=== PATIENT | female | born 1970 | race Caucasian/White ===

== ENCOUNTER → 2020-05-22 08:54 | Outpatient (BNVA) | payer OTHER, SELFPAY | PROVIDERS: PCP Internal Medicine; Referring Provider Internal Medicine; Visit Provider Hospitalist | DX: J45.909 Unspecified asthma, uncomplicated (principal); J40 Bronchitis, not specified as acute or chronic; J31.0 Chronic rhinitis; G47.33 Obstructive sleep apnea (adult) (pediatric); Z79.899 Other long term (current) drug therapy; Z99.89 Dependence on other enabling machines and devices | CPT/HCPCS: 99214; Q3014 ==

== ENCOUNTER → 2020-08-07 10:29 | Outpatient (BNVA) | payer OTHER, SELFPAY | PROVIDERS: Visit Provider Urology | DX: Z76.89 Persons encountering health services in other specified circumstances (principal) ==

== ENCOUNTER → 2020-08-28 14:47 | Outpatient (BNVA) | payer OTHER, SELFPAY | PROVIDERS: PCP Internal Medicine; Visit Provider Hospitalist | DX: Z76.89 Persons encountering health services in other specified circumstances (principal) ==

== ENCOUNTER → 2020-12-28 14:00 | Outpatient (BNVA) | payer OTHER, SELFPAY | PROVIDERS: PCP Internal Medicine; Visit Provider Hospitalist | DX: J31.0 Chronic rhinitis (principal); G47.33 Obstructive sleep apnea (adult) (pediatric); Z99.89 Dependence on other enabling machines and devices; J45.41 Moderate persistent asthma with (acute) exacerbation | CPT/HCPCS: 99212 ==

== ENCOUNTER 2021-04-29 10:21 | Emergency (ER) | payer OTHER, SELFPAY ==
--- NOTE | ~2021-04-29 | CT_ITS ---
EXAMINATION: CT angio head neck CLINICAL INFORMATION: Headache. COMPARISON: No relevant prior imaging. TECHNIQUE: Research Analyst images were obtained. A CT angiogram of the head and neck was performed in the arterial phase after the intravenous administration of 70 mL Omnipaque 350. Pre and delayed postcontrast images of the head were also obtained. MIP reconstructions were generated in multiple orientations at the acquisition workstation. Multiple three-dimensional surface rendered images and maximum intensity projection images were generated on a dedicated 3-D lab workstation. Arterial stenoses are measured in accordance with NASCET criteria or similar method if applicable. This CT examination was performed using dose optimization techniques as appropriate, including one or more of the following: Automated exposure control, iterative reconstruction, and adjustment of technique factors (mA and/or kVp) according to patient size (this includes techniques or standardized protocols for targeted exams where dose is matched to indication/reason for exam). Total exam dose-length product 2342 mGy-cm FINDINGS: Head: There is no acute intracranial hemorrhage or abnormal extra-axial collection. Postcontrast images reveal no abnormal mass or enhancement within the intracranial compartment. No intracranial mass effect or midline shift. Lateral and third ventricles are normal. No hydrocephalus. Armijo-white matter differentiation is preserved and there is no evidence of acute territorial infarct. The calvarium and skull base are intact. Mastoid air cells and middle ear cavities are well-aerated. No active paranasal sinus disease. CT angiogram neck: The aortic arch apex is normal. Origins of the major aortic branches are widely patent. Common carotid arteries and carotid bifurcations are normal. No stenosis of the extracranial internal carotid arteries. The cervical segments of the vertebral arteries as well as their origins are patent. CT angiogram head: Intracranial internal carotid arteries are patent. There is an inferomedially projecting contour abnormality involving the supraclinoid segment of the left internal carotid artery measuring 2 mm from base apex. This finding is best depicted on axial image 356 of 1101 series 10. Intradural vertebral artery segments and basilar artery are patent. Anterior, middle, and posterior cerebral artery complexes are normal. No intracranial large vessel occlusion. The timing of contrast injection provides adequate opacification of the dural venous sinuses which are patent. Other: Soft tissues of the neck including the thyroid gland are normal. There is no acute osseous finding. Specifically no worrisome lytic or blastic osseous lesion. 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 CT/CT angio head neck IMPRESSION: There is no acute territorial infarct or hemorrhage. No abnormal intracranial mass or enhancement. The CT angiogram component of this examination reveals no stenosis of the cervical carotid or vertebral arteries. No intracranial large vessel occlusion. Incidentally there is a 2 mm inferomedially projecting contour and moderate involving the supraclinoid segment of the left internal carotid artery that may represent a small vascular infundibulum or aneurysm. 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 If there are clinical symptoms of compressive myelopathy then a dedicated cervical spine MRI can be obtained for better anatomic characterization of the cord and canal.
[2021-04-29 11:26] VITALS: BP 141/93; PULSE 70; RESP 16; TEMP 36.1; O2SAT 98; BMI 44.4
--- NOTE | 2021-04-29 11:37 | ED_ITS ---
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 Mode of arrival: ambulatory Limitations: no limitations Related Data Home Medications Medication Instructions Recorded Confirmed cetirizine 10 mg tablet mg PO 05/16/20 12/28/20 clonazepam 0.5 mg tablet 0.5 mg PO TID PRN 05/16/20 12/28/20 epinephrine 0.3 mg/0.3 mL IM 05/16/20 12/28/20 injection, auto-injector famotidine 10 mg tablet 10 mg PO BID 05/16/20 12/28/20 ferrous sulfate 325 mg (65 mg 325 mg PO DAILY 05/16/20 12/28/20 iron) tablet,delayed release fluconazole 150 mg tablet 150 mg PO ONCE 05/16/20 12/28/20 fluoxetine 20 mg capsule mg PO 05/16/20 12/28/20 loratadine 10 mg tablet 10 mg PO DAILY 05/16/20 12/28/20 metoprolol succinate 25 mg 25 mg PO DAILY 05/16/20 12/28/20 tablet,extended release 24 hr omeprazole 20 mg capsule,delayed 20 mg PO DAILY 05/16/20 12/28/20 release oxybutynin chloride 15 mg 15 mg PO DAILY 05/16/20 12/28/20 tablet,extended release 24 hr zolpidem 10 mg tablet 10 mg PO BEDTIME PRN 05/16/20 12/28/20 Previous Rx's Medication Instructions Recorded fluticasone propionate 50 2 spray INTRANASAL DAILY 30 Days 05/22/20 mcg/actuation nasal #15.8 ml spray,suspension oxybutynin chloride 10 mg 10 mg PO DAILY 90 Days #90 tab 08/07/20 tablet,extended release 24 hr azithromycin 500 mg tablet 500 mg PO DAILY 3 Days #3 tab 08/28/20 prednisone 20 mg tablet 20 mg PO DAILY 10 Days #15 tab 08/28/20 montelukast 10 mg tablet 10 mg PO DAILY #30 tab 12/03/20 fluticasone fur. 200 mcg-umeclid 1 inh INHALATION DAILY 30 Days #60 12/28/20 62.5 mcg-vilant 25 mcg ea inhalat.powder (Trelegy Ellipta) budesonide 0.5 mg/2 mL suspension 0.5 mg INHALATION BID 30 Days #120 02/16/21 for nebulization ml Allergies Allergy/AdvReac Type Severity Reaction Status Date / Time acetaminophen [Percocet] Allergy Severe palpitations/shortness Verified 12/28/20 14:26 of breath Benadryl Allergy Severe palpitation Verified 12/28/20 14:26 s hydroxyzine [From VISTARIL] Allergy Severe PALPATATION Verified 12/28/20 14:26 oxycodone [From PERCOCET] Allergy Severe PALPIATIONS Verified 12/28/20 14:26 tramadol [TRAMADOL] Allergy Severe UNKNOWN, Verified 12/28/20 14:26 swelling/hives [facility] Past Medical History Medical History (Updated 08/30/20 @ 23:54 by Jose F Mccallum MD) Asthma Chronic rhinitis MANJULA on CPAP Surgical History delivery delivered History of bilateral tubal ligation History of dilatation and curettage Family History Family History Mother FHx: uterine cancer FHx: brain cancer Father FHx: lung cancer Social History Social History (Updated 08/28/20 @ 14:51 by YAMILE Laws) Years Smoked: 12 years Advance Directives: Yes Advance Directives Information Provided: Yes Advance Directives on File: No Physical Exam Vital Signs: Vital Signs: Last Vital Signs Temp 97 F 04/29/21 11:26 Pulse 70 04/29/21 11:26 Resp 16 04/29/21 11:26 BP 141/93 H 04/29/21 11:26 Pulse Ox 98 04/29/21 11:26 Body Mass Index 44.4 Discharge Plan Discharge Prescriptions: No Action montelukast 10 mg tablet 10 mg PO DAILY Qty: 30 RF: 10 budesonide 0.5 mg/2 mL suspension for nebulization 0.5 mg inhalation BID 30 Days Qty: 120 RF: 11 prednisone 20 mg tablet 20 mg PO DAILY 10 Days Qty: 15 RF: 0 azithromycin 500 mg tablet 500 mg PO DAILY 3 Days Qty: 3 RF: 0 epinephrine 0.3 mg/0.3 mL auto-injector IM RF: 0 cetirizine 10 mg tablet PO RF: 0 fluconazole 150 mg tablet 150 mg PO ONCE RF: 0 loratadine 10 mg tablet 10 mg PO DAILY RF: 0 fluoxetine 20 mg capsule PO RF: 0 ferrous sulfate 325 mg (65 mg iron) tablet,delayed release (DR/EC) 325 mg PO DAILY RF: 0 metoprolol succinate 25 mg tablet extended release 24 hr 25 mg PO DAILY RF: 0 omeprazole 20 mg capsule,delayed release(DR/EC) 20 mg PO DAILY RF: 0 clonazepam 0.5 mg tablet 0.5 mg PO TID PRNRF: 0 famotidine 10 mg tablet 10 mg PO BID RF: 0 oxybutynin chloride 15 mg tablet extended release 24hr 15 mg PO DAILY RF: 0 zolpidem 10 mg tablet 10 mg PO BEDTIME PRNRF: 0 fluticasone propionate 50 mcg/actuation spray,suspension 2 spray intranasal DAILY 30 Days Qty: 15.8 RF: 11 oxybutynin chloride 10 mg tablet extended release 24hr 10 mg PO DAILY 90 Days Qty: 90 RF: 3 Trelegy Ellipta 200-62.5-25 mcg blister with device 1 inh inhalation DAILY 30 Days Qty: 60 RF: 12
--- NOTE | 2021-04-29 11:57 | ED_ITS ---
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 Mode of arrival: ambulatory Limitations: no limitations History of Present Illness HPI Narrative: 50 yo female with MANJULA< bronchitis no AC therapy comes in with 2 days of headache that has improved but then this AM she noted some bleeding from her L ear and nose no bouts of this in past, denies any trauma MD elicited complaint: headache and other (bleeding from L ear) Onset (ago): day(s) (2 days for headache but bleeding upon waking this AM) Onset description: gradually Location: frontal Severity: moderate Quality & Timing: aching Exacerbating factors: none Relieving factors: nothing Context: occurred at rest Associated symptoms: other (noted atraumatic bleeding from her nose and L ear today ) Treatments prior to arrival: none Related Data Home Medications Medication Instructions Recorded Confirmed cetirizine 10 mg tablet mg PO 05/16/20 12/28/20 clonazepam 0.5 mg tablet 0.5 mg PO TID PRN 05/16/20 12/28/20 epinephrine 0.3 mg/0.3 mL IM 05/16/20 12/28/20 injection, auto-injector famotidine 10 mg tablet 10 mg PO BID 05/16/20 12/28/20 ferrous sulfate 325 mg (65 mg 325 mg PO DAILY 05/16/20 12/28/20 iron) tablet,delayed release fluconazole 150 mg tablet 150 mg PO ONCE 05/16/20 12/28/20 fluoxetine 20 mg capsule mg PO 05/16/20 12/28/20 loratadine 10 mg tablet 10 mg PO DAILY 05/16/20 12/28/20 metoprolol succinate 25 mg 25 mg PO DAILY 05/16/20 12/28/20 tablet,extended release 24 hr omeprazole 20 mg capsule,delayed 20 mg PO DAILY 05/16/20 12/28/20 release oxybutynin chloride 15 mg 15 mg PO DAILY 05/16/20 12/28/20 tablet,extended release 24 hr zolpidem 10 mg tablet 10 mg PO BEDTIME PRN 05/16/20 12/28/20 Previous Rx's Medication Instructions Recorded fluticasone propionate 50 2 spray INTRANASAL DAILY 30 Days 05/22/20 mcg/actuation nasal #15.8 ml spray,suspension oxybutynin chloride 10 mg 10 mg PO DAILY 90 Days #90 tab 08/07/20 tablet,extended release 24 hr azithromycin 500 mg tablet 500 mg PO DAILY 3 Days #3 tab 08/28/20 prednisone 20 mg tablet 20 mg PO DAILY 10 Days #15 tab 08/28/20 montelukast 10 mg tablet 10 mg PO DAILY #30 tab 12/03/20 fluticasone fur. 200 mcg-umeclid 1 inh INHALATION DAILY 30 Days #60 12/28/20 62.5 mcg-vilant 25 mcg ea inhalat.powder (Trelegy Ellipta) budesonide 0.5 mg/2 mL suspension 0.5 mg INHALATION BID 30 Days #120 02/16/21 for nebulization ml [id number]-sfsuhwjnoiwoq-rslsuvmb 1 tab PO Q6H PRN #20 tab 04/29/21 50 mg-325 mg-40 mg tablet ofloxacin 0.3 % ear drops 10 drp OTIC (EARS) DAILY 7 Days #5 04/29/21 ml ondansetron 4 mg disintegrating 4 mg PO Q8H PRN #20 tab 04/29/21 tablet Allergies Allergy/AdvReac Type Severity Reaction Status Date / Time acetaminophen [Percocet] Allergy Severe palpitations/shortness Verified 12/28/20 14:26 of breath Benadryl Allergy Severe palpitation Verified 12/28/20 14:26 s hydroxyzine [From VISTARIL] Allergy Severe PALPATATION Verified 12/28/20 14:26 oxycodone [From PERCOCET] Allergy Severe PALPIATIONS Verified 12/28/20 14:26 tramadol [TRAMADOL] Allergy Severe UNKNOWN, Verified 12/28/20 14:26 swelling/hives Review of Systems Review of Systems: Constitutional : No Fever, No Chills, No Fatigue ENT/Mouth : No sore throat, No Rhinorrhea, pos bleeding from ear and nose Eyes: No Eye Pain, No Swelling, No Redness, Cardiovascular : No Chest Pain, No SOB, No Dyspnea on Exertion Respiratory : No Cough, No Sputum Gastrointestinal : No Nausea, No Vomiting, No Diarrhea, No abdominal Pain Genitourinary : No Dysuria, No Urinary Frequency, No Hematuria, Musculoskeletal : No joint pain, No Myalgias, No Joint Swelling Skin : No Skin Lesions, No rash Neuro : No Weakness, No Numbness, No Dizziness, positive Headache Psych : No Anxiety/Panic, No Depression Heme/Lymph: No Bruising, No Bleeding,No Lymphadenopathy Endocrine : No Polyuria, No Polydipsia All other systems reviewed and are negative [facility] Past Medical History Attestation statement: The following information was validated with the patient. Medical History Asthma Chronic rhinitis MANJULA on CPAP Surgical History delivery delivered History of bilateral tubal ligation History of dilatation and curettage Family History Family History Mother FHx: uterine cancer FHx: brain cancer Father FHx: lung cancer Social History Social History Years Smoked: 12 years Advance Directives: Yes Advance Directives Information Provided: Yes Advance Directives on File: No Physical Exam Vital Signs: Vital Signs: Last Vital Signs Temp 97 F 04/29/21 11:26 Pulse 70 04/29/21 11:26 Resp 16 04/29/21 11:26 BP 141/93 H 04/29/21 11:26 Pulse Ox 98 04/29/21 11:26 Body Mass Index 44.4 Appearance: Alert. Oriented X3. No acute distress. Eyes: Pupils equal, round and reactive to light. ENT: Pharynx normal. no blood in nose or mouth, no active bleeding but an abrasion and area of blood in L ear canal noted I do not see perforation or hemotypanum Neck: Normal inspection. Neck supple. CVS: Normal heart rate and rhythm. Pulses normal. Respiratory: No respiratory distress. Breath sounds normal. Abdomen: Soft and nontender. Skin: Skin warm and dry. Normal skin color. Normal skin turgor. Extremities: No lower extremity edema. No calf ttp Neuro: Oriented X 3. No motor deficit. No sensory deficit. Course Course Course Narrative: CTA not associated with symptoms no further bleeding, needs repeat CT scan in 1 year, no further bleeding MDM - Headache MDM Narrative Medical decision making narrative: 50 yo female not on AC therapy comes in with c/o headache and stigmata like symptoms - her L ear canal does have blood but I do not think it comes from the inner ear - given her constellation of headaches and bleeding will obtain CTA for aneurysm, dispo per results and findings. Lab Data Result diagrams: 04/29/21 12:12 04/29/21 12:12 Labs: Lab Results 04/29/21 04/29/21 04/29/21 Range/Units 12:12 12:12 12:12 WBC 3.4 L (4.8-10.8) X10*3/uL RBC 3.71 L (4.20-5.50) X10*6/uL Hgb 10.6 L (12.0-16.0) g/dl Hct 32.2 L (37-47) % MCV 86.8 (80-98) fL MCH 28.6 (27.0-33.0) pg MCHC 32.9 (31.0-35.0) g/dl RDW 13.4 (11.0-16.0) % Plt Count 251 (160-400) X10*3/uL MPV 9.1 L (9.4-12.3) fL Immature Gran % (Auto) 0.3 (0.0-0.4) % Neut % (Auto) 48.2 (45-73) % Lymph % (Auto) 36.9 (20-40) % Wright % (Auto) 10.8 (2-11) % Eos % (Auto) 2.9 (0-4) % Baso % (Auto) 0.9 (0-2) % Lymph # (Auto) 1.3 (1.2-4.9) X10*3/uL Wright # (Auto) 0.4 (0.1-1.2) X10*3/uL Eos # (Auto) 0.1 (0.0-0.4) X10*3/uL Baso # (Auto) 0.0 (0.0-0.2) X10*3/uL Abs Immat Gran (auto) 0.01 (0.00-0.03) X10*3/uL Absolute Neuts (auto) 1.7 L (2.0-8.3) X10*3/uL Absolute Nucleated RBC 0.000 (0.0-0.012) X10*3/uL Nucleated RBC % (auto) 0.0 (0.0-0.2) /100WBC PT 11.4 (9.9-13.0) SEC INR 1.0 (0.9-1.1) APTT 31.7 (24.1-38.0) SEC Sodium 138 (135-145) mmol/L Potassium 4.3 (3.3-5.1) mmol/L Chloride 107 (96-108) mmol/L Carbon Dioxide 24 (22-29) mmol/L Anion Gap 11 L (12-20) BUN 15 (9-16) mg/dL Creatinine 0.60 (0.5-1.4) mg/dL Estim Creat Clear Calc 126.2 Estimated GFR > 60 Random Glucose 123 H (60-115) mg/dL Calcium 9.2 (8.4-10.2) mg/dL Discharge Plan Discharge Clinical Impression: Otitis externa, Aneurysm, cerebral Patient Disposition: Home, Self-Care Instructions: Otitis Externa (ED), Nonruptured Cerebral Aneurysm (DC) Additional Instructions: return to ED for any worsening symptoms or concerns Prescriptions: New ofloxacin 0.3 % drops 10 drp otic (ears) DAILY 7 Days Qty: 5 RF: 0 [id number]-aalhgjbnctcpj-iiiw 50-325-40 mg tablet 1 tab PO Q6H PRN (Reason: pain) Qty: 20 RF: 0 ondansetron 4 mg tablet,disintegrating 4 mg PO Q8H PRN (Reason: nausea and vomiting) Qty: 20 RF: 0 No Action montelukast 10 mg tablet 10 mg PO DAILY Qty: 30 RF: 10 budesonide 0.5 mg/2 mL suspension for nebulization 0.5 mg inhalation BID 30 Days Qty: 120 RF: 11 prednisone 20 mg tablet 20 mg PO DAILY 10 Days Qty: 15 RF: 0 azithromycin 500 mg tablet 500 mg PO DAILY 3 Days Qty: 3 RF: 0 epinephrine 0.3 mg/0.3 mL auto-injector IM RF: 0 cetirizine 10 mg tablet PO RF: 0 fluconazole 150 mg tablet 150 mg PO ONCE RF: 0 loratadine 10 mg tablet 10 mg PO DAILY RF: 0 fluoxetine 20 mg capsule PO RF: 0 ferrous sulfate 325 mg (65 mg iron) tablet,delayed release (DR/EC) 325 mg PO DAILY RF: 0 metoprolol succinate 25 mg tablet extended release 24 hr 25 mg PO DAILY RF: 0 omeprazole 20 mg capsule,delayed release(DR/EC) 20 mg PO DAILY RF: 0 clonazepam 0.5 mg tablet 0.5 mg PO TID PRNRF: 0 famotidine 10 mg tablet 10 mg PO BID RF: 0 oxybutynin chloride 15 mg tablet extended release 24hr 15 mg PO DAILY RF: 0 zolpidem 10 mg tablet 10 mg PO BEDTIME PRNRF: 0 fluticasone propionate 50 mcg/actuation spray,suspension 2 spray intranasal DAILY 30 Days Qty: 15.8 RF: 11 oxybutynin chloride 10 mg tablet extended release 24hr 10 mg PO DAILY 90 Days Qty: 90 RF: 3 Trelegy Ellipta 200-62.5-25 mcg blister with device 1 inh inhalation DAILY 30 Days Qty: 60 RF: 12 Referrals: Pam Vera MD [Primary Care Provider] - 2 days ([address] scan of head/brain 2mm aneurysm) Stand Alone Forms: Work/School Release Print Language: Turkmen
[2021-04-29 12:20] LABS: Basophils Percent Auto 0.9 % (0-2); Eosinophils Absolute Auto 0.1 X10*3/uL (0.0-0.4); Eosinophils Percent Auto 2.9 % (0-4); Hematocrit 32.2 % (37-47); Hemoglobin 10.6 g/dl (12.0-16.0); Imm Gran Abs Auto 0.01 X10*3/uL (0.00-0.03); Imm Gran Pct Auto 0.3 % (0.0-0.4); Lymphocytes Absolute Auto 1.3 X10*3/uL (1.2-4.9); Lymphocytes Percent Auto 36.9 % (20-40); MANUAL DIFF FLAG NO; Mean Corpuscular HGB Conc 32.9 g/dl (31.0-35.0); Mean Corpuscular Hemoglobin 28.6 pg (27.0-33.0); Mean Corpuscular Volume 86.8 fL (80-98); Mean Platelet Volume 9.1 fL (9.4-12.3); Monocytes Absolute Auto 0.4 X10*3/uL (0.1-1.2); Monocytes Percent Auto 10.8 % (2-11); Neutrophils Absolute Auto 1.7 X10*3/uL (2.0-8.3); Neutrophils Percent Auto 48.2 % (45-73); Platelet Count 251 X10*3/uL (160-400); Red Blood Count 3.71 X10*6/uL (4.20-5.50); Red Cell Distribution Width 13.4 % (11.0-16.0); White Blood Count 3.4 X10*3/uL (4.8-10.8)
[2021-04-29 12:29] LABS: Prothrombin Time 11.4 SEC (9.9-13.0)
[2021-04-29 12:32] LABS: Anion Gap 11 (12-20); Blood Urea Nitrogen 15 mg/dL (9-16); Calcium 9.2 mg/dL (8.4-10.2); Carbon Dioxide 24 mmol/L (22-29); Chloride 107 mmol/L (96-108); Creatinine Clr Calc Pharmacy 126.2; Estimated Glomerular Filt Rate > 60; Glucose Random 123 mg/dL (60-115); Partial Thromboplastin Time 31.7 SEC (24.1-38.0); Potassium 4.3 mmol/L (3.3-5.1); Sodium 138 mmol/L (135-145)
[2021-04-29 14:00] VITALS: BP 140/84; PULSE 70; RESP 16; TEMP 36.1; O2SAT 98
[2021-04-29] MEDS: iohexoL 350 MG/ML 100 ML INFUS..BTL IV (14:22)
== END 2021-04-29 16:19 | disposition home or self-care (01) ==
PROVIDERS: Emergency Provider Emergency Medicine; PCP Internal Medicine
DX: H60.92 Unspecified otitis externa, left ear (principal); I67.1 Cerebral aneurysm, nonruptured
CPT/HCPCS: 36415; 70496; 70498; 80048; 85025; 85610; 85730; 96374; 99284; Q9967

== ENCOUNTER → 2021-04-30 12:41 | Outpatient (BNVA) | payer OTHER, SELFPAY | PROVIDERS: PCP Internal Medicine; Visit Provider Hospitalist | DX: J31.0 Chronic rhinitis (principal); J45.41 Moderate persistent asthma with (acute) exacerbation; G47.33 Obstructive sleep apnea (adult) (pediatric); R06.00 Dyspnea, unspecified; R60.0 Localized edema; D64.9 Anemia, unspecified; M48.02 Spinal stenosis, cervical region; Z99.89 Dependence on other enabling machines and devices | CPT/HCPCS: 99212 ==

== ENCOUNTER 2021-05-12 15:18 | Outpatient (REF) | payer OTHER, SELFPAY ==
--- NOTE | ~2021-05-12 | XR_ITS ---
EXAMINATION: XR CHEST CLINICAL INFORMATION: Dyspnea COMPARISON: None TECHNIQUE: 2 views of the chest were obtained. FINDINGS: The cardiac and mediastinal contours are normal. The lungs are clear. There is no pleural effusion or pneumothorax. There are degenerative changes of the spine. XR/XR chest 2V IMPRESSION: No evidence for acute disease in the chest.
== END 2021-05-12 15:19 | disposition home or self-care (01) ==
LOC: HO.XRAY 15:18
PROVIDERS: PCP Internal Medicine; Visit Provider Hospitalist
DX: R06.00 Dyspnea, unspecified (principal)
CPT/HCPCS: 71046

== ENCOUNTER 2021-06-03 08:49 | Outpatient (REF) | payer OTHER, SELFPAY ==
[2021-06-05 14:43] LABS: BV Int Neg Control Negative (Negative); BV Int Pos Control Positive (Positive)
== END 2021-06-03 08:50 | disposition home or self-care (01) ==
LOC: HO.LAB 08:49
PROVIDERS: Visit Provider Advanced Practice Midwife
DX: N76.0 Acute vaginitis (principal); Z20.2 Contact with and (suspected) exposure to infections with a predominantly sexual mode of transmission; B37.3 Candidiasis of vulva and vagina
CPT/HCPCS: 87480; 87510; 87660; 99212

== ENCOUNTER → 2021-07-01 12:56 | Outpatient (BNVA) | payer OTHER, SELFPAY | PROVIDERS: PCP Internal Medicine; Visit Provider Hospitalist | DX: J31.0 Chronic rhinitis (principal); J45.41 Moderate persistent asthma with (acute) exacerbation; G47.33 Obstructive sleep apnea (adult) (pediatric); R06.00 Dyspnea, unspecified; Z99.89 Dependence on other enabling machines and devices | CPT/HCPCS: 90471; 90686; 99212 ==

== ENCOUNTER → 2021-09-01 14:32 | Outpatient (BNVA) | payer OTHER, SELFPAY | PROVIDERS: PCP Internal Medicine; Visit Provider Nurse Practitioner Family | DX: R51.9 Headache, unspecified (principal); I67.1 Cerebral aneurysm, nonruptured; M54.2 Cervicalgia; M48.02 Spinal stenosis, cervical region | CPT/HCPCS: 99202 ==

== ENCOUNTER → 2021-09-09 09:13 | Outpatient (BNVA) | payer OTHER, SELFPAY | PROVIDERS: PCP Internal Medicine; Visit Provider Dietitian, Registered | DX: E66.9 Obesity, unspecified (principal); Z68.41 Body mass index [BMI] 40.0-44.9, adult | CPT/HCPCS: 97802 ==

== ENCOUNTER 2021-09-24 12:43 | Outpatient (REF) | payer OTHER, SELFPAY ==
[2021-09-24 13:37] LABS: MANUAL DIFF FLAG NO
[2021-09-24 14:06] LABS: Basophils Percent Auto 0.4 % (0-2); Eosinophils Absolute Auto 0.1 X10*3/uL (0.0-0.4); Eosinophils Percent Auto 1.8 % (0-4); Hematocrit 38.4 % (37.0-47.0); Imm Gran Abs Auto 0.01 X10*3/uL (0.00-0.03); Imm Gran Pct Auto 0.2 % (0.0-0.4); Lymphocytes Absolute Auto 1.5 X10*3/uL (1.2-4.9); Lymphocytes Percent Auto 30.6 % (20-40); Mean Corpuscular HGB Conc 33.9 g/dl (31.0-35.0); Mean Corpuscular Hemoglobin 30.2 pg (27.0-33.0); Mean Corpuscular Volume 89.1 fL (80.0-98.0); Mean Platelet Volume 9.3 fL (9.4-12.3); Monocytes Absolute Auto 0.4 X10*3/uL (0.1-1.2); Monocytes Percent Auto 8.9 % (2-11); Neutrophils Absolute Auto 2.9 x10*3/uL (2.0-8.3); Neutrophils Percent Auto 58.1 % (45-73); Platelet Count 266 X10*3/uL (160-400); Red Blood Count 4.31 X10*6/uL (4.20-5.50); Red Cell Distribution Width 12.9 % (11.0-16.0); White Blood Count 4.9 X10*3/uL (4.8-10.8)
[2021-09-24 14:23] LABS: Anion Gap 12 (12-20); Blood Urea Nitrogen 15 mg/dL (9-16); Calcium 9.6 mg/dL (8.4-10.2); Carbon Dioxide 27 mmol/L (22-29); Chloride 102 mmol/L (96-108); Estimated Glomerular Filt Rate > 60; Glucose Random 203 mg/dL (60-115); Sodium 137 mmol/L (135-145)
[2021-09-24 14:30] LABS: Troponin-I High Sensitivity < 3.5 ng/L (<3.5-17.0)
[2021-09-24 14:48] LABS: D Dimer High Sensitivity < 150 NG/ML
== END 2021-09-24 12:44 | disposition home or self-care (01) ==
LOC: HO.LAB 12:43
PROVIDERS: PCP Internal Medicine; Visit Provider Hospitalist
DX: J45.41 Moderate persistent asthma with (acute) exacerbation (principal); J01.00 Acute maxillary sinusitis, unspecified; R07.1 Chest pain on breathing; R06.00 Dyspnea, unspecified; G47.33 Obstructive sleep apnea (adult) (pediatric); Z79.899 Other long term (current) drug therapy; Z99.89 Dependence on other enabling machines and devices
CPT/HCPCS: 36415; 80048; 84484; 85025; 85379; 99212

== ENCOUNTER → 2021-10-07 13:32 | Outpatient (BNVA) | payer OTHER, SELFPAY | PROVIDERS: PCP Internal Medicine ==

== ENCOUNTER → 2021-10-21 09:17 | Outpatient (BNVA) | payer OTHER, SELFPAY | PROVIDERS: PCP Internal Medicine; Visit Provider Dietitian, Registered | DX: J45.41 Moderate persistent asthma with (acute) exacerbation (principal); G47.33 Obstructive sleep apnea (adult) (pediatric); R06.00 Dyspnea, unspecified; R07.1 Chest pain on breathing; Z99.89 Dependence on other enabling machines and devices; E66.9 Obesity, unspecified; Z68.41 Body mass index [BMI] 40.0-44.9, adult | CPT/HCPCS: 97803; 99212 ==

== ENCOUNTER 2021-11-16 13:20 | Outpatient (REF) | payer OTHER, SELFPAY ==
[2021-11-16 13:50] LABS: COVID-19 Test Negative (Negative)
== END 2021-11-16 13:21 | disposition home or self-care (01) ==
LOC: HO.LAB 13:20
PROVIDERS: Visit Provider Internal Medicine
DX: Z20.822 Contact with and (suspected) exposure to COVID-19 (principal)
CPT/HCPCS: 87635; C9803

== ENCOUNTER → 2021-12-10 08:26 | Outpatient (BNVA) | payer OTHER, SELFPAY | PROVIDERS: PCP Internal Medicine; Visit Provider Nurse Practitioner Family | DX: M54.2 Cervicalgia (principal); M48.02 Spinal stenosis, cervical region; I67.1 Cerebral aneurysm, nonruptured | CPT/HCPCS: 99212 ==

== ENCOUNTER → 2021-12-30 14:06 | Outpatient (BNVA) | payer OTHER, SELFPAY | PROVIDERS: PCP Internal Medicine; Visit Provider Hospitalist | DX: J45.41 Moderate persistent asthma with (acute) exacerbation (principal); G47.33 Obstructive sleep apnea (adult) (pediatric); R06.00 Dyspnea, unspecified; Z99.89 Dependence on other enabling machines and devices | CPT/HCPCS: 99212 ==

== ENCOUNTER 2022-01-10 08:46 | Outpatient (REF) | payer OTHER, SELFPAY ==
[2022-01-10 10:25] LABS: COVID-19 Test Positive (Negative); IDNOW Serial# 55D5AD1C
== END 2022-01-10 08:47 | disposition home or self-care (01) ==
LOC: HO.LAB 08:46
PROVIDERS: Visit Provider Internal Medicine
DX: Z20.822 Contact with and (suspected) exposure to COVID-19 (principal)
CPT/HCPCS: 87635; C9803

== ENCOUNTER 2022-01-20 09:52 | Outpatient (REF) | payer OTHER, SELFPAY ==
--- NOTE | 2022-01-20 14:54 | PFT_ITS ---
Forced vital capacity 61, FEV1 65. FEV1/FVC ratio is 86. [id number] 81% and MVV 42%. There was no response to bronchodilator therapy. Total lung capacity 73%. Residual volume 83%. Diffusion capacity 88%. CONCLUSION: [id number] degree of restrictive pulmonary disorder. There is no obstructive airway disorder and no response to bronchodilator therapy. MD BESSIE Tripp/MODL / [id number]
== END 2022-01-20 09:53 | disposition home or self-care (01) ==
LOC: HO.RESP 09:52
PROVIDERS: PCP Internal Medicine; Visit Provider Hospitalist
DX: J45.41 Moderate persistent asthma with (acute) exacerbation (principal); R06.00 Dyspnea, unspecified
CPT/HCPCS: 94060; 94727; 94729; 99212

== ENCOUNTER → 2022-05-19 14:24 | Outpatient (BNVA) | payer OTHER, SELFPAY | PROVIDERS: PCP Internal Medicine; Visit Provider Nurse Practitioner Family | DX: R51.9 Headache, unspecified (principal); M48.02 Spinal stenosis, cervical region; I67.1 Cerebral aneurysm, nonruptured | CPT/HCPCS: 99212 ==

== ENCOUNTER 2022-06-02 09:09 | Emergency (ER) | payer OTHER, SELFPAY ==
--- NOTE | ~2022-06-02 | US_ITS ---
EXAMINATION: US VENOUS ULTRASOUND WITH DOPPLER LOWER EXTREMITY, LEFT CLINICAL INFORMATION: Pain and swelling COMPARISON: None TECHNIQUE: Ultrasound of the deep veins is performed from the hip to the calf with compression sonography and color and pulse Doppler assessment. Spectral analysis with color-flow imaging is performed. FINDINGS: There is normal venous compression and respiratory variation and augmented flow. The visualized common femoral vein, superficial femoral vein, profunda femoral vein, popliteal vein, and the trifurcation region shows no evidence of deep venous thrombosis. There is no significant popliteal fossa cyst. If the patient's symptoms persist, followup ultrasound in 5 days 7 days might be of value to exclude proximal propagation from a non-visualized calf vein. US/US venous duplex LE LT IMPRESSION: No DVT demonstrated in the left lower extremity.
[2022-06-02 09:26] VITALS: BP 137/64; PULSE 67; RESP 18; TEMP 36.1; O2SAT 99; BMI 43.0
--- NOTE | 2022-06-02 10:36 | ED_ITS ---
HPI - General Adult General Chief complaint: General Medical Stated complaint: pain on L side Time Seen by Provider: 06/02/22 10:06 Source: patient Mode of arrival: ambulatory Limitations: language barrier History of Present Illness HPI narrative: Patient is a 52 year old female with a PMH of osteoarthritis, obesity, chronic restrictive lung disease, aneurysm of left internal carotid artery, MANJULA, Asthma, extremity edema, Varicose veins, s/p cervical surgery 2 months ago presenting for 7/10 left thigh pain. The pain started 1.5 weeks ago. The patient reports point tenderness and purple discoloration to the medial aspect of her thigh just proximal to the knee. Pain worsens when the area is touched and with movement. She also indorses intermittent numbness of the thigh proximal to the point tenderness. Of note patient is on ASA, patient denies any other blood thinners. MD complaint: upper left leg pain Onset (ago): week(s) (1.5) Location: left (thigh ) Radiation: non-radiation Severity: moderate Severity scale (1-10): 7 Quality: aching Pain Consistency: constant Relieving factors: none Exacerbating factors: movement Associated symptoms: denies other symptoms Treatments prior to arrival: none Related Data Home Medications Medication Instructions Recorded Confirmed cetirizine 10 mg tablet mg PO 05/16/20 05/19/22 clonazepam 0.5 mg tablet 0.5 mg PO TID PRN 05/16/20 05/19/22 epinephrine 0.3 mg/0.3 mL IM 05/16/20 05/19/22 injection, auto-injector famotidine 10 mg tablet 10 mg PO BID 05/16/20 05/19/22 ferrous sulfate 325 mg (65 mg 325 mg PO DAILY 05/16/20 05/19/22 iron) tablet,delayed release fluoxetine 20 mg capsule mg PO 05/16/20 05/19/22 loratadine 10 mg tablet 10 mg PO DAILY 05/16/20 05/19/22 metoprolol succinate 25 mg 25 mg PO DAILY 05/16/20 05/19/22 tablet,extended release 24 hr omeprazole 20 mg capsule,delayed 20 mg PO DAILY 05/16/20 05/19/22 release zolpidem 10 mg tablet 10 mg PO BEDTIME PRN 05/16/20 05/19/22 aspirin 81 mg tablet,delayed 81 mg PO DAILY 12/10/21 05/19/22 release (Adult Low Dose Aspirin) Previous Rx's Medication Instructions Recorded njuiqeujby-[id number]-pyjmpled 1 tab PO Q6H PRN pain #20 tabs 04/29/21 50 mg-325 mg-40 mg tablet ondansetron 4 mg disintegrating 4 mg PO Q8H PRN nausea and 04/29/21 tablet vomiting #20 tabs clotrimazole 1 % vaginal cream 1 appful vaginal BEDTIME #45 grams 06/03/21 fluticasone propionate 50 2 spray intranasal DAILY #16 grams 08/16/21 mcg/actuation nasal spray,suspension oxybutynin chloride 10 mg 10 mg PO DAILY 90 days #90 tabs 10/07/21 tablet,extended release 24 hr fluticasone fur. 200 mcg-umeclid 1 inh inhalation DAILY 30 days #60 10/21/21 62.5 mcg-vilant 25 mcg ea inhalat.powder (Trelegy Ellipta) montelukast 10 mg tablet 10 mg PO DAILY #30 tabs 11/09/21 furosemide 20 mg tablet 10 mg PO QAM #15 tabs 12/20/21 azelastine 137 mcg (0.1 %) nasal 2 spray intranasal BID 30 days #30 12/30/21 spray aerosol mL benzonatate 200 mg capsule 200 mg PO BID PRN cough 30 days 01/10/22 #30 caps magnesium oxide 400 mg (241.3 mg 400 mg PO DAILY 30 days #30 tabs 01/11/22 magnesium) tablet benzonatate 200 mg capsule 200 mg PO BID PRN cough 30 days 01/20/22 #60 caps budesonide 0.5 mg/2 mL suspension 0.5 mg (2 mL) inhalation BID 30 01/20/22 for nebulization days #120 mL fluticasone furoate 200 1 inh inhalation DAILY 30 days #60 01/20/22 mcg-vilanterol 25 mcg/dose ea inhalation powder (Breo Ellipta) gabapentin 100 mg capsule 100 - 300 mg PO BEDTIME 30 days 05/19/22 #90 caps Allergies Allergy/AdvReac Type Severity Reaction Status Date / Time acetaminophen [Percocet] Allergy Severe palpitations/shortness Verified 05/19/22 14:39 of breath Benadryl Allergy Severe palpitation Verified 05/19/22 14:39 s hydroxyzine [From VISTARIL] Allergy Severe PALPATATION Verified 05/19/22 14:39 oxycodone [From PERCOCET] Allergy Severe PALPIATIONS Verified 05/19/22 14:39 Review of Systems Review of Systems: Constitutional: No Fever, No Chills ENT/Mouth: No sore throat, No Rhinorrhea, No Swallowing Difficulty Cardiovascular: No Chest Pain, No SOB,+LE Edema (chronic) Respiratory: No Cough, No Sputum, No Wheezing, No dyspnea Gastrointestinal: No Nausea, No Vomiting, No Diarrhea, No abdominal Pain Genitourinary: No Dysuria, No Urinary Frequency Musculoskeletal: + thigh tenderness, No joint pain, No other Myalgias Skin: + purple lesion on left medial thigh. No other Skin Lesions, No rash Neuro: No Weakness, No Numbness, No Dizziness, No Headache, Yes all other systems are reviewed and are negative [facility] [place] Past Medical History Attestation statement: The following information was validated with the patient. Medical History Anemia Asthma Chest pain Chronic restrictive lung disease Chronic rhinitis COVID-19 Dyspnea Dyspnea Extremity edema Obesity MANJULA on CPAP Pre-op chest exam Sinusitis Surgical History delivery delivered History of bilateral tubal ligation History of dilatation and curettage Family History Family History Mother Asthma Hypertension Father FHx: lung cancer Social History Social History Alcohol intake: never Patient Tobacco Use Status: Former Tobacco user Tobacco use type: Cigarette Years Smoked: 12 years Advance Directives: No Advance Directives Information Provided: Yes Physical Exam ED Vital Signs: Vital Signs - 24 hr 06/02/22 09:26 Temperature 97.0 F Pulse Rate 67 Respiratory Rate 18 Blood Pressure 137/64 Pulse Oximetry 99 Oxygen Delivery Method Room Air BMI result Body Mass Index 43.0 Appearance: Alert. Oriented X3. No acute distress. Eyes: Pupils equal, round and reactive to light. ENT: Pharynx normal. Neck: Normal inspection. Neck supple. CVS: Normal heart rate and rhythm. Pulses normal. Respiratory: No respiratory distress. Breath sounds normal. Abdomen: Soft and nontender. +BS x4 Skin: Small tender palpable purple vessel noted on the medial aspect of left thigh approximately 1.5 cm. Skin warm and dry. Normal skin color. Normal skin turgor. No rashes. Extremities: No lower extremity edema. Neuro: Oriented X 3. No motor deficit. No sensory deficit. Able to walk with a steady gait with a walker. Course Course Course Narrative: Patient is a 52 year old female with aPMH of osteoarthritis, obesity, chronic restrictive lung disease, aneurysm of left internal carotid artery, MANJULA, Asthma, extremity edema, Varicose veins, s/p cervical surgery 2 months ago presenting for 7/10 left thigh pain. Physical exam revealed a small tender palpable purple vessel approximately 1.5 cm on the medial aspect of left thigh just proximal to the knee - consistent with superficial thrombophlebitis. Patient had point tenderness, though had no weakness, or palpable cord, and had equal and intact sensation. Plan: - Ultrasound to rule out DVT - Expected d/c home with pain management Reevaluation(s) Reevaluation #1: US negative for DVT. most likely superficial thrombophlebitis. stable for d/c with NSAID, warm compresses, elevation and compression. will welfare administrator referral to vascular. stable for d/c. plan discussed using nurse staff community health. Discharge Plan Discharge Clinical Impression: Superficial thrombophlebitis Patient Disposition: Home, Self-Care Instructions: Superficial Thrombophlebitis (ED), Peripheral Vascular Disease (ED) Additional Instructions: Your ultrasound today was normal. Your pain is most likelky due to inflammed vein. Treatment is NSAIDs like Motrin, Aleve or ibuprofen. Elevate your leg when possible. Use warm compresses several times per day. Recommend following up with Vascular Specialist - name and number below. Jacome ecograf?a de hoy fue normal. Lo m?s probable es que jacome dolor se deba a patricia vena inflamada. El tratamiento son NINFA kayode Motrin, Aleve o ibuprofeno. Eleve la pierna cuando sea posible. Use compresas tibias varias veces al d?a. Se recomienda hacer un seguimiento con un especialista vascular: nombre y n?dane a continuaci?n. Prescriptions: No Action fluticasone propionate 50 mcg/actuation spray,suspension 2 spray intranasal DAILY Qty: 16 10RF montelukast 10 mg tablet 10 mg PO DAILY Qty: 30 10RF furosemide 20 mg tablet 10 mg PO QAM Qty: 15 0RF benzonatate 200 mg capsule 200 mg PO BID PRN (Reason: cough) 30 Days Qty: 30 0RF magnesium oxide 400 mg (241.3 mg magnesium) tablet 400 mg PO DAILY 30 Days Qty: 30 6RF Breo Ellipta 200-25 mcg/dose blister with device 1 inh inhalation DAILY 30 Days Qty: 60 11RF moyodzqyyk-jhgrtirllvgzc-lxkq 50-325-40 mg tablet 1 tab PO Q6H PRN (Reason: pain) Qty: 20 0RF ondansetron 4 mg tablet,disintegrating 4 mg PO Q8H PRN (Reason: nausea and vomiting) Qty: 20 0RF epinephrine 0.3 mg/0.3 mL auto-injector IM cetirizine 10 mg tablet PO loratadine 10 mg tablet 10 mg PO DAILY fluoxetine 20 mg capsule PO ferrous sulfate 325 mg (65 mg iron) tablet,delayed release (DR/EC) 325 mg PO DAILY metoprolol succinate 25 mg tablet extended release 24 hr 25 mg PO DAILY omeprazole 20 mg capsule,delayed release(DR/EC) 20 mg PO DAILY clonazepam 0.5 mg tablet 0.5 mg PO TID PRN famotidine 10 mg tablet 10 mg PO BID zolpidem 10 mg tablet 10 mg PO BEDTIME PRN oxybutynin chloride 10 mg tablet extended release 24hr 10 mg PO DAILY 90 Days Qty: 90 3RF Trelegy Ellipta 200-62.5-25 mcg blister with device 1 inh inhalation DAILY 30 Days Qty: 60 12RF clotrimazole 1 % cream 1 appful vaginal BEDTIME Qty: 45 3RF azelastine 137 mcg (0.1 %) aerosol,spray 2 spray intranasal BID 30 Days Qty: 30 6RF Rx Instructions: administer into each nostril benzonatate 200 mg capsule 200 mg PO BID PRN (Reason: cough) 30 Days Qty: 60 3RF budesonide 0.5 mg/2 mL suspension for nebulization 0.5 mg inhalation BID 30 Days Qty: 120 2RF aspirin [Adult Low Dose Aspirin] 81 mg tablet,delayed release (DR/EC) 81 mg PO DAILY gabapentin 100 mg capsule 100 - 300 mg PO BEDTIME 30 Days Qty: 90 3RF Referrals: [facility] [place] [facility] [Provider Group] Interventions: ED Discharge Assessment Last Done: 06/02/22 12:05 Discharge Date/Time: 06/02/22 12:06 Print Language: Nepali
== END 2022-06-02 12:06 | disposition home or self-care (01) ==
PROVIDERS: Emergency Provider Student in an Organized Health Care Education/Training Program
DX: I80.02 Phlebitis and thrombophlebitis of superficial vessels of left lower extremity (principal); M79.605 Pain in left leg; E66.9 Obesity, unspecified; Z68.41 Body mass index [BMI] 40.0-44.9, adult; Z87.891 Personal history of nicotine dependence
CPT/HCPCS: 93971; 99283; 99284

== ENCOUNTER → 2022-06-16 14:06 | Outpatient (BNVA) | payer OTHER, SELFPAY | PROVIDERS: PCP Internal Medicine; Visit Provider Surgery Vascular Surgery | DX: I83.11 Varicose veins of right lower extremity with inflammation (principal) | CPT/HCPCS: 99202 ==

== ENCOUNTER → 2022-07-07 13:22 | Outpatient (BNVA) | payer OTHER, SELFPAY | PROVIDERS: PCP Internal Medicine; Visit Provider Hospitalist | DX: Z23 Encounter for immunization (principal); J45.41 Moderate persistent asthma with (acute) exacerbation; J98.4 Other disorders of lung; R06.00 Dyspnea, unspecified; G47.33 Obstructive sleep apnea (adult) (pediatric); R60.0 Localized edema; Z99.89 Dependence on other enabling machines and devices | CPT/HCPCS: 90471; 90686; 99212 ==

== ENCOUNTER → 2022-09-19 10:46 | Outpatient (BNVA) | payer OTHER, SELFPAY | PROVIDERS: PCP Internal Medicine; Visit Provider Anesthesiology | DX: M96.1 Postlaminectomy syndrome, not elsewhere classified (principal); M19.011 Primary osteoarthritis, right shoulder; M17.11 Unilateral primary osteoarthritis, right knee; B19.20 Unspecified viral hepatitis C without hepatic coma | CPT/HCPCS: 99202 ==

== ENCOUNTER 2022-09-26 08:16 | Outpatient (REF) | payer OTHER, SELFPAY ==
--- NOTE | ~2022-09-26 | US_ITS ---
EXAMINATION: US VENOUS REFLUX/INSUFFICIENCY CLINICAL INFORMATION: This is a 49 year-old woman with right lower extremity varicosities and inflammation. COMPARISON: Venous ultrasound dated 06/02/2022. TECHNIQUE: Bilateral lower extremity and venous insufficiency ultrasound was performed with velocity measurements. Color flow Doppler imaging was performed. FINDINGS: RIGHT SIDE: GREATER SAPHENOUS VEIN: The right saphenofemoral junction measurement is 0.6 cm. There is no reflux The right proximal thigh measurement is 0.6 cm. There is no reflux. The right mid thigh measurement is 0.6 cm. The reflux time is 3224 ms. The right above-knee measurement is 0.4 cm. There is no reflux. The right at knee measurement is 0.3 cm. There is no reflux. The right below-knee measurement is 0.4 cm. There is no reflux. The right mid calf measurement is 0.2 cm. The reflux time is 3224 ms. The right ankle measurement is 0.3 cm. The reflux time is 2580 ms. LATERAL ACCESSORY GREATER SAPHENOUS VEIN: The right saphenofemoral junction measurement is 0.4 cm. There is no reflux. The right mid thigh measurement is 0.3 cm. There is no reflux. LESSER SAPHENOUS VEIN: The right saphenofemoral junction measurement is 0.3 cm. There is no reflux. The right mid calf measurement is 0.2 cm. There is no reflux. The right distal calf measurement is 0.3 cm. There is no reflux. LEFT SIDE: GREATER SAPHENOUS VEIN: GREATER SAPHENOUS VEIN: The left saphenofemoral junction measurement is 0.7 cm. There is no reflux The left proximal thigh measurement is 0.4 cm. There is no reflux. The left mid thigh measurement is 0.4 cm. There is no reflux. The left above-knee measurement is 0.4 cm. There is no reflux. The left at knee measurement is 0.2 cm. There is no reflux. The left below-knee measurement is 0.4 cm. There is no reflux. The left mid calf measurement is 0.2 cm. The reflux time is 3184 ms. The left ankle measurement is 0.6 cm. There is no reflux. LATERAL ACCESSORY GREATER SAPHENOUS VEIN: The left saphenofemoral junction measurement is 0.4 cm. There is no reflux. The left mid thigh measurement is 0.2 cm. There is no reflux. LESSER SAPHENOUS VEIN: The left saphenofemoral junction measurement is 0.4 cm. There is no reflux. The left mid calf measurement is 0.5 cm. There is no reflux. The left distal calf measurement is 0.5 cm. There is no reflux. DEEP VENOUS SYSTEMS: There is no deep insufficiency in the right common femoral, femoral and popliteal vein segments. No right deep venous thrombosis is seen. There is no deep insufficiency in the left common femoral, femoral and popliteal vein segments. No left deep venous thrombosis is seen. US/US venous duplex LE BI IMPRESSION: 1. There is hemodynamically significant reflux noted of the bilateral greater saphenous veins. 2. No hemodynamically significant reflux is seen of the bilateral lesser saphenous veins or the deep venous systems.
--- NOTE | ~2022-09-26 | XR_ITS ---
EXAMINATION: XR SHOULDER, LEFT XR SHOULDER, RIGHT CLINICAL INFORMATION: Primary osteoarthritis, right shoulder COMPARISON: None TECHNIQUE: 4 views of the left shoulder. 4 views, 5 images of the right shoulder. FINDINGS: Left shoulder: No fracture or dislocation. The glenohumeral joint is well aligned. The joint space is maintained. The acromioclavicular joint is well aligned. Partially visualized cervical fusion hardware. The visualized ribs are intact. The visualized lung is clear. Right shoulder: No fracture or dislocation. The glenohumeral joint is well aligned. The joint space is maintained. The acromioclavicular joint is intact. The visualized lung is clear. The visualized ribs are intact. XR/XR shoulder LT min 2V IMPRESSION: Normal appearance of both shoulders.
--- NOTE | ~2022-09-26 | XR_ITS ---
EXAMINATION: XR SHOULDER, LEFT XR SHOULDER, RIGHT CLINICAL INFORMATION: Primary osteoarthritis, right shoulder COMPARISON: None TECHNIQUE: 4 views of the left shoulder. 4 views, 5 images of the right shoulder. FINDINGS: Left shoulder: No fracture or dislocation. The glenohumeral joint is well aligned. The joint space is maintained. The acromioclavicular joint is well aligned. Partially visualized cervical fusion hardware. The visualized ribs are intact. The visualized lung is clear. Right shoulder: No fracture or dislocation. The glenohumeral joint is well aligned. The joint space is maintained. The acromioclavicular joint is intact. The visualized lung is clear. The visualized ribs are intact. XR/XR shoulder RT min 2V IMPRESSION: Normal appearance of both shoulders.
--- NOTE | ~2022-09-26 | XR_ITS ---
EXAMINATION: XR KNEE, RIGHT CLINICAL INFORMATION: Unilateral primary osteoarthritis of the right knee. COMPARISON: None TECHNIQUE: Three views of the right knee. FINDINGS: No fracture or subluxation. Compartmental joint spaces are maintained. Small tricompartmental marginal osteophytes. No joint effusion. Superficial varicosities noted. XR/XR knee RT 3V IMPRESSION: Mild tricompartmental degenerative changes.
== END 2022-09-26 08:17 | disposition home or self-care (01) ==
LOC: HO.US 08:16
PROVIDERS: PCP Internal Medicine; Visit Provider Surgery Vascular Surgery
DX: I83.893 Varicose veins of bilateral lower extremities with other complications (principal); M19.011 Primary osteoarthritis, right shoulder; M19.012 Primary osteoarthritis, left shoulder; M17.11 Unilateral primary osteoarthritis, right knee
CPT/HCPCS: 73030; 73562; 93970

== ENCOUNTER → 2022-09-28 09:36 | Outpatient (BNVA) | payer OTHER, SELFPAY | PROVIDERS: PCP Internal Medicine; Visit Provider Surgery Vascular Surgery | DX: I83.11 Varicose veins of right lower extremity with inflammation (principal) | CPT/HCPCS: 99212 ==

== ENCOUNTER → 2022-10-11 11:14 | Outpatient (BNVA) | payer OTHER, SELFPAY | PROVIDERS: PCP Internal Medicine; Visit Provider Nurse Practitioner Family | DX: I67.1 Cerebral aneurysm, nonruptured (principal); R51.9 Headache, unspecified; R20.2 Paresthesia of skin; M79.601 Pain in right arm; M79.602 Pain in left arm | CPT/HCPCS: 99212 ==

== ENCOUNTER → 2022-10-19 13:37 | Outpatient (BNVA) | payer OTHER, SELFPAY | PROVIDERS: PCP Internal Medicine; Visit Provider Anesthesiology | DX: M96.1 Postlaminectomy syndrome, not elsewhere classified (principal); M17.11 Unilateral primary osteoarthritis, right knee; B19.20 Unspecified viral hepatitis C without hepatic coma; G89.4 Chronic pain syndrome | CPT/HCPCS: 99212 ==

== ENCOUNTER → 2023-01-02 11:50 | Outpatient (BNVA) | payer OTHER, SELFPAY | PROVIDERS: PCP Internal Medicine; Visit Provider Nurse Practitioner Family | DX: N39.46 Mixed incontinence (principal); R30.0 Dysuria; N32.81 Overactive bladder | CPT/HCPCS: 51798; 99212 ==

== ENCOUNTER → 2023-01-09 14:28 | Outpatient (BNVA) | payer OTHER, SELFPAY | PROVIDERS: PCP Internal Medicine; Visit Provider Hospitalist | DX: J45.41 Moderate persistent asthma with (acute) exacerbation (principal); J98.4 Other disorders of lung; R06.00 Dyspnea, unspecified; R60.0 Localized edema; E66.9 Obesity, unspecified; G47.33 Obstructive sleep apnea (adult) (pediatric); Z87.891 Personal history of nicotine dependence; Z68.41 Body mass index [BMI] 40.0-44.9, adult; Z99.89 Dependence on other enabling machines and devices | CPT/HCPCS: 99212 ==

== ENCOUNTER → 2023-02-08 10:47 | Outpatient (BNVA) | payer OTHER, SELFPAY | PROVIDERS: PCP Internal Medicine; Visit Provider Nurse Practitioner Family | DX: G43.909 Migraine, unspecified, not intractable, without status migrainosus (principal); R20.2 Paresthesia of skin; M79.601 Pain in right arm; M79.602 Pain in left arm; I67.1 Cerebral aneurysm, nonruptured; Z79.899 Other long term (current) drug therapy | CPT/HCPCS: 99212 ==

== ENCOUNTER 2023-03-12 08:04 | Emergency (ER) | payer OTHER, SELFPAY ==
--- NOTE | ~2023-03-12 | CT_ITS ---
EXAMINATION: CT ABDOMEN AND PELVIS WITH CONTRAST CLINICAL INFORMATION: Left flank pain and urinary tract infection. Question pyelonephritis. COMPARISON: Previous CT of the abdomen and pelvis from 2017 TECHNIQUE: Multidetector volumetric images were obtained from the superior aspect of the liver through the pubic symphysis following administration 85 mL of Omnipaque 350 intravenous contrast. Sagittal and coronal reformatted images were obtained on the technologist's workstation. Oral contrast: Yes This CT examination was performed using dose optimization techniques as appropriate, variously including the following: *Automated exposure control *Adjustment of mA and/or kV according to patient size (this includes techniques or standardized protocols for targeted exams where dose is matched to indication/reason for exam; i.e. extremities or head) *Use of iterative reconstruction technique DLP: 909 mGy-cm FINDINGS: LUNG BASES: The visualized lung bases are unremarkable. LIVER, GALLBLADDER, AND BILIARY TREE: The liver is low in attenuation suggestive of fatty infiltration. No focal hepatic lesion or biliary ductal dilatation is present. The gallbladder is unremarkable with no evidence of radiopaque gallstones, gallbladder wall thickening, or obvious pericholecystic inflammatory changes. PANCREAS: Unremarkable. SPLEEN: Unremarkable. ADRENAL GLANDS: Unremarkable. KIDNEYS AND URETERS: The kidneys are normal in size, shape, and attenuation. No hydronephrosis, hydroureter, or calculi seen. No perinephric stranding. BLADDER: Not optimally distended and not well evaluated. GASTROINTESTINAL TRACT: The small and large bowel are unremarkable. The appendix is unremarkable. ABDOMINAL WALL: No significant hernia is appreciated. LYMPH NODES: Normal. VASCULAR: Unremarkable. PELVIC VISCERA: Unremarkable. OSSEOUS STRUCTURES: Degenerative changes of the spine. CT/CT abdomen pelvis w IV con IMPRESSION: Fatty liver. The kidneys are normal appearing. Bladder not optimally distended. Fleischner guidelines were followed.
[2023-03-12 08:14] VITALS: BP 134/69; PULSE 68; RESP 18; TEMP 36.4; O2SAT 98; BMI 43.3
[2023-03-12 08:45] LABS: MANUAL DIFF FLAG NO
[2023-03-12 08:51] LABS: Basophils Percent Auto 1.1 % (0-2); Eosinophils Absolute Auto 0.1 X10*3/uL (0.0-0.4); Eosinophils Percent Auto 2.5 % (0-4); Hematocrit 35.1 % (37.0-47.0); Hemoglobin 12.2 g/dl (12.0-16.0); Imm Gran Abs Auto 0.01 X10*3/uL (0.00-0.03); Imm Gran Pct Auto 0.3 % (0.0-0.4); Lymphocytes Absolute Auto 1.6 X10*3/uL (1.2-4.9); Lymphocytes Percent Auto 45.9 % (20-40); Mean Corpuscular HGB Conc 34.8 g/dl (31.0-35.0); Mean Corpuscular Volume 89.1 fL (80.0-98.0); Mean Platelet Volume 8.8 fL (9.4-12.3); Monocytes Absolute Auto 0.3 X10*3/uL (0.1-1.2); Monocytes Percent Auto 8.5 % (2-11); Neutrophils Absolute Auto 1.5 x10*3/uL (2.0-8.3); Neutrophils Percent Auto 41.7 % (45-73); Platelet Count 238 X10*3/uL (160-400); Red Blood Count 3.94 X10*6/uL (4.20-5.50); Red Cell Distribution Width 12.4 % (11.0-16.0); White Blood Count 3.6 X10*3/uL (4.8-10.8)
[2023-03-12 08:57] LABS: Lipase 20 U/L (8-78)
--- NOTE | 2023-03-12 08:59 | ED_ITS ---
HPI - General Adult General Chief complaint: Abdominal Pain Stated complaint: Left lower abdominal pain Time Seen by Provider: 03/12/23 08:55 Source: patient Mode of arrival: ambulatory Limitations: no limitations History of Present Illness HPI narrative: 52-year-old female with a past medical history of hepatitis-C, aneurysm, obesity, fibromyalgia presents to the emergency room with a chief complaint of left lower quadrant pain radiating to the left flank. Patient reports that the pain began 2 days ago. Patient reports that the pain is worse today. Patient reports taking ibuprofen for the pain but is still very uncomfortable. Patient reports history of kidney stones but is unsure if this is the same thing. Patient believe she has UTI as her urine has a strong odor at the moment.. Patient also complains of new bruises that she does not know where they came from. Patient denies fever, chills, nausea, vomiting, chest pain, shortness of breath, headache, vision changes. 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 Related Data Home Medications Medication Instructions Recorded Confirmed cetirizine 10 mg tablet mg PO 05/16/20 02/08/23 clonazepam 0.5 mg tablet 0.5 mg PO TID PRN 05/16/20 02/08/23 epinephrine 0.3 mg/0.3 mL IM 05/16/20 02/08/23 injection, auto-injector famotidine 10 mg tablet 10 mg PO BID 05/16/20 02/08/23 ferrous sulfate 325 mg (65 mg 325 mg PO DAILY 05/16/20 02/08/23 iron) tablet,delayed release fluoxetine 20 mg capsule mg PO 05/16/20 02/08/23 loratadine 10 mg tablet 10 mg PO DAILY 05/16/20 02/08/23 metoprolol succinate 25 mg 25 mg PO DAILY 05/16/20 02/08/23 tablet,extended release 24 hr omeprazole 20 mg capsule,delayed 20 mg PO DAILY 05/16/20 02/08/23 release zolpidem 10 mg tablet 10 mg PO BEDTIME PRN 05/16/20 02/08/23 aspirin 81 mg tablet,delayed 81 mg PO DAILY 12/10/21 02/08/23 release (Adult Low Dose Aspirin) ergocalciferol (vitamin D2) 1,250 1,250 mcg PO QWEEK 01/02/23 02/08/23 mcg (50,000 unit) capsule Previous Rx's Medication Instructions Recorded dnptwkxsiv-ffotsnnbradac-siloeeik 1 tab PO Q6H PRN pain #20 tabs 04/29/21 50 mg-325 mg-40 mg tablet benzonatate 200 mg capsule 200 mg PO BID PRN cough 30 days 01/20/22 #60 caps fluticasone furoate 200 1 inh inhalation DAILY 30 days #60 01/20/22 mcg-vilanterol 25 mcg/dose ea inhalation powder (Breo Ellipta) furosemide 20 mg tablet (Lasix) 20 mg PO DAILY 30 days #30 tabs 07/07/22 fluticasone propionate 50 2 spray intranasal DAILY #16 ea 08/17/22 mcg/actuation nasal spray,suspension magnesium oxide 400 mg (241.3 mg 400 mg PO DAILY 30 days #30 tabs 09/28/22 magnesium) tablet arm brace #2 ea 10/11/22 gabapentin 100 mg capsule 100 - 300 mg PO BEDTIME 30 days 10/11/22 #90 caps furosemide 20 mg tablet 20 mg PO DAILY #30 tabs 11/07/22 fluticasone fur. 200 mcg-umeclid 1 inh inhalation DAILY 30 days #60 11/21/22 62.5 mcg-vilant 25 mcg ea inhalat.powder (Trelegy Ellipta) montelukast 10 mg tablet 10 mg PO DAILY #30 tabs 11/21/22 azelastine 137 mcg (0.1 %) nasal 2 spray intranasal BID #30 mL 11/24/22 spray aerosol estradiol 0.01% (0.1 mg/gram) 2 g vaginal DAILY 30 days #42.5 01/02/23 vaginal cream grams oxybutynin chloride 10 mg 15 mg PO DAILY 90 days #135 tabs 01/02/23 tablet,extended release 24 hr budesonide 0.5 mg/2 mL suspension 0.5 mg (2 mL) inhalation BID 30 01/09/23 for nebulization days #120 mL amitriptyline 10 mg tablet 20 mg PO BEDTIME 30 days #60 tabs 02/08/23 fluticasone propionate 110 2 puff inhalation BID 30 days #12 03/01/23 mcg/actuation HFA aerosol inhaler grams (Flovent HFA) galcanezumab-gnlm 120 mg/mL 120 mg subcut ONCE 30 days #1 mL 03/07/23 subcutaneous pen injector (Emgality Pen) cefuroxime axetil 250 mg tablet 250 mg PO BID 7 days #14 tabs 03/12/23 ketorolac 10 mg tablet 10 mg PO TID PRN pain 5 days #15 03/12/23 tabs Allergies Allergy/AdvReac Type Severity Reaction Status Date / Time Benadryl Allergy Severe palpitation Verified 03/12/23 08:14 s hydroxyzine [From VISTARIL] Allergy Severe PALPATATION Verified 03/12/23 08:14 oxycodone [From PERCOCET] Allergy Severe PALPIATIONS Verified 03/12/23 08:14 Review of Systems Review of Systems: Constitutional : No Weight loss, No Fever, No Chills, + Fatigue, + Malaise ENT/Mouth : No sore throat, No Rhinorrhea Eyes: No Eye Pain, No Swelling, No Redness Cardiovascular : No Chest Pain, No SOB, No Dyspnea on Exertion, No Orthopnea, No Edema, No Palpitations Respiratory : No Cough, No Sputum, No Wheezing Gastrointestinal : No Nausea, No Vomiting, No Diarrhea, No Constipation, + abdominal Pain, No Hematochezia, No Melena Genitourinary : No Dysuria, + Urinary Frequency, No Hematuria, + Malodorus urine Musculoskeletal : No joint pain, No Myalgias, No Joint Swelling, + flank pain Skin : No Skin Lesions, No rash Neuro : No Weakness, No Numbness, No Dizziness, No Headache Psych : No Anxiety/Panic, No Depression All other systems reviewed and are negative Yes all other systems are reviewed and are negative [facility] Past Medical History Attestation statement: The following information was validated with the patient. Source: old records reviewed and nursing notes reviewed Medical History Anemia Asthma Chest pain Chronic restrictive lung disease Chronic rhinitis Chronic urticaria COVID-19 Dyspnea Dyspnea Extremity edema Obesity MANJULA on CPAP Pre-op chest exam Sinusitis Surgical History delivery delivered History of bilateral tubal ligation History of dilatation and curettage Family History Family History Mother Asthma Hypertension Father FHx: lung cancer Social History Social History Alcohol intake: never Patient Tobacco Use Status: Former Tobacco user Tobacco use type: Cigarette Years Smoked: 12 years Smoked in Last 30 Days: No Use of substances other than those prescribed or required for medical reasons: No Advance Directives: No Advance Directives Information Provided: Yes Physical Exam ED Vital Signs: Vital Signs - 24 hr 03/12/23 08:14 03/12/23 09:55 Temperature 97.6 F 98.0 F Pulse Rate 68 61 Respiratory Rate 18 20 Blood Pressure 134/69 118/49 L Pulse Oximetry 98 96 Oxygen Delivery Method Room Air Room Air BMI result Body Mass Index 43.3 vss Appearance: Alert.? Oriented X3.? No acute distress.? Head: Normocephalic, atraumatic, no step-offs or deformities Eyes: Pupils equal, round and reactive to light.? CVS: Normal heart rate and rhythm.? Pulses normal.? Respiratory: No respiratory distress.? Breath sounds normal.? Abdomen: Soft and nontender.? Skin: Skin warm and dry.? Normal skin color.? Normal skin turgor.? Extremities: No lower extremity edema.? No calf ttp. 5/5 strength to bilateral upper and lower extremities Back: No midline tenderness, no C-spine tenderness, full range of motion, no CVA tenderness bilaterally Neuro: Oriented X 3.? No motor deficit.? No sensory deficit. CN 2-12 intact Course Reevaluation(s) Reevaluation #1: CBC appears to be around patient's baseline. No acute findings. Chemistry pending. Lipase within normal limits. Urine pending. CT abdomen pelvis pending. Time: 09:02 Reevaluation #2: Chemistry unremarkable. BUN was noted to be slightly elevated however likely was secondary to poor p.o. intake. Lipase within normal limits. Beta hCG negative. UA w/ luekocyteesterase and trace bacteria will treat for UTI. CT abdomen and pelvis pending. Patient getting antsy would like result however explained to the multiple times that CT scan is pending and it takes a little while. Pain slightly improved. Time: 11:49 Reevaluation #3: Much more comfortable after toradol. CT abdomen pelvis with fatty liver. The kidneys were normal appearing. Bladder not optimally distended. Will discharge home with p.o. antibiotics for UTI. Educated patient on diagnosis and treatment plan, answered all question, patient verbalizes understanding. At this time patient will be discharged home, advised to return with new or worsening symptoms. Educated on worrisome signs and symptoms and when to return. At this time I feel comfortable discharge home. Patient states she has a urologist and she will call them for follow-up. Time: 13:01 Medications Administered Discontinued Medications Generic Name Dose Route Start Last Admin Trade Name Freleslie PRN Reason Stop Dose Admin Iohexol 85 ml 03/12/23 11:19 03/12/23 11:19 Iohexol 350 Mg/Ml 75 Ml Infus..Btl IV 03/12/23 11:20 85 ml ONCE ONE Administration Ketorolac Tromethamine 30 mg 03/12/23 11:49 03/12/23 12:01 Ketorolac Tromethamine 15 Mg/Ml Vial IVPUSH 03/12/23 11:50 30 mg ONCE ONE Administration Medical Decision Making Medical Decision Making [facility] Narrative: 0900 52 year old female presents w/ LLQ abd pain w/ radiation to l flank pain, foul smelling dark urine for the past few days. PE benign Concerns for UTI, kidney stones or cystitis. Unlikely pylo, acute abdomen, obstructing uropathy, sepsis, diveritculits. No signs of acute abdomen. Plan- labs, urine, imaging Differential Diagnosis Differential Diagnoses: The differential diagnosis associated with the presentation includes Concerns for UTI, kidney stones or cystitis. Unlikely pylo, acute abdomen, obstructing uropathy, sepsis, diveritculits. No signs of acute abdomen. Admission/Observation Consideration of admission/observation: Escalation of care including admission/observation considered Unlikely Lab Data [facility] Lab Attestation statement: I reviewed the patient's lab results. 03/12/23 08:41 03/12/23 08:41 Labs: Lab Results 03/12/23 03/12/23 03/12/23 Range/Units 08:41 08:41 08:41 WBC 3.6 L (4.8-10.8) X10*3/uL RBC 3.94 L (4.20-5.50) X10*6/uL Hgb 12.2 (12.0-16.0) g/dl Hct 35.1 L (37.0-47.0) % MCV 89.1 (80.0-98.0) fL MCH 31.0 (27.0-33.0) pg MCHC 34.8 (31.0-35.0) g/dl RDW 12.4 (11.0-16.0) % Plt Count 238 (160-400) X10*3/uL MPV 8.8 L (9.4-12.3) fL Immature Gran % (Auto) 0.3 (0.0-0.4) % Neut % (Auto) 41.7 L (45-73) % Lymph % (Auto) 45.9 H (20-40) % [place] % (Auto) 8.5 (2-11) % Eos % (Auto) 2.5 (0-4) % Baso % (Auto) 1.1 (0-2) % Lymph # (Auto) 1.6 (1.2-4.9) X10*3/uL [place] # (Auto) 0.3 (0.1-1.2) X10*3/uL Eos # (Auto) 0.1 (0.0-0.4) X10*3/uL Baso # (Auto) 0.0 (0.0-0.2) X10*3/uL Abs Immat Gran (auto) 0.01 (0.00-0.03) X10*3/uL Absolute Neuts (auto) 1.5 L (2.0-8.3) x10*3/uL Absolute Nucleated RBC 0.000 (0.0-0.012) X10*3/uL Nucleated RBC % (auto) 0.0 (0.0-0.2) /100WBC Sodium 139 (135-145) mmol/L Potassium 3.8 (3.3-5.1) mmol/L Chloride 107 (96-108) mmol/L Carbon Dioxide 25 (22-29) mmol/L Anion Gap 11 L (12-20) BUN 17 H (9-16) mg/dL Creatinine 0.64 (0.5-1.4) mg/dL Estim Creat Clear Calc 114.1 Estimated GFR > 60 Random Glucose 171 H (60-115) mg/dL Calcium 9.1 (8.4-10.2) mg/dL Total Bilirubin 0.4 (0.0-1.0) mg/dL AST 20 (5-31) U/L ALT 30 (0-31) U/L Alkaline Phosphatase 78 (39-117) U/L Total Protein 7.4 (6.5-8.0) g/dL Albumin 3.9 (3.5-5.0) g/dL Lipase 20 (8-78) U/L Beta HCG, Quant mIU/mL Urine Color Urine Appearance Urine pH (5.0-9.0) Ur Specific [place] (1.005-1.025) Urine Protein (Neg-Trace) mg/dL Urine Glucose (UA) (Negative) mg/dL Urine Ketones (Negative) mg/dL Urine Blood (Negative) Urine Nitrite (Negative) Ur Leukocyte Esterase (Negative) Urine RBC (0-2) /HPF Urine WBC (0-5) /HPF Ur Squamous Epith Cells (0-2) /HPF Calcium Oxalate Crystal Urine Bacteria (None Seen) Hyaline Casts (0-2) /LPF 03/12/23 03/12/23 Range/Units 09:24 10:18 WBC (4.8-10.8) X10*3/uL RBC (4.20-5.50) X10*6/uL Hgb (12.0-16.0) g/dl Hct (37.0-47.0) % MCV (80.0-98.0) fL MCH (27.0-33.0) pg MCHC (31.0-35.0) g/dl RDW (11.0-16.0) % Plt Count (160-400) X10*3/uL MPV (9.4-12.3) fL Immature Gran % (Auto) (0.0-0.4) % Neut % (Auto) (45-73) % Lymph % (Auto) (20-40) % [place] % (Auto) (2-11) % Eos % (Auto) (0-4) % Baso % (Auto) (0-2) % Lymph # (Auto) (1.2-4.9) X10*3/uL [place] # (Auto) (0.1-1.2) X10*3/uL Eos # (Auto) (0.0-0.4) X10*3/uL Baso # (Auto) (0.0-0.2) X10*3/uL Abs Immat Gran (auto) (0.00-0.03) X10*3/uL Absolute Neuts (auto) (2.0-8.3) x10*3/uL Absolute Nucleated RBC (0.0-0.012) X10*3/uL Nucleated RBC % (auto) (0.0-0.2) /100WBC Sodium (135-145) mmol/L Potassium (3.3-5.1) mmol/L Chloride (96-108) mmol/L Carbon Dioxide (22-29) mmol/L Anion Gap (12-20) BUN (9-16) mg/dL Creatinine (0.5-1.4) mg/dL Estim Creat Clear Calc Estimated GFR Random Glucose (60-115) mg/dL Calcium (8.4-10.2) mg/dL Total Bilirubin (0.0-1.0) mg/dL AST (5-31) U/L ALT (0-31) U/L Alkaline Phosphatase (39-117) U/L Total Protein (6.5-8.0) g/dL Albumin (3.5-5.0) g/dL Lipase (8-78) U/L Beta HCG, Quant < 2 mIU/mL Urine Color Yellow Urine Appearance Clear Urine pH 5.5 (5.0-9.0) Ur Specific [place] >= 1.030 H (1.005-1.025) Urine Protein Negative (Neg-Trace) mg/dL Urine Glucose (UA) Negative (Negative) mg/dL Urine Ketones Negative (Negative) mg/dL Urine Blood Trace H (Negative) Urine Nitrite Negative (Negative) Ur Leukocyte Esterase Small (1+) H (Negative) Urine RBC 0-2 (0-2) /HPF Urine WBC 6-10 H (0-5) /HPF Ur Squamous Epith Cells 6-10 (0-2) /HPF Calcium Oxalate Crystal Present Urine Bacteria Trace (None Seen) Hyaline Casts 0-2 (0-2) /LPF Independent Interpretation I performed an independent interpretation of an: CT Scan Radiology Impression Discussion of test interpretation with radiology: I have reviewed the radiologist's reading. Core Measures AMI core measures followed: Yes Measure exclusions: not indicated Critical Care Time Critical Care Time Critical Care Time: No Discharge Plan Discharge Clinical Impression: Abdominal pain, Left flank pain, UTI (urinary tract infection) Patient Disposition: Home, Self-Care Instructions: Urinary Tract Infection in Women (DC), Abdominal Pain (ED), Flank Pain (ED) Additional Instructions: Take your medications as prescribed. If you were prescribed antibiotics today, it is important that you take your medication to their entirety, do not skip any doses, do not finish them early. Follow-up with your primary care provider this week. Follow up with urology Return to the emergency department with new or worsening symptoms. Such as fevers, chills, chest pain, shortness of breath, nausea, vomiting, dizziness, headache, vision changes, lethargy In case of emergency call 911 Toradol has been sent to your pharmacy, you tolerated this well in the department. Please take this as prescribed do not take this with ibuprofen, or other NSAIDs, do not mix this with alcohol. Side effects of this medication including increased risk for bleeding and possible kidney injury. ?CT/CT abdomen pelvis w IV con IMPRESSION: Fatty liver.? The kidneys are normal appearing. Bladder not optimally distended. ? Fleischner guidelines were followed. Prescriptions: New cefuroxime axetil 250 mg tablet 250 mg PO BID 7 Days Qty: 14 0RF ketorolac 10 mg tablet 10 mg PO TID PRN (Reason: pain) 5 Days Qty: 15 0RF No Action Breo Ellipta 200-25 mcg/dose blister with device 1 inh inhalation DAILY 30 Days Qty: 60 11RF fluticasone propionate 50 mcg/actuation spray,suspension 2 spray intranasal DAILY Qty: 16 9RF magnesium oxide 400 mg (241.3 mg magnesium) tablet 400 mg PO DAILY 30 Days Qty: 30 6RF furosemide 20 mg tablet 20 mg PO DAILY Qty: 30 0RF Trelegy Ellipta 200-62.5-25 mcg blister with device 1 inh inhalation DAILY 30 Days Qty: 60 12RF montelukast 10 mg tablet 10 mg PO DAILY Qty: 30 9RF azelastine 137 mcg (0.1 %) aerosol,spray 2 spray intranasal BID Qty: 30 4RF fluticasone propionate [Flovent HFA] 110 mcg/actuation HFA aerosol inhaler 2 puff inhalation BID 30 Days Qty: 12 6RF Rx Instructions: administer with spacer Emgality Pen 120 mg/mL pen injector 120 mg subcut ONCE 30 Days Qty: 1 6RF mfyksszckx-jbmllkwpnopsu-uqun 50-325-40 mg tablet 1 tab PO Q6H PRN (Reason: pain) Qty: 20 0RF epinephrine 0.3 mg/0.3 mL auto-injector IM cetirizine 10 mg tablet PO loratadine 10 mg tablet 10 mg PO DAILY fluoxetine 20 mg capsule PO ferrous sulfate 325 mg (65 mg iron) tablet,delayed release (DR/EC) 325 mg PO DAILY metoprolol succinate 25 mg tablet extended release 24 hr 25 mg PO DAILY omeprazole 20 mg capsule,delayed release(DR/EC) 20 mg PO DAILY clonazepam 0.5 mg tablet 0.5 mg PO TID PRN famotidine 10 mg tablet 10 mg PO BID zolpidem 10 mg tablet 10 mg PO BEDTIME PRN benzonatate 200 mg capsule 200 mg PO BID PRN (Reason: cough) 30 Days Qty: 60 3RF aspirin [Adult Low Dose Aspirin] 81 mg tablet,delayed release (DR/EC) 81 mg PO DAILY furosemide [Lasix] 20 mg tablet 20 mg PO DAILY 30 Days Qty: 30 0RF gabapentin 100 mg capsule 100 - 300 mg PO BEDTIME 30 Days Qty: 90 3RF (DME) arm brace Misc See Rx Instructions .Route Qty: 2 0RF Rx Instructions: Bilateral carpal tunnel wrist splint budesonide 0.5 mg/2 mL suspension for nebulization 0.5 mg inhalation BID 30 Days Qty: 120 11RF amitriptyline 10 mg tablet 20 mg PO BEDTIME 30 Days Qty: 60 3RF ergocalciferol (vitamin D2) 1,250 mcg (50,000 unit) capsule 1,250 mcg PO QWEEK oxybutynin chloride 10 mg tablet extended release 24hr 15 mg PO DAILY 90 Days Qty: 135 3RF estradiol 0.01 % (0.1 mg/gram) cream 2 g vaginal DAILY 30 Days Qty: 42.5 0RF Rx Instructions: pea sized amount to urethera 3 times a week Referrals: Physician,Unknown J [Primary Care Provider] - 2 days Stand Alone Forms: Work/School Release
[2023-03-12 09:21] LABS: Alanine Aminotransferase 30 U/L (0-31); Albumin Level 3.9 g/dL (3.5-5.0); Alkaline Phosphatase 78 U/L (39-117); Anion Gap 11 (12-20); Aspartate Amino Transferase 20 U/L (5-31); Bilirubin Total 0.4 mg/dL (0.0-1.0); Blood Urea Nitrogen 17 mg/dL (9-16); Calcium 9.1 mg/dL (8.4-10.2); Carbon Dioxide 25 mmol/L (22-29); Chloride 107 mmol/L (96-108); Creatinine Clr Calc Pharmacy 114.1; Estimated Glomerular Filt Rate > 60; Glucose Random 171 mg/dL (60-115); Potassium 3.8 mmol/L (3.3-5.1); Sodium 139 mmol/L (135-145); Total Protein 7.4 g/dL (6.5-8.0)
[2023-03-12 09:55] VITALS: BP 118/49; PULSE 61; RESP 20; TEMP 36.7; O2SAT 96
[2023-03-12 09:57] LABS: HCG Quantitative < 2 mIU/mL
[2023-03-12 10:25] LABS: Appearance Urine Clear; Color Urine Yellow; Glucose Urine UA Negative (Negative); Leukocyte Esterase Urine Small (1+) (Negative); Nitrite Urine Negative (Negative); PH 5.5 (5.0-9.0); Specific Gravity - Urine >= 1.030 (1.005-1.025); UMIC TRIGGER UACC YES; Urine Blood Trace (Negative); Urine Ketones Negative (Negative); Urine Protein Negative (Neg-Trace)
[2023-03-12 10:36] LABS: Bacteria Urine Trace (None Seen); Calcium Oxalate Crystals Urine Present; Hyaline Casts Urine 0-2 /LPF (0-2); RBC Urine 0-2 /HPF (0-2); UACC Culture Trigger YES
[2023-03-12] MEDS: iohexoL 350 MG/ML 75 ML INFUS..BTL 85 ML IV (11:19)
[2023-03-12] MEDS: Ketorolac Tromethamine 15 MG/ML VIAL 30 MG IVPUSH (12:01)
[2023-03-12 13:08] VITALS: BP 133/81; PULSE 69; RESP 18; O2SAT 100
== END 2023-03-12 13:24 | disposition home or self-care (01) ==
PROVIDERS: Physician Assistant; Emergency Provider Emergency Medicine Emergency Medical Services
DX: R10.32 Left lower quadrant pain (principal); N39.0 Urinary tract infection, site not specified; B19.20 Unspecified viral hepatitis C without hepatic coma; D64.9 Anemia, unspecified; E66.9 Obesity, unspecified; Z68.41 Body mass index [BMI] 40.0-44.9, adult; Z87.891 Personal history of nicotine dependence; Z79.899 Other long term (current) drug therapy
CPT/HCPCS: 36415; 74177; 80053; 81001; 83690; 84702; 85025; 87086; 96374; 99284; J1885; Q9967

== ENCOUNTER 2023-03-15 15:19 | Outpatient (REF) | payer OTHER, SELFPAY ==
--- NOTE | ~2023-03-15 | MR_ITS ---
EXAMINATION: MR ANGIOGRAPHY BRAIN WITHOUT CONTRAST CLINICAL INFORMATION: Follow-up aneurysm COMPARISON: CT angiography head and neck CT from 05/10/2021 TECHNIQUE: 3D [id number] MR angiography was performed through the brain without the use of intravenous gadolinium and axial source images were reviewed along with rotating MIPs. FINDINGS: 1.5 mm medially projecting vascular protrusion arising from the left supraclinoid ICA which may reflect an infundibular origin versus aneurysm, stable in appearance allowing for differences in imaging modality. No new or enlarging intracranial saccular aneurysm. Normal flow-related signal is seen within the anterior and posterior circulation. No focal flow-limiting stenosis or proximal large artery occlusion. No arteriovenous shunting lesion. MR/MR angio head wo con IMPRESSION: 1.5 mm medially projecting vascular protrusion arising from the left supraclinoid ICA which may reflect an infundibular origin versus aneurysm, stable in appearance allowing for differences in imaging modality. No new or enlarging intracranial saccular aneurysm. Otherwise normal MRA of the head.
== END 2023-03-15 15:20 | disposition home or self-care (01) ==
LOC: HO.MRI 15:19
PROVIDERS: Visit Provider Nurse Practitioner Family
DX: I67.1 Cerebral aneurysm, nonruptured (principal); R51.9 Headache, unspecified
CPT/HCPCS: 70544

== ENCOUNTER 2023-03-31 09:57 | Outpatient (REF) | payer OTHER, SELFPAY ==
--- NOTE | ~2023-03-31 | US_ITS ---
EXAMINATION: US RETROPERITONEAL COMPLETE (RENAL) CLINICAL INFORMATION: Mixed incontinence. 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 TECHNIQUE: Real-time imaging of the kidneys and bladder. Limited visualization due to bowel gas and body habitus. FINDINGS: RIGHT KIDNEY: 12.4 x 5.5 x 6.3 cm (SAG x AP x TRV). No hydronephrosis. No renal calculi. Renal cortical thickness is normal. Limited visualization. LEFT KIDNEY: 11.1 x 5.9 x 5.4 cm (SAG x AP x TRV). No hydronephrosis. No renal calculi. Renal cortical thickness is normal. Limited visualization. BLADDER: Partially distended, limiting evaluation. Bilateral ureteral jets are not demonstrated. Prevoid bladder volume is 49.3 mL. Postvoid bladder volume is 10.3 mL. US/US retroperitoneal comp IMPRESSION: No hydronephrosis. No renal calculi. Renal cortical thickness is normal. Limited visualization.
== END 2023-03-31 09:58 | disposition home or self-care (01) ==
LOC: HO.US 09:57
PROVIDERS: Visit Provider Nurse Practitioner Family
DX: N39.46 Mixed incontinence (principal); R30.0 Dysuria
CPT/HCPCS: 76770

== ENCOUNTER 2023-04-11 10:35 | Outpatient (AMB) | payer OTHER, SELFPAY ==
--- NOTE | 2023-04-11 11:02 | A.OFFVIS_ITS ---
Intake Vital Signs 04/11/23 11:10 Weight 226 lb BP 140/80 H Blood Pressure Location Lt brachial Position Sitting Pulse 68 Pulse Source Pulse Oximeter Pulse Oximetry (%) 98 Oxygen Delivery Method Room Air Intake Visit Reasons: emgality training - Confirmed Intake Note: Injection training Field Associate Required: Yes Field Associate Name: Rachell Quesada Allergies Benadryl Allergy (Severe, Verified 04/11/23 11:03) palpitations hydroxyzine [From VISTARIL] Allergy (Severe, Verified 04/11/23 11:03) PALPATATION oxycodone [From PERCOCET] Allergy (Severe, Verified 04/11/23 11:03) PALPIATIONS HPI HPI Comments History of Present Illness Details 52 y/o female patient presents for Emgality injection training. Emgality 120mg/ml X2 injection sample provided. Lot #[id number] and Exp 08/07/24. Education with medical interpreter, Rachell Quesada, regarding injection and side effects provided. Emgality 120mg/ml injection administered on LLQ and RLQ. Patient advised on storage of injection in refrigerator. Pt declined to self administer due to needle phobia. Will return next month with semiconductor packages sealer for further training. Pt tolerated the injections well. [facility] Medical History Anemia Asthma Chest pain Chronic restrictive lung disease Chronic rhinitis Chronic urticaria COVID-19 Dyspnea Dyspnea Extremity edema Obesity MANJULA on CPAP Pre-op chest exam Sinusitis Surgical History delivery delivered History of bilateral tubal ligation History of dilatation and curettage Family History Mother Asthma Hypertension Father FHx: lung cancer Social History Alcohol intake: never Patient Tobacco Use Status: Former Tobacco user Tobacco use type: Cigarette Years Smoked: 12 years Physical Exam Vital Signs: Last Vital Signs Pulse 68 04/11/23 11:10 BP 140/80 H 04/11/23 11:10 Pulse Ox 98 04/11/23 11:10 Oxygen Delivery Method Room Air 04/11/23 11:10 Assessment & Plan Assessment & Plan (1) Migraine: Code(s): G43.909 - Migraine, unspecified, not intractable, without status migrainosus Plan Follow up in clinic as scheduled or prn with concerns. Coding Level of Care Code Est Pt Level 1 (95754) Diagnoses Migraine G43.909
[2023-04-11 11:10] VITALS: BP 140/80; PULSE 68; O2SAT 98
== END 2023-04-11 11:30 | disposition home or self-care (01) ==
PROVIDERS: Visit Provider Nurse Practitioner Family
DX: G43.909 Migraine, unspecified, not intractable, without status migrainosus (principal)

== ENCOUNTER → 2023-04-11 10:35 | Outpatient (BNVA) | payer OTHER, SELFPAY | PROVIDERS: Visit Provider Nurse Practitioner Family | DX: G43.909 Migraine, unspecified, not intractable, without status migrainosus (principal) | CPT/HCPCS: 99211 ==

== ENCOUNTER 2023-04-12 13:23 | Outpatient (AMB) | payer OTHER, SELFPAY ==
--- NOTE | 2023-04-12 13:52 | A.OFFVIS_ITS ---
Intake Intake Visit Reasons: Mixed incontinence, Dysuria- follow up/ US(set) Intake Note: Patient is present for follow up incontinence/ultrasound (imaging 03/31/23) Urology medications: oxybutynin, estrace cream Blood thinners: aspirin PVR: not done per patient request Audit Spec Required: Yes Audit Spec Name: Trisha Accompanied by: Child Allergies Benadryl Allergy (Severe, Verified 04/12/23 22:33) palpitations hydroxyzine [From VISTARIL] Allergy (Severe, Verified 04/12/23 22:33) PALPATATION oxycodone [From PERCOCET] Allergy (Severe, Verified 04/12/23 22:33) PALPIATIONS Medication List - Last Reconciled 04/12/23 by BIBI Gomez- amitriptyline 20 mg (2 x 10 mg) PO BEDTIME 30 days arm brace Bilateral carpal tunnel wrist splint aspirin (Adult Low Dose Aspirin) 81 mg PO DAILY azelastine 2 sprays intranasal BID benzonatate 200 mg PO BID PRN 30 days budesonide 0.5 mg (2 mL) inhalation BID 30 days rvhdjchbrs-dexsjhfywqufv-ozmr 50-325-40 mg 1 tab PO Q6H PRN cetirizine mg PO clonazepam 0.5 mg PO TID PRN epinephrine IM ergocalciferol (vitamin D2) 1,250 mcg PO QWEEK famotidine 10 mg PO BID ferrous sulfate 325 mg PO DAILY fluoxetine mg PO fluticasone propionate 110 mcg/actuation (Flovent HFA) 2 puffs inhalation BID 30 days xgcgdogzlnl-ynebxvlmx-xkphbjus 200-62.5-25 mcg (Trelegy Ellipta) 1 inh inhalation DAILY 30 days furosemide (Lasix) 20 mg PO DAILY 30 days gabapentin 100 - 300 mg (1 - 3 x 100 mg) PO BEDTIME 30 days galcanezumab-gnlm (Emgality Pen) 120 mg subcut ONCE 30 days ipratropium-albuterol 0.5 mg-3 mg(2.5 mg base)/3 mL 3 mL inhalation BID 30 days loratadine 10 mg PO DAILY magnesium oxide 400 mg PO DAILY 30 days metoprolol succinate ER 25 mg PO DAILY mirabegron ER (Myrbetriq) 25 mg PO DAILY 30 days montelukast 10 mg PO DAILY omeprazole 20 mg PO DAILY zolpidem 10 mg PO BEDTIME PRN HPI HPI Comments History of Present Illness Details Rachell is a pleasant 52 year old Belarusian speaking patient of Dr. Vera who is accompanied by her daughter at todays visit. She presents to the office today for a follow up of her mixed incontinence. She has a past medical history of asthma, COPD, obesity, and obstructive sleep apnea on CPAP. Of note, patient was seen approximately 3 months ago at which time a retroperitoneal ultrasound was ordered for further assess evaluation. These results were re viewed with the patient today. Bilateral kidneys with no hydronephrosis calculi or lesions noted. Limited visualization. The bladder is partially distended limiting evaluation. Pre void bladder volume is approximately 50 mL. Postvoid bladder volume is approximately 10 mL. Patient reports previously seeking emergency room care approximately 1 month ago for ongoing abdominal pain as well as follow-up smelling urine. Patient reports abdominal pain today however relates this to her recent Emgality injection she received today with Neurology for her history of migraines. In office urinalysis results reviewed with the patient today. Unable to PVR due to abdominal discomfort per patient request. Patient continues to report foul-smelling urine. However during discussion with the patient today she denies to be drinking water daily. She reports typically she drinks juice. Discussed at length importance of drinking plenty of water daily. She also discusses feeling oxybutynin is not helping with urinary leakage as it use to. Discussed at length bladder triggers/irritants as well as importance of weight loss for improvement in urinary symptoms as well as overall health and well-being. Discussed near future in office cystoscopy if symptoms persist and/or worsen. She otherwise denies urinary urgency, urinary frequency, nocturia, hematuria, dysuria, changes to urinary stream, flank pain, fever, and or chills. [facility] Medical History Anemia Asthma Chest pain Chronic restrictive lung disease Chronic rhinitis Chronic urticaria COVID-19 Dyspnea Dyspnea Extremity edema Obesity MANJULA on CPAP Pre-op chest exam Sinusitis Surgical History delivery delivered History of bilateral tubal ligation History of dilatation and curettage Family History Mother Asthma Hypertension Father FHx: lung cancer Social History Alcohol intake: never Patient Tobacco Use Status: Former Tobacco user Tobacco use type: Cigarette Years Smoked: 12 years Review of Systems Const Reports as per HPI Eyes Reports no additional complaints ENT Reports no additional complaints Card Reports no additional complaints Resp Reports as per HPI GI Reports no additional complaints Reports as per HPI Musc Reports no additional complaints Neuro Reports no additional complaints Psych Reports no additional complaints Endo Reports no additional complaints Pedro/Lymph Reports no additional complaints Aller/Immun Reports no additional complaints Physical Exam Const General: cooperative, healthy appearing, comfortable, no acute distress, well developed, alert and awake Nutritional Appearance: overweight Orientation/consciousness: patient oriented x3 Limitations: no limitations HEENT Head: Yes normal to inspection, Yes normocephalic and Yes atraumatic Ears: hearing grossly normal bilaterally Eyes General: appearance normal, both eyes and all related structures Neck Neck: Yes normal visual inspection and Yes trachea midline Chest Chest palpation & inspection: normal inspection of the chest Resp Effort & Inspection: normal respiratory effort and able to speak in complete sentences Cardio Rate: regular rate GI Inspection: Yes normal to inspection General: Yes no CVA tenderness Back/Spine/Pelvis Back: no CVA tenderness Skin General skin exam: no rashes or lesions noted Neuro General: patient oriented x3 Extrem General: Yes normal to inspection Psych Appearance: grossly normal and well kempt Mental Status: mental status grossly normal Speech and movement: Normal speech and movement present and Clear speech present Affect: normal affect Attitude: cooperative Thought process: Normal thought process present Thought content: Normal thought content present Insight: Fair insight present (Psych) Judgement: Fair judgement present (Psych) Results AMB Urinalysis, Automated UA Leukoctes 0 Ambar/uL Last Edit by [employer] Julienne on 04/12/23 13:55 UA Nitrite Last Edit by [employer] TatiannaViraloid on 04/12/23 13:55 UA Urobilinogen 0.2 mg/dL Last Edit by iPointerbrandon Robins on 04/12/23 13:55 UA Protein 15 mg/dL Last Edit by iPointerbrandon Robins on 04/12/23 13:55 UA pH 6.0 Last Edit by [employer] Julienne on 04/12/23 13:55 UA Blood 0 Lewis/uL Last Edit by Sylvia Robins on 04/12/23 13:55 UA Specific [place] 1.030 Last Edit by Sylvia Robins on 04/12/23 13:55 UA Ketone Negative Last Edit by Sylvia Robins on 04/12/23 13:55 UA Bilirubin 0 mg/dL Last Edit by Sylvia Robins on 04/12/23 13:55 UA Glucose 0 mg/dL Last Edit by Sylvia Robins on 04/12/23 13:55 Results Reviewed Results Reviewed: Laboratory Last Values Urine pH (Auto) 6.0 04/12/23 13:54 Specific [place] (Auto) 1.030 04/12/23 13:54 Urine Protein (Auto) 15 mg/dL 04/12/23 13:54 Glucose (UA)(Auto) 0 mg/dL 04/12/23 13:54 Urine Ketones (Auto) Negative 04/12/23 13:54 Urine Blood (Auto) 0 Lewis/uL 04/12/23 13:54 Urine Bilirubin (Auto) 0 mg/dL 04/12/23 13:54 Urine Urobilinogen (Auto) 0.2 mg/dL 04/12/23 13:54 Leukocyte Esterase (Auto) 0 Ambar/uL 04/12/23 13:54 Date of Service: 03/31/23 EXAMINATION: US RETROPERITONEAL COMPLETE (RENAL) CLINICAL INFORMATION: Mixed incontinence. Per supervisor shearing patient stated emergency COMPARISON: CT abdomen and pelvis with contrast dated 03/12/2023. TECHNIQUE: Real-time imaging of the kidneys and bladder. Limited visualization due to bowel gas and body habitus. FINDINGS: RIGHT KIDNEY: 12.4 x 5.5 x 6.3 cm (SAG x AP x TRV). No hydronephrosis. No renal calculi. Renal cortical thickness is normal. Limited visualization. LEFT KIDNEY: 11.1 x 5.9 x 5.4 cm (SAG x AP x TRV). No hydronephrosis. No renal calculi. Renal cortical thickness is normal. Limited visualization. BLADDER: Partially distended, limiting evaluation. Bilateral ureteral jets are not demonstrated. Prevoid bladder volume is 49.3 mL. Postvoid bladder volume is 10.3 mL. IMPRESSION: No hydronephrosis. No renal calculi. Renal cortical thickness is normal. Limited visualization. Assessment & Plan Assessment & Plan (1) Foul smelling urine: Code(s): R82.90 - Unspecified abnormal findings in urine (2) Mixed incontinence: Code(s): N39.46 - Mixed incontinence Plan In office urinalysis results reviewed with the patient today; as noted above. Recent retroperitoneal ultrasound results reviewed with the patient today; as noted above. Discussed and stressed the importance of drinking plenty of water daily. Stop oxybutynin as discussed. Start Myrbetriq as discussed and prescribed. Discussed near future in office cystoscopy for further assessment evaluation. Discussed and stressed the importance of weight loss for improvement in urinary symptoms as well as overall health and well-being. Follow-up in 6 weeks with PVR; or sooner with any issues, concerns, and or questions. Orders: Orders AMB Urinalysis Automated Today Z13.9 - Encounter for screening, unspecified Medications: New mirabegron ER (Myrbetriq) 25 mg PO DAILY 30 days 30 tabs 1RF N30.10 - Interstitial cystitis (chronic) without hematuria, N32.81 - Overactive bladder, R35.1 - Nocturia, R39.15 - Urgency of urination mirabegron ER (Myrbetriq) 25 mg PO DAILY 30 days 30 tabs 1RF N30.10 - Interstitial cystitis (chronic) without hematuria, N32.81 - Overactive bladder, R35.1 - Nocturia, R39.15 - Urgency of urination Discontinued oxybutynin chloride ER Discontinued Reason: Doctor's Order 15 mg (1.5 x 10 mg) PO DAILY 90 days 135 tabs 3RF N32.81 - Overactive bladder, R39.15 - Urgency of urination Patient Instructions: The patient had an opportunity to ask questions regarding the treatment plan. All questions were answered. Physical exam, labs, and imaging were discussed and reviewed in detail. As well as risks, benefits, and discussion of treatment choices. No major barriers to understanding were identified. The patient expressed understanding and agreement with the above treatment plan. The patient was made aware they should contact our office by phone for worsening of their current condition, the appearance of new symptoms, or with any questions or concerns. Compliance is encouraged with any medications and follow up testing that is ordered. It is a privilege to be allowed the opportunity to participate in? your urological care.? Again, if you have any questions or concerns If you have any questions or concerns please do not hesitate to contact me. The office is [phone]. This note is constructed using voice recognition software. While every effort has been made to ensure accuracy human resources specialist errors may have been included. Yours sincerely, QUENTIN Gomez Coding Level of Care Code Est Pt Level 4 (17137) Diagnoses Foul smelling urine R82.90 Mixed incontinence N39.46
== END 2023-04-12 14:11 | disposition home or self-care (01) ==
PROVIDERS: Visit Provider Nurse Practitioner Family
DX: R82.90 Unspecified abnormal findings in urine (principal); N39.46 Mixed incontinence
CPT/HCPCS: 99214

== ENCOUNTER → 2023-04-12 13:23 | Outpatient (BNVA) | payer OTHER, SELFPAY | PROVIDERS: Visit Provider Nurse Practitioner Family | DX: N39.46 Mixed incontinence (principal); R82.90 Unspecified abnormal findings in urine | CPT/HCPCS: 81003; 99212 ==

== ENCOUNTER → 2023-05-12 11:15 | Outpatient (BNVA) | payer OTHER, SELFPAY | PROVIDERS: Visit Provider Nurse Practitioner Family ==

== ENCOUNTER 2023-05-23 12:49 | Outpatient (AMB) | payer OTHER, SELFPAY ==
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
[2023-05-23 13:06] VITALS: BP 108/70; PULSE 66; O2SAT 98; BMI 42.7
== END 2023-05-23 13:34 | disposition home or self-care (01) ==
PROVIDERS: PCP Internal Medicine; Visit Provider Nurse Practitioner Family
DX: G43.909 Migraine, unspecified, not intractable, without status migrainosus (principal); R51.9 Headache, unspecified; I67.1 Cerebral aneurysm, nonruptured; G47.33 Obstructive sleep apnea (adult) (pediatric); Z99.89 Dependence on other enabling machines and devices
CPT/HCPCS: 99214

== ENCOUNTER → 2023-05-23 12:49 | Outpatient (BNVA) | payer OTHER, SELFPAY | PROVIDERS: PCP Internal Medicine; Visit Provider Nurse Practitioner Family | DX: G43.909 Migraine, unspecified, not intractable, without status migrainosus (principal); I67.1 Cerebral aneurysm, nonruptured; G47.33 Obstructive sleep apnea (adult) (pediatric); Z79.899 Other long term (current) drug therapy; Z99.89 Dependence on other enabling machines and devices | CPT/HCPCS: 99212 ==

== ENCOUNTER → 2023-06-15 13:04 | Outpatient (BNVA) | payer OTHER, SELFPAY | PROVIDERS: PCP Internal Medicine; Visit Provider Nurse Practitioner Family ==

== ENCOUNTER 2023-08-25 13:00 | Outpatient (AMB) | payer OTHER, SELFPAY ==
[2023-08-25 13:19] VITALS: PULSE 71; O2SAT 97; BMI 43.1
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
== END 2023-08-25 13:32 | disposition home or self-care (01) ==
PROVIDERS: PCP Internal Medicine; Visit Provider Hospitalist
DX: J45.41 Moderate persistent asthma with (acute) exacerbation (principal); G47.33 Obstructive sleep apnea (adult) (pediatric); Z99.89 Dependence on other enabling machines and devices; R06.09 Other forms of dyspnea; J98.4 Other disorders of lung; R60.0 Localized edema
CPT/HCPCS: 99214

== ENCOUNTER → 2023-08-25 13:00 | Outpatient (BNVA) | payer OTHER, SELFPAY | PROVIDERS: PCP Internal Medicine; Visit Provider Hospitalist | DX: J45.41 Moderate persistent asthma with (acute) exacerbation (principal); J98.4 Other disorders of lung; R60.0 Localized edema; R06.09 Other forms of dyspnea; G47.33 Obstructive sleep apnea (adult) (pediatric); Z99.89 Dependence on other enabling machines and devices | CPT/HCPCS: 99212 ==

== ENCOUNTER 2023-09-28 14:42 | Outpatient (AMB) | payer OTHER, SELFPAY ==
--- NOTE | 2023-09-28 14:43 | MHC.OFFVIS ---
Intake Intake Visit Reasons: 3 mnts f/u for aneurysm-Conf pt has Covid Intake Note: Patient presents for 3 months Im still getting headaches Allergies Benadryl Allergy (Severe, Verified 09/28/23 14:43) palpitations hydroxyzine [From VISTARIL] Allergy (Severe, Verified 09/28/23 14:43) PALPATATION oxycodone [From PERCOCET] Allergy (Severe, Verified 09/28/23 14:43) PALPIATIONS HPI HPI Comments History of Present Illness Details 53-yr-old female presents for f/u televideo visit via [place] for f/u of migraine. Pt reports she is recovering from a COVID 19 infection. She has had increased migraine and headache attacks. She attributes this to not receiving her Emgality injection in 2 months. She states that she has spoken to the specialty pharmacy, but they have not delivered yet. She does have a current prior authorization through January of this year. Since not having her Emgality and being sick, she is having more neck pain and generalized weakness. She has upcoming dental work, and needs dental clearance form signed. She is working with Dr. Mccallum to replace her stolen CPAP machine. [facility] Medical History (Updated 08/25/23 @ 13:28 by Jose F Mccallum MD) MANJULA (obstructive sleep apnea) Chronic urticaria Chronic restrictive lung disease COVID-19 Pre-op chest exam Sinusitis Dyspnea Chest pain Obesity Anemia Extremity edema Dyspnea Chronic rhinitis MANJULA on CPAP Asthma Surgical History History of bilateral tubal ligation History of dilatation and curettage delivery delivered Family History Mother Asthma Hypertension Father FHx: lung cancer Social History Alcohol intake: never Patient Tobacco Use Status: Former Tobacco user Tobacco use type: Cigarette Years Smoked: 12 years Physical Exam Const General: cooperative and no acute distress Orientation/consciousness: patient oriented x3 Resp Effort & Inspection: normal respiratory effort and able to speak in complete sentences Neuro General: patient oriented x3 Cognition (Neuro): normal cognition Psych Appearance: grossly normal Mental Status: mental status grossly normal Speech and movement: Normal speech and movement present Affect: normal affect Attitude: cooperative Assessment & Plan Assessment & Plan (1) Migraine: Code(s): G43.909 - Migraine, unspecified, not intractable, without status migrainosus (2) Spinal stenosis of cervical region: Comment: w/ mass effect on central spinal cord at C4-C5 and C5-C6. s/p cervical repair by Dr Lakhani (04/04/2022) Code(s): M48.02 - Spinal stenosis, cervical region (3) Aneurysm of left internal carotid artery: Comment: 2 mm inferomedially projecting contour and moderate involving the supraclinoid segment of the left internal carotid artery that may represent a small vascular infundibulum or aneurysm Code(s): I67.1 - Cerebral aneurysm, nonruptured Plan For migraine prevention: Continue Gabapentin up to 300mg per day. Continue Amitriptyline 20mg qhs. Resume Emgality 120mg sc q month. Try taking Loratadine 10mg prior to injection. Emgality order we sent to [facility] pharmacy today. Patient advised to notify us if she does not receive this within 1 week. If she does not receive it within the next few weeks, we will need to restart the Emgality at loading dose. ? For acute migraine tx: May use Fioricet or Tylenol prn. Future considerations- increasing Gabapentin, gepant/triptan. ? For BUE hand and neck pain: BUE wrist splints at night- continue Patient has not yet had BUE EMG/NCS- will reorder ? follow-up in 4 months or sooner as needed Medications: Refilled galcanezumab-gnlm (Emgality Pen) 120 mg subcut ONCE 30 days 1 mL 6RF Telehealth Telehealth Location of provider rendering services: practice address Location of patient: address on file Patient Identification confirmed using: Name, : Yes Telehealth method: voice only Patient verbally consented to treatment: Yes Patient verbally consented to billing insurance company: Yes Patient informed of any privacy concerns related to visit: Yes Coding Level of Care Code Tele Est Pt Level 4 (44606) Diagnoses Migraine G43.909 Spinal stenosis of cervical region M48.02 Aneurysm of left internal carotid artery I67.1
== END 2023-09-29 08:22 | disposition home or self-care (01) ==
LOC: HO.HSMS 14:42
PROVIDERS: PCP Internal Medicine; Visit Provider Nurse Practitioner Family
DX: G43.909 Migraine, unspecified, not intractable, without status migrainosus (principal); M48.02 Spinal stenosis, cervical region; I67.1 Cerebral aneurysm, nonruptured
CPT/HCPCS: 99214

== ENCOUNTER → 2023-09-28 14:42 | Outpatient (BNVA) | payer OTHER, SELFPAY | PROVIDERS: PCP Internal Medicine; Visit Provider Nurse Practitioner Family ==

== ENCOUNTER → 2023-10-30 09:42 | Outpatient (BNVA) | payer OTHER, SELFPAY | PROVIDERS: PCP Internal Medicine; Visit Provider Nurse Practitioner Family ==

== ENCOUNTER 2023-11-21 09:28 | Outpatient (AMB) | payer OTHER, SELFPAY ==
[2023-11-21 09:51] VITALS: BP 136/78; BMI 42.3
--- NOTE | 2023-11-21 09:51 | MHC.OFFVIS ---
Intake Vital Signs 11/21/23 09:51 Height 5 ft 1 in Weight 224 lb BMI 42.3 BP 136/78 Intake Visit Reasons: vag itch Information Interpreted: clinical only Supervisor Bonding: Supervisor Bonding Present Allergies Benadryl Allergy (Severe, Verified 11/21/23 09:51) palpitations hydroxyzine [From VISTARIL] Allergy (Severe, Verified 11/21/23 09:51) PALPATATION oxycodone [From PERCOCET] Allergy (Severe, Verified 11/21/23 09:51) PALPIATIONS Post menopausal: Yes Do you need a note to return to daycare/school/sports/work: No HPI vag itch HPI Details Patient is here for problem visit for vaginal itch that she has had for 4 days. She told the certified medical aide that she gets gynecological care at [facility] and that she had a Pap smear done there a year ago and she was told her next 1 needed to be in December of this year but she does not have an appointment for it. She also says she was seen at [facility] the last time and it was because she was hemorrhaging and there was no place where she could be seen here and she called so her doctor told her to go to [facility]. She says they checked everything and said everything was okay. She also says her last mammogram was 2 years ago but she does have an appointment for 1 in January or February. She also had a surgery for cervical stenosis and she had an aneurysm and she has many other medical issues but she denies diabetes. She has not very sexually active because her has diabetes. She has not had a period in 3 years though she also mentioned the hemorrhaging of last year. There is no record of a Pap smear in the system there has no record of an annual exam in the system she was seen by this provider 1 time 3 years ago for vaginal itch and treated for yeast. [facility] Medical History MANJULA (obstructive sleep apnea) Chronic urticaria Chronic restrictive lung disease COVID-19 Pre-op chest exam Sinusitis Dyspnea Chest pain Obesity Anemia Extremity edema Dyspnea Chronic rhinitis MANJULA on CPAP Asthma Surgical History History of bilateral tubal ligation History of dilatation and curettage delivery delivered Family History Mother Asthma Hypertension Father FHx: lung cancer Social History Alcohol intake: never Patient Tobacco Use Status: Former Tobacco user Tobacco use type: Cigarette Years Smoked: 12 years Female Reproductive History Menstrual Age of Menarche: 13 Duration of menses: 3-5 days control method: permanent sterilization Total pregnancies: 3 Full term: 4 History of abnormal pap smear: No (previous pap 2022 neg,per patient) Physical Exam Vital Signs: Last Vital Signs BP 136/78 11/21/23 09:51 BMI result Body Mass Index 42.3 Other: External exam within normal limits vaginal introitus labia minora slightly reddened possibly consistent with yeast difficult to visualize patient's cervix secondary to adipose tissue bimanual exam done cervix very deep in vagina nontender mobile difficult to feel uterus secondary to adipose nontender. Assessment & Plan Assessment & Plan (1) Vaginal itching: Comment: x4d, will rx as mild yeast Code(s): N89.8 - Other specified noninflammatory disorders of vagina Plan 1-will treat the probable mild yeast with Monistat cream with 2 refills that she can use p.r.n. when she needs it. It does not appear very serious and probably does not need Diflucan. 2-it is extremely unclear if this patient has been receiving any true comprehensive gynecological care in it almost appears as if she has been shunted from office to office to hospital to emergency room with no clear comprehensive care. I had her speak with Ruth to aid in translation at the desk clerks supervisor we are going to have her sign for records from [facility]. We will schedule a future telecommunications network planner annual exam and probable Pap smear and start care from there the patient says she wants to come to us for gynecological care and it is not clear that she has been getting what she thinks she has been getting she insisted a Pap smear was done last year but she says the only place she was seeing was the emergency room and Pap smears are never done in the emergency room. She also says that when she was seen in the emergency room for the bleeding they said everything was fine but she does not describe any actual follow-up testing for that. Her mammogram she says was delayed because of her cervical stenosis surgery and she can no longer turn her head left or right to any extreme so she was not able to accommodate getting the mammogram this is understandable and she has 1 scheduled she says at [facility] for January or February and we will leave that be. Her primary care provider is also in [place]. No she was recently on Augmentin for an infection and she also was given another antibiotic by her dentist both of which could definitely precipitate a yeast infection. Medications: New miconazole nitrate 2% (Miconazole-7) use prn for vaginal yeast infections/itching 1 appful vaginal BEDTIME 7 days 45 grams 2RF Coding Level of Care Code Est Pt Level 4 (69863) Diagnoses Vaginal itching N89.8
== END 2023-11-21 11:02 | disposition home or self-care (01) ==
LOC: HO.HWSM 09:28
PROVIDERS: PCP Internal Medicine; Visit Provider Advanced Practice Midwife
DX: N89.8 Other specified noninflammatory disorders of vagina (principal)
CPT/HCPCS: 99214

== ENCOUNTER 2023-11-21 09:28 | Outpatient (REF) | payer OTHER, SELFPAY ==
[2023-11-22 02:41] LABS: CT PCR NOT DETECTED (Not Detect.); NG PCR NOT DETECTED (Not Detect.)
[2023-11-22 13:10] LABS: BV Int Neg Control Negative (Negative); BV Int Pos Control Positive (Positive)
== END 2023-11-21 09:29 | disposition home or self-care (01) ==
LOC: HO.LAB 09:28
PROVIDERS: PCP Internal Medicine; Visit Provider Advanced Practice Midwife
DX: Z01.419 Encounter for gynecological examination (general) (routine) without abnormal findings (principal); N89.8 Other specified noninflammatory disorders of vagina; Z20.2 Contact with and (suspected) exposure to infections with a predominantly sexual mode of transmission
CPT/HCPCS: 0353U; 87480; 87510; 87660; 99212

== ENCOUNTER → 2023-12-05 10:45 | Outpatient (BNVA) | payer OTHER, SELFPAY | PROVIDERS: PCP Internal Medicine; Visit Provider Nurse Practitioner Family ==

== ENCOUNTER 2023-12-22 13:09 | Outpatient (AMB) | payer OTHER, SELFPAY ==
[2023-12-22 13:14] VITALS: BP 126/70; PULSE 68; O2SAT 98; BMI 42.1
--- NOTE | 2023-12-22 13:14 | A.OFFVIS_ITS ---
Vital Signs 12/22/23 13:14 Height 5 ft 1 in Weight 222 lb 10.67 oz BMI 42.1 BP 126/70 Blood Pressure Location Lt brachial Position Sitting Pulse 68 Pulse Source Pulse Oximeter Pulse Oximetry (%) 98 Oxygen Delivery Method Room Air Intake Visit Reasons: COPD Child Welfare Specialist Required: No Allergies Benadryl Allergy (Severe, Verified 12/22/23 13:17) palpitations hydroxyzine [From VISTARIL] Allergy (Severe, Verified 12/22/23 13:17) PALPATATION oxycodone [From PERCOCET] Allergy (Severe, Verified 12/22/23 13:17) PALPIATIONS HPI Comments Details: The patient is a 53-year-old woman with a known history of asthma in addition to obstructive sleep apnea. Her CPAP therapy has been affecting beneficial. She does uses CPAP every night for more than 4 hours a night. She has been getting supplies regularly through her [employer] company, [email or web address]. In regards to her breathing she has but and on multiple respiratory medications. She does require her short- acting beta agonist but usually less than twice a week. She denies any imaging studies over respiratory studies recently. Otherwise the patient has been having increasing cough but feels is related to the allergies. She has been taking allergy medications including Zyrtec. She has never taken singular. 01/09/2023 the patient is here for pulmonary follow-up visit. The patient overall has been doing well she has been using CPAP every night the CPAP therapy continues to be affecting beneficial. She is using a fullface mask. She has use it for more than 4 hours a night. Will make sure she gets supplies readily available. Her breathing has been good. She continues on the Trelegy inhaler with good effect. Although she is having a lot of nasal congestion and postnasal drip and cough. Ejtq-wx-ttxrqgpc severity. Will go ahead and optimize her allergy therapy and her sinus therapy to minimize symptoms. We also started about nasal rinsing. She will look into it. 08/25/2023 the patient is here for a pulmonary follow-up visit. She is struggling because she does not have her CPAP a pale above. Apparently she was in the airport in [place] and her CPAP was lost or stolen. She tried to reported to the [place] police Department but since it happened in the airport she could not get a police report. The patient has been struggling because she has been without her CPAP. She has significant daytime drowsiness. Her Carney score significantly elevated at 12 over 24. She did very well on CPAP and she had good adherence. In the meantime I did call her [employer] company to see if she was due for replacement machine. In view of her significant symptoms will have her get a sleep study in case we need to restart the process to we diagnose or in order to get her a new machine. The patient is also complaining of tooth pain she is going to be seen the dentist in the couple weeks. And also the patient has been having worsening cough. Chest congestion. Vylc-yj-pdahsxmc severity. She has been using her respiratory medications. 12/22/2023 the patient is here for a pulmonary follow-up visit doing well. She is still having daytime drowsiness. Her Carney elevated Carney score 12/24. She is scheduled to undergo a sleep study and then therefore after that get a CPAP.. In the meantime she is developing worsening respiratory symptoms. She has not been able to get her inhaler, Trelegy. I will be sent to the pharmacy. If she has any difficulty she will call the office so we can figure out what is going on. We may have to find an alternative if is not being covered. Otherwise patient is doing well. [facility] Medical History MANJULA (obstructive sleep apnea) Chronic urticaria Chronic restrictive lung disease COVID-19 Pre-op chest exam Sinusitis Dyspnea Chest pain Obesity Anemia Extremity edema Dyspnea Chronic rhinitis MANJULA on CPAP Asthma Surgical History History of bilateral tubal ligation History of dilatation and curettage delivery delivered Family History Mother Asthma Hypertension Father FHx: lung cancer Social History Alcohol intake: never Patient Tobacco Use Status: Former Tobacco user Tobacco use type: Cigarette Years Smoked: 12 years Female Reproductive History Menstrual Age of Menarche: 13 Review of Systems Const Reports as per HPI, Reports daytime sleepiness, Denies fever(s) and Reports snoring Eyes Reports no additional complaints ENT Reports Normal hearing present, Reports nasal discharge, Reports nasal obstruction and Reports post nasal drip Card Reports no additional complaints Resp Reports as per HPI and Reports snoring GI Reports no additional complaints Reports as per HPI Musc Reports no additional complaints Neuro Reports Normal hearing present Psych Reports no additional complaints Endo Reports no additional complaints Pedro/Lymph Reports no additional complaints Aller/Immun Reports no additional complaints Physical Exam Vital Signs: Last Vital Signs Pulse 68 12/22/23 13:14 BP 126/70 12/22/23 13:14 Pulse Ox 98 12/22/23 13:14 Oxygen Delivery Method Room Air 12/22/23 13:14 BMI result Body Mass Index 42.1 Const General: cooperative, healthy appearing and comfortable Orientation/consciousness: oriented to person, oriented to place and oriented to time HEENT Head: Yes normal to inspection Neck Neck: Yes normal visual inspection Carotids: no bruits Chest Chest palpation & inspection: normal inspection of the chest Resp Effort & Inspection: normal respiratory effort and able to speak in complete sentences Auscultation: clear to auscultation bilaterally, no crackles, no rales, no rhonchi and no wheezes Cardio Rate: regular rate Rhythm: regular rhythm Heart sounds: S1 normal heart sound present and S2 normal heart sound present Bruits: no carotid bruits Peripheral pulses: Peripheral pulses 2+ throughout GI Inspection: Yes normal to inspection Skin Wounds: no wounds Hair: normal Neuro General: oriented to person, oriented to place and oriented to time Cranial nerves: Yes Normal hearing present Cognition (Neuro): normal cognition Motor exam (neuro): 5/5 motor strength present throughout Extrem Other: venous exam: +1 edema with some mild spider telangiectasias General: No clubbing, No cyanosis and Yes edema Psych Appearance: grossly normal Mental Status: mental status grossly normal Speech and movement: Normal speech and movement present Assessment & Plan Assessment & Plan (1) Asthma: Code(s): J45.909 - Unspecified asthma, uncomplicated Category: Medical Qualifiers: Asthma complication type: with acute exacerbation Asthma persistence: persistent Asthma severity: moderate Qualified Code(s): J45.41 - Moderate persistent asthma with (acute) exacerbation (2) MANJULA on CPAP: Comment: continue CPAP therapy Code(s): G47.33 - Obstructive sleep apnea (adult) (pediatric); Z99.89 - Dependence on other enabling machines and devices Category: Medical (3) Dyspnea: Code(s): R06.00 - Dyspnea, unspecified Category: Medical Qualifiers: Dyspnea type: dyspnea on exertion Qualified Code(s): R06.09 - Other forms of dyspnea (4) Chronic restrictive lung disease: Code(s): J98.4 - Other disorders of lung Category: Medical (5) Extremity edema: Code(s): R60.0 - Localized edema Category: Medical Plan Needs a replacement APAP. Awaiting PSG to Continue CPAP therapy. stop Breo start Trelegy ROSEMARY as needed continue astelin nasal spray Continue zyrtec continue monterlukast Low sodium diet F/U 3-4 months Medications: Refilled fbggrbjhyvi-gryalajhx-rvasufbe 200-62.5-25 mcg (Trelegy Ellipta) 1 inh inhalation DAILY 60 ea 12RF 30 days Coding Level of Care Code Est Pt Level 4 (21276) Diagnoses Moderate persistent asthma with acute exacerbation J45.41 Asthma complication type: with acute exacerbation Asthma persistence: persistent Asthma severity: moderate MANJULA on CPAP G47.33; Z99.89 Dyspnea on exertion R06.09 Dyspnea type: dyspnea on exertion Chronic restrictive lung disease J98.4 Extremity edema R60.0 Time Spent (min) 16
== END 2023-12-22 13:30 | disposition home or self-care (01) ==
PROVIDERS: PCP Internal Medicine; Visit Provider Hospitalist
DX: J45.41 Moderate persistent asthma with (acute) exacerbation (principal); G47.33 Obstructive sleep apnea (adult) (pediatric); Z99.89 Dependence on other enabling machines and devices; R06.09 Other forms of dyspnea; J98.4 Other disorders of lung; R60.0 Localized edema
CPT/HCPCS: 99214

== ENCOUNTER → 2023-12-22 13:09 | Outpatient (BNVA) | payer OTHER, SELFPAY | PROVIDERS: PCP Internal Medicine; Visit Provider Hospitalist | DX: G47.33 Obstructive sleep apnea (adult) (pediatric) (principal); J45.41 Moderate persistent asthma with (acute) exacerbation; J98.4 Other disorders of lung; R60.0 Localized edema; Z99.89 Dependence on other enabling machines and devices | CPT/HCPCS: 99212 ==

== ENCOUNTER → 2024-01-03 10:09 | Outpatient (REF) | payer OTHER, SELFPAY | LOC: HO.SL 10:09 | PROVIDERS: PCP Internal Medicine; Visit Provider Hospitalist | DX: G47.33 Obstructive sleep apnea (adult) (pediatric) (principal) | CPT/HCPCS: 95806 ==

== ENCOUNTER → 2024-01-03 10:24 | Outpatient (BNV) | payer OTHER, SELFPAY | PROVIDERS: PCP Internal Medicine; Visit Provider Internal Medicine | DX: R06.83 Snoring (principal) | CPT/HCPCS: 95806 ==

== ENCOUNTER 2024-01-08 10:10 | Outpatient (AMB) | payer OTHER, SELFPAY ==
--- NOTE | 2024-01-08 10:21 | MHC.OFFVIS ---
Intake Visit Reasons: Incontinence, Dysuria- follow up/PVR Intake Note: Patient presents to today for Dysuria Urology medications: Myrbetriq and Estrace Cream PVR: 0ml's Linen Sorter Required: Yes Linen Sorter Name: [id number] Accompanied by: Self / Same As Patient Allergies Benadryl Allergy (Severe, Verified 01/08/24 10:45) palpitations hydroxyzine [From VISTARIL] Allergy (Severe, Verified 01/08/24 10:45) PALPATATION oxycodone [From PERCOCET] Allergy (Severe, Verified 01/08/24 10:45) PALPIATIONS Medication List - Last Reconciled 01/08/24 by BIBI Gomez-CARLOS amitriptyline 20 mg (2 x 10 mg) PO BEDTIME 30 days arm brace Bilateral carpal tunnel wrist splint aspirin (Adult Low Dose Aspirin) 81 mg PO DAILY azelastine 2 sprays intranasal BID 30 days azelastine 2 sprays intranasal BID benzonatate 200 mg PO BID PRN 30 days budesonide 0.5 mg (2 mL) inhalation BID 30 days yjjcnudljq-ovaljgoqaxfvh-inhv 50-325-40 mg 1 tab PO Q6H PRN cetirizine mg PO clonazepam 0.5 mg PO TID PRN CPAP (CPAP Machine/Device) As directed epinephrine IM ergocalciferol (vitamin D2) 1,250 mcg PO QWEEK famotidine 10 mg PO BID ferrous sulfate 325 mg PO DAILY fluoxetine mg PO fluticasone propionate 110 mcg/actuation (Flovent HFA) 2 puffs inhalation BID 30 days agrgbhdyysl-dmbygvgfo-wprggaxw 200-62.5-25 mcg (Trelegy Ellipta) 1 inh inhalation DAILY 30 days furosemide (Lasix) 20 mg PO DAILY 30 days gabapentin 100 - 300 mg (1 - 3 x 100 mg) PO BEDTIME 30 days galcanezumab-gnlm (Emgality Pen) 120 mg subcut ONCE 30 days glipizide 5 mg PO DAILY ipratropium-albuterol 0.5 mg-3 mg(2.5 mg base)/3 mL 3 mL inhalation BID 30 days loratadine 10 mg PO DAILY PRN 30 days magnesium oxide 400 mg PO DAILY 30 days metoprolol succinate ER 25 mg PO DAILY miconazole nitrate 2% (Miconazole-7) 1 appful vaginal BEDTIME 7 days mirabegron ER (Myrbetriq) 25 mg PO DAILY 30 days montelukast 10 mg PO DAILY omeprazole 20 mg PO DAILY zolpidem 10 mg PO BEDTIME PRN HPI Comments Details: Rachell is a pleasant 53 year old [place] Citizen speaking patient of Dr. Vera who is accompanied by her daughter at todays visit. She has a past medical history of asthma, COPD, obesity, and obstructive sleep apnea on CPAP. She presents to the office today for a follow up of her mixed incontinence. In discussion with the patient today she reports significant improvement in her lower urinary tract symptoms on Myrbetriq 25 mg daily and is requesting a refill. She reports compliance with Estrace cream as prescribed. She currently denies any bothersome urinary issues or concerns. In office urinalysis results reviewed with the patient today. PVR 0 mL. Previous workup has included a retroperitoneal ultrasound that noted bilateral kidneys with no hydronephrosis calculi or lesions noted. Limited visualization. The bladder is partially distended limiting evaluation. Pre void bladder volume is approximately 50 mL. Postvoid bladder volume is approximately 10 mL. She discusses being recently exposed to COVID. She reports for people in her home have COVID. To discusses she will be following up with her PCP later today. She did perform home COVID testing that was negative. She otherwise denies urinary urgency, urinary frequency, nocturia, hematuria, dysuria, changes to urinary stream, flank pain, fever, and or chills. [facility] Medical History MANJULA (obstructive sleep apnea) Chronic urticaria Chronic restrictive lung disease COVID-19 Pre-op chest exam Sinusitis Dyspnea Chest pain Obesity Anemia Extremity edema Dyspnea Chronic rhinitis MANJULA on CPAP Asthma Surgical History History of bilateral tubal ligation History of dilatation and curettage delivery delivered Family History Mother Asthma Hypertension Father FHx: lung cancer Social History Alcohol intake: never Patient Tobacco Use Status: Former Tobacco user Tobacco use type: Cigarette Years Smoked: 12 years Female Reproductive History Menstrual Age of Menarche: 13 Review of Systems Const Reports as per HPI Eyes Reports no additional complaints ENT Reports no additional complaints Card Reports no additional complaints Resp Reports as per HPI GI Reports no additional complaints Reports as per HPI Musc Reports no additional complaints Neuro Reports no additional complaints Psych Reports no additional complaints Endo Reports no additional complaints Pedro/Lymph Reports no additional complaints Aller/Immun Reports no additional complaints Physical Exam Const General: cooperative, healthy appearing, comfortable, no acute distress, well developed, alert and awake Nutritional Appearance: overweight Orientation/consciousness: patient oriented x3 Limitations: no limitations HEENT Head: Yes normal to inspection, Yes normocephalic and Yes atraumatic Ears: hearing grossly normal bilaterally Eyes General: appearance normal, both eyes and all related structures Neck Neck: Yes normal visual inspection and Yes trachea midline Chest Chest palpation & inspection: normal inspection of the chest Resp Effort & Inspection: normal respiratory effort and able to speak in complete sentences Cardio Rate: regular rate GI Inspection: Yes normal to inspection General: Yes no CVA tenderness Back/Spine/Pelvis Back: no CVA tenderness Skin General skin exam: no rashes or lesions noted Neuro General: patient oriented x3 Extrem General: Yes normal to inspection Psych Appearance: grossly normal and well kempt Mental Status: mental status grossly normal Speech and movement: Normal speech and movement present and Clear speech present Affect: normal affect Attitude: cooperative Thought process: Normal thought process present Thought content: Normal thought content present Insight: Fair insight present (Psych) Judgement: Fair judgement present (Psych) Office Procedures Post Void Residual Post Residual Void Post Void Residual (PVR): 0 [id number] Void Residual by ultrasound Results AMB Urinalysis, Automated UA Leukoctes 0 Ambar/uL Last Edit by [employer] on 01/08/24 10:39 UA Nitrite Negative Last Edit by [employer] on 01/08/24 10:39 UA Urobilinogen 0.2 mg/dL Last Edit by [employer] on 01/08/24 10:39 UA Protein 15 mg/dL Last Edit by [employer] on 01/08/24 10:39 UA pH 5.5 Last Edit by [employer] on 01/08/24 10:39 UA Blood 0 Lewis/uL Last Edit by [employer] on 01/08/24 10:39 UA Specific Venus 1.025 Last Edit by Sylvia Robins on 01/08/24 10:39 UA Ketone Negative Last Edit by Sylvia Robins on 01/08/24 10:39 UA Bilirubin 0 mg/dL Last Edit by Sylvia Robins on 01/08/24 10:39 UA Glucose 0 mg/dL Last Edit by Sylvia Robins on 01/08/24 10:39 Results Reviewed Results Reviewed: Laboratory Last Values Urine pH (Auto) 5.5 01/08/24 10:33 Specific Venus (Auto) 1.025 01/08/24 10:33 Urine Protein (Auto) 15 mg/dL 01/08/24 10:33 Glucose (UA)(Auto) 0 mg/dL 01/08/24 10:33 Urine Ketones (Auto) Negative 01/08/24 10:33 Urine Blood (Auto) 0 Lewis/uL 01/08/24 10:33 Urine Nitrite (Auto) Negative 01/08/24 10:33 Urine Bilirubin (Auto) 0 mg/dL 01/08/24 10:33 Urine Urobilinogen (Auto) 0.2 mg/dL 01/08/24 10:33 Leukocyte Esterase (Auto) 0 Ambar/uL 01/08/24 10:33 Assessment & Plan Assessment & Plan (1) Mixed incontinence: Code(s): N39.46 - Mixed incontinence Category: Medical Plan In office urinalysis results reviewed with the patient today; as noted above. PVR 0 mL. Patient reports be happy with current voiding parameters on 25 mg of Myrbetriq; will continue; refill provided. Continue Estrace cream as discussed and prescribed; refill provided. Discussed UTI prevention with D mannose supplement, vitamin-C, increasing fluid intake, behavioral therapy with timed voiding, perineal hygiene and postcoital voiding, and management of constipation with stool softeners and increased fiber intake. Discussed possible near future in office cystoscopy and or urodynamics if symptoms arise. Discussed, educated, and stressed the importance of weight loss to assist with lower urinary tract symptoms as well as overall health and well-being. Follow-up in 6 months with PVR; or sooner with any issues, concerns, and or questions. Orders: Orders AMB Urinalysis Automated Today Z13.9 - Encounter for screening, unspecified AMB Post Void Residual by ultrasound Today N39.46 - Mixed incontinence Medications: New estradiol 0.01%(0.1mg/gram) pea sized amount to urethra 3 times a week 30 days 42.5 grams 3RF Changed From mirabegron ER (Myrbetriq) 25 mg PO DAILY 30 days 30 tabs 1RF N30.10 - Interstitial cystitis (chronic) without hematuria, N32.81 - Overactive bladder, R35.1 - Nocturia, R39.15 - Urgency of urination To mirabegron ER (Myrbetriq) 25 mg PO DAILY 90 days 90 tabs 3RF N30.10 - Interstitial cystitis (chronic) without hematuria, N32.81 - Overactive bladder, R35.1 - Nocturia, R39.15 - Urgency of urination Patient Instructions: The patient had an opportunity to ask questions regarding the treatment plan. All questions were answered. Physical exam, labs, and imaging were discussed and reviewed in detail. As well as risks, benefits, and discussion of treatment choices. No major barriers to understanding were identified. The patient expressed understanding and agreement with the above treatment plan. The patient was made aware they should contact our office by phone for worsening of their current condition, the appearance of new symptoms, or with any questions or concerns. Compliance is encouraged with any medications and follow up testing that is ordered. It is a privilege to be allowed the opportunity to participate in? your urological care.? Again, if you have any questions or concerns If you have any questions or concerns please do not hesitate to contact me. The office is [phone]. This note is constructed using voice recognition software. While every effort has been made to ensure accuracy oil laboratory analyst errors may have been included. Yours sincerely, QUENTIN Gomez Coding Level of Care Code Est Pt Level 4 (47195) Diagnoses Mixed incontinence N39.46 CPT Codes Post Residual Void - PVR CPT Code: 06954-Slxf Void Residual by ultrasound ([id number]) Time Spent (min) 25
== END 2024-01-08 10:51 | disposition home or self-care (01) ==
LOC: HO.HUSH 10:10
PROVIDERS: PCP Internal Medicine; Visit Provider Nurse Practitioner Family
DX: N39.46 Mixed incontinence (principal); Z13.9 Encounter for screening, unspecified
CPT/HCPCS: 99214

== ENCOUNTER → 2024-01-08 10:10 | Outpatient (BNVA) | payer OTHER, SELFPAY | PROVIDERS: PCP Internal Medicine; Visit Provider Nurse Practitioner Family | DX: N39.46 Mixed incontinence (principal) | CPT/HCPCS: 51798; 81003; 99212 ==

== ENCOUNTER 2024-01-29 23:09 | Emergency (ER) | payer OTHER, SELFPAY ==
--- NOTE | 2024-01-29 | ECG_ITS ---
Test Reason : CHEST PAIN Blood Pressure : / mmHG Vent. Rate : 082 BPM Atrial Rate : 082 BPM P-R Int : 146 ms QRS Dur : 082 ms QT Int : 394 ms P-R-T Axes : 053 003 016 degrees QTc Int : 460 ms Normal sinus rhythm Minimal voltage criteria for LVH, may be normal variant ( R in aVL ) Borderline ECG No significant changes when compared with the previous EKG of 27 sep 2019 Referred By: Generic ED Physician Electronically Signed By:CHALO ALEMAN
--- NOTE | ~2024-01-29 | XR_ITS ---
EXAMINATION: XR CHEST CLINICAL INFORMATION: Chest pain. COMPARISON: 05/12/2021. TECHNIQUE: 2 views of the chest were obtained. FINDINGS: No significant abnormality is noted involving the heart, lungs, mediastinum, bony thorax or soft tissues. XR/XR chest 2V IMPRESSION: Unremarkable examination.
[2024-01-29 23:22] VITALS: BP 148/77; PULSE 81; RESP 20; TEMP 36.5; O2SAT 99; BMI 46.6
[2024-01-29 23:38] LABS: Hematocrit 34.7 % (37.0-47.0); Hemoglobin 12.2 g/dl (12.0-16.0); Mean Corpuscular HGB Conc 35.2 g/dl (31.0-35.0); Mean Corpuscular Volume 88.3 fL (80.0-98.0); Mean Platelet Volume 8.7 fL (9.4-12.3); Platelet Count 274 X10*3/uL (160-400); Red Blood Count 3.93 X10*6/uL (4.20-5.50); Red Cell Distribution Width 13.2 % (11.0-16.0)
[2024-01-29 23:49] LABS: INTERNATIONAL NORM RATIO 0.9 (0.9-1.1); Prothrombin Time 11.5 SEC (11.1-13.3)
[2024-01-29 23:53] LABS: Alanine Aminotransferase 22 U/L (0-31); Alkaline Phosphatase 74 U/L (39-117); Anion Gap 16 (12-20); Aspartate Amino Transferase 18 U/L (5-31); Bilirubin Total 0.2 mg/dL (0.0-1.0); Blood Urea Nitrogen 18 mg/dL (9-16); Calcium 9.7 mg/dL (8.4-10.2); Carbon Dioxide 23 mmol/L (22-29); Chloride 106 mmol/L (96-108); Creatinine Clr Calc Pharmacy 123.5; Estimated Glomerular Filt Rate > 60; Glucose Random 139 mg/dL (60-115); Potassium 3.8 mmol/L (3.3-5.1); Sodium 141 mmol/L (135-145); Total Protein 7.8 g/dL (6.5-8.0)
[2024-01-30 00:01] LABS: Troponin-I High Sensitivity < 2.7 ng/L (<3.5-17.0)
--- NOTE | 2024-01-30 01:20 | ED_ITS ---
HPI - Chest Pain General Chief Complaint: Chest Pain Stated Complaint: chest pain, diff breathing Time Seen by Provider: 01/30/24 00:04 Source: patient Mode of arrival: ambulatory History of Present Illness ED Provider: Dr Wilkerson HPI narrative: 53-year-old female who presents with having recovered from COVID-19 recently and states that she is continued to experience a significant cough with chest wall discomfort and reports chest pain that started this evening at approximately 10:30. There is no associated dizziness/shortness of breath or nausea associated with this. Related Data Home Medications ?Medication ?Instructions ?Recorded ?Confirmed cetirizine 10 mg tablet mg PO 05/16/20 01/08/24 clonazepam 0.5 mg tablet 0.5 mg PO TID PRN 05/16/20 01/08/24 epinephrine 0.3 mg/0.3 mL IM 05/16/20 01/08/24 injection, auto-injector famotidine 10 mg tablet 10 mg PO BID 05/16/20 01/08/24 ferrous sulfate 325 mg (65 mg 325 mg PO DAILY 05/16/20 01/08/24 iron) tablet,delayed release fluoxetine 20 mg capsule mg PO 05/16/20 01/08/24 metoprolol succinate 25 mg 25 mg PO DAILY 05/16/20 01/08/24 tablet,extended release 24 hr omeprazole 20 mg capsule,delayed 20 mg PO DAILY 05/16/20 01/08/24 release zolpidem 10 mg tablet 10 mg PO BEDTIME PRN 05/16/20 01/08/24 aspirin 81 mg tablet,delayed 81 mg PO DAILY 12/10/21 01/08/24 release (Adult Low Dose Aspirin) ergocalciferol (vitamin D2) 1,250 1,250 mcg PO QWEEK 01/02/23 01/08/24 mcg (50,000 unit) capsule CPAP (CPAP Machine/Device) 12/22/23 01/08/24 glipizide 5 mg tablet 5 mg PO DAILY 12/22/23 01/08/24 Previous Rx's ?Medication ?Instructions ?Recorded wusvkqnlfv-pyfzoibjpvvox-blbfgklj 1 tab PO Q6H PRN pain #20 tabs 04/29/21 50 mg-325 mg-40 mg tablet benzonatate 200 mg capsule 200 mg PO BID PRN cough 30 days 06/02/22 #60 caps arm brace #2 ea 10/11/22 gabapentin 100 mg capsule 100 - 300 mg (1 - 3 x 100 mg) PO 10/11/22 BEDTIME 30 days #90 caps budesonide 0.5 mg/2 mL suspension 0.5 mg (2 mL) inhalation BID 30 01/09/23 for nebulization days #120 mL amitriptyline 10 mg tablet 20 mg (2 x 10 mg) PO BEDTIME 30 02/08/23 days #60 tabs ipratropium 0.5 mg-albuterol 3 mg 3 ml inhalation BID 30 days #180 mL 03/20/23 (2.5 mg base)/3 mL nebulization soln azelastine 137 mcg (0.1 %) nasal 2 spray intranasal BID #30 mL 04/19/23 spray aerosol azelastine 137 mcg (0.1 %) nasal 2 spray intranasal BID 30 days #30 04/19/23 spray aerosol mL loratadine 10 mg tablet 10 mg PO DAILY PRN allergy 05/30/23 symptoms 30 days #30 tabs magnesium oxide 400 mg (241.3 mg 400 mg PO DAILY 30 days #30 tabs 06/05/23 magnesium) tablet montelukast 10 mg tablet 10 mg PO DAILY #30 tabs 09/22/23 galcanezumab-gnlm 120 mg/mL 120 mg subcut ONCE 30 days #1 mL 09/28/23 subcutaneous pen injector (Emgality Pen) miconazole nitrate 2 % vaginal 1 appful vaginal BEDTIME 7 days 11/21/23 cream (Miconazole-7) #45 grams furosemide 20 mg tablet (Lasix) 20 mg PO DAILY 30 days #30 tabs 12/18/23 estradiol 0.01% (0.1 mg/gram) See Rx Instructions vaginal 3XW 30 01/08/24 vaginal cream days #42.5 grams mirabegron 25 mg tablet,extended 25 mg PO DAILY 90 days #90 tabs 01/08/24 release 24 hr (Myrbetriq) molnupiravir 200 mg capsule (EUA) 800 mg (4 x 200 mg) PO Q12H 5 days 01/09/24 #40 caps fluticasone furoate 200 1 inh inhalation DAILY 30 days #60 01/11/24 mcg-vilanterol 25 mcg/dose ea inhalation powder (Breo Ellipta) umeclidinium 62.5 mcg/actuation 1 inh inhalation DAILY 30 days #30 01/11/24 blister powder for inhalation ea (Incruse Ellipta) albuterol sulfate 2.5 mg/3 mL 2.5 mg (3 mL) inhalation Q6H PRN 01/24/24 (0.083 %) solution for nebulization shortness of breath or wheezing 30 days #180 mL albuterol sulfate 90 mcg/actuation 2 inh inhalation Q6H PRN shortness 01/24/24 aerosol inhaler of breath or wheezing 30 days #18 grams Allergies Allergy/AdvReac Type Severity Reaction Status Date / Time Benadryl Allergy Severe palpitation Verified 01/29/24 23:22 s hydroxyzine [From VISTARIL] Allergy Severe PALPATATION Verified 01/29/24 23:22 oxycodone [From PERCOCET] Allergy Severe PALPIATIONS Verified 01/29/24 23:22 Review of Systems 2 Review of Systems: Pertinent positives and negatives as stated in the [facility] Past Medical History Source: nursing notes reviewed Medical History MANJULA (obstructive sleep apnea) Chronic urticaria Chronic restrictive lung disease COVID-19 Pre-op chest exam Sinusitis Dyspnea Chest pain Obesity Anemia Extremity edema Dyspnea Chronic rhinitis MANJULA on CPAP Asthma Surgical History History of bilateral tubal ligation History of dilatation and curettage delivery delivered Family History Family History Mother Asthma Hypertension Father FHx: lung cancer Social History Social History Alcohol intake: never Patient Tobacco Use Status: Former Tobacco user Tobacco use type: Cigarette Years Smoked: 12 years Advance Directives: No Advance Directives Information Provided: Yes Do you have a plan to hurt others: No Plan Physical Exam 2 Vital Signs: Vital Signs: Last Vital Signs Temp 97.7 F 01/29/24 23:22 Pulse 81 01/29/24 23:22 Resp 20 01/29/24 23:22 BP 148/77 H 01/29/24 23:22 Pulse Ox 99 01/29/24 23:22 O2 Del Method Room Air 01/29/24 23:22 BMI result Body Mass Index 46.6 VITAL SIGNS: Reviewed. GENERAL: Well developed, well nourished, in no acute distress. HEAD: Normocephalic/atraumatic EYES: PERRLA, EOMI LUNGS: Normal breath sounds. No adventitious sounds or accessory muscle use. SpO2<99>; CHEST WALL: Reproducible tenderness to palpation along chest wall CARDIOVASCULAR: Regular rate and rhythm without noted murmurs ABDOMEN: Soft, non-tender, non-distended with bowel sounds. MUSCULOSKELETAL: No tenderness, deformities, or effusions noted on gross inspection. EXTREMITIES: No cyanosis, clubbing or edema. SKIN: Inspection of the skin reveals no rashes NEUROLOGIC: Alert and oriented x 4. Strength and sensation to light touch were grossly intact x 4. Medications Administered Discontinued Medications Generic Name Dose Route Start Last Admin Trade Name Freq PRN Reason Stop Dose Admin Ibuprofen 400 mg 01/30/24 01:20 01/30/24 01:51 Ibuprofen 400 Mg Tablet PO 01/30/24 01:21 400 mg ONCE ONE Administration Medical Decision Making Medical Decision Making [facility] Narrative: 53-year-old female with history and clinical presentation, DDX: Musculoskeletal/costochondritis/low clinical suspicion for ACS or pneumonia. I reviewed all investigations and hematologic indices are negative for leukocytosis/anemia/thrombocytopenia. Coagulation studies within normal limits. Chemistry indices are negative for SAMEER/electrolyte/liver enzyme derangements and high sensitivity troponin is undetectable without any acute changes on EKG. My interpretation of the chest x-ray is there are no acute infiltrates or evidence to suggest venous congestion. Chest x-ray without acute findings of infiltrate or venous congestion. My interpretation is that patient is experiencing a costochondritis/musculoskeletal pain associated with her extensive coughing. She is otherwise discharged with instructions follow-up with primary care doctor. Differential Diagnosis Differential Diagnoses: The differential diagnosis associated with the presentation includes Please see the discussion above Admission/Observation Consideration of admission/observation: Escalation of care including admission/observation considered Please see the discussion above Lab Data [facility] Lab Attestation statement: I reviewed the patient's lab results. Please see the discussion 01/29/24 23:33 01/29/24 23:33 Labs: Lab Results 01/29/24 Range/Units 23:33 WBC 6.0 (4.8-10.8) X10*3/uL RBC 3.93 L (4.20-5.50) X10*6/uL Hgb 12.2 (12.0-16.0) g/dl Hct 34.7 L (37.0-47.0) % MCV 88.3 (80.0-98.0) fL MCH 31.0 (27.0-33.0) pg MCHC 35.2 H (31.0-35.0) g/dl RDW 13.2 (11.0-16.0) % Plt Count 274 (160-400) X10*3/uL MPV 8.7 L (9.4-12.3) fL Absolute Nucleated RBC 0.000 (0.0-0.012) X10*3/uL Nucleated RBC % (auto) 0.0 (0.0-0.2) /100WBC PT 11.5 (11.1-13.3) SEC INR 0.9 (0.9-1.1) Sodium 141 (135-145) mmol/L Potassium 3.8 (3.3-5.1) mmol/L Chloride 106 (96-108) mmol/L Carbon Dioxide 23 (22-29) mmol/L Anion Gap 16 (12-20) BUN 18 H (9-16) mg/dL Creatinine 0.61 (0.5-1.4) mg/dL Estim Creat Clear Calc 123.5 Estimated GFR > 60 Random Glucose 139 H (60-115) mg/dL Calcium 9.7 D (8.4-10.2) mg/dL Total Bilirubin 0.2 (0.0-1.0) mg/dL AST 18 (5-31) U/L ALT 22 (0-31) U/L Alkaline Phosphatase 74 (39-117) U/L Troponin I High Sens < 2.7 (<3.5-17.0) ng/L Total Protein 7.8 (6.5-8.0) g/dL Albumin 4.0 (3.5-5.0) g/dL Independent Interpretation I performed an independent interpretation of an: EKG Interpretation: Normal sinus rhythm, HR-82, no STEMI, PA/QRS/QTC is within normal limits. Radiology Impression Discussion of test interpretation with radiology: I have reviewed the radiologist's reading. Radiologist Impression: Please see the discussion above External Record Review External record reviewed: Outpatient record, Prior outpatient labs and Prior outpatient radiology Chronic Conditions Patient?s care impacted by: Hypertension Critical Care Time Critical Care Time Critical Care Time: Yes Total Critical Care Time: 45 Attestation: I personally attest to this time spent taking care of the patient. Discharge Plan Discharge Clinical Impression: Atypical chest pain, Chronic cough, Costochondritis Patient Disposition: Home, Self-Care Instructions: Costochondritis (ED), Chest Wall Pain (ED) Additional Instructions: 1. Recommend xpds-olw-gsrwahf Tylenol/ibuprofen as needed for pain control. Attempt to control coughing with sdyp-let-ldodxiy medication. 2. Follow-up with primary care doctor. Return to the ER for any worsening symptoms. Prescriptions: No Action ipratropium-albuterol 0.5 mg-3 mg(2.5 mg base)/3 mL solution for nebulization 3 ml inhalation BID 30 Days Qty: 180 11RF azelastine 137 mcg (0.1 %) aerosol,spray 2 spray intranasal BID 30 Days Qty: 30 6RF Rx Instructions: administer into each nostril azelastine 137 mcg (0.1 %) aerosol,spray 2 spray intranasal BID Qty: 30 4RF magnesium oxide 400 mg (241.3 mg magnesium) tablet 400 mg PO DAILY 30 Days Qty: 30 6RF montelukast 10 mg tablet 10 mg PO DAILY Qty: 30 9RF furosemide [Lasix] 20 mg tablet 20 mg PO DAILY 30 Days Qty: 30 0RF molnupiravir 200 mg capsule 800 mg PO Q12H 5 Days Qty: 40 0RF fluticasone furoate-vilanterol [Breo Ellipta] 200-25 mcg/dose blister with device 1 inh inhalation DAILY 30 Days Qty: 60 11RF Incruse Ellipta 62.5 mcg/actuation blister with device 1 inh inhalation DAILY 30 Days Qty: 30 11RF albuterol sulfate 90 mcg/actuation HFA aerosol inhaler 2 inh inhalation Q6H PRN (Reason: shortness of breath or wheezing) 30 Days Qty: 18 12RF albuterol sulfate 2.5 mg /3 mL (0.083 %) solution for nebulization 2.5 mg inhalation Q6H PRN (Reason: shortness of breath or wheezing) 30 Days Qty: 180 11RF oxoskcwntb-jwoepsxovmtfz-otlo 50-325-40 mg tablet 1 tab PO Q6H PRN (Reason: pain) Qty: 20 0RF epinephrine 0.3 mg/0.3 mL auto-injector IM cetirizine 10 mg tablet PO fluoxetine 20 mg capsule PO ferrous sulfate 325 mg (65 mg iron) tablet,delayed release (DR/EC) 325 mg PO DAILY metoprolol succinate 25 mg tablet extended release 24 hr 25 mg PO DAILY omeprazole 20 mg capsule,delayed release(DR/EC) 20 mg PO DAILY clonazepam 0.5 mg tablet 0.5 mg PO TID PRN famotidine 10 mg tablet 10 mg PO BID zolpidem 10 mg tablet 10 mg PO BEDTIME PRN benzonatate 200 mg capsule 200 mg PO BID PRN (Reason: cough) 30 Days Qty: 60 3RF aspirin [Adult Low Dose Aspirin] 81 mg tablet,delayed release (DR/EC) 81 mg PO DAILY gabapentin 100 mg capsule 100 - 300 mg PO BEDTIME 30 Days Qty: 90 3RF (DME) arm brace Misc See Rx Instructions .Route Qty: 2 0RF Rx Instructions: Bilateral carpal tunnel wrist splint budesonide 0.5 mg/2 mL suspension for nebulization 0.5 mg inhalation BID 30 Days Qty: 120 11RF amitriptyline 10 mg tablet 20 mg PO BEDTIME 30 Days Qty: 60 3RF ergocalciferol (vitamin D2) 1,250 mcg (50,000 unit) capsule 1,250 mcg PO QWEEK loratadine 10 mg tablet 10 mg PO DAILY PRN (Reason: allergy symptoms) 30 Days Qty: 30 3RF glipizide 5 mg tablet 5 mg PO DAILY (DME) CPAP Machine/Device Device See Rx Instructions .Route Rx Instructions: As directed miconazole nitrate [Miconazole-7] 2 % cream 1 appful vaginal BEDTIME 7 Days Qty: 45 2RF Rx Instructions: use prn for vaginal yeast infections/itching Myrbetriq 25 mg tablet extended release 24 hr 25 mg PO DAILY 90 Days Qty: 90 3RF estradiol 0.01 % (0.1 mg/gram) cream See Rx Instructions vaginal 3XW 30 Days Qty: 42.5 3RF Rx Instructions: pea sized amount to urethra 3 times a week Emgality Pen 120 mg/mL pen injector 120 mg subcut ONCE 30 Days Qty: 1 6RF Referrals: Pam Vera MD [Primary Care Provider] - Print Language: Lao
[2024-01-30 01:51] VITALS: BP 131/88; PULSE 65; RESP 12; TEMP 36.6; O2SAT 100
[2024-01-30] MEDS: Ibuprofen 400 MG TABLET PO (01:51)
[2024-01-30 02:08] VITALS: BP 131/88; PULSE 65; RESP 12; TEMP 36.6; O2SAT 100
== END 2024-01-30 02:08 | disposition home or self-care (01) ==
PROVIDERS: Emergency Provider Student in an Organized Health Care Education/Training Program; PCP Internal Medicine
DX: R07.89 Other chest pain (principal); R05.3 Chronic cough; M94.0 Chondrocostal junction syndrome [Tietze]
CPT/HCPCS: 36415; 71046; 80053; 84484; 85027; 85610; 93005; 99283; 99285

== ENCOUNTER → 2024-01-29 23:09 | Outpatient (BNV) | payer OTHER, SELFPAY | PROVIDERS: Emergency Provider Student in an Organized Health Care Education/Training Program; PCP Internal Medicine; Visit Provider Internal Medicine | DX: R07.9 Chest pain, unspecified (principal) | CPT/HCPCS: 93010 ==

== ENCOUNTER 2024-02-12 08:47 | Outpatient (AMB) | payer OTHER, SELFPAY ==
--- NOTE | 2024-02-12 09:06 | A.OFFVIS_ITS ---
Vital Signs 02/12/24 09:12 Height 5 ft 1 in Weight 225 lb BMI 42.5 Intake Visit Reasons: 4 mnts f/u appt-CONF Intake Note: patient presents for follow up..Patient with headache for 4-5 days now Allergies Benadryl Allergy (Severe, Verified 02/12/24 09:13) palpitations hydroxyzine [From VISTARIL] Allergy (Severe, Verified 02/12/24 09:13) PALPATATION oxycodone [From PERCOCET] Allergy (Severe, Verified 02/12/24 09:13) PALPIATIONS Medication List - Last Reconciled 02/12/24 by BIBI Hernandez albuterol sulfate 90 mcg/actuation 2 inhalations inhalation Q6H PRN 30 days albuterol sulfate 2.5 mg (3 mL) inhalation Q6H PRN 30 days amitriptyline 20 mg (2 x 10 mg) PO BEDTIME 30 days arm brace Bilateral carpal tunnel wrist splint aspirin (Adult Low Dose Aspirin) 81 mg PO DAILY azelastine 2 sprays intranasal BID 30 days azelastine 2 sprays intranasal BID benzonatate 200 mg PO BID PRN 30 days budesonide 0.5 mg (2 mL) inhalation BID 30 days uehtvhqhen-lmvibfmnldbsb-jjal 50-325-40 mg 1 tab PO Q6H PRN cetirizine mg PO clonazepam 0.5 mg PO TID PRN CPAP (CPAP Machine/Device) As directed epinephrine IM ergocalciferol (vitamin D2) 1,250 mcg PO QWEEK estradiol 0.01%(0.1mg/gram) pea sized amount to urethra 3 times a week 30 days famotidine 10 mg PO BID ferrous sulfate 325 mg PO DAILY fluoxetine mg PO fluticasone furoate-vilanterol 200-25 mcg/dose (Breo Ellipta) 1 inh inhalation DAILY 30 days furosemide (Lasix) 20 mg PO DAILY 30 days gabapentin 100 - 300 mg (1 - 3 x 100 mg) PO BEDTIME 30 days galcanezumab-gnlm (Emgality Pen) 120 mg subcut ONCE 30 days glipizide 5 mg PO DAILY ipratropium-albuterol 0.5 mg-3 mg(2.5 mg base)/3 mL 3 mL inhalation BID 30 days loratadine 10 mg PO DAILY PRN 30 days magnesium oxide 400 mg PO DAILY 30 days metoprolol succinate ER 25 mg PO DAILY miconazole nitrate 2% (Miconazole-7) 1 appful vaginal BEDTIME 7 days mirabegron ER (Myrbetriq) 25 mg PO DAILY 90 days molnupiravir 800 mg (4 x 200 mg) PO Q12H 5 days montelukast 10 mg PO DAILY omeprazole 20 mg PO DAILY umeclidinium 62.5 mcg/actuation (Incruse Ellipta) 1 inh inhalation DAILY 30 days zolpidem 10 mg PO BEDTIME PRN HPI Comments Details: 53-yr-old female presents for f/u visit. Pt reports in December she had COVID-19 a/w costochondritis, but is now feeling better. She takes her Emgality on the . The emgality works well, but she notices that the Emgality wears off 5-7 days before the next injection is due. She is using Tylenol prn- does not help fully. Baseline migraine s/s: stabbing/pulsating pain in her right parietal region. She notices bilateral neck tightness when there are barometric weather changes/clouds/raining. [facility] Medical History MANJULA (obstructive sleep apnea) Chronic urticaria Chronic restrictive lung disease COVID-19 Pre-op chest exam Sinusitis Dyspnea Chest pain Obesity Anemia Extremity edema Dyspnea Chronic rhinitis MANJULA on CPAP Asthma Surgical History History of bilateral tubal ligation History of dilatation and curettage delivery delivered Family History Mother Asthma Hypertension Father FHx: lung cancer Social History Alcohol intake: never Patient Tobacco Use Status: Former Tobacco user Tobacco use type: Cigarette Years Smoked: 12 years Female Reproductive History Menstrual Age of Menarche: 13 Physical Exam Vital Signs: BMI result Body Mass Index 42.5 Const General: cooperative and no acute distress Orientation/consciousness: patient oriented x3 Resp Effort & Inspection: normal respiratory effort and able to speak in complete sentences Neuro General: patient oriented x3 Cranial nerves: Yes CN's II-XII intact bilaterally Cognition (Neuro): normal cognition Psych Appearance: grossly normal Mental Status: mental status grossly normal Speech and movement: Normal speech and movement present Affect: normal affect Attitude: cooperative Assessment & Plan Assessment & Plan (1) Migraine: Code(s): G43.909 - Migraine, unspecified, not intractable, without status migrainosus Category: Medical (2) Paresthesia and pain of both upper extremities: Code(s): R20.2 - Paresthesia of skin; M79.601 - Pain in right arm; M79.602 - Pain in left arm Category: Medical Plan For migraine prevention: Continue Amitriptyline 20mg qhs. would not increase further d/t pt already has am tiredness and dry mouth.. Continue Emgality 120mg sc q month. ? For acute migraine tx: Trial Sumatriptan 100mg tab, 1/2 - 1 tab (50-100mg) at onset of headache, may repeat in 2 hours. Max of 2 tabs (200mg) per 24 hours. May adjunct with OTC Tylenol 650mg q 4 hours or Diclofenac 50mg prn. Future considerations- gepant. ? For BUE hand and neck pain: BUE wrist splints at night- continue Patient has not yet had BUE EMG/NCS- reordered. ? follow-up in 6 months or sooner as needed Medications: New sumatriptan succinate (0.5 - 1 x 100 mg) 50 - 100 mg orally at onset of headache, may repeat in 2 hrs PRN; max 2 tabs per day or 4 tabs/week (may take with Tylenol or Diclofenac) 30 days 12 tabs 6RF migraine headache diclofenac potassium 50 mg PO BID 30 days PRN 60 tabs 3RF migraine headache Refilled magnesium oxide 400 mg PO DAILY 30 days 30 tabs 6RF Discontinued hvvikibxyq-ltpqhsgtzglzt-fpes 50-325-40 mg Discontinued Reason: Doctor's Order 1 tab PO Q6H PRN 20 tabs 0RF pain Coding Level of Care Code Est Pt Level 4 (99939) Diagnoses Migraine G43.909 Paresthesia and pain of both upper extremities R20.2; M79.601; M79.602
[2024-02-12 09:12] VITALS: BMI 42.5
== END 2024-02-12 09:59 | disposition home or self-care (01) ==
PROVIDERS: PCP Internal Medicine; Visit Provider Nurse Practitioner Family
DX: G43.909 Migraine, unspecified, not intractable, without status migrainosus (principal); R20.2 Paresthesia of skin; M79.601 Pain in right arm; M79.602 Pain in left arm
CPT/HCPCS: 99214

== ENCOUNTER → 2024-02-12 08:47 | Outpatient (BNVA) | payer OTHER, SELFPAY | PROVIDERS: PCP Internal Medicine; Visit Provider Nurse Practitioner Family | DX: G43.909 Migraine, unspecified, not intractable, without status migrainosus (principal); R20.2 Paresthesia of skin; M79.601 Pain in right arm; M79.602 Pain in left arm; Z79.899 Other long term (current) drug therapy | CPT/HCPCS: 99212 ==

== ENCOUNTER 2024-03-27 10:56 | Outpatient (AMB) | payer OTHER, SELFPAY ==
--- NOTE | 2024-03-27 11:14 | A.OFFVIS_ITS ---
Vital Signs 03/27/24 11:15 Height 5 ft 1 in Weight 228 lb BMI 43.1 Pulse 71 Pulse Source Pulse Oximeter Pulse Oximetry (%) 99 Oxygen Delivery Method Room Air Intake Visit Reasons: COPD Glass Decorator Required: No Allergies Benadryl Allergy (Severe, Verified 03/27/24 11:16) palpitations hydroxyzine [From VISTARIL] Allergy (Severe, Verified 03/27/24 11:16) PALPATATION oxycodone [From PERCOCET] Allergy (Severe, Verified 03/27/24 11:16) PALPIATIONS HPI Comments Details: The patient is a 53-year-old woman with a known history of asthma in addition to obstructive sleep apnea. Her CPAP therapy has been affecting beneficial. She does uses CPAP every night for more than 4 hours a night. She has been getting supplies regularly through her [employer]. In regards to her breathing she has but and on multiple respiratory medications. She does require her short- acting beta agonist but usually less than twice a week. She denies any imaging studies over respiratory studies recently. Otherwise the patient has been having increasing cough but feels is related to the allergies. She has been taking allergy medications including Zyrtec. She has never taken singular. 01/09/2023 the patient is here for pulmonary follow-up visit. The patient overall has been doing well she has been using CPAP every night the CPAP therapy continues to be affecting beneficial. She is using a fullface mask. She has use it for more than 4 hours a night. Will make sure she gets supplies readily available. Her breathing has been good. She continues on the Trelegy inhaler with good effect. Although she is having a lot of nasal congestion and postnasal drip and cough. Xwqb-xa-gocxkllt severity. Will go ahead and optimize her allergy therapy and her sinus therapy to minimize symptoms. We also started about nasal rinsing. She will look into it. 08/25/2023 the patient is here for a pulmonary follow-up visit. She is struggling because she does not have her CPAP a pale above. Apparently she was in the airport in [place] and her CPAP was lost or stolen. She tried to reported to the [place] police Department but since it happened in the airport she could not get a police report. The patient has been struggling because she has been without her CPAP. She has significant daytime drowsiness. Her [place] score significantly elevated at 12 over 24. She did very well on CPAP and she had good adherence. In the meantime I did call her [employer] company to see if she was due for replacement machine. In view of her significant symptoms will have her get a sleep study in case we need to restart the process to we diagnose or in order to get her a new machine. The patient is also complaining of tooth pain she is going to be seen the dentist in the couple weeks. And also the patient has been having worsening cough. Chest congestion. Habs-og-otqyzfbs severity. She has been using her respiratory medications. 12/22/2023 the patient is here for a pulmonary follow-up visit doing well. She is still having daytime drowsiness. Her [place] elevated [place] score 12/24. She is scheduled to undergo a sleep study and then therefore after that get a CPAP.. In the meantime she is developing worsening respiratory symptoms. She has not been able to get her inhaler, Trelegy. I will be sent to the pharmacy. If she has any difficulty she will call the office so we can figure out what is going on. We may have to find an alternative if is not being covered. Otherwise patient is doing well. 03/27/2024 the patient is here for a pulmonary follow-up visit. The patient overall doing well. She has been responding well to the inhalers although she did better on Trelegy. I will resend pharmacy to see if we can get her on Trelegy at this time. She also responds well to the nebulized therapy make sure will send those to to the pharmacy. She continues to have some daytime drowsiness. Her [place] score is elevated 10/24. She does have cardiovascular risk factors. She did undergo a home sleep study although was limited. It did not demonstrate significant sleep apnea. The patient has had a history sleep apnea she does have severe headaches and does have other concerning issues. Her neurologist believes that she does have sleep apnea. I will request an in-lab sleep study to make sure specially with her headaches and her aneurysmal disease. [facility] Medical History MANJULA (obstructive sleep apnea) Chronic urticaria Chronic restrictive lung disease COVID-19 Pre-op chest exam Sinusitis Dyspnea Chest pain Obesity Anemia Extremity edema Dyspnea Chronic rhinitis MANJULA on CPAP Asthma Surgical History History of bilateral tubal ligation History of dilatation and curettage delivery delivered Family History Mother Asthma Hypertension Father FHx: lung cancer Social History Alcohol intake: never Patient Tobacco Use Status: Former Tobacco user Tobacco use type: Cigarette Years Smoked: 12 years Female Reproductive History Menstrual Age of Menarche: 13 Review of Systems Const Reports daytime sleepiness, Reports difficulty sleeping, Denies fever(s), Reports headache(s) and Reports snoring Eyes Reports no additional complaints ENT Reports Normal hearing present, Reports headache(s), Reports nasal discharge, Reports nasal obstruction and Reports post nasal drip Card Reports no additional complaints Resp Reports as per HPI and Reports snoring GI Reports no additional complaints Reports as per HPI Musc Reports no additional complaints Neuro Reports Normal hearing present and Reports headache(s) Psych Reports no additional complaints Endo Reports no additional complaints Pedro/Lymph Reports no additional complaints Aller/Immun Reports no additional complaints Physical Exam Vital Signs: Last Vital Signs Pulse 71 03/27/24 11:15 Pulse Ox 99 03/27/24 11:15 Oxygen Delivery Method Room Air 03/27/24 11:15 BMI result Body Mass Index 43.1 Const General: cooperative, healthy appearing and comfortable Orientation/consciousness: oriented to person, oriented to place and oriented to time HEENT Head: Yes normal to inspection Neck Neck: Yes normal visual inspection Carotids: no bruits Chest Chest palpation & inspection: normal inspection of the chest Resp Effort & Inspection: normal respiratory effort and able to speak in complete sentences Auscultation: clear to auscultation bilaterally, no crackles, no rales, no rhonchi and no wheezes Cardio Rate: regular rate Rhythm: regular rhythm Heart sounds: S1 normal heart sound present and S2 normal heart sound present Bruits: no carotid bruits Peripheral pulses: Peripheral pulses 2+ throughout GI Inspection: Yes normal to inspection Skin Wounds: no wounds Hair: normal Neuro General: oriented to person, oriented to place and oriented to time Cranial nerves: Yes Normal hearing present Cognition (Neuro): normal cognition Motor exam (neuro): 5/5 motor strength present throughout Extrem Other: venous exam: +1 edema with some mild spider telangiectasias General: No clubbing, No cyanosis and Yes edema Psych Appearance: grossly normal Mental Status: mental status grossly normal Speech and movement: Normal speech and movement present Assessment & Plan Assessment & Plan (1) Asthma: Code(s): J45.909 - Unspecified asthma, uncomplicated Category: Medical Qualifiers: Asthma complication type: with acute exacerbation Asthma persistence: persistent Asthma severity: moderate Qualified Code(s): J45.41 - Moderate persistent asthma with (acute) exacerbation (2) MANJULA (obstructive sleep apnea): Code(s): G47.33 - Obstructive sleep apnea (adult) (pediatric) Category: Medical (3) Dyspnea: Code(s): R06.00 - Dyspnea, unspecified Category: Medical Qualifiers: Dyspnea type: dyspnea on exertion Qualified Code(s): R06.09 - Other forms of dyspnea (4) Chronic restrictive lung disease: Code(s): J98.4 - Other disorders of lung Category: Medical (5) Extremity edema: Code(s): R60.0 - Localized edema Category: Medical Plan Needs a replacement APAP. Awaiting PSG to Continue CPAP therapy. Requesting in lab PSG (home PSG non diagnostic,) start Trelegy ROSEMARY as needed continue astelin nasal spray Continue zyrtec continue monterlukast Low sodium diet F/U 3-4 months Orders: Orders RT PSG in-lab sleep study Today G47.33 - Obstructive sleep apnea (adult) (pediatric) Medications: New pwbwjvpaxmf-gclmxkqmz-jszhoztv 200-62.5-25 mcg (Trelegy Ellipta) 1 inh inhalation DAILY 3 ea 3RF 90 days Refilled albuterol sulfate 2.5 mg (3 mL) inhalation Q6H PRN 180 mL 11RF shortness of breath or wheezing 30 days budesonide 0.5 mg (2 mL) inhalation BID 120 mL 11RF 30 days J44.9 - Chronic obstructive pulmonary disease, unspecified Coding Level of Care Code Est Pt Level 4 (16591) Diagnoses Moderate persistent asthma with acute exacerbation J45.41 Asthma complication type: with acute exacerbation Asthma persistence: persistent Asthma severity: moderate MANJULA (obstructive sleep apnea) G47.33 Dyspnea on exertion R06.09 Dyspnea type: dyspnea on exertion Chronic restrictive lung disease J98.4 Extremity edema R60.0 Time Spent (min) 16
[2024-03-27 11:15] VITALS: PULSE 71; O2SAT 99; BMI 43.1
== END 2024-03-27 11:39 | disposition home or self-care (01) ==
PROVIDERS: PCP Internal Medicine; Visit Provider Hospitalist
DX: J45.41 Moderate persistent asthma with (acute) exacerbation (principal); G47.33 Obstructive sleep apnea (adult) (pediatric); R06.09 Other forms of dyspnea; J98.4 Other disorders of lung; R60.0 Localized edema
CPT/HCPCS: 99214

== ENCOUNTER → 2024-03-27 10:56 | Outpatient (BNVA) | payer OTHER, SELFPAY | PROVIDERS: PCP Internal Medicine; Visit Provider Hospitalist | DX: G47.33 Obstructive sleep apnea (adult) (pediatric) (principal) | CPT/HCPCS: 99212 ==

== ENCOUNTER 2024-05-20 14:59 | Outpatient (AMB) | payer OTHER, SELFPAY ==
[2024-05-20 15:00] VITALS: BMI 42.9
--- NOTE | 2024-05-20 15:00 | MHC.OFFVIS ---
Vital Signs 05/20/24 15:00 Height 5 ft 1 in Weight 227 lb BMI 42.9 Intake Visit Reasons: Covid Pneumonia Account Services Coordinator Required: No Allergies Benadryl Allergy (Severe, Verified 05/20/24 15:00) palpitations hydroxyzine [From VISTARIL] Allergy (Severe, Verified 05/20/24 15:00) PALPATATION oxycodone [From PERCOCET] Allergy (Severe, Verified 05/20/24 15:00) PALPIATIONS HPI Comments Details: The patient is a 53-year-old woman with a known history of asthma in addition to obstructive sleep apnea. Her CPAP therapy has been affecting beneficial. She does uses CPAP every night for more than 4 hours a night. She has been getting supplies regularly through her [employer] company, [employer]. In regards to her breathing she has but and on multiple respiratory medications. She does require her short-acting beta agonist but usually less than twice a week. She denies any imaging studies over respiratory studies recently. Otherwise the patient has been having increasing cough but feels is related to the allergies. She has been taking allergy medications including Zyrtec. She has never taken singular. 01/09/2023 the patient is here for pulmonary follow-up visit. The patient overall has been doing well she has been using CPAP every night the CPAP therapy continues to be affecting beneficial. She is using a fullface mask. She has use it for more than 4 hours a night. Will make sure she gets supplies readily available. Her breathing has been good. She continues on the Trelegy inhaler with good effect. Although she is having a lot of nasal congestion and postnasal drip and cough. Gpvt-hq-vlvialbw severity. Will go ahead and optimize her allergy therapy and her sinus therapy to minimize symptoms. We also started about nasal rinsing. She will look into it. 08/25/2023 the patient is here for a pulmonary follow-up visit. She is struggling because she does not have her CPAP a pale above. Apparently she was in the airport in [place] and her CPAP was lost or stolen. She tried to reported to the [place] police Department but since it happened in the airport she could not get a police report. The patient has been struggling because she has been without her CPAP. She has significant daytime drowsiness. Her Mustang score significantly elevated at 12 over 24. She did very well on CPAP and she had good adherence. In the meantime I did call her [employer] company to see if she was due for replacement machine. In view of her significant symptoms will have her get a sleep study in case we need to restart the process to we diagnose or in order to get her a new machine. The patient is also complaining of tooth pain she is going to be seen the dentist in the couple weeks. And also the patient has been having worsening cough. Chest congestion. Xttl-sd-qnfietwj severity. She has been using her respiratory medications. 12/22/2023 the patient is here for a pulmonary follow-up visit doing well. She is still having daytime drowsiness. Her Mustang elevated Mustang score 12/24. She is scheduled to undergo a sleep study and then therefore after that get a CPAP.. In the meantime she is developing worsening respiratory symptoms. She has not been able to get her inhaler, Trelegy. I will be sent to the pharmacy. If she has any difficulty she will call the office so we can figure out what is going on. We may have to find an alternative if is not being covered. Otherwise patient is doing well. 03/27/2024 the patient is here for a pulmonary follow-up visit. The patient overall doing well. She has been responding well to the inhalers although she did better on Trelegy. I will resend pharmacy to see if we can get her on Trelegy at this time. She also responds well to the nebulized therapy make sure will send those to to the pharmacy. She continues to have some daytime drowsiness. Her Mustang score is elevated 10/24. She does have cardiovascular risk factors. She did undergo a home sleep study although was limited. It did not demonstrate significant sleep apnea. The patient has had a history sleep apnea she does have severe headaches and does have other concerning issues. Her neurologist believes that she does have sleep apnea. I will request an in-lab sleep study to make sure specially with her headaches and her aneurysmal disease. 05/20/2024 this is a telehealth visit for the patient. She is still having significant symptoms after having COVID. She had COVID back at the end of March and at that point Paxlovid was prescribed. After that she called then we center doxycycline and prednisone for postviral bacterial infection. Although she continued having difficulties with chest tightness shortness of breath and cough. She went to see her primary care and she was given additional prednisone. In addition to that she was having issues with the gingiva and she had a gingival infection or dental abscess requiring tooth extraction. However she has been too sick to get the extraction. She was given amoxicillin for a period of time as well. When she was in the amoxicillin her breathing did get better. Now she is off the amoxicillin she completed the prednisone feel like she is getting worse. She has a productive cough and shortness breath and chest tightness. She has been using her rescue medications Cipro times a day. Will go ahead and give her a cough suppressant in addition to that she can start another course of Augmentin and other course of prednisone. She is going to go home and check her oxygen levels. If her oxygen levels are below 89% the patient should go to the hospital for further care. [facility] Medical History MANJULA (obstructive sleep apnea) Chronic urticaria Chronic restrictive lung disease COVID-19 Pre-op chest exam Sinusitis Dyspnea Chest pain Obesity Anemia Extremity edema Dyspnea Chronic rhinitis MANJULA on CPAP Asthma Surgical History History of bilateral tubal ligation History of dilatation and curettage delivery delivered Family History Mother Asthma Hypertension Father FHx: lung cancer Social History Alcohol intake: never Patient Tobacco Use Status: Former Tobacco user Tobacco use type: Cigarette Years Smoked: 12 years Female Reproductive History Menstrual Age of Menarche: 13 Review of Systems Const Reports daytime sleepiness, Reports difficulty sleeping, Denies fever(s) and Reports headache(s) Eyes Reports no additional complaints ENT Reports headache(s), Reports nasal discharge, Reports nasal obstruction and Reports post nasal drip Card Reports no additional complaints Resp Reports as per HPI, Reports chest congestion, Reports cough and Reports wheezing GI Reports no additional complaints Reports as per HPI Musc Reports no additional complaints Neuro Reports headache(s) Psych Reports no additional complaints Endo Reports no additional complaints Pedro/Lymph Reports no additional complaints Aller/Immun Reports no additional complaints and Reports wheezing Physical Exam Vital Signs: BMI result Body Mass Index 42.9 Const General: comfortable Orientation/consciousness: patient oriented x3 Resp Effort & Inspection: able to speak in complete sentences and Actively coughing Skin Wounds: no wounds Hair: normal Neuro General: patient oriented x3 Psych Appearance: grossly normal Mental Status: mental status grossly normal Speech and movement: Normal speech and movement present Telehealth Telehealth Telehealth Platform: Telephone Location of provider rendering services: practice address Location of patient: address on file Patient Identification confirmed using: Name, : Yes Telehealth method: voice only Patient verbally consented to treatment: Yes Patient verbally consented to billing insurance company: Yes Patient informed of any privacy concerns related to visit: Yes Assessment & Plan Assessment & Plan (1) Bronchitis: Code(s): J40 - Bronchitis, not specified as acute or chronic Category: Medical (2) COVID-19: Code(s): U07.1 - COVID-19 Category: Medical (3) Asthma: Code(s): J45.909 - Unspecified asthma, uncomplicated Category: Medical Qualifiers: Asthma complication type: with acute exacerbation Asthma persistence: persistent Asthma severity: moderate Qualified Code(s): J45.41 - Moderate persistent asthma with (acute) exacerbation (4) MANJULA (obstructive sleep apnea): Code(s): G47.33 - Obstructive sleep apnea (adult) (pediatric) Category: Medical (5) Dyspnea: Code(s): R06.00 - Dyspnea, unspecified Category: Medical Qualifiers: Dyspnea type: dyspnea on exertion Qualified Code(s): R06.09 - Other forms of dyspnea (6) Chronic restrictive lung disease: Code(s): J98.4 - Other disorders of lung Category: Medical (7) Extremity edema: Code(s): R60.0 - Localized edema Category: Medical Plan start Augmentin Start Prednisone taper cough medicine check POx, will go to the ED if less than 89% Needs a replacement APAP. Awaiting PSG to Continue CPAP therapy. Requesting in lab PSG (home PSG non diagnostic,) Trelegy ROSEMARY as needed continue astelin nasal spray Continue zyrtec continue monterlukast Low sodium diet F/U 3-4 months Medications: New amoxicillin-pot clavulanate 875-125 mg 1 tab PO BID 20 tabs 0RF 10 days codeine-guaifenesin 10-100 mg/5 mL 10 mL PO Q6H PRN 300 mL 0RF cough 10 days prednisone PO daily; Take 6 tabs daily x 3 days, then 5 tabs x 3 days, then 4 tabs x 3 days, then 3 tabs x 3 days, then 2 tabs daily x 3 days, then 1 tab x 3 days to complete. 63 tabs 0RF 18 days Coding Level of Care Code Tele Est Pt Level 4 (67883) Diagnoses Bronchitis J40 COVID-19 U07.1 Moderate persistent asthma with acute exacerbation J45.41 Asthma complication type: with acute exacerbation Asthma persistence: persistent Asthma severity: moderate MANJULA (obstructive sleep apnea) G47.33 Dyspnea on exertion R06.09 Dyspnea type: dyspnea on exertion Chronic restrictive lung disease J98.4 Extremity edema R60.0 Time Spent (min) 14
== END 2024-05-20 15:23 | disposition home or self-care (01) ==
LOC: HO.HPS 14:59
PROVIDERS: PCP Internal Medicine; Visit Provider Hospitalist
DX: J40 Bronchitis, not specified as acute or chronic (principal); U07.1 COVID-19; J45.41 Moderate persistent asthma with (acute) exacerbation; G47.33 Obstructive sleep apnea (adult) (pediatric); R06.09 Other forms of dyspnea; J98.4 Other disorders of lung; R60.0 Localized edema
CPT/HCPCS: 99214

== ENCOUNTER → 2024-05-20 14:59 | Outpatient (BNVA) | payer OTHER, SELFPAY | PROVIDERS: PCP Internal Medicine; Visit Provider Hospitalist ==

== ENCOUNTER 2024-07-09 10:18 | Outpatient (AMB) | payer OTHER, SELFPAY ==
--- NOTE | 2024-07-09 10:27 | MHC.OFFVIS ---
Intake Visit Reasons: 6m/PVR Intake Note: Patient presents today for follow up on: Dysuria Urology medications: Estrace Cream and Myrbetriq PVR: 0ml's Scanning Manager Required: Yes Scanning Manager Services: Scanning Manager Present Scanning Manager Name: [id number] Accompanied by: Self / Same As Patient Allergies Benadryl Allergy (Severe, Verified 07/09/24 10:58) palpitations hydroxyzine [From VISTARIL] Allergy (Severe, Verified 07/09/24 10:58) PALPATATION oxycodone [From PERCOCET] Allergy (Severe, Verified 07/09/24 10:58) PALPIATIONS Medication List - Last Reconciled 07/09/24 by BIBI Gomez-CARLOS albuterol sulfate 2.5 mg (3 mL) inhalation Q6H PRN 30 days albuterol sulfate 90 mcg/actuation 2 inhalations inhalation Q6H PRN 30 days amitriptyline 20 mg (2 x 10 mg) PO BEDTIME 30 days arm brace Bilateral carpal tunnel wrist splint aspirin (Adult Low Dose Aspirin) 81 mg PO DAILY atorvastatin 10 mg PO DAILY azelastine 2 sprays intranasal BID benzonatate 200 mg PO BID PRN 30 days budesonide 0.5 mg (2 mL) inhalation BID 30 days cetirizine mg PO clonazepam 0.5 mg PO TID PRN codeine-guaifenesin 10-100 mg/5 mL 10 mL PO Q6H PRN 10 days CPAP (CPAP Machine/Device) As directed diclofenac potassium 50 mg PO BID PRN 30 days epinephrine IM ergocalciferol (vitamin D2) 1,250 mcg PO QWEEK estradiol 0.01%(0.1mg/gram) pea sized amount to urethra 3 times a week 30 days famotidine 10 mg PO BID ferrous sulfate 325 mg PO DAILY fluoxetine mg PO fluticasone furoate-vilanterol 200-25 mcg/dose (Breo Ellipta) 1 inh inhalation DAILY 30 days fluticasone propion-salmeterol 230-21 mcg/actuation (Advair HFA) 2 puffs inhalation BID brmafjxhhiu-fnjusmwjz-mcpbcqyi 200-62.5-25 mcg (Trelegy Ellipta) 1 inh inhalation DAILY 90 days furosemide (Lasix) 20 mg PO DAILY 30 days gabapentin 100 - 300 mg (1 - 3 x 100 mg) PO BEDTIME 30 days galcanezumab-gnlm (Emgality Pen) 120 mg subcut ONCE 30 days glipizide 5 mg PO DAILY ipratropium-albuterol 0.5 mg-3 mg(2.5 mg base)/3 mL 3 mL inhalation BID 30 days loratadine 10 mg PO DAILY PRN 30 days magnesium oxide 400 mg PO DAILY 30 days meclizine 12.5 mg PO BID metformin ER 500 mg PO DAILY metoprolol succinate ER 25 mg PO DAILY miconazole nitrate 2% (Miconazole-7) 1 appful vaginal BEDTIME 7 days mirabegron ER (Myrbetriq) 25 mg PO DAILY 90 days molnupiravir 800 mg (4 x 200 mg) PO Q12H 5 days montelukast 10 mg PO DAILY nebulizers As directed omeprazole 20 mg PO DAILY sumatriptan succinate 50 - 100 mg orally at onset of headache, may repeat in 2 hrs PRN; max 2 tabs per day or 4 tabs/week (may take with Tylenol or Diclofenac) 30 days zolpidem 10 mg PO BEDTIME PRN HPI Comments Details: Rachell is a pleasant 53 year old Monegasque speaking patient of Dr. Vera who is accompanied by her daughter at todays visit. She has a past medical history of asthma, COPD, obesity, and obstructive sleep apnea on CPAP. She presents to the office today for a follow up of her mixed incontinence. In discussion with the patient today she reports improvement in her lower urinary tract symptoms on Myrbetriq 25 mg daily however does feel it was not as helpful as it had been. She reports episodes of urinary frequency and urgency. We discussed increase of Myrbetriq verses dual therapy with 5 mg of VESIcare. She reports compliance with Estrace cream as prescribed. She denies any UTI like symptoms at this time. In office urinalysis results reviewed with the patient today. PVR 0 mL. Previous workup has included a retroperitoneal ultrasound that noted bilateral kidneys with no hydronephrosis calculi or lesions noted. Limited visualization. The bladder is partially distended limiting evaluation. Pre void bladder volume is approximately 50 mL. Postvoid bladder volume is approximately 10 mL. She otherwise denies nocturia, hematuria, dysuria, changes to urinary stream, flank pain, fever, and or chills. [facility] Medical History MANJULA (obstructive sleep apnea) Chronic urticaria Chronic restrictive lung disease COVID-19 Pre-op chest exam Sinusitis Dyspnea Chest pain Obesity Anemia Extremity edema Dyspnea Chronic rhinitis MANJULA on CPAP Asthma Surgical History History of bilateral tubal ligation History of dilatation and curettage delivery delivered Family History Mother Asthma Hypertension Father FHx: lung cancer Social History Alcohol intake: never Patient Tobacco Use Status: Former Tobacco user Tobacco use type: Cigarette Years Smoked: 12 years Female Reproductive History Menstrual Age of Menarche: 13 Review of Systems Const Reports as per HPI Eyes Reports no additional complaints ENT Reports no additional complaints Card Reports no additional complaints Resp Reports as per HPI GI Reports no additional complaints Reports as per HPI Musc Reports no additional complaints Neuro Reports no additional complaints Psych Reports no additional complaints Endo Reports no additional complaints Pedro/Lymph Reports no additional complaints Aller/Immun Reports no additional complaints Physical Exam Const General: cooperative, healthy appearing, comfortable, no acute distress, well developed, alert and awake Nutritional Appearance: overweight Orientation/consciousness: patient oriented x3 Limitations: no limitations HEENT Head: Yes normal to inspection, Yes normocephalic and Yes atraumatic Ears: hearing grossly normal bilaterally Eyes General: appearance normal, both eyes and all related structures Neck Neck: Yes normal visual inspection and Yes trachea midline Chest Chest palpation & inspection: normal inspection of the chest Resp Effort & Inspection: normal respiratory effort and able to speak in complete sentences Cardio Rate: regular rate GI Inspection: Yes normal to inspection General: Yes no CVA tenderness Back/Spine/Pelvis Back: no CVA tenderness Skin General skin exam: no rashes or lesions noted Neuro General: patient oriented x3 Extrem General: Yes normal to inspection Psych Appearance: grossly normal and well kempt Mental Status: mental status grossly normal Speech and movement: Normal speech and movement present and Clear speech present Affect: normal affect Attitude: cooperative Thought process: Normal thought process present Thought content: Normal thought content present Insight: Fair insight present (Psych) Judgement: Fair judgement present (Psych) Office Procedures Post Void Residual Post Residual Void Post Void Residual (PVR): 0 02012-[id number] Void Residual by ultrasound Results AMB Urinalysis, Automated UA Leukoctes 0 Ambar/uL Last Edit by Sylvia Robins on 07/09/24 10:53 UA Nitrite Last Edit by Sylvia Robins on 07/09/24 10:53 UA Urobilinogen 0.2 mg/dL Last Edit by Sylvia Robins on 07/09/24 10:53 UA Protein 0 mg/dL Last Edit by Calabriochris Robins on 07/09/24 10:53 UA pH 6.0 Last Edit by Calabriochris [employer] on 07/09/24 10:53 UA Blood 0 Lewis/uL Last Edit by yourdeliveryriddhi on 07/09/24 10:53 UA Specific [place] 1.030 Last Edit by Calabriochris Robins on 07/09/24 10:53 UA Ketone Last Edit by Calabriochris Robins on 07/09/24 10:53 UA Bilirubin 0 mg/dL Last Edit by Calabriochris [employer] on 07/09/24 10:53 UA Glucose 0 mg/dL Last Edit by [employer] on 07/09/24 10:53 Results Reviewed Results Reviewed: Laboratory Last Values Urine pH (Auto) 6.0 07/09/24 10:37 Specific [place] (Auto) 1.030 07/09/24 10:37 Urine Protein (Auto) 0 mg/dL 07/09/24 10:37 Glucose (UA)(Auto) 0 mg/dL 07/09/24 10:37 Urine Blood (Auto) 0 Lewis/uL 07/09/24 10:37 Urine Bilirubin (Auto) 0 mg/dL 07/09/24 10:37 Urine Urobilinogen (Auto) 0.2 mg/dL 07/09/24 10:37 Leukocyte Esterase (Auto) 0 Ambar/uL 07/09/24 10:37 Assessment & Plan Assessment & Plan (1) Mixed incontinence: Code(s): N39.46 - Mixed incontinence Category: Medical (2) Lower urinary tract symptoms: Code(s): R39.9 - Unspecified symptoms and signs involving the genitourinary system Category: Medical (3) Urinary urgency: Code(s): R39.15 - Urgency of urination Category: Medical (4) Urinary frequency: Code(s): R35.0 - Frequency of micturition Category: Medical Plan In office urinalysis results with the patient today; as noted above. PVR 0 mL. We discussed further treatment options to include increase in Myrbetriq verses dual therapy with 5 mg of VESIcare verses trial of different overactive bladder medication such as Gemtesa. We discussed possible near future in office urodynamics for further assessment evaluation. She currently denies any UTI like symptoms. Start VESIcare as discussed and prescribed. Continue Myrbetriq as discussed and prescribed. Continue Estrace cream as discussed and prescribed. We discussed importance of weight loss in relation to lower urinary tract symptoms as well as overall health and well-being Follow-up in 1-3 months with PVR; or sooner with any issues, concerns, and or questions. Orders: Orders AMB Post Void Residual by ultrasound Today R30.0 - Dysuria AMB Urinalysis Automated Today Z13.9 - Encounter for screening, unspecified Medications: New solifenacin (Vesicare) 5 mg PO DAILY 30 days 30 tabs 3RF Changed From estradiol 0.01%(0.1mg/gram) pea sized amount to urethra 3 times a week 30 days 42.5 grams 3RF To estradiol 0.01%(0.1mg/gram) pea sized amount to urethra 3 times a week 90 days 42.5 grams 3RF Patient Instructions: The patient had an opportunity to ask questions regarding the treatment plan. All questions were answered. Physical exam, labs, and imaging were discussed and reviewed in detail. As well as risks, benefits, and discussion of treatment choices. No major barriers to understanding were identified. The patient expressed understanding and agreement with the above treatment plan. The patient was made aware they should contact our office by phone for worsening of their current condition, the appearance of new symptoms, or with any questions or concerns. Compliance is encouraged with any medications and follow up testing that is ordered. It is a privilege to be allowed the opportunity to participate in? your urological care.? Again, if you have any questions or concerns If you have any questions or concerns please do not hesitate to contact me. The office is [phone]. This note is constructed using voice recognition software. While every effort has been made to ensure accuracy assistant softball coach errors may have been included. Yours sincerely, Liz Walton, MAIL LIST PROCESSOR-[employer] Coding Level of Care Code Est Pt Level 4 (68463) Complex EM visit Add On G2211 Diagnoses Mixed incontinence N39.46 Lower urinary tract symptoms R39.9 Urinary urgency R39.15 Urinary frequency R35.0 CPT Codes Post Residual Void - PVR CPT Code: 27885-Pbfl Void Residual by ultrasound ([id number])
== END 2024-07-09 10:57 | disposition home or self-care (01) ==
PROVIDERS: PCP Internal Medicine; Visit Provider Nurse Practitioner Family
DX: N39.46 Mixed incontinence (principal); R39.9 Unspecified symptoms and signs involving the genitourinary system; R35.0 Frequency of micturition; Z13.9 Encounter for screening, unspecified
CPT/HCPCS: 99214; G2211

== ENCOUNTER → 2024-07-09 10:18 | Outpatient (BNVA) | payer OTHER, SELFPAY | PROVIDERS: PCP Internal Medicine; Visit Provider Nurse Practitioner Family | DX: N39.46 Mixed incontinence (principal); R39.9 Unspecified symptoms and signs involving the genitourinary system; R39.15 Urgency of urination; R35.0 Frequency of micturition | CPT/HCPCS: 51798; 81003; 99212 ==

== ENCOUNTER 2024-08-07 09:10 | Outpatient (AMB) | payer OTHER, SELFPAY ==
--- NOTE | 2024-08-07 09:11 | MHC.OFFVIS ---
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 albuterol sulfate 2.5 mg (3 mL) inhalation Q6H PRN 30 days albuterol sulfate 90 mcg/actuation 2 inhalations inhalation Q6H PRN 30 days amitriptyline 20 mg (2 x 10 mg) PO BEDTIME 30 days arm brace Bilateral carpal tunnel wrist splint aspirin (Adult Low Dose Aspirin) 81 mg PO DAILY atorvastatin 10 mg PO DAILY azelastine 2 sprays intranasal BID benzonatate 200 mg PO BID PRN 30 days budesonide 0.5 mg (2 mL) inhalation BID 30 days cetirizine mg PO clonazepam 0.5 mg PO TID PRN codeine-guaifenesin 10-100 mg/5 mL 10 mL PO Q6H PRN 10 days CPAP (CPAP Machine/Device) As directed diclofenac potassium 50 mg PO BID PRN 30 days epinephrine IM ergocalciferol (vitamin D2) 1,250 mcg PO QWEEK estradiol 0.01%(0.1mg/gram) pea sized amount to urethra 3 times a week 90 days famotidine 10 mg PO BID ferrous sulfate 325 mg PO DAILY fluoxetine mg PO fluticasone furoate-vilanterol 200-25 mcg/dose (Breo Ellipta) 1 inh inhalation DAILY 30 days fluticasone propion-salmeterol 230-21 mcg/actuation (Advair HFA) 2 puffs inhalation BID vzutbzteqxv-ocdipioci-octaizee 200-62.5-25 mcg (Trelegy Ellipta) 1 inh inhalation DAILY 90 days furosemide (Lasix) 20 mg PO DAILY 30 days gabapentin 100 - 300 mg (1 - 3 x 100 mg) PO BEDTIME 30 days galcanezumab-gnlm (Emgality Pen) 120 mg subcut ONCE 30 days glipizide 5 mg PO DAILY ipratropium-albuterol 0.5 mg-3 mg(2.5 mg base)/3 mL 3 mL inhalation BID 30 days loratadine 10 mg PO DAILY PRN 30 days magnesium oxide 400 mg PO DAILY 30 days meclizine 12.5 mg PO BID metformin ER 500 mg PO DAILY metoprolol succinate ER 25 mg PO DAILY miconazole nitrate 2% (Miconazole-7) 1 appful vaginal BEDTIME 7 days mirabegron ER (Myrbetriq) 25 mg PO DAILY 90 days molnupiravir 800 mg (4 x 200 mg) PO Q12H 5 days montelukast 10 mg PO DAILY nebulizers As directed omeprazole 20 mg PO DAILY solifenacin (Vesicare) 5 mg PO DAILY 30 days sumatriptan succinate 50 - 100 mg orally at onset of headache, may repeat in 2 hrs PRN; max 2 tabs per day or 4 tabs/week (may take with Tylenol or Diclofenac) 30 days zolpidem 10 mg PO BEDTIME PRN HPI Comments Details: The patient is a 54-year-old woman with a known history of asthma in addition to obstructive sleep apnea. Her CPAP therapy has been affecting beneficial. She does uses CPAP every night for more than 4 hours a night. She has been getting supplies regularly through her [employer]. In regards to her breathing she has but and on multiple respiratory medications. She does require her short-acting beta agonist but usually less than twice a week. She denies any imaging studies over respiratory studies recently. Otherwise the patient has been having increasing cough but feels is related to the allergies. She has been taking allergy medications including Zyrtec. She has never taken singular. 01/09/2023 the patient is here for pulmonary follow-up visit. The patient overall has been doing well she has been using CPAP every night the CPAP therapy continues to be affecting beneficial. She is using a fullface mask. She has use it for more than 4 hours a night. Will make sure she gets supplies readily available. Her breathing has been good. She continues on the Trelegy inhaler with good effect. Although she is having a lot of nasal congestion and postnasal drip and cough. Swqh-zj-dxtvbvnz severity. Will go ahead and optimize her allergy therapy and her sinus therapy to minimize symptoms. We also started about nasal rinsing. She will look into it. 08/25/2023 the patient is here for a pulmonary follow-up visit. She is struggling because she does not have her CPAP a pale above. Apparently she was in the airport in [place] and her CPAP was lost or stolen. She tried to reported to the [place] police Department but since it happened in the airport she could not get a police report. The patient has been struggling because she has been without her CPAP. She has significant daytime drowsiness. Her [place] score significantly elevated at 12 over 24. She did very well on CPAP and she had good adherence. In the meantime I did call her [employer] company to see if she was due for replacement machine. In view of her significant symptoms will have her get a sleep study in case we need to restart the process to we diagnose or in order to get her a new machine. The patient is also complaining of tooth pain she is going to be seen the dentist in the couple weeks. And also the patient has been having worsening cough. Chest congestion. Zybn-af-nwdcwfpa severity. She has been using her respiratory medications. 12/22/2023 the patient is here for a pulmonary follow-up visit doing well. She is still having daytime drowsiness. Her [place] elevated [place] score 12/24. She is scheduled to undergo a sleep study and then therefore after that get a CPAP.. In the meantime she is developing worsening respiratory symptoms. She has not been able to get her inhaler, Trelegy. I will be sent to the pharmacy. If she has any difficulty she will call the office so we can figure out what is going on. We may have to find an alternative if is not being covered. Otherwise patient is doing well. 03/27/2024 the patient is here for a pulmonary follow-up visit. The patient overall doing well. She has been responding well to the inhalers although she did better on Trelegy. I will resend pharmacy to see if we can get her on Trelegy at this time. She also responds well to the nebulized therapy make sure will send those to to the pharmacy. She continues to have some daytime drowsiness. Her [place] score is elevated 10/24. She does have cardiovascular risk factors. She did undergo a home sleep study although was limited. It did not demonstrate significant sleep apnea. The patient has had a history sleep apnea she does have severe headaches and does have other concerning issues. Her neurologist believes that she does have sleep apnea. I will request an in-lab sleep study to make sure specially with her headaches and her aneurysmal disease. 05/20/2024 this is a telehealth visit for the patient. She is still having significant symptoms after having COVID. She had COVID back at the end of March and at that point Paxlovid was prescribed. After that she called then we center doxycycline and prednisone for postviral bacterial infection. Although she continued having difficulties with chest tightness shortness of breath and cough. She went to see her primary care and she was given additional prednisone. In addition to that she was having issues with the gingiva and she had a gingival infection or dental abscess requiring tooth extraction. However she has been too sick to get the extraction. She was given amoxicillin for a period of time as well. When she was in the amoxicillin her breathing did get better. Now she is off the amoxicillin she completed the prednisone feel like she is getting worse. She has a productive cough and shortness breath and chest tightness. She has been using her rescue medications Cipro times a day. Will go ahead and give her a cough suppressant in addition to that she can start another course of Augmentin and other course of prednisone. She is going to go home and check her oxygen levels. If her oxygen levels are below 89% the patient should go to the hospital for further care. 08/07/2024 the patient is here for a pulmonary follow-up visit. Overall she is doing fairly okay. She does complaint of daytime drowsiness. [place] score is elevated 07/14. She is still waiting for her in-lab sleep study that she be scheduled in the coming weeks. After she gets the down she is to let me know so I can look at it and then we can start her on CPAP therapy if indicated. In the meantime the patient did complete a course of medications for an exacerbation recently. She is feeling a little better this time. She continues using inhalers with good effect. Although, the nebulized therapies more effective for her and therefore budesonide becomes very helpful medication for her. Will recent the budesonide to the pharmacy again to see if we can get it approved for her. [facility] Medical History MANJULA (obstructive sleep apnea) Chronic urticaria Chronic restrictive lung disease COVID-19 Pre-op chest exam Sinusitis Dyspnea Chest pain Obesity Anemia Extremity edema Dyspnea Chronic rhinitis MANJULA on CPAP Asthma Surgical History History of bilateral tubal ligation History of dilatation and curettage delivery delivered Family History Mother Asthma Hypertension Father FHx: lung cancer Social History Alcohol intake: never Patient Tobacco Use Status: Former Tobacco user Tobacco use type: Cigarette Years Smoked: 12 years Female Reproductive History Menstrual Age of Menarche: 13 Review of Systems Const Reports daytime sleepiness, Reports difficulty sleeping, Denies fever(s) and Reports headache(s) Eyes Reports no additional complaints ENT Reports Normal hearing present, Reports headache(s), Reports nasal discharge, Reports nasal obstruction and Reports post nasal drip Card Reports no additional complaints Resp Reports as per HPI, Reports chest congestion, Reports cough and Reports wheezing GI Reports no additional complaints Reports as per HPI Musc Reports no additional complaints Neuro Reports Normal hearing present and Reports headache(s) Psych Reports no additional complaints Endo Reports no additional complaints Pedro/Lymph Reports no additional complaints Aller/Immun Reports no additional complaints and Reports wheezing Physical Exam Vital Signs: Last Vital Signs Pulse 83 08/07/24 09:18 BP 112/70 08/07/24 09:18 Pulse Ox 100 08/07/24 09:18 Oxygen Delivery Method Room Air 08/07/24 09:18 Const General: comfortable Orientation/consciousness: patient oriented x3 HEENT Head: Yes normal to inspection Neck Neck: Yes normal visual inspection Carotids: no bruits Chest Chest palpation & inspection: normal inspection of the chest Resp Effort & Inspection: able to speak in complete sentences Auscultation: no crackles, no rales, no rhonchi, no wheezes and diminished lung sounds Cardio Rate: regular rate Rhythm: regular rhythm Heart sounds: S1 normal heart sound present and S2 normal heart sound present Bruits: no carotid bruits Peripheral pulses: Peripheral pulses 2+ throughout GI Inspection: Yes normal to inspection Skin General skin exam: no rashes or lesions noted Wounds: no wounds Hair: normal Neuro General: patient oriented x3 Cranial nerves: Yes Normal hearing present Cognition (Neuro): normal cognition Motor exam (neuro): 5/5 motor strength present throughout Extrem Other: venous exam: +1 edema with some mild spider telangiectasias General: No clubbing, No cyanosis and Yes edema Psych Appearance: grossly normal Mental Status: mental status grossly normal Speech and movement: Normal speech and movement present Assessment & Plan Assessment & Plan (1) Bronchitis: Code(s): J40 - Bronchitis, not specified as acute or chronic Category: Medical (2) Asthma: Code(s): J45.909 - Unspecified asthma, uncomplicated Category: Medical Qualifiers: Asthma complication type: with acute exacerbation Asthma persistence: persistent Asthma severity: moderate Qualified Code(s): J45.41 - Moderate persistent asthma with (acute) exacerbation (3) MANJULA (obstructive sleep apnea): Code(s): G47.33 - Obstructive sleep apnea (adult) (pediatric) Category: Medical (4) Dyspnea: Code(s): R06.00 - Dyspnea, unspecified Category: Medical Qualifiers: Dyspnea type: dyspnea on exertion Qualified Code(s): R06.09 - Other forms of dyspnea (5) Chronic restrictive lung disease: Code(s): J98.4 - Other disorders of lung Category: Medical (6) Extremity edema: Code(s): R60.0 - Localized edema Category: Medical Plan Needs a replacement APAP. Awaiting PSG to Continue CPAP therapy. Requesting in lab PSG (home PSG non diagnostic,) Trelegy start Budesonide nebs ROSEMARY as needed continue astelin nasal spray Continue zyrtec continue monterlukast Low sodium diet F/U 3-4 months Medications: Refilled budesonide 0.5 mg (2 mL) inhalation BID 120 mL 4RF 30 days J44.9 - Chronic obstructive pulmonary disease, unspecified Coding Level of Care Code Est Pt Level 4 (60882) Diagnoses Bronchitis J40 Moderate persistent asthma with acute exacerbation J45.41 Asthma complication type: with acute exacerbation Asthma persistence: persistent Asthma severity: moderate MANJULA (obstructive sleep apnea) G47.33 Dyspnea on exertion R06.09 Dyspnea type: dyspnea on exertion Chronic restrictive lung disease J98.4 Extremity edema R60.0 Time Spent (min) 16
[2024-08-07 09:18] VITALS: BP 112/70; PULSE 83; O2SAT 100
== END 2024-08-07 09:42 | disposition home or self-care (01) ==
PROVIDERS: PCP Internal Medicine; Visit Provider Hospitalist
DX: J40 Bronchitis, not specified as acute or chronic (principal); J45.41 Moderate persistent asthma with (acute) exacerbation; G47.33 Obstructive sleep apnea (adult) (pediatric); R06.09 Other forms of dyspnea; J98.4 Other disorders of lung; R60.0 Localized edema
CPT/HCPCS: 99214

== ENCOUNTER → 2024-08-07 09:10 | Outpatient (BNVA) | payer OTHER, SELFPAY | PROVIDERS: PCP Internal Medicine; Visit Provider Hospitalist | DX: J45.41 Moderate persistent asthma with (acute) exacerbation (principal); J98.4 Other disorders of lung; J40 Bronchitis, not specified as acute or chronic; G47.33 Obstructive sleep apnea (adult) (pediatric); R06.09 Other forms of dyspnea; R60.0 Localized edema | CPT/HCPCS: 99212 ==

== ENCOUNTER 2024-09-04 11:16 | Outpatient (AMB) | payer OTHER, SELFPAY ==
--- NOTE | 2024-09-04 11:30 | A.OFFVIS_ITS ---
Intake Visit Reasons: 2m/PVR Intake Note: Patient is Present for Follow Up PVR Urology Medication: Myrbetriq, Estradiol, Vesicare Antibiotic Allergies: None Blood Thinners: Aspirin Last PVR:0mls Todays PVR: 0ml Project Asst Required: Yes Project Asst Language: [employer] Services: Project Asst Present Project Asst Name: [id number] Accompanied by: Self / Same As Patient Allergies Benadryl Allergy (Severe, Verified 09/04/24 11:48) palpitations hydroxyzine [From VISTARIL] Allergy (Severe, Verified 09/04/24 11:48) PALPATATION oxycodone [From PERCOCET] Allergy (Severe, Verified 09/04/24 11:48) PALPIATIONS Medication List - Last Reconciled 09/04/24 by BIBI Gomez-CARLOS albuterol sulfate 2.5 mg (3 mL) inhalation Q6H PRN 30 days albuterol sulfate 90 mcg/actuation 2 inhalations inhalation Q6H PRN 30 days amitriptyline 20 mg (2 x 10 mg) PO BEDTIME 30 days arm brace Bilateral carpal tunnel wrist splint aspirin (Adult Low Dose Aspirin) 81 mg PO DAILY atorvastatin 10 mg PO DAILY azelastine 2 sprays intranasal BID benzonatate 200 mg PO BID PRN 30 days budesonide 0.5 mg (2 mL) inhalation BID 30 days cetirizine mg PO clonazepam 0.5 mg PO TID PRN codeine-guaifenesin 10-100 mg/5 mL 10 mL PO Q6H PRN 10 days CPAP (CPAP Machine/Device) As directed diclofenac potassium 50 mg PO BID PRN 30 days epinephrine IM ergocalciferol (vitamin D2) 1,250 mcg PO QWEEK estradiol 0.01%(0.1mg/gram) pea sized amount to urethra 3 times a week 90 days famotidine 10 mg PO BID ferrous sulfate 325 mg PO DAILY fluoxetine mg PO fluticasone furoate-vilanterol 200-25 mcg/dose (Breo Ellipta) 1 inh inhalation DAILY 30 days fluticasone propion-salmeterol 230-21 mcg/actuation (Advair HFA) 2 puffs inhalation BID gtvsbsrbltg-jxpnncisx-zujrajjx 200-62.5-25 mcg (Trelegy Ellipta) 1 inh inhalation DAILY 90 days furosemide (Lasix) 20 mg PO DAILY 30 days gabapentin 100 - 300 mg (1 - 3 x 100 mg) PO BEDTIME 30 days galcanezumab-gnlm (Emgality Pen) 120 mg subcut ONCE 30 days glipizide 5 mg PO DAILY ipratropium-albuterol 0.5 mg-3 mg(2.5 mg base)/3 mL 3 mL inhalation BID 30 days loratadine 10 mg PO DAILY PRN 30 days magnesium oxide 400 mg PO DAILY 30 days meclizine 12.5 mg PO BID metformin ER 500 mg PO DAILY metoprolol succinate ER 25 mg PO DAILY miconazole nitrate 2% (Miconazole-7) 1 appful vaginal BEDTIME 7 days mirabegron ER (Myrbetriq) 25 mg PO DAILY 90 days molnupiravir 800 mg (4 x 200 mg) PO Q12H 5 days montelukast 10 mg PO DAILY nebulizers As directed omeprazole 20 mg PO DAILY solifenacin (Vesicare) 5 mg PO DAILY 30 days sumatriptan succinate 50 - 100 mg orally at onset of headache, may repeat in 2 hrs PRN; max 2 tabs per day or 4 tabs/week (may take with Tylenol or Diclofenac) 30 days zolpidem 10 mg PO BEDTIME PRN HPI Comments Details: Rachell is a pleasant 54 year old Danish speaking patient of Dr. Vera who is accompanied by her daughter at todays visit. She has a past medical history of asthma, COPD, obesity, and obstructive sleep apnea on CPAP. She presents to the office today for a follow up of her mixed incontinence. In discussion with the patient today she reports improvement in her lower urinary tract symptoms on Myrbetriq 25 mg daily however continues with lower urinary tract symptoms. During last office visit recommendations were made for dual therapy in to initiate VESIcare however she reports never receiving this from the pharmacy. She also discusses new onset left-sided upper abdominal and lower abdominal discomfort. She reports having followed up with her PCP at which time recommendations were made for ER evaluation however patient discusses she never went as they are are multiple viruses going around that she does not want to get. In office urinalysis results reviewed with the patient today. PVR 0 mL. Previous workup has included a retroperitoneal ultrasound 04/12 that noted bilateral kidneys with no hydronephrosis calculi or lesions noted. Limited visualization. The bladder is partially distended limiting evaluation. Pre void bladder volume is approximately 50 mL. Postvoid bladder volume is approximately 10 mL. She otherwise denies nocturia, hematuria, dysuria, changes to urinary stream, flank pain, fever, and or chills. [facility] Medical History MANJULA (obstructive sleep apnea) Chronic urticaria Chronic restrictive lung disease COVID-19 Pre-op chest exam Sinusitis Dyspnea Chest pain Obesity Anemia Extremity edema Dyspnea Chronic rhinitis MANJULA on CPAP Asthma Surgical History History of bilateral tubal ligation History of dilatation and curettage delivery delivered Family History Mother Asthma Hypertension Father FHx: lung cancer Social History Alcohol intake: never Patient Tobacco Use Status: Former Tobacco user Tobacco use type: Cigarette Years Smoked: 12 years Female Reproductive History Menstrual Age of Menarche: 13 Review of Systems Const Reports as per HPI Eyes Reports no additional complaints ENT Reports no additional complaints Card Reports no additional complaints Resp Reports as per HPI GI Reports no additional complaints Reports as per HPI Musc Reports no additional complaints Neuro Reports no additional complaints Psych Reports no additional complaints Endo Reports no additional complaints Pedro/Lymph Reports no additional complaints Aller/Immun Reports no additional complaints Physical Exam Const General: cooperative, healthy appearing, comfortable, no acute distress, well developed, alert and awake Nutritional Appearance: obese Orientation/consciousness: patient oriented x3 Limitations: no limitations HEENT Head: Yes normal to inspection, Yes normocephalic and Yes atraumatic Ears: hearing grossly normal bilaterally Eyes General: appearance normal, both eyes and all related structures Neck Neck: Yes normal visual inspection and Yes trachea midline Chest Chest palpation & inspection: normal inspection of the chest Resp Effort & Inspection: normal respiratory effort and able to speak in complete sentences Cardio Rate: regular rate GI Inspection: Yes normal to inspection General: Yes no CVA tenderness Back/Spine/Pelvis Back: no CVA tenderness Skin General skin exam: no rashes or lesions noted Neuro General: patient oriented x3 Extrem General: Yes normal to inspection Psych Appearance: grossly normal and well kempt Mental Status: mental status grossly normal Speech and movement: Normal speech and movement present and Clear speech present Affect: normal affect Attitude: cooperative Thought process: Normal thought process present Thought content: Normal thought content present Insight: Fair insight present (Psych) Judgement: Fair judgement present (Psych) Office Procedures Post Void Residual Post Residual Void Post Void Residual (PVR): 0 [id number]-[id number] Void Residual by ultrasound Results AMB Urinalysis, Automated UA Leukoctes 0 Ambar/uL Last Edit by Gricelda Gould [facility] on 09/04/24 11:45 UA Nitrite Negative Last Edit by Gricelda Gould [facility] on 09/04/24 11:45 UA Urobilinogen 0.2 mg/dL Last Edit by Gricelda Gould [facility] on 09/04/24 11:4 5 UA Protein 0 mg/dL Last Edit by Gricelda Gould [facility] on 09/04/24 11:45 UA pH 6.0 Last Edit by Gricelda Gould [facility] on 09/04/24 11:45 UA Blood 0 Lewis/uL Last Edit by Gricelda Gould [facility] on 09/04/24 11:45 UA Specific [place] 1.020 Last Edit by Gricelda Gould [facility] on 09/04/24 11: 45 UA Ketone Negative Last Edit by Gricelda Gould [facility] on 09/04/24 11:45 UA Bilirubin 0 mg/dL Last Edit by Gricelda Gould [facility] on 09/04/24 11:45 UA Glucose 0 mg/dL Last Edit by Gricelda Gould [facility] on 09/04/24 11:45 Results Reviewed Results Reviewed: Laboratory Last Values Urine pH (Auto) 6.0 09/04/24 11:33 Specific [place] (Auto) 1.020 09/04/24 11:33 Urine Protein (Auto) 0 mg/dL 09/04/24 11:33 Glucose (UA)(Auto) 0 mg/dL 09/04/24 11:33 Urine Ketones (Auto) Negative 09/04/24 11:33 Urine Blood (Auto) 0 Lewis/uL 09/04/24 11:33 Urine Nitrite (Auto) Negative 09/04/24 11:33 Urine Bilirubin (Auto) 0 mg/dL 09/04/24 11:33 Urine Urobilinogen (Auto) 0.2 mg/dL 09/04/24 11:33 Leukocyte Esterase (Auto) 0 Ambar/uL 09/04/24 11:33 Assessment & Plan Assessment & Plan (1) Mixed incontinence: Code(s): N39.46 - Mixed incontinence Category: Medical (2) Nephrolithiasis: Code(s): N20.0 - Calculus of kidney Category: Medical Plan In office urinalysis results reviewed with the patient today; as noted above. PVR 0 mL. Patient with a history of nephrolithiasis will obtain renal ultrasound for further assessment evaluation. Continue Myrbetriq. Script recent for VESIcare 5 mg daily. Continue Estrace cream; refill provided. We discussed worsening symptoms to seek medical treatment. Patient currently denies any UTI like symptoms. We discussed possible near future in office cystoscopy and or urodynamics if symptoms persist and/or worsen. Follow-up in 1-3 months with imaging and PVR; or sooner with any issues, concerns, and or questions. Orders: Orders AMB Post Void Residual by ultrasound Today R35.0 - Frequency of micturition AMB Urinalysis Automated Today Z13.9 - Encounter for screening, unspecified Medications: Refilled mirabegron ER (Myrbetriq) 25 mg PO DAILY 90 days 90 tabs 3RF N30.10 - Interstitial cystitis (chronic) without hematuria, N32.81 - Overactive bladder, R35.1 - Nocturia, R39.15 - Urgency of urination estradiol 0.01%(0.1mg/gram) pea sized amount to urethra 3 times a week 90 days 42.5 grams 3RF solifenacin (Vesicare) 5 mg PO DAILY 30 days 30 tabs 3RF Patient Instructions: The patient had an opportunity to ask questions regarding the treatment plan. All questions were answered. Physical exam, labs, and imaging were discussed and reviewed in detail. As well as risks, benefits, and discussion of treatment choices. No major barriers to understanding were identified. The patient expressed understanding and agreement with the above treatment plan. The patient was made aware they should contact our office by phone for worsening of their current condition, the appearance of new symptoms, or with any questions or concerns. Compliance is encouraged with any medications and follow up testing that is ordered. It is a privilege to be allowed the opportunity to participate in? your urological care.? Again, if you have any questions or concerns If you have any questions or concerns please do not hesitate to contact me. The office is [phone]. This note is constructed using voice recognition software. While every effort has been made to ensure accuracy sequencing machine operator errors may have been included. Yours sincerely, QUENTIN Gomez Coding Level of Care Code Est Pt Level 3 (11002) Diagnoses Mixed incontinence N39.46 Nephrolithiasis N20.0 CPT Codes Post Residual Void - PVR CPT Code: 20356-Aazw Void Residual by ultrasound ([id number])
== END 2024-09-04 12:05 | disposition home or self-care (01) ==
PROVIDERS: PCP Internal Medicine; Visit Provider Nurse Practitioner Family
DX: N39.46 Mixed incontinence (principal); N20.0 Calculus of kidney; Z13.9 Encounter for screening, unspecified
CPT/HCPCS: 99213

== ENCOUNTER → 2024-09-04 11:16 | Outpatient (BNVA) | payer OTHER, SELFPAY | PROVIDERS: PCP Internal Medicine; Visit Provider Nurse Practitioner Family | DX: N39.46 Mixed incontinence (principal); N20.0 Calculus of kidney; R35.0 Frequency of micturition; N30.10 Interstitial cystitis (chronic) without hematuria; N32.81 Overactive bladder; R35.1 Nocturia; Z79.899 Other long term (current) drug therapy | CPT/HCPCS: 51798; 81003; 99212 ==

== ENCOUNTER 2024-09-09 13:40 | Outpatient (AMB) | payer OTHER, SELFPAY ==
--- NOTE | 2024-09-09 13:41 | A.OFFVIS_ITS ---
Intake Visit Reasons: Follow up Intake Note: patient following up. Allergies Benadryl Allergy (Severe, Verified 09/09/24 13:41) palpitations hydroxyzine [From VISTARIL] Allergy (Severe, Verified 09/09/24 13:41) PALPATATION oxycodone [From PERCOCET] Allergy (Severe, Verified 09/09/24 13:41) PALPIATIONS Medication List - Last Reconciled 09/09/24 by BIBI Hernandez albuterol sulfate 2.5 mg (3 mL) inhalation Q6H PRN 30 days albuterol sulfate 90 mcg/actuation 2 inhalations inhalation Q6H PRN 30 days amitriptyline 20 mg (2 x 10 mg) PO BEDTIME 30 days arm brace Bilateral carpal tunnel wrist splint aspirin (Adult Low Dose Aspirin) 81 mg PO DAILY atorvastatin 10 mg PO DAILY azelastine 2 sprays intranasal BID benzonatate 200 mg PO BID PRN 30 days budesonide 0.5 mg (2 mL) inhalation BID 30 days cetirizine mg PO clonazepam 0.5 mg PO TID PRN codeine-guaifenesin 10-100 mg/5 mL 10 mL PO Q6H PRN 10 days CPAP (CPAP Machine/Device) As directed diclofenac potassium 50 mg PO BID PRN 30 days epinephrine IM ergocalciferol (vitamin D2) 1,250 mcg PO QWEEK estradiol 0.01%(0.1mg/gram) pea sized amount to urethra 3 times a week 90 days famotidine 10 mg PO BID ferrous sulfate 325 mg PO DAILY fluoxetine mg PO fluticasone furoate-vilanterol 200-25 mcg/dose (Breo Ellipta) 1 inh inhalation DAILY 30 days fluticasone propion-salmeterol 230-21 mcg/actuation (Advair HFA) 2 puffs inhalation BID bmxkdddzpsk-knenjxooe-cdjktzef 200-62.5-25 mcg (Trelegy Ellipta) 1 inh inhalation DAILY 90 days furosemide (Lasix) 20 mg PO DAILY 30 days gabapentin 100 - 300 mg (1 - 3 x 100 mg) PO BEDTIME 30 days galcanezumab-gnlm (Emgality Pen) 120 mg subcut ONCE 30 days glipizide 5 mg PO DAILY ipratropium-albuterol 0.5 mg-3 mg(2.5 mg base)/3 mL 3 mL inhalation BID 30 days loratadine 10 mg PO DAILY PRN 30 days magnesium oxide 400 mg PO DAILY 30 days meclizine 12.5 mg PO BID metformin ER 500 mg PO DAILY metoprolol succinate ER 25 mg PO DAILY miconazole nitrate 2% (Miconazole-7) 1 appful vaginal BEDTIME 7 days mirabegron ER (Myrbetriq) 25 mg PO DAILY 90 days molnupiravir 800 mg (4 x 200 mg) PO Q12H 5 days montelukast 10 mg PO DAILY nebulizers As directed omeprazole 20 mg PO DAILY solifenacin (Vesicare) 5 mg PO DAILY 30 days sumatriptan succinate 50 - 100 mg orally at onset of headache, may repeat in 2 hrs PRN; max 2 tabs per day or 4 tabs/week (may take with Tylenol or Diclofenac) 30 days zolpidem 10 mg PO BEDTIME PRN HPI Comments Details: 53-yr-old female presents for f/u tele visit for migraine. Pt reports she is having increased generalized body pains and decreased ability to raise her right arm above her head, which she states is from her fibromyalgia and arthritis. She is also having asthma s/s. She takes her Emgality at the end of every month. The emgality works well, as long as she it is taking the Emgality regularly. Though, but she notices that the Emgality wears off 6-7 days before the next injection is due, and she has increased migraine. She notices her headaches and body pain are worse when she does not sleep well. She has snoring and H/0 of MANJULA. She was scheduled for a follow-up in-lab sleep study, however she missed it due to being ill. She is using Motrin prn- helps some. She notes that her Maximiliano w/ codeine can help the migraine and body pains a bit as well. States sumatriptan helps some, but she does not think she tried it with her diclofenac. States that diclofenac helps some. Baseline migraine s/s: stabbing/pulsating pain in her right parietal region a/w photophobia, phonophobia, at times nausea. She notices bilateral neck tightness when the weather is cold. She does continue to have tingling numbness hands when she is sleeping. She never had the EMG/NCS study done. She also endorses restless leg symptoms, urge to move, nocturnal leg cramps. [facility] Medical History MANJULA (obstructive sleep apnea) Chronic urticaria Chronic restrictive lung disease COVID-19 Pre-op chest exam Sinusitis Dyspnea Chest pain Obesity Anemia Extremity edema Dyspnea Chronic rhinitis MANJULA on CPAP Asthma Surgical History History of bilateral tubal ligation History of dilatation and curettage delivery delivered Family History Mother Asthma Hypertension Father FHx: lung cancer Social History Alcohol intake: never Patient Tobacco Use Status: Former Tobacco user Tobacco use type: Cigarette Years Smoked: 12 years Female Reproductive History Menstrual Age of Menarche: 13 Physical Exam Const General: cooperative and no acute distress Orientation/consciousness: patient oriented x3 Resp Effort & Inspection: normal respiratory effort and able to speak in complete sentences Neuro General: patient oriented x3 Cognition (Neuro): normal cognition Psych Appearance: grossly normal Mental Status: mental status grossly normal Speech and movement: Normal speech and movement present Affect: normal affect Attitude: cooperative Telehealth Telehealth Telehealth Platform: [facility] Location of provider rendering services: practice address Location of patient: address on file Patient Identification confirmed using: Name, : Yes Telehealth method: video Patient verbally consented to treatment: Yes Patient verbally consented to billing insurance company: Yes Patient informed of any privacy concerns related to visit: Yes Minutes spent on Phone/Video with Pt.: 28 Assessment & Plan Assessment & Plan (1) Migraine without aura: Code(s): G43.009 - Migraine without aura, not intractable, without status migrainosus Category: Medical Qualifiers: Status migrainosus presence: without status migrainosus Intractability: intractable Qualified Code(s): G43.019 - Migraine without aura, intractable, without status migrainosus (2) Paresthesia and pain of both upper extremities: Code(s): R20.2 - Paresthesia of skin; M79.601 - Pain in right arm; M79.602 - Pain in left arm Category: Medical (3) Spinal stenosis of cervical region: Comment: w/ mass effect on central spinal cord at C4-C5 and C5-C6. s/p cervical repair by Dr Lakhani (04/04/2022) Code(s): M48.02 - Spinal stenosis, cervical region Category: Medical (4) Somnolence: Code(s): R40.0 - Somnolence Category: Medical Plan For overall headache management: Patient advised to undergo in-lab sleep study to further assess status of sleep apnea and possible PLMS. Check fastin glabs for common etiologies of restless leg symptoms/fatigue in setting of history of anemia, fibromyalgia. For migra, and joint painine prevention: Continue Amitriptyline 20mg qhs. would not increase further d/t pt already has am tiredness and dry mouth. Continue Emgality 120mg sc q month. ? For acute migraine tx: Again trial Sumatriptan 100mg tab, 1/2 - 1 tab (50-100mg) at onset of headache, and if ineffective repeat dose in 2 hours. Max of 2 tabs (200mg) per 24 hours. Advised to take sumatriptan Diclofenac 50mg tab. May repeat diclofenac in 12 hour with max 2 tabs per day. Future considerations: Trial of alternate triptan, gepant. For BUE hand and neck pain: BUE wrist splints at night- continue We will reorder the BUE EMG/NCS. ? follow-up in 6 months or sooner as needed Orders: Orders Ferritin Today D64.9 - Anemia, unspecified, G43.909 - Migraine, unspecified, not intractable, without status migrainosus, J45.41 - Moderate persistent asthma with (acute) exacerbation, M25.50 - Pain in unspecified joint, M54.2 - Cervicalgia, M79.601 - Pain in right arm, M79.602 - Pain in left arm, R20.2 - Paresthesia of skin, R68.89 - Other general symptoms and signs Complete Blood Count Auto Diff Today D64.9 - Anemia, unspecified, G43.909 - Migraine, unspecified, not intractable, without status migrainosus, J45.41 - Moderate persistent asthma with (acute) exacerbation, M25.50 - Pain in unspecified joint, M54.2 - Cervicalgia, M79.601 - Pain in right arm, M79.602 - Pain in left arm, R20.2 - Paresthesia of skin, R68.89 - Other general symptoms and signs Comprehensive Met. Panel Today D64.9 - Anemia, unspecified, G43.909 - Migraine, unspecified, not intractable, without status migrainosus, J45.41 - Moderate persistent asthma with (acute) exacerbation, M25.50 - Pain in unspecified joint, M54.2 - Cervicalgia, M79.601 - Pain in right arm, M79.602 - Pain in left arm, R20.2 - Paresthesia of skin, R68.89 - Other general symptoms and signs JAMES Reflex Titer and Pattern Today D64.9 - Anemia, unspecified, G43.909 - Migraine, unspecified, not intractable, without status migrainosus, J45.41 - Mo derate persistent asthma with (acute) exacerbation, M25.50 - Pain in unspecified joint, M54.2 - Cervicalgia, M79.601 - Pain in right arm, M79.602 - Pain in left arm, R20.2 - Paresthesia of skin, R68.89 - Other general symptoms and signs Rheumatoid Factor Today D64.9 - Anemia, unspecified, G43.909 - Migraine, unspecified, not intractable, without status migrainosus, J45.41 - Moderate persistent asthma with (acute) exacerbation, M25.50 - Pain in unspecified joint, M54.2 - Cervicalgia, M79.601 - Pain in right arm, M79.602 - Pain in left arm, R20.2 - Paresthesia of skin, R68.89 - Other general symptoms and signs Methylmalonic Acid Today D64.9 - Anemia, unspecified, G43.909 - Migraine, unspecified, not intractable, without status migrainosus, J45.41 - Moderate persistent asthma with (acute) exacerbation, M25.50 - Pain in unspecified joint, M54.2 - Cervicalgia, M79.601 - Pain in right arm, M79.602 - Pain in left arm, R20.2 - Paresthesia of skin, R68.89 - Other general symptoms and signs CRP High Sensitivity Today D64.9 - Anemia, unspecified, G43.909 - Migraine, unspecified, not intractable, without status migrainosus, J45.41 - Moderate persistent asthma with (acute) exacerbation, M25.50 - Pain in unspecified joint, M54.2 - Cervicalgia, M79.601 - Pain in right arm, M79.602 - Pain in left arm, R20.2 - Paresthesia of skin, R68.89 - Other general symptoms and signs Vitamin B6 Today D64.9 - Anemia, unspecified, G43.909 - Migraine, unspecified, not intractable, without status migrainosus, J45.41 - Moderate persistent asthma with (acute) exacerbation, M25.50 - Pain in unspecified joint, M54.2 - Cervicalgia, M79.601 - Pain in right arm, M79.602 - Pain in left arm, R20.2 - Paresthesia of skin, R68.89 - Other general symptoms and signs RT PSG in-lab sleep study Today G47.33 - Obstructive sleep apnea (adult) (pediatric), J45.41 - Moderate persistent asthma with (acute) exacerbation, R40.0 - Somnolence Magnesium Today D64.9 - Anemia, unspecified, G43.909 - Migraine, unspecified, not intractable, without status migrainosus, J45.41 - Moderate persistent asthma with (acute) exacerbation, M25.50 - Pain in unspecified joint, M54.2 - Cervicalgia, M79.601 - Pain in right arm, M79.602 - Pain in left arm, R20.2 - Paresthesia of skin, R68.89 - Other general symptoms and signs Homocysteine Today D64.9 - Anemia, unspecified, G43.909 - Migraine, unspecified, not intractable, without status migrainosus, J45.41 - Moderate persistent asthma with (acute) exacerbation, M25.50 - Pain in unspecified joint, M54.2 - Cervicalgia, M79.601 - Pain in right arm, M79.602 - Pain in left arm, R20.2 - Paresthesia of skin, R68.89 - Other general symptoms and signs IRON PROFILE Today D64.9 - Anemia, unspecified, G43.909 - Migraine, unspecified, not intractable, without status migrainosus, J45.41 - Moderate persistent asthma with (acute) exacerbation, M25.50 - Pain in unspecified joint, M54.2 - Cervicalgia, M79.601 - Pain in right arm, M79.602 - Pain in left arm, R20.2 - Paresthesia of skin, R68.89 - Other general symptoms and signs Vitamin B12 and Folate Today D64.9 - Anemia, unspecified, G43.909 - Migraine, unspecified, not intractable, without status migrainosus, J45.41 - Moderate persistent asthma with (acute) exacerbation, M25.50 - Pain in unspecified joint, M54.2 - Cervicalgia, M79.601 - Pain in right arm, M79.602 - Pain in left arm, R20.2 - Paresthesia of skin, R68.89 - Other general symptoms and signs TSH reflex Free T4 Today D64.9 - Anemia, unspecified, G43.909 - Migraine, unspecified, not intractable, without status migrainosus, J45.41 - Moderate persistent asthma with (acute) exacerbation, M25.50 - Pain in unspecified joint, M54.2 - Cervicalgia, M79.601 - Pain in right arm, M79.602 - Pain in left arm, R20.2 - Paresthesia of skin, R68.89 - Other general symptoms and signs Erythrocyte Sedimentation Rate Today D64.9 - Anemia, unspecified, G43.909 - Migraine, unspecified, not intractable, without status migrainosus, J45.41 - Moderate persistent asthma with (acute) exacerbation, M25.50 - Pain in unspecified joint, M54.2 - Cervicalgia, M79.601 - Pain in right arm, M79.602 - Pain in left arm, R20.2 - Paresthesia of skin, R68.89 - Other general symptoms and signs Lyme IgG/IgM w/reflex to WB Today D64.9 - Anemia, unspecified, G43.909 - Migraine, unspecified, not intractable, without status migrainosus, J45.41 - Moderate persistent asthma with (acute) exacerbation, M25.50 - Pain in unspecified joint, M54.2 - Cervicalgia, M79.601 - Pain in right arm, M79.602 - Pain in left arm, R20.2 - Paresthesia of skin, R68.89 - Other general symptoms and signs NE electromyogram (EMG) Today M48.02 - Spinal stenosis, cervical region, M79.601 - Pain in right arm, M79.602 - Pain in left arm, R20.2 - Paresthesia of skin NE nerve conduction velocity Today M48.02 - Spinal stenosis, cervical region, M79.601 - Pain in right arm, M79.602 - Pain in left arm, R20.2 - Paresthesia of skin Medications: Refilled galcanezumab-gnlm (Emgality Pen) 120 mg subcut ONCE 30 days 1 mL 6RF sumatriptan succinate (0.5 - 1 x 100 mg) 50 - 100 mg orally at onset of headache, may repeat in 2 hrs PRN; max 2 tabs per day or 4 tabs/week (may take with Tylenol or Diclofenac) 30 days 12 tabs 6RF migraine headache diclofenac potassium 50 mg PO BID 30 days PRN 60 tabs 3RF migraine headache amitriptyline 20 mg (2 x 10 mg) PO BEDTIME 30 days 60 tabs 6RF Coding Level of Care Code Tele Est Pt Level 4 (53555) Diagnoses Intractable migraine without aura and without status migrainosus G43.019 Status migrainosus presence: without status migrainosus Intractability: intractable Paresthesia and pain of both upper extremities R20.2; M79.601; M79.602 Spinal stenosis of cervical region M48.02 Somnolence R40.0
== END 2024-09-09 15:47 | disposition home or self-care (01) ==
PROVIDERS: PCP Internal Medicine; Visit Provider Nurse Practitioner Family
DX: G43.019 Migraine without aura, intractable, without status migrainosus (principal); R20.2 Paresthesia of skin; M79.601 Pain in right arm; M79.602 Pain in left arm; M48.02 Spinal stenosis, cervical region; R40.0 Somnolence
CPT/HCPCS: 99214

== ENCOUNTER 2024-09-27 07:54 | Outpatient (REF) | payer OTHER, SELFPAY ==
--- OUTSIDE RECORDS SUMMARY | 2024-09-27 07:57 | XMS_ITS | Encounter Summary ---
Author Organization [facility] Address [address] [place] [address] Care Team Providers Care Polymer Engineer Name Role Phone Pam Vera MD Primary Care Provider [phone] Reason for Referral * Consultation (Routine) - Authorized Specialty Diagnoses / Procedures Referred By Contdebbie burgess Referred To Contact Gastroenterology Diagnoses Screening for colorectal cancer Pam Vera MD [address] [phone] [facility] [address] [address] Referral ID Status Reason Start Date Expiration Date Visits Requested Visits Authorized [id number] Authorized Specialty Services Required 09/26/2024 09/26/2025 1 1 Encounter Details Date Type Department Care Team (Late st Contact Info) Description 09/26/2024 9:45 AM EST Office Visit Internal Medicine - [place] [address] [phone] Pam Vera MD [address] [address] Chronic right-sided low back pain without sciatica (Primary Dx); Type 2 diabetes mellitus without complication, without long-term current use of insulin (CMS/HCC); Low vitamin D level; Mixed hyperlipidemia; Screening for colorectal cancer; Chronic right shoulder pain Social History Tobacco Use Types Packs/Day Years Used Date Smoking Tobacco: Former Smokeless Tobacco: Never Sex and Gender Information Value Date Recorded Sex Assigned at Female 09/12/2024 10:43 AM EST Gender Identity Female 09/12/2024 10:43 AM EST Sexual Orientation Straight 09/12/2024 10 :43 AM EST Job Start Date Occupation Industry Not on file Not on file Not on file documented as of this encounter Last Filed Vital Signs Vital Sign Reading Time Taken Comments Blood Pressure 124/82 09/26/2024 10:06 AM EST Pulse 73 09/26/2024 10:06 AM EST Temperature - - Respiratory Rate - - Oxygen Saturation 99% 09/26/2024 10:06 AM EST Inhaled Oxygen Concentration - - Weight 104 kg (230 lb) 09/26/2024 10:06 AM EST Height - - Body Mass Index 44.92 06/12/2024 11:18 AM EDT documented in this encounter Ordered Prescriptions Prescription Sig Dispensed Refills Start Date End Da te atorvastatin (LIPITOR) 10 mg tablet Take 1 tablet (10 mg total) by mouth 1 (one) time each day. 90 tablet 3 09/26/2024 diclofenac (VOLTAREN) 75 mg EC tablet Take 1 tablet (75 mg total) by mouth 1 (one) time each day. Do not crush, chew, or split. 28 tablet 3 09/26/2024 documented in this encounter Progress Notes * Pam Vera MD - 09/26/2024 9:45 AM EST CHIEF COMPLAINT: No chief complaint on file. IDENTIFIER: Rachell Saunders is a 54 y.o. old female. HPI::Diabetes, depression, obesity, urinary incontinence, migraine headaches, vitamin D deficiency Concerned about right shoulder pain and also right lower back pain, has an upcoming appointment with physiatry Dr. Antunez. ROS: GENERAL: No malaise, significant weight loss or fever NECK: No lumps, goiter, pain or significant neck swelling RESPIRATORY: No cough, wheezing or shortness of breath CARDIOVASCULAR: No chest pain, leg swelling or palpitations GI: No abdominal discomfort, blood in stools or black stools PSYCH: No sleep disturbance, mood disorder or recent psychosocial stressors. PAST MEDICAL HISTORY: Patient Active Problem List Diagnosis Date Noted Hyperlipidemia 05/17/2024 Type 2 diabetes mellitus ([facility]) 05/17/2024 Cervical cord compression with myelopathy ([facility]) 11/30/2021 Cerebral aneurysm without rupture 11/30/2021 Low vitamin D level 04/02/2020 Recurrent urticaria 01/06/2020 Angio-edema 01/06/2020 Intestinal infection due to Campylobacter jejuni 05/11/2018 GERD (gastroesophageal reflux disease) 05/09/2018 Urinary incontinence 02/08/2018 Depression 07/29/2017 Asthma 05/27/2017 Iron deficiency anemia 05/26/2017 Severe obesity (BMI 35.0-39.9) with comorbidity ([facility]) 01/13/2017 Obstructive sleep apnea syndrome 01/13/2017 Adnexal mass 10/07/2016 Fibromyalgia 10/07/2016 Vitamin D deficiency 04/21/2016 Arthritis of knee 04/18/2016 Allergic rhinitis 11/06/2015 Past Surgical History: Procedure Laterality Date SECTION PROCEDURE: HISTORICAL DELIVERY TUBAL LIGATION PROCEDURE: HISTORICAL TUBAL LIGATION SOCIAL HISTORY: Social History Tobacco Use Smoking status: Former Smokeless tobacco: Never Substance Use Topics Alcohol use: Not on file FAMILY HISTORY: No family history on file. No family status information on file. MEDICATIONS DISCONTINUED/REORDERED: Medications Discontinued During This Encounter Medication Reason atorvastatin (LIPITOR) 10 mg tablet Reorder bisacodyL (DULCOLAX) 5 mg EC tablet ACTIVE MEDICATIONS: Outpatient Medications Marked as Taking for the 09/26/24 encounter (Office Visit) with Pam Vera MD Medication Sig Dispense Refill atorvastatin (LIPITOR) 10 mg tablet Take 1 tablet (10 mg total) by mouth 1 (one) time each day. 90 tablet 3 ALLERGIES: Allergies Allergen Reactions Diphenhydramine Arrhytmia Latex Rash with contact Other Vistaril Arrhythmia Oxycodone PHYSICAL EXAM: Visit Vitals BP 124/82 (BP Location: Left arm, Patient Position: Sitting, BP Cuff Size: Large adult) Pulse 73 Wt 104 kg (230 lb) SpO2 99% BMI 44.92 kg/m?? Smoking Status Former BSA 1.98 m?? APPEARANCE: Alert and in no acute distress NECK: Neck supple, no adenopathy, thyroid symmetric and of normal size HEART: RRR with normal S1 and S2, no murmurs, no gallops, no JVD appreciated LUNG: clear to auscultation ABDOMEN: Bowel sounds normoactive, no bruits, soft, non-tender, without organomegaly or palpable masses SKIN: Skin color, texture, turgor normal. No rashes or lesions. LABS/IMAGING: Abstract on 05/17/2024 Component Date Value Ref Range Status Depression Screening 04/25/2024 Abstracted Final Annual BMP Blood Test 12/20/2023 Abstracted Final Urine Albumin Creatinine Ratio 10/07/2021 Abstracted Final LDL/HDL Ratio 12/20/2023 4 0 - 4 Final Triglycerides 12/20/2023 225 (A) 0 - 150 mg/dL Final Cholesterol 12/20/2023 219 (A) 0 - 200 mg/dL Final HDL 12/20/2023 53 40 mg/dL Final LDL Cholesterol 12/20/2023 121 (A) 0 - 100 mg/dL Final Hemoglobin A1C 12/20/2023 6.6 (A) 6.5 % Final Medication and lab orders: Orders Placed This Encounter Procedures Hemoglobin A1c Comprehensive metabolic panel Microalbumin creatinine urine ratio Ambulatory referral to Gastroenterology Other orders: AMB REFERRAL TO GASTROENTEROLOGY IMPRESSION: 1. Chronic right-sided low back pain without sciatica 2. Type 2 diabetes mellitus without complication, without long-term current use of insulin ([facility]) 3. Low vitamin D level 4. Mixed hyperlipidemia 5. Screening for colorectal cancer 6. Chronic right shoulder pain PLAN: Right lower back and right shoulder pain--patient has an upcoming appointment with physiatry, will prescribe diclofenac 75 mg once daily with food Diabetes--increase the dose of metformin from once daily to twice daily, A1c ordered Vertigo--meclizine 12.5 mg twice daily as needed Hyperlipidemia--- continue atorvastatin 10 mg Migraine headaches--butalbital as needed GERD--omeprazole 20 mg daily Depression--Prozac Anemia--continue iron supplement Will follow-up in 4 months or sooner as needed CBC CMP A1c magnesium ordered Pam Vera MD on 09/26/2024 at 10:59 AM EST documented in this encounter Plan of Treatment Upcoming Encounters Date Type Department Care Team (Late st Contact Info) Description 10/24/2024 10:00 AM EST [facility]ointment [facility] [address] [place] [phone] 01/24/2025 3:30 PM EDT Office Visit Internal Medicine - [place] 175 [facility] [address] [place] [phone] Pam Vera MD 175 [facility] [address] [place] [phone] Scheduled Referrals Name Type Priority Associated Diagnoses Order Schedule Ambulatory referral to Gastroenterology Outpatient Referral Routine Screening for colorectal cancer 1 Occurrences starting 09/26/2024 until 09/26/2025 documented as of this encounter Results * Microalbumin creatinine urine ratio (09/26/2024 10:32 AM EST) Creatinine, Urine 103.0 mg/dL LAB CHEMISTRY METHOD 09/26/2024 2:31 PM EST [facility] Microalb, Ur 15.4 0.0 - 29.0 mg/L LAB CHEMISTRY METHOD 09/26/2024 2:31 PM EST [facility] Microalb/Creat Ratio 15 <30 mg/g creat LAB CHEMISTRY METHOD 09/26/2024 2:31 PM EST [facility] Urine Urine specimen obtained by clean catch procedure / Unknown Non-blood Collection / Unknown 09/26/2024 10:32 AM EST 09/26/2024 10:32 AM EST Pam Vera MD LAB URINE ORDERABLES [facility] [address] [place] [address], * (ABNORMAL) Comprehensive metabolic panel (09/26/2024 10:32 AM EST) Pathologist [facility] Sodium 137 133 - 145 mmol/L LAB CHEMISTRY METHOD 09/26/2024 2:29 PM EST [facility] Potassium 4.1 3.5 - 5.5 mmol/L LAB CHEMISTRY METHOD 09/26/2024 2:29 PM [facility] Chloride 102 96 - 110 mmol/L LAB CHEMISTRY METHOD 09/26/2024 2:29 PM [facility] CO2 30 21 - 32 mmol/L LAB CHEMISTRY METHOD 09/26/2024 2:29 PM [facility] Anion Gap 5 3 - 11 LAB CHEMISTRY METHOD 09/26/2024 2:29 PM [facility] Glucose 155(H) 70 - 100 mg/dL LAB CHEMISTRY METHOD 09/26/2024 2:29 PM [facility] BUN 17 5 - 25 mg/dL LAB CHEMISTRY METHOD 09/26/2024 2:29 PM [facility] Creatinine 0.49(L) 0.50 - 1.10 mg/dL LAB CHEMISTRY METHOD 09/26/2024 2:29 PM [facility] eGFR 112 >=60 mL/min/1. 73m2 LAB CHEMISTRY METHOD 09/26/2024 2:29 PM [facility] Comment:Calculation based on the??Chronic Kidney Disease Epidemiology Collaboration (CKD-EPI) equation refit??without adjustment for race. BUN/Creatinine Ratio 34.7 LAB CHEMISTRY METHOD 09/26/2024 2:29 PM [facility] Calcium 9.3 8.5 - 10.5 mg/dL LAB CHEMISTRY METHOD 09/26/2024 2:29 PM [facility] AST (SGOT) 19 10 - 42 unit/L LAB CHEMISTRY METHOD 09/26/2024 2:29 PM [facility] ALT (SGPT) 37 10 - 60 unit/L LAB CHEMISTRY METHOD 09/26/2024 2:29 PM [facility] Alkaline Phosphatase 81 42 - 121 unit/L LAB CHEMISTRY METHOD 09/26/2024 2:29 PM [facility] Total Protein 7.3 6.0 - 8.0 g/dL LAB CHEMISTRY METHOD 09/26/2024 2:29 PM EST [facility] Albumin 3.6 3.2 - 5.0 g/dL LAB CHEMISTRY METHOD 09/26/2024 2:29 PM [facility] Total Bilirubin 0.5 0.0 - 1.4 mg/dL LAB CHEMISTRY METHOD 09/26/2024 2:29 PM [facility] Blood Venous blood specimen / Unknown Venipuncture / Unknown 09/26/2024 10:32 AM EST 09/26/2024 10:32 AM EST Pam Vera MD LAB BLOOD ORDERABLES [facility] [address] [place] [address], [place] [phone] * (ABNORMAL) Hemoglobin A1c (09/26/2024 10:32 AM EST) Hemoglobin A1C 7.1(H) <6.5 % LAB CHEMISTRY METHOD 09/26/2024 8:13 PM [facility] Mean Bld Glu Estim. 157 mg/dL LAB CHEMISTRY METHOD 09/26/2024 8:13 PM [facility] Blood Venous blood specimen / Unknown Venipuncture / Unknown 09/26/2024 10:32 AM EST 09/26/2024 10:32 AM EST Pam Vera MD LAB BLOOD ORDERABLES [facility] [address] [place] [address], [place] [phone] documented in this encounter Visit Diagnoses Diagnosis Chronic right-sided low back pain without sciatica- Primary Type 2 diabetes mellitus without complication, without long-term current use of insulin ([facility]) Low vitamin D level Mixed hyperlipidemia Screening for colorectal cancer Chronic right shoulder pain Pain in joint, shoulder region Encounter for screening mammogram for breast cancer documented in this encounter Discontinued Medications Medication Sig Discontinue Reason Start Date End Da te atorvastatin (LIPITOR) 10 mg tablet Take 1 Tablet by mouth daily. Reorder 05/14/2024 09/26/2024 bisacodyL (DULCOLAX) 5 mg EC tablet Take 2 tablets by mouth right before your first dose of liquid prep. 03/12/2024 09/26/2024 documented as of this encounter Care Teams Polymer Engineer Relationship Specialty Start Date End Date Pam Vera MD [address] [phone] PCP - General Internal Medicine 11/20/17 documented as of this encounter
--- OUTSIDE RECORDS SUMMARY | 2024-09-27 07:57 | XMS_ITS | Clinical Summary ---
Author Organization [facility] Address [address] [place] [address] Care Team Providers Care Rn Perioperative Name Role Phone Unavailable Primary Care Provider Unavailabl e Allergies Active Allergy Reactions Criticality Noted Date Comments Acetaminophen 06/10/2019 Other reaction(s): Respiratory arrest Diphenhydramine 07/08/2020 Other reaction(s): hives Hydroxyzine 07/08/2020 Other reaction(s): palpatations Oxycodone 06/10/2019 Other reaction(s): htroat swelling elev bld pressure, Respiratory arrest Tramadol 05/26/2023 Other reaction(s): throat swelling Medications zolpidem (Ambien) 5 MG tablet Take 1 tablet by mouth at bed time. 9 Active oxybutynin XL (Ditropan-XL) 10 MG 24 hr tablet Take 10 mg by mouth. 2 Active omeprazole (PriLOSEC) [address] capsule Take 2 capsules by mouth at bed time. 9 Active naproxen sodium (Anaprox DS) 550 MG tablet Take 1 tablet by mouth every 12 (twelve) hours. 0 Active montelukast (Singulair) 10 MG tablet Take 10 mg by mouth. 2 Active Myrbetriq 25 MG 24 hr tablet 3 Active metoprolol succinate XL (Toprol-XL) 25 MG 24 hr tablet Take 25 mg by mouth. 2 Active magnesium oxide (MagOx 400) 400 (240 Mg) MG tablet Take 400 mg by mouth. 2 Active Lancets (Safety Lancet 30G/Pressure Act) misc 3 Active ketorolac (Toradol) 10 MG tablet TAKE 1 TABLET ORALLY 3 TIMES A DAY NEEDED FOR PAIN FOR 5 DAYS 3 Active FREESTYLE LITE test strip 3 Active Emgality 120 MG/ML auto-injector 3 Active gabapentin (Neurontin) 100 MG capsule 3 Active furosemide (Lasix) 20 MG tablet Take 10 mg by mouth. 2 Active Flovent HFA 110 MCG/ACT inhaler 3 Active fluticasone (Flonase Allergy Relief) 50 MCG/ACT nasal spray Administer into affected nostril(s). 2 Active FLUoxetine (PROzac) 10 MG capsule Take 1 capsule by mouth at bed time. 9 Active ferrous sulfate 325 (65 Fe) MG EC tablet Take 325 mg by mouth. 2 Active famotidine (Pepcid) 20 MG tablet 3 Active ergocalciferol (Vitamin D-2) 1.25 MG (29076 UT) capsule take 1 capsule by oral route every week 9 Active EPINEPHrine (Epipen) 0.3 MG/0.3ML injection syringe 3 Active clonazePAM (KlonoPIN) 0.5 MG tablet Take 1 tablet by mouth every 8 (eight) hours. 9 Active cetirizine (ZyrTEC ALLERGY) 10 MG tablet Take 10 mg by mouth. 2 Active cefuroxime (Ceftin) 250 MG tablet 3 Active butalbital-acet aminophen-caffe ine 50-325-40 MG tablet 3 Active bisacodyl (Dulcolax) 5 MG EC tablet Take 5 mg by mouth. 2 Active Azelastine HCl 0.15 % solution Administer into affected nostril(s). 2 Active aspirin 81 MG EC tablet Take 81 mg by mouth. 2 Active amitriptyline (Elavil) 10 MG tablet 3 Active doxycycline (Vibramycin) 100 MG capsule 4 Active glipiZIDE (Glucotrol) 5 MG tablet 4 Active miconazole (Micotin) 2 % vaginal cream 4 Active predniSONE (Deltasone) 20 MG tablet 4 Active Incruse Ellipta 62.5 MCG/ACT aerosol powder 4 Active chlorhexidine (Peridex) 0.12 % solution Swish 15 mL morning and night for 1 minute. Spit, do not swallow. Do not eat or drink for 30 minutes following use. 473 mL 4 Active Active Problems Problem Noted Date Diagnosed Date Dental abscess 05/06/2024 Asthma 04/23/2024 Depression 04/23/2024 Fibromyalgia 04/23/2024 GERD (gastroesophageal reflux disease) 4 Hypertension 04/23/2024 Migraine 04/23/2024 Severe obesity 04/23/2024 Sleep apnea, obstructive 04/23/2024 Hepatitis C 04/23/2024 Spinal stenosis 05/26/2023 Social History Tobacco Use Types Packs/Day Years Used Date Smoking Tobacco: Never Smokeless Tobacco: Never Tobacco Cessation:Counseling Given: Not Answered Alcohol Use Standard Drinks/Week Comments Never 0 (1 standard drink = 0.6 oz pur e alcohol) Comments Unknown Sex and Gender Information Value Date Recorded Sex Assigned at Female 06/20/2022 10:35 AM EDT Legal Sex Female 10:35 AM EDT Gender Identity Female 05/26/2023 9:01 AM EDT Sexual Orientation Choose not to disclose 2022 9:01 AM EDT Last Filed Vital Signs Vital Sign Reading Time Taken Comments Blood Pressure 134/80 05/06/2024 9:00 AM EDT Pulse - - Temperature - - Respiratory Rate - - Oxygen Saturation - - Inhaled Oxygen Concentration - - Weight - - Height - - Body Mass Index - - Plan of Treatment Health Maintenance Due Date Last Done Comments CT Colonography 1970 Colonoscopy 1970 Colorectal Cancer Screening 1970 Dental Oral Exam 1970 Dental Prophylaxis 1970 Dental X-Ray: Full Mouth 1970 Depression Screening 1970 FIT DNA/Cologuard 1970 FIT 1970 FOBT 1970 HIV Screening 1970 Lipid Panel 1970 SDOH Screening 1970 Sigmoidoscopy 1970 Alcohol/Substance Use Screening 1982 DTaP/Tdap/Td Vaccines (1 - Tdap) 1989 Hepatitis A Vaccines (1 of 2 - Risk 2-dose series) 1989 Hepatitis B Vaccines (1 of 3 - 19+ 3-dose series) 1989 Pneumococcal Vaccine: 50+ Years (1 of 2 - PCV) 1989 Pap Smear 1991 Cervical Cancer Screening 2000 HPV/Cotest 2000 Mammogram 2010 Zoster Vaccines (1 of 2) 2020 COVID-19 Vaccine (1 - 2023-2 5 season) 2024 Influenza Vaccine (#1) 2024 2, 07/01/2021 Dental X-Ray: Bitewings 05/27/2024 05/26/20 23, 06/10/2019 Tobacco Screening 04/23/2025 04/23/2024 RSV Patients and Patients Aged 60 years or older (1 - 1-dose 75+ series) 2045 HIB Vaccines Aged Out No longer eligi ble based on patient's age to complete this topic HPV Vaccines Aged Out No longer eligi ble based on patient's age to complete this topic IPV Vaccines Aged Out No longer eligi ble based on patient's age to complete this topic Meningococcal Vaccine Aged Out No kelby francoise eligible based on patient's age to complete this topic RSV under 20 months Aged Out No longe r eligible based on patient's age to complete this topic Rotavirus Vaccines Aged Out No longer eligible based on patient's age to complete this topic Procedures Procedure Name Priority Date/Time Associated Diagnosis Comments BITEWING - SINGLE RADIOGRAPHIC IMAGE Routine 05/26/2023 1:00 PM EDT Spinal stenosis of pytojuwq-ajhwkjv-agnix region Symptomatic periapical periodontitis from Last 3 Months or Most Recently Relevant to Health Maintenance Insurance [facility] MEDICAID STAND ADULT
--- OUTSIDE RECORDS SUMMARY | 2024-09-27 07:57 | XMS_ITS | Clinical Summary ---
Author Organization [address] [facility] Address [address] [place] [address] Phone Care Team Providers Care Distribution District Supervisor Name Role Phone Pam Vera MD Primary Care Provider [phone] Allergies Active Allergy Reactions Criticality Noted Date Comments Diphenhydramine 01/22/2015 Arrhytmia Latex 01/06/2020 Rash with contact Other 01/22/2015 Vistaril Arrhythmia Oxycodone 01/22/2015 Medications Medication Sig Dispensed Refills Start Date End Date Status furosemide (LASIX) 20 mg tablet Take 20 mg by mouth daily. Active blood sugar diagnostic (FreeStyle Lite Strips) test strip USE DIRECTED TO TEST BLOOD SUGAR EVERY DAY 04/03/2024 Active OneTouch Ultra Test test strip Test blood sugar three times daily 09/07/2023 Active blood-glucose meter kit 1 Device by Does not apply route 3 times daily for 360 days. DX E11.9 10/07/2021 Active incontinence pad, liner, disp pad 1 Each by Does not apply route every 4 hours. Dispense 4 packages 06/20/2023 Active metFORMIN XR (GLUCOPHAGE-XR) 500 mg 24 hr tablet Take 1 Tablet by mouth daily (with breakfast). 05/14/2024 Active omeprazole (PriLOSEC) [address] capsule TAKE 1 CAPSULE BY MOUTH DAILY. 04/25/2024 Active ONETOUCH ULTRASOFT LANCETS MISC 1 Stick by Does not apply route 2 times daily. 09/07/2023 Active oxyBUTYnin XL (DITROPAN-XL) 15 mg 24 hr tablet 08/23/2019 Active polyethylene glycol (GoLYTELY) 236-22.74-6.74 -5.86 gram solution Take 240 mL by mouth once for 1 dose. May substitue for any PEG. Follow instructions given by office. 03/12/2024 Active medical supply, miscellaneous (TAMPONS VAGL) 1 Units by Does not apply route daily. 01/31/2022 Active zolpidem (AMBIEN) 10 mg tablet Take 1 Tab by mouth at bedtime as needed. Active acetaminophen (TYLENOL) 500 mg tablet Take 1 Tablet by mouth every 6 hours as needed for Pain. 06/20/2023 Active amoxicillin-clavul anate (AUGMENTIN) 875-125 mg per tablet Take 1 Tablet by mouth 2 times daily. 12/20/2023 Active budesonide (PULMICORT) 0.5 mg/2 mL nebulizer solution Take 2 mL by nebulization daily for 30 days. 03/01/2019 Active butalbital-acetami nophen-caffeine (FIORICET, ESGIC) 50-325-40 mg per tablet TAKE 1 TABLET BY MOUTH EVERY 6 HOURS NEEDED FOR PAIN 04/25/2024 Active cetirizine (ZyrTEC) 10 mg tablet TAKE 1 TABLET BY MOUTH 2 TIMES DAILY. 09/28/2022 Active clonazePAM (KlonoPIN) 0.5 mg tablet Take 0.5 mg by mouth 2 times daily as needed. Active EPINEPHrine (EpiPen 2-Norman) 0.3 mg/0.3 mL injection INJECT 1 DEVICE DIRECTED NEEDED (ANAPHYLAXIS). USE DIRECTED 04/25/2024 Active ferrous sulfate 325 mg (65 mg iron) EC tablet TAKE 1 TABLET BY MOUTH DAILY. 03/19/2024 Active FLUoxetine (PROzac) 20 mg capsule TAKE 1 CAPSULE BY MOUTH EVERY DAY 04/25/2024 Active fluticasone propionate (FLONASE) 50 mcg/actuation nasal spray 2 Sprays by Nasal route daily. 04/25/2024 Active fluticasone propion-salmeteroL (ADVAIR HFA) 230-21 mcg/actuation inhaler Rinse mouth with water after use to reduce aftertaste and incidence of candidiasis. Do not swallow. Route: Inhale 2 Puffs into the lungs 2 times daily for 360 days. - Inhalation 05/14/2024 09/19/202 5 Active blood-glucose meter kit Blood Glucose Monitoring Suppl (FreeStyle [place] Lite) w/Device Kit Route: 1 Each by Does not apply route daily. - Does not apply 04/25/2024 Active albuterol HFA (PROVENTIL HFA;VENTOLIN HFA) 108 (90 Base) MCG/ACT inhaler Route: Inhale 2 Puffs into the lungs every 4 hours as needed for Cough or Wheezing. - Inhalation 04/25/2024 Active Pure Comfort Safety Lancets 30 gauge misc USE DIRECTED TO TEST EVERY DAY 100 each 1 06/25/2024 Active ergocalciferol (VITAMIN D-2) 1,250 mcg (50,000 unit) capsule TAKE 1 CAPSULE BY MOUTH ONCE A WEEK. 4 capsule 06/25/2024 Active glipiZIDE (GLUCOTROL) 5 mg tablet TAKE 1 TABLET BY MOUTH DAILY. 30 tablet 4 08/13/2024 Active diclofenac (VOLTAREN) 75 mg EC tablet Take 1 tablet (75 mg total) by mouth 1 (one) time each day. Do not crush, chew, or split. 28 tablet 3 09/26/2024 Active atorvastatin (LIPITOR) 10 mg tablet Take 1 tablet (10 mg total) by mouth 1 (one) time each day. 90 tablet 3 09/26/2024 Active atorvastatin (LIPITOR) 10 mg tablet Take 1 Tablet by mouth daily. 05/14/2024 5 Discontinue d(Reorder) bisacodyL (DULCOLAX) 5 mg EC tablet Take 2 tablets by mouth right before your first dose of liquid prep. 03/12/2024 5 Discontinue d() Active Problems Problem Noted Date Diagnosed Date Hyperlipidemia 05/17/2024 Type 2 diabetes mellitus 05/17/2024 Cervical cord compression with myelopathy 2021 Overview (05/17/2024): Last Assessment & Plan: Ms. Saunders returns with a close friend who serves as inspector hairspring truing and brought a list of questions that have come up in their research. The patient mainly complains of neck pain and dropping things from her hands. She is no worse than at her last visit. Cervical rotation is approximately 45 degrees, strength is full, gait is steady with no assistive device. I discussed the degenerative disks and degree of cord compression worst at C5-6 and the options for treatment. Specifically an ACDF or corpectomy with plating versus posterior laminectomy with lateral mass fusion. Given the vector of compression and her body habitus, I recommended an anterior approach. We went through the details, risks of surgery including a less than 1% risk of paralysis, benefits and anticipated postoperative course with a 10 pound lifting restriction in the first couple of weeks. All questions were answered and she is going to consider proceeding with surgery quite soon. Cerebral aneurysm without rupture 11/30/2021 Overview (05/17/2024): Last Assessment & Plan: I reviewed this in detail with Ms. Saunders and though this is an incidentally found small aneurysm, her history warrants surveillance imaging. She has a positive family history and is a former smoker though she did quit sometime ago and these factors increase her overall risk. She states her high blood pressure is under good control. I would plan on repeating her CTA or MRA in 1 year. Low vitamin D level 04/02/2020 Recurrent urticaria 01/06/2020 Angio-edema 01/06/2020 Intestinal infection due to Campylobacter jejuni 05/11/2018 GERD (gastroesophageal reflux disease) 8 Urinary incontinence 02/08/2018 Depression 07/29/2017 Asthma 05/27/2017 Iron deficiency anemia 05/26/2017 Severe obesity (BMI 35.0-39.9) with comorbidity 01/13/2017 Obstructive sleep apnea syndrome 01/13/2017 Adnexal mass 10/07/2016 Fibromyalgia 10/07/2016 Vitamin D deficiency 04/21/2016 Arthritis of knee 04/18/2016 Allergic rhinitis 11/06/2015 Encounters Date Type Department Care Team Description 09/26/2024 9:45 AM EST Office Visit Internal Medicine - [address] [place] [address] Pam Vera MD Chronic right-sided low back pain without sciatica (Primary Dx); Type 2 diabetes mellitus without complication, without long-term current use of insulin (CMS/HCC); Low vitamin D level; Mixed hyperlipidemia; Screening for colorectal cancer; Chronic right shoulder pain from Last 3 Months Immunizations Name Administration Dates Next Due Hepatitis A Adult (Havrix; Vaqta) 19yo and older 04/03/2019 Pneumococcal polysaccharide 23 valent (Pneumovax 23) 2yo and older 03/01/2019 Tdap Tetanus diptheria acell ular pertussis (Boostrix; Adacel) 7yo and older 04/03/2019 Typhoid VICPS (Typhim Vi) 2yo and older 04/03/20 19 Surgical History Surgery Date Site/Laterality Comments TUBAL LIGATION PROCEDURE: HISTORICAL TUBAL LIGATION SECTION PROCEDURE: HISTORICAL DELIVERY Medical History Medical History Date Comments Depression 07/29/2017 DX:Depression Morbid obesity with BMI of 4 5.0-49.9, adult ([facility]/HCC) 01/13/2017 DX:Morbid obesity with BMI o f 45.0-49.9, adult ([facility]) Adnexal mass 10/07/2016 DX:Adnexal mass Allergic rhinitis 11/06/2015 DX:Allergic rh initis Arthritis of knee 04/18/2016 DX:Arthritis o f knee Asthma 05/27/2017 DX:Asthma Fibromyalgia 10/07/2016 DX:Fibromyalgia History of hepatitis C virus infection 07/21/2016 DX:History of hepatitis C virus infection Impaired fasting glucose 05/26/2017 DX:Impa ired fasting glucose Iron deficiency anemia 05/26/2017 DX:Iron d eficiency anemia Obstructive sleep apnea syndrome 01/13/2017 DX:Obstructive sleep apnea syndrome Vitamin D deficiency 04/21/2016 DX:Vitamin D deficiency GERD (gastroesophageal reflux disease) 05/09/2018 DX:GERD (gastroesophageal reflux disease) Urinary incontinence 02/08/2018 DX:Urinary incontinence Intestinal infection due to Campylobacter jejuni 05/11/2018 DX:Intestinal infection due to Campylobacter jejuni Social History Tobacco Use Types Packs/Day Years Used Date Smoking Tobacco: Former Smokeless Tobacco: Never Sex and Gender Information Value Date Recorded Sex Assigned at Female 09/12/2024 10:43 AM EST Gender Identity Female 09/12/2024 10:43 AM EST Sexual Orientation Straight 09/12/2024 10 :43 AM EST Job Start Date Occupation Industry Not on file Not on file Not on file Obstetrics History Last Filed Vital Signs Vital Sign Reading Time Taken Comments Blood Pressure 124/82 09/26/2024 10:06 AM EST Pulse 73 09/26/2024 10:06 AM EST Temperature - - Respiratory Rate - - Oxygen Saturation 99% 09/26/2024 10:06 AM EST Inhaled Oxygen Concentration - - Weight 104 kg (230 lb) 09/26/2024 10:06 AM EST Height 152.4 cm (5') 06/12/2024 11:18 AM EDT Body Mass Index 44.92 06/12/2024 11:18 AM EDT Plan of Treatment Upcoming Encounters Date Type Department Care Team (Late st Contact Info) Description 10/24/2024 10:00 AM EST [facility]ointment [facility] at [address] [place] [address] 01/24/2025 3:30 PM EDT Office Visit Internal Medicine - [place] [facility] [address] [place] [address] Pam Vera MD [address] [facility] [address] [place] [address] Health Maintenance Due Date Last Done Comments Breast Cancer Screening 1970 Diabetes: Annual Foot Exam 1980 Diabetes: Annual Retina Eye Exam 1980 Hepatitis B Vaccines (1 of 3 - 19+ 3-dose series) 1989 Cervical Cancer Screening: Pap Smear 1991 Hepatitis A Vaccines (2 of 2 - Risk 2-dose series) 10/04/2019 04/03/2019 Pneumococcal Vaccine: Pediatrics (0 to 5 Years) and At-Risk Patients (6 to 64 Years) (2 of 2 - PCV) 03/01/2020 03/01/2019 Zoster Vaccines (1 of 2) 2020 Colorectal Cancer Screening: Colonoscopy 07/30/2022 HIV Screening 07/30/2022 Hepatitis C Screening 07/30/2022 Social Influencers of Health Screening 07/30/2022 COVID-19 Vaccine ( season) 2024 Influenza Vaccine (#1) 2024 07/07/2022, 2020 Diabetes: Blood Sugar Control Test (HGBA1C) 03/26/2025 09/26/2024, 06/12/2024, 12/20/2023, Additional history exists Depression Screening 04/25/2025 04/25/2024 Diabetes: Annual Urine Albumin-Creatinine Ratio (uACR) 09/26/2025 09/26/2024, 10/07/2021 Diabetes: Annual GFR (Glomerular Filtration Rate) 09/26/2025 09/26/2024, 06/12/2024, 12/20/2023, Additional history exists Hypertension/CHF/CAD Annual BMP Blood Test 09/26/2025 09/26/2024, 06/12/2024, 12/20/2023, Additional history exists Cholesterol Screening (Lipid Panel) 12/19/2028 12/20/2023, 12/20/2023 DTaP,Tdap,and Td Vaccines (2 - Td or Tdap) 04/03/2029 04/03/2019 HIB Vaccines Aged Out No longer eligi ble based on patient's age to complete this topic HPV Vaccines Aged Out No longer eligi ble based on patient's age to complete this topic IPV Vaccines Aged Out No longer eligi ble based on patient's age to complete this topic MMR Vaccines Aged Out No longer eligi ble based on patient's age to complete this topic Meningococcal ACWY Vaccine Aged Out N o longer eligible based on patient's age to complete this topic RSV Immunization Patients Under 20 months Aged Out No longer eligible based on patient's age to complete this topic Varicella Vaccines Aged Out No longer eligible based on patient's age to complete this topic Procedures Procedure Name Priority Date/Time Associated Diagnosis Comments MICROALBUMIN CREATININE URINE RATIO Routine 09/26/2024 10:32 AM EST Type 2 diabetes mellitus without complication, without long-term current use of insulin ([facility]) Low vitamin D level Mixed hyperlipidemia COMPREHENSIVE METABOLIC PANEL Routine 09/26/2024 10:32 AM EST Type 2 diabetes mellitus without complication, without long-term current use of insulin ([facility]) Low vitamin D level Mixed hyperlipidemia HEMOGLOBIN A1C Routine 09/26/2024 10:32 AM EST Type 2 diabetes mellitus without complication, without long-term current use of insulin ([facility]) Low vitamin D level Mixed hyperlipidemia HM DEPRESSION SCREENING Routine 04/25/2024 LIPID PANEL Routine 12/20/2023 from Last 3 Months or Most Recently Relevant to Health Maintenance Results * Microalbumin creatinine urine ratio (09/26/2024 10:32 AM EST) [facility] Creatinine, Urine 103.0 mg/dL LAB CHEMISTRY METHOD 09/26/2024 2:[address] [facility] Microalb, Ur 15.4 0.0 - 29.0 mg/L LAB CHEMISTRY METHOD 09/26/2024 2:[address] [facility] Microalb/Creat Ratio 15 <30 mg/g creat LAB CHEMISTRY METHOD 09/26/2024 2:[address] [facility] Urine Urine specimen obtained by clean catch procedure / Unknown Non-blood Collection / Unknown 09/26/2024 10:32 AM EST 09/26/2024 10:32 AM EST Pam Vera MD LAB URINE ORDERABLES Performing Organization Address City/[facility]/ZIP Co de Phone Number [facility] [address] [place] [address], [place] [phone] * (ABNORMAL) Hemoglobin A1c (09/26/2024 10:32 AM EST) [facility] Hemoglobin A1C 7.1(H) <6.5 % LAB CHEMISTRY METHOD 09/26/2024 8:[address] [facility] Mean Bld Glu Estim. 157 mg/dL LAB CHEMISTRY METHOD 09/26/2024 8:[address] [facility] Blood Venous blood specimen / Unknown Venipuncture / Unknown 09/26/2024 10:32 AM EST 09/26/2024 10:32 AM EST Pam Vera MD LAB BLOOD ORDERABLES Performing Organization Address City/[facility]/ZIP Co de Phone Number [facility] [address] [place] [address], [place] [phone] * (ABNORMAL) Comprehensive metabolic panel (09/26/2024 10:32 AM EST) Sodium 137 133 - 145 mmol/L LAB CHEMISTRY METHOD 09/26/2024 2:[address] [facility] Potassium 4.1 3.5 - 5.5 mmol/L LAB CHEMISTRY METHOD 09/26/2024 2:[address] [facility] Chloride 102 96 - 110 mmol/L LAB CHEMISTRY METHOD 09/26/2024 2:[address] [facility] CO2 30 21 - 32 mmol/L LAB CHEMISTRY METHOD 09/26/2024 2:[address] [facility] Anion Gap 5 3 - 11 LAB CHEMISTRY METHOD 09/26/2024 2:[address] [facility] Glucose 155(H) 70 - 100 mg/dL LAB CHEMISTRY METHOD 09/26/2024 2:[address] [facility] BUN 17 5 - 25 mg/dL LAB CHEMISTRY METHOD 09/26/2024 2:[address] [facility] Creatinine 0.49(L) 0.50 - 1.10 mg/dL LAB CHEMISTRY METHOD 09/26/2024 2:[address] [facility] eGFR 112 >=60 mL/min/1. 73m2 LAB CHEMISTRY METHOD 09/26/2024 2:[address] [facility] Comment:Calculation based on the??Chronic Kidney Disease Epidemiology Collaboration (CKD-EPI) equation refit??without adjustment for race. BUN/Creatinine Ratio 34.7 LAB CHEMISTRY METHOD 09/26/2024 2:[address] [facility] Calcium 9.3 8.5 - 10.5 mg/dL LAB CHEMISTRY METHOD 09/26/2024 2:[address] [facility] AST (SGOT) 19 10 - 42 unit/L LAB CHEMISTRY METHOD 09/26/2024 2:[address] [facility] ALT (SGPT) 37 10 - 60 unit/L LAB CHEMISTRY METHOD 09/26/2024 2:[address] [facility] Alkaline Phosphatase 81 42 - 121 unit/L LAB CHEMISTRY METHOD 09/26/2024 2:29 PM EST [facility] Total Protein 7.3 6.0 - 8.0 g/dL LAB CHEMISTRY METHOD 09/26/2024 2:29 PM EST [facility] Albumin 3.6 3.2 - 5.0 g/dL LAB CHEMISTRY METHOD 09/26/2024 2:29 PM EST [facility] Total Bilirubin 0.5 0.0 - 1.4 mg/dL LAB CHEMISTRY METHOD 09/26/2024 2:29 PM EST [facility] Blood Venous blood specimen / Unknown Venipuncture / Unknown 09/26/2024 10:32 AM EST 09/26/2024 10:32 AM EST Pam Vera MD LAB BLOOD ORDERABLES [facility] [address] [place] [address], * Depression Screening (04/25/2024) Pathologist [facility] Depression Screening Abstracted Historical Provider MD ART BRYAN E * (ABNORMAL) Lipid panel (12/20/2023) LDL/HDL Ratio 4 0 - 4 Triglycerides 225(A) 0 - 150 mg/dL Cholesterol 219(A) 0 - 200 mg/dL HDL 53 40 mg/dL LDL Cholesterol 121(A) 0 - 100 mg/dL Blood Venous blood specimen / Unknown Historical Provider LAB BLOOD ORDERAB LES from Last 3 Months or Most Recently Relevant to Health Maintenance Care Teams Distribution District Supervisor Relationship Specialty Start Date End Date Pam Vera MD [address] [place] [phone] PCP - General Internal Medicine 11/20/17
--- OUTSIDE RECORDS SUMMARY | 2024-09-27 07:57 | XMS_ITS | Encounter Summary ---
Author Organization [facility] Address [address] [facility] [address] [place] [address] Care Team Providers Care Blue Split Trimmer Name Role Phone Unavailable Primary Care Provider Unavailabl e Reason for Visit * Reason Onset Date Comments medical clearance 08/29/2023 Encounter Details Date Type Department Care Team (Late st Contact Info) Description 08/29/2023 Telephone [facility] [address] [place] [address] Clare Gold, DDS [address] [place] [address] medical clearance Social History Tobacco Use Types Packs/Day Years Used Date Smoking Tobacco: Never Smokeless Tobacco: Never Alcohol Use Standard Drinks/Week Comments Never 0 (1 standard drink = 0.6 oz pur e alcohol) Comments Unknown Sex and Gender Information Value Date Recorded Sex Assigned at Female 06/20/2022 10:35 AM EDT Legal Sex Female 10:35 AM EDT Gender Identity Female 05/26/2023 9:01 AM EDT Sexual Orientation Choose not to disclose 2022 9:01 AM EDT documented as of this encounter Miscellaneous Notes * Telephone Encounter - Imelda Márquez - 08/29/2023 10:34 AM EST Patient states that her neurology oficce states they do not have the medical clearnace for patient to be able to schedule appt. She took it in person and they don' have it. The one that is scanned inte system was sent to PCP. Neurology office fax is [phone] and Neurologist name is Rohini blanca. Can a new medical clearance be sent. The patient is complaining of pain and wants to be able to scheduled th extraction appt documented in this encounter Plan of Treatment Not on file documented as of this encounter Visit Diagnoses Not on filedocumented in this encounter
[2024-09-27 08:12] LABS: MANUAL DIFF FLAG NO
[2024-09-27 08:22] LABS: Basophils Percent Auto 0.6 % (0-2); Eosinophils Absolute Auto 0.1 X10*3/uL (0.0-0.4); Eosinophils Percent Auto 2.6 % (0-4); Hematocrit 35.9 % (37.0-47.0); Hemoglobin 12.6 g/dl (12.0-16.0); Imm Gran Abs Auto 0.02 X10*3/uL (0.00-0.03); Imm Gran Pct Auto 0.4 % (0.0-0.4); Lymphocytes Absolute Auto 1.5 X10*3/uL (1.2-4.9); Lymphocytes Percent Auto 30.6 % (20-40); Mean Corpuscular HGB Conc 35.1 g/dl (31.0-35.0); Mean Corpuscular Hemoglobin 30.8 pg (27.0-33.0); Mean Corpuscular Volume 87.8 fL (80.0-98.0); Mean Platelet Volume 8.8 fL (9.4-12.3); Monocytes Absolute Auto 0.5 X10*3/uL (0.1-1.2); Monocytes Percent Auto 10.3 % (2-11); Neutrophils Absolute Auto 2.8 x10*3/uL (2.0-8.3); Neutrophils Percent Auto 55.5 % (45-73); Platelet Count 237 X10*3/uL (160-400); Red Blood Count 4.09 X10*6/uL (4.20-5.50); Red Cell Distribution Width 12.3 % (11.0-16.0)
[2024-09-27 08:36] LABS: Alanine Aminotransferase 35 U/L (0-31); Alkaline Phosphatase 77 U/L (39-117); Anion Gap 12 (12-20); Aspartate Amino Transferase 27 U/L (5-31); Bilirubin Total 0.4 mg/dL (0.0-1.0); Blood Urea Nitrogen 16 mg/dL (9-16); Calcium 9.4 mg/dL (8.4-10.2); Carbon Dioxide 25 mmol/L (22-29); Chloride 104 mmol/L (96-108); Estimated Glomerular Filt Rate > 60; Glucose Random 153 mg/dL (60-115); Iron 99 mcg/dL (30-160); Magnesium 1.9 mg/dL (1.6-2.6); Percent Iron Saturation 35 % (15-50); Potassium 4.1 mmol/L (3.3-5.1); Sodium 137 mmol/L (135-145); Total Iron Binding Capacity 280 mcg/dL (228-428); Total Protein 7.9 g/dL (6.5-8.0); Unsaturated Iron Binding 181 ug/dL
[2024-09-27 08:39] LABS: Rheumatoid Factor < 13.0 IU/mL (<15.0)
[2024-09-27 08:50] LABS: Ferritin 74 ng/mL (10-250); TSH reflex Free T4 1.37 uIU/mL (0.32-4.0)
[2024-09-27 09:00] LABS: Erythrocyte Sedimentation Rate 28 MM/HR (0-20)
[2024-09-27 09:06] LABS: Folate 12.2 ng/mL (> or = 4.0); Vitamin B12 373 pg/mL (200-900)
[2024-09-28 18:53] LABS: Homocysteine 6.2 umol/L (<10.4)
[2024-09-30 06:48] LABS: CRP High Sensitivity 3.6 mg/L
[2024-10-02 09:48] LABS: Lyme Abs Screen <0.90 index
[2024-10-02 11:58] LABS: Anti Nuclear Antibody Screen NEGATIVE (NEGATIVE)
[2024-10-02 12:03] LABS: Methylmalonic Acid 95 nmol/L (55-335)
[2024-10-05 15:49] LABS: Vitamin B6 10.5 ng/mL (2.1-21.7)
== END 2024-09-27 07:55 | disposition home or self-care (01) ==
LOC: HO.LAB 07:54
PROVIDERS: Absent Provider Nurse Practitioner Family; PCP Internal Medicine; Visit Provider Nurse Practitioner Family
DX: D64.9 Anemia, unspecified (principal); J45.41 Moderate persistent asthma with (acute) exacerbation; M54.2 Cervicalgia; M25.50 Pain in unspecified joint; R68.89 Other general symptoms and signs; G43.909 Migraine, unspecified, not intractable, without status migrainosus; R20.2 Paresthesia of skin; M79.601 Pain in right arm; M79.602 Pain in left arm
CPT/HCPCS: 36415; 80053; 82607; 82728; 82746; 83090; 83540; 83735; 83921; 84207; 84443; 85025; 85652; 86038; 86141; 86431; 86617; 86618

== ENCOUNTER 2024-12-10 09:02 | Outpatient (AMB) | payer OTHER, SELFPAY ==
--- NOTE | 2024-12-10 09:10 | MHC.OFFVIS ---
Vital Signs 12/10/24 09:11 Height 5 ft 1 in Weight 235 lb 14.314 oz BMI 44.6 BP 130/84 Blood Pressure Location Rt brachial Position Sitting Pulse 73 Pulse Source Pulse Oximeter Pulse Oximetry (%) 100 Oxygen Delivery Method Room Air Intake Visit Reasons: COPD Allergies Benadryl Allergy (Severe, Verified 09/09/24 13:41) palpitations hydroxyzine [From VISTARIL] Allergy (Severe, Verified 09/09/24 13:41) PALPATATION oxycodone [From PERCOCET] Allergy (Severe, Verified 09/09/24 13:41) PALPIATIONS HPI Comments Details: The patient is a 54-year-old woman with a known history of asthma in addition to obstructive sleep apnea. Her CPAP therapy has been affecting beneficial. She does uses CPAP every night for more than 4 hours a night. She has been getting supplies regularly through her [employer] company, [employer]. In regards to her breathing she has but and on multiple respiratory medications. She does require her short-acting beta agonist but usually less than twice a week. She denies any imaging studies over respiratory studies recently. Otherwise the patient has been having increasing cough but feels is related to the allergies. She has been taking allergy medications including Zyrtec. She has never taken singular. 01/09/2023 the patient is here for pulmonary follow-up visit. The patient overall has been doing well she has been using CPAP every night the CPAP therapy continues to be affecting beneficial. She is using a fullface mask. She has use it for more than 4 hours a night. Will make sure she gets supplies readily available. Her breathing has been good. She continues on the Trelegy inhaler with good effect. Although she is having a lot of nasal congestion and postnasal drip and cough. Ggfi-bx-creycshy severity. Will go ahead and optimize her allergy therapy and her sinus therapy to minimize symptoms. We also started about nasal rinsing. She will look into it. 08/25/2023 the patient is here for a pulmonary follow-up visit. She is struggling because she does not have her CPAP a pale above. Apparently she was in the airport in [place] and her CPAP was lost or stolen. She tried to reported to the [place] police Department but since it happened in the airport she could not get a police report. The patient has been struggling because she has been without her CPAP. She has significant daytime drowsiness. Her [employer] score significantly elevated at 12 over 24. She did very well on CPAP and she had good adherence. In the meantime I did call her [employer] company to see if she was due for replacement machine. In view of her significant symptoms will have her get a sleep study in case we need to restart the process to we diagnose or in order to get her a new machine. The patient is also complaining of tooth pain she is going to be seen the dentist in the couple weeks. And also the patient has been having worsening cough. Chest congestion. Vzln-bj-ukayiulw severity. She has been using her respiratory medications. 12/22/2023 the patient is here for a pulmonary follow-up visit doing well. She is still having daytime drowsiness. Her [employer] elevated [employer] score 12/24. She is scheduled to undergo a sleep study and then therefore after that get a CPAP.. In the meantime she is developing worsening respiratory symptoms. She has not been able to get her inhaler, Trelegy. I will be sent to the pharmacy. If she has any difficulty she will call the office so we can figure out what is going on. We may have to find an alternative if is not being covered. Otherwise patient is doing well. 03/27/2024 the patient is here for a pulmonary follow-up visit. The patient overall doing well. She has been responding well to the inhalers although she did better on Trelegy. I will resend pharmacy to see if we can get her on Trelegy at this time. She also responds well to the nebulized therapy make sure will send those to to the pharmacy. She continues to have some daytime drowsiness. Her [employer] score is elevated 10/24. She does have cardiovascular risk factors. She did undergo a home sleep study although was limited. It did not demonstrate significant sleep apnea. The patient has had a history sleep apnea she does have severe headaches and does have other concerning issues. Her neurologist believes that she does have sleep apnea. I will request an in-lab sleep study to make sure specially with her headaches and her aneurysmal disease. 05/20/2024 this is a telehealth visit for the patient. She is still having significant symptoms after having COVID. She had COVID back at the end of March and at that point Paxlovid was prescribed. After that she called then we center doxycycline and prednisone for postviral bacterial infection. Although she continued having difficulties with chest tightness shortness of breath and cough. She went to see her primary care and she was given additional prednisone. In addition to that she was having issues with the gingiva and she had a gingival infection or dental abscess requiring tooth extraction. However she has been too sick to get the extraction. She was given amoxicillin for a period of time as well. When she was in the amoxicillin her breathing did get better. Now she is off the amoxicillin she completed the prednisone feel like she is getting worse. She has a productive cough and shortness breath and chest tightness. She has been using her rescue medications Cipro times a day. Will go ahead and give her a cough suppressant in addition to that she can start another course of Augmentin and other course of prednisone. She is going to go home and check her oxygen levels. If her oxygen levels are below 89% the patient should go to the hospital for further care. 08/07/2024 the patient is here for a pulmonary follow-up visit. Overall she is doing fairly okay. She does complaint of daytime drowsiness. [employer] score is elevated 07/14. She is still waiting for her in-lab sleep study that she be scheduled in the coming weeks. After she gets the down she is to let me know so I can look at it and then we can start her on CPAP therapy if indicated. In the meantime the patient did complete a course of medications for an exacerbation recently. She is feeling a little better this time. She continues using inhalers with good effect. Although, the nebulized therapies more effective for her and therefore budesonide becomes very helpful medication for her. Will recent the budesonide to the pharmacy again to see if we can get it approved for her. 12/10/2024 the patient is here for pulmonary follow-up visit. The patient overall has been doing okay. She is very depressed she has gained weight. She has not been feeling well. She has significant myalgias. She attributes it to the fibromyalgia. She should be following up with Rheumatology because of in case she has any other rheumatological issues that should be dealt with. I will refer her to Rheumatology at this time. In the meantime she does have issues with her breathing with persistent dyspnea on exertion persistent cough consistent with chronic bronchitis. Will go ahead and prescribe her Daliresp for her chronic bronchitis and asthma COPD overlap syndrome. This should help minimize the need for prednisone as she has already gained significant amount of weight in the use of prednisone would potentially worsen that. She will continue with respiratory therapy otherwise. The patient is also describing some right-sided chest discomfort and shoulder discomfort. Will have her get an x-ray when able. [facility] Medical History (Updated 12/10/24 @ 19:33 by Jose F Mccallum MD) Asthma-COPD overlap syndrome MANJULA (obstructive sleep apnea) Chronic urticaria Chronic restrictive lung disease COVID-19 Pre-op chest exam Sinusitis Dyspnea Chest pain Obesity Anemia Extremity edema Dyspnea Chronic rhinitis MANJULA on CPAP Asthma Surgical History History of bilateral tubal ligation History of dilatation and curettage delivery delivered Family History Mother Asthma Hypertension Father FHx: lung cancer Social History Alcohol intake: never Patient Tobacco Use Status: Former Tobacco user Tobacco use type: Cigarette Years Smoked: 12 years Female Reproductive History Menstrual Age of Menarche: 13 Review of Systems Const Reports as per HPI and Reports weight gain Eyes Reports no additional complaints ENT Reports no additional complaints and Reports Normal hearing present Card Reports chest pain and Reports dyspnea on exertion Resp Reports as per HPI and Reports dyspnea on exertion GI Reports no additional complaints Reports as per HPI Musc Reports myalgias and Reports limited range of motion Neuro Reports no additional complaints and Reports Normal hearing present Psych Reports no additional complaints Endo Reports no additional complaints Pedro/Lymph Reports no additional complaints Aller/Immun Reports no additional complaints Physical Exam Vital Signs: Last Vital Signs Pulse 73 12/10/24 09:11 BP 130/84 12/10/24 09:11 Pulse Ox 100 12/10/24 09:11 Oxygen Delivery Method Room Air 12/10/24 09:11 BMI result Body Mass Index 44.6 Const General: comfortable Orientation/consciousness: patient oriented x3 HEENT Head: Yes normal to inspection Neck Neck: Yes normal visual inspection Carotids: no bruits Chest Chest palpation & inspection: normal inspection of the chest Resp Effort & Inspection: able to speak in complete sentences Auscultation: no crackles, no rales, no rhonchi, no wheezes and diminished lung sounds Cardio Rate: regular rate Rhythm: regular rhythm Heart sounds: S1 normal heart sound present and S2 normal heart sound present Bruits: no carotid bruits Peripheral pulses: Peripheral pulses 2+ throughout GI Inspection: Yes normal to inspection Skin General skin exam: no rashes or lesions noted Wounds: no wounds Hair: normal Neuro General: patient oriented x3 Cranial nerves: Yes Normal hearing present Cognition (Neuro): normal cognition Motor exam (neuro): 5/5 motor strength present throughout Extrem Other: venous exam: +1 edema with some mild spider telangiectasias General: No clubbing, No cyanosis and Yes edema Psych Appearance: grossly normal Mental Status: mental status grossly normal Speech and movement: Normal speech and movement present Assessment & Plan Assessment & Plan (1) Asthma: Code(s): J45.909 - Unspecified asthma, uncomplicated Category: Medical Qualifiers: Asthma complication type: with acute exacerbation Asthma persistence: persistent Asthma severity: moderate Qualified Code(s): J45.41 - Moderate persistent asthma with (acute) exacerbation (2) MANJULA (obstructive sleep apnea): Code(s): G47.33 - Obstructive sleep apnea (adult) (pediatric) Category: Medical (3) Dyspnea: Code(s): R06.00 - Dyspnea, unspecified Category: Medical Qualifiers: Dyspnea type: dyspnea on exertion Qualified Code(s): R06.09 - Other forms of dyspnea (4) Chronic restrictive lung disease: Code(s): J98.4 - Other disorders of lung Category: Medical (5) Extremity edema: Code(s): R60.0 - Localized edema Category: Medical (6) Chest pain: Code(s): R07.9 - Chest pain, unspecified Category: Medical Qualifiers: Chest pain type: chest pain on breathing Qualified Code(s): R07.1 - Chest pain on breathing (7) Fibromyalgia: Code(s): M79.7 - Fibromyalgia Category: Medical (8) Asthma-COPD overlap syndrome: Code(s): J44.89 - Other specified chronic obstructive pulmonary disease Category: Medical Plan Trelegy start Daliresp stop Budesonide nebs ROSEMARY as needed continue astelin nasal spray Continue zyrtec continue monterlukast Low sodium diet CXR Rheumatology referral F/U 3-4 months Orders: Orders XR chest 2V Today R07.1 - Chest pain on breathing Referrals Rheumatology Referral M79.7 - Fibromyalgia Medications: New roflumilast (Daliresp) 500 mcg PO DAILY 30 tabs 11RF 30 days melatonin 5 mg PO BEDTIME PRN 30 tabs 6RF sleep 30 days Coding Level of Care Code Est Pt Level 4 (06153) Complex EM visit Add On G2211 Diagnoses Moderate persistent asthma with acute exacerbation J45.41 Asthma complication type: with acute exacerbation Asthma persistence: persistent Asthma severity: moderate MANJULA (obstructive sleep apnea) G47.33 Dyspnea on exertion R06.09 Dyspnea type: dyspnea on exertion Chronic restrictive lung disease J98.4 Extremity edema R60.0 Chest pain on breathing R07.1 Chest pain type: chest pain on breathing Fibromyalgia M79.7 Asthma-COPD overlap syndrome J44.89 Time Spent (min) 17
[2024-12-10 09:11] VITALS: BP 130/84; PULSE 73; O2SAT 100; BMI 44.6
--- OUTSIDE RECORDS SUMMARY | 2024-12-10 09:34 | XMS_ITS | Clinical Summary ---
Author Organization [facility] Address [address] [place] [address] Care Team Providers Care Welder Name Role Phone Unavailable Primary Care Provider [...] 3 Active ergocalciferol (Vitamin D-2) 1.25 MG (46094 UT) capsule take 1 capsule by oral [...] 05/26/2023 1:00 PM EDT Spinal stenosis of bqtrzxtb-mflhdmj-uajsz region Symptomatic periapical periodontitis from Last 3 Months or Most Recently Relevant to Health Maintenance Insurance [facility] MEDICAID STAND ADULT
--- OUTSIDE RECORDS SUMMARY | 2024-12-10 09:34 | XMS_ITS | Encounter Summary ---
Author Organization [employer] [facility] Address [address] [place] [address] Care Team Providers Care Orthotic And Prosthetic Technician Name Role Phone Unavailable Primary Care Provider Unavailabl e Reason for Visit * Reason Onset Date Comments medical clearance 08/29/2023 Encounter Details Date Type Department Care Team (Late st Contact Info) Description 08/29/2023 Telephone [facility] [address] [place] [address] Clare Gold, DDS [address] [place] [address] medical clearance Social History Tobacco Use Types [...] sent to PCP. Neurology office fax is [phone] and Neurologist name is Rohini blanca. Can a new medical clearance be sent. The patient is complaining of pain and wants to be able to scheduled th extraction appt documented in this encounter Plan of Treatment Not on file documented as of this encounter Visit Diagnoses Not on filedocumented in this encounter
--- OUTSIDE RECORDS SUMMARY | 2024-12-10 09:34 | XMS_ITS | Clinical Summary ---
Author Organization [address] [facility] Address [address] [place] [address] Phone Care Team Providers Care Ballaster Name Role Phone Pam Vera MD Primary Care Provider [phone] Allergies Active Allergy Reactions Criticality Noted Date Comments Diphenhydramine 01/22/2015 Arrhytmia Latex 01/06/2020 Rash with contact Other 01/22/2015 Vistaril Arrhythmia Oxycodone 01/22/2015 Medications furosemide (LASIX) 20 mg tablet Take 20 mg by mouth daily. Active blood sugar diagnostic (FreeStyle Lite Strips) test strip USE DIRECTED TO TEST BLOOD SUGAR EVERY DAY 024 Active blood-glucose meter kit 1 Device by Does not apply route 3 times daily for 360 days. DX E11.9 022 Active incontinence pad, liner, disp pad 1 Each by Does not apply route every 4 hours. Dispense 4 packages 023 Active metFORMIN XR (GLUCOPHAGE-XR) 500 mg 24 hr tablet Take 1 Tablet by mouth daily (with breakfast). 024 Active ONETOUCH ULTRASOFT LANCETS MISC 1 Stick by Does not apply route 2 times daily. 024 Active oxyBUTYnin XL (DITROPAN-XL) 15 mg 24 hr tablet 020 Active polyethylene glycol (GoLYTELY) 236-22.74-6.74 -5.86 gram solution Take 240 mL by mouth once for 1 dose. May substitue for any PEG. Follow instructions given by office. 024 Active medical supply, miscellaneous (TAMPONS VAGL) 1 Units by Does not apply route daily. Active zolpidem (AMBIEN) 10 mg tablet Take 1 Tab by mouth at bedtime as needed. Active acetaminophen (TYLENOL) 500 mg tablet Take 1 Tablet by mouth every 6 hours as needed for Pain. Active amoxicillin-clav ulanate (AUGMENTIN) 875-125 mg per tablet Take 1 Tablet by mouth 2 times daily. Active budesonide (PULMICORT) 0.5 mg/2 mL nebulizer solution Take 2 mL by nebulization daily for 30 days. Active cetirizine (ZyrTEC) 10 mg tablet TAKE 1 TABLET BY MOUTH 2 TIMES DAILY. Active clonazePAM (KlonoPIN) 0.5 mg tablet Take 0.5 mg by mouth 2 times daily as needed. Active EPINEPHrine (EpiPen 2-Norman) 0.3 mg/0.3 mL injection INJECT 1 DEVICE DIRECTED NEEDED (ANAPHYLAXIS). USE DIRECTED Active ferrous sulfate 325 mg (65 mg iron) EC tablet TAKE 1 TABLET BY MOUTH DAILY. Active fluticasone propionate (FLONASE) 50 mcg/actuation nasal spray 2 Sprays by Nasal route daily. Active fluticasone propion-salmeter oL (ADVAIR HFA) 230-21 mcg/actuation inhaler Rinse mouth with water after use to reduce aftertaste and incidence of candidiasis. Do not swallow. Route: Inhale 2 Puffs into the lungs 2 times daily for 360 days. - Inhalation 2024 Active blood-glucose meter kit Blood Glucose Monitoring Suppl (FreeStyle [place] Lite) w/Device Kit Route: 1 Each by Does not apply route daily. - Does not apply Active albuterol HFA (PROVENTIL HFA;VENTOLIN HFA) 108 (90 Base) MCG/ACT inhaler Route: Inhale 2 Puffs into the lungs every 4 hours as needed for Cough or Wheezing. - Inhalation Active Pure Comfort Safety Lancets 30 gauge misc USE DIRECTED TO TEST EVERY DAY 100 each 1 Active ergocalciferol (VITAMIN D-2) 1,250 mcg (50,000 unit) capsule TAKE 1 CAPSULE BY MOUTH ONCE A WEEK. 4 capsule 024 Active glipiZIDE (GLUCOTROL) 5 mg tablet TAKE 1 TABLET BY MOUTH DAILY. 30 tablet 4 024 Active diclofenac (VOLTAREN) 75 mg EC tablet Take 1 tablet (75 mg total) by mouth 1 (one) time each day. Do not crush, chew, or split. 28 tablet 3 025 Active atorvastatin (LIPITOR) 10 mg tablet TAKE 1 TABLET BY MOUTH DAILY. 30 tablet 1 025 Active omeprazole (PriLOSEC) [address] capsule Take 1 capsule (20 mg total) by mouth 1 (one) time each day. Do not crush or chew. 30 capsule 025 Active FLUoxetine (PROzac) 20 mg capsule Take 1 capsule (20 mg total) by mouth 1 (one) time each day. 90 capsule 025 Active butalbital-aceta minophen-caffein e (FIORICET, ESGIC) 50-325-40 mg per tablet TAKE 1 TABLET BY MOUTH EVERY 6 HOURS NEEDED 14 tablet 025 Active butalbital-aceta minophen-caffein e (FIORICET, ESGIC) 50-325-40 mg per tablet TAKE 1 TABLET BY MOUTH EVERY 6 HOURS NEEDED FOR PAIN 024 2024 Discontinued FLUoxetine (PROzac) 20 mg capsule TAKE 1 CAPSULE BY MOUTH EVERY DAY 024 2024 Discontinued(R eorder) omeprazole (PriLOSEC) [address] capsule TAKE 1 CAPSULE BY MOUTH DAILY. 30 capsule 025 2024 Discontinued(R eorder) Active Problems Problem Noted Date Diagnosed Date Hyperlipidemia 05/17/2024 Type 2 diabetes mellitus ([facility] V24, [facility] V 28) 05/17/2024 Cervical cord compression wi th myelopathy ([facility] V24, [facility] V28) 11/30/2021 Overview (05/17/2024): Last Assessment & Plan: Ms. 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 9) with comorbidity ([facility] V24, [facility] V28) 01/13/2017 Obstructive sleep apnea syndrome 01/13/2017 Adnexal mass 10/07/2016 Fibromyalgia 10/07/2016 Vitamin D deficiency 04/21/2016 Arthritis of knee 04/18/2016 Allergic rhinitis 11/06/2015 Encounters Date Type Department Care Team Description 09/27/2024 Telephone Internal Medicine [address] [place] [address] Maite Rehman MA 09/26/2024 9:45 AM EST Office Visit Internal Medicine - [address] [place] [address] Pam Vera MD Chronic right-sided low back pain without sciatica (Primary Dx); Type 2 diabetes mellitus without complication, without long-term current use of insulin ([facility] V24, [facility] V28); Low vitamin D level; Mixed hyperlipidemia; Screening [...] obesity with BMI of 4 5.0-49.9, adult ([facility] V24, [facility] V28) 01/13/2017 DX:Morbid obesity wit h BMI of 45.0-49.9, adult ([facility]) Adnexal mass 10/07/2016 DX:Adnexal mass Allergic rhinitis [...] Date Smoking Tobacco: Former Smokeless Tobacco: Never Comments Unknown Sex and Gender Information Value Date Recorded Sex Assigned at Female 09/12/2024 10:43 AM EST Legal Sex Female 10:21 AM EST Gender Identity Female 09/12/2024 10:43 AM EST Sexual Orientation Straight 09/12/2024 10 :43 AM EST Obstetrics History Last Filed Vital Signs Vital [...] Care Team (Late st Contact Info) Description 01/24/2025 3:30 PM EDT Office Visit Internal Medicine - [place] [address] [phone] Pam Vera MD [address] [phone] 02/03/2025 1:00 PM EDT Appointment [facility] [address] [place] [phone] Clinton Newby DO [address] [phone] Health Maintenance Due Date Last Done Comments Breast Cancer Screening 1970 Diabetes: Annual Foot Exam 1980 Diabetes: Annual Retina Eye Exam 1980 Hepatitis B Vaccines (1 of 3 - 19+ 3-dose series) 1989 Cervical Cancer Screening: Pap Smear 1991 Hepatitis A Vaccines (2 of 2 - Risk 2-dose series) 10/04/2019 04/03/2019 Pneumococcal Vaccine: 50+ Years (2 of 2 - PCV) 03/01/2020 03/01/2019 Pneumococcal Vaccine: Pediatrics (0 to 5 Years) and At-Risk Patients (6 to 64 Years) (2 of 2 - PCV) 03/01/2020 03/01/2019 Zoster Vaccines (1 of 2) 2020 Colorectal Cancer Screening: Colonoscopy 07/30/2022 HIV Screening 07/30/2022 Hepatitis C Screening 07/30/2022 Social Influencers of Health Screening 07/30/2022 COVID-19 Vaccine ( - season) 2024 Diabetes: Blood Sugar Control Test (HGBA1C) 03/26/2025 09/26/2024, 06/12/2024, 12/20/2023, Additional history exists Influenza Vaccine (Season Ended) 2025 07/07/2022, 07/01/2021 Depression Screening 04/25/2025 04/25/2024 Diabetes: Annual Urine [...] patient's age to complete this topic Meningococcal B Vaccine Aged Out No l onger eligible based on patient's age to complete this topic RSV Immunization Patients Under 20 months Aged Out No longer eligible based on patient's age to complete this topic Varicella Vaccines Aged Out No longer eligible based on patient's age to complete this topic Procedures Procedure Name Priority Date/Time Associated Diagnosis Comments EXTERNAL CLINICAL LAB 09/27/2024 EXTERNAL CLINICAL LAB 09/27/2024 EXTERNAL CLINICAL LAB 09/27/2024 EXTERNAL CLINICAL LAB 09/27/2024 MICROALBUMIN CREATININE URINE RATIO Routine 09/26/2024 10:32 AM EST Type 2 diabetes mellitus without complication, without long-term current use of insulin ([facility] V24, [facility] V28) Low vitamin D level Mixed hyperlipidemia COMPREHENSIVE METABOLIC PANEL Routine 09/26/2024 10:32 AM EST Type 2 diabetes mellitus without complication, without long-term current use of insulin ([facility] V24, [facility] V28) Low vitamin D level Mixed hyperlipidemia HEMOGLOBIN A1C Routine 09/26/2024 10:32 AM EST Type 2 diabetes mellitus without complication, without long-term current use of insulin ([facility] V24, [facility] V28) Low vitamin D level Mixed hyperlipidemia HM DEPRESSION SCREENING Routine 04/25/2024 LIPID PANEL Routine 12/20/2023 from Last 3 Months or Most Recently Relevant to Health Maintenance Results * External clinical lab (09/27/2024) Only the most recent of4 resultswithin the time period is included. us Provider [facility] LAB BLOOD ORDERABLES Fin al Result * Microalbumin creatinine urine ratio (09/26/2024 10:32 AM EST) Creatinine, Urine 103.0 mg/dL LAB CHEMISTRY METHOD 09/26/2024 2:31 PM [facility] Microalb, Ur 15.4 0.0 - 29.0 mg/L LAB CHEMISTRY METHOD 09/26/2024 2:31 PM EST [facility] Microalb/Creat Ratio 15 <30 mg/g creat LAB CHEMISTRY METHOD 09/26/2024 2:31 PM [facility] Urine Urine specimen obtained by clean catch procedure / Unknown Non-blood Collection / Unknown 09/26/2024 10:32 AM EST 09/26/2024 10:32 AM EST us Pam Vera MD LAB URINE ORDERABLES Final Res ult Performing Organization Address City/[facility]/ZIP Co de Phone Number [facility] [address] [place] [address], [place] [phone] * (ABNORMAL) Hemoglobin A1c (09/26/2024 10:32 AM EST) Pathologist [facility] Hemoglobin A1C 7.1(H) <6.5 % LAB CHEMISTRY METHOD 09/26/2024 8:13 PM EST [facility] Mean Bld Glu Estim. 157 mg/dL LAB CHEMISTRY METHOD 09/26/2024 8:13 PM [facility] Blood Venous blood specimen / Unknown Venipuncture / Unknown 09/26/2024 10:32 AM EST 09/26/2024 10:32 AM EST us Pam Vera MD LAB BLOOD ORDERABLES Final Res ult Performing Organization Address City/[facility]/ZIP Co de Phone Number [facility] [address] [place] [address], [place] [phone] * (ABNORMAL) Comprehensive metabolic panel (09/26/2024 10:32 AM EST) Pathologist [facility] Sodium 137 133 - 145 mmol/L LAB CHEMISTRY METHOD 09/26/2024 2:29 PM EST [facility] Potassium 4.1 3.5 - 5.5 mmol/L LAB CHEMISTRY METHOD 09/26/2024 2:29 PM [facility] Chloride 102 96 - 110 mmol/L LAB CHEMISTRY METHOD 09/26/2024 2:29 PM [facility] CO2 30 21 - 32 mmol/L LAB CHEMISTRY METHOD 09/26/2024 2:29 PM [facility] Anion Gap 5 3 - 11 LAB CHEMISTRY METHOD 09/26/2024 2:29 PM [facility] Glucose 155(H) 70 - 100 mg/dL LAB CHEMISTRY METHOD 09/26/2024 2:29 PM [facility] BUN 17 5 - 25 mg/dL LAB CHEMISTRY METHOD 09/26/2024 2:29 PM [facility] Creatinine 0.49(L) 0.50 - 1.10 mg/dL LAB CHEMISTRY METHOD 09/26/2024 2:29 PM [facility] eGFR 112 >=60 mL/min/1. 73m2 LAB CHEMISTRY METHOD 09/26/2024 2:29 PM [facility] Comment:Calculation based on the??Chronic Kidney Disease Epidemiology Collaboration (CKD-EPI) equation refit??without adjustment for race. BUN/Creatinine Ratio 34.7 LAB CHEMISTRY METHOD 09/26/2024 2:29 PM [facility] Calcium 9.3 8.5 - 10.5 mg/dL LAB CHEMISTRY METHOD 09/26/2024 2:29 PM [facility] AST (SGOT) 19 10 - 42 unit/L LAB CHEMISTRY METHOD 09/26/2024 2:29 PM [facility] ALT (SGPT) 37 10 - 60 unit/L LAB CHEMISTRY METHOD 09/26/2024 2:29 PM [facility] Alkaline Phosphatase 81 42 - 121 unit/L LAB CHEMISTRY METHOD 09/26/2024 2:29 PM [facility] Total Protein 7.3 6.0 - 8.0 g/dL LAB CHEMISTRY METHOD 09/26/2024 2:29 PM [facility] Albumin 3.6 3.2 - 5.0 g/dL LAB CHEMISTRY METHOD 09/26/2024 2:29 PM [facility] Total Bilirubin 0.5 0.0 - 1.4 mg/dL LAB CHEMISTRY METHOD 09/26/2024 2:29 PM [facility] Blood Venous blood specimen / Unknown Venipuncture / Unknown 09/26/2024 10:32 AM EST 09/26/2024 10:32 AM EST Pam Vera MD LAB BLOOD ORDERABLES Final Res ult [facility] [address] [place] [address], * Depression Screening (04/25/2024) Depression Screening Abstracted Historical Provider HEALTH MAINTENANCE Final Result * (ABNORMAL) Lipid panel (12/20/2023) LDL/HDL Ratio 4 0 - 4 Triglycerides 225(A) 0 - 150 mg/dL Cholesterol 219(A) 0 - 200 mg/dL HDL 53 >=40 mg/dL LDL Cholesterol 121(A) 0 - 100 mg/dL Blood Venous blood specimen / Unknown Historical Provider LAB BLOOD ORDERABLES Silvia l Result from Last 3 Months or Most Recently Relevant to Health Maintenance Insurance [facility] Care Teams Ballaster Relationship Specialty Start Date End Date Pam Vera MD [address] [phone] PCP - General Internal Medicine 11/20/17
== END 2024-12-10 09:28 | disposition home or self-care (01) ==
PROVIDERS: PCP Internal Medicine; Visit Provider Hospitalist
DX: J45.41 Moderate persistent asthma with (acute) exacerbation (principal); G47.33 Obstructive sleep apnea (adult) (pediatric); R06.09 Other forms of dyspnea; J98.4 Other disorders of lung; R60.0 Localized edema; R07.1 Chest pain on breathing; M79.7 Fibromyalgia; J44.89 Other specified chronic obstructive pulmonary disease
CPT/HCPCS: 99214; G2211

== ENCOUNTER → 2024-12-10 09:02 | Outpatient (BNVA) | payer OTHER, SELFPAY | PROVIDERS: PCP Internal Medicine; Visit Provider Hospitalist | DX: J45.41 Moderate persistent asthma with (acute) exacerbation (principal); J98.4 Other disorders of lung; J44.89 Other specified chronic obstructive pulmonary disease; G47.33 Obstructive sleep apnea (adult) (pediatric); R06.09 Other forms of dyspnea; R60.0 Localized edema; R07.1 Chest pain on breathing; M79.7 Fibromyalgia | CPT/HCPCS: 99212 ==

== ENCOUNTER 2024-12-24 17:44 | Emergency (ER) | payer OTHER, SELFPAY ==
--- NOTE | ~2024-12-24 | XR_ITS ---
CLINICAL HISTORY: medial R distal foot pain tender 3 view right foot Comparison: None Findings: No fractures or dislocations. There is abnormal thickening of the distal Achilles tendon containing coarse calcifications. Calcaneal enthesophytes are present. Mild degenerative changes of the 1st metatarsophalangeal joint with small marginal osteophyte noted medially. No ankle effusion. No radiopaque foreign body. IMPRESSION: 1. No acute findings. 2. Chronic changes as detailed. This document has been electronically signed by: Rusty Zavala MD on 12/24/2024 21:17:44
--- NOTE | ~2024-12-24 | US_ITS ---
CLINICAL HISTORY: RIght posterior calf pain Venous duplex ultrasound right lower extremity Comparison: None Findings: The visualized deep veins are fully compressible with normal Doppler color flow and spectral tracings. No popliteal cyst. IMPRESSION: 1. Negative for right lower extremity deep vein thrombosis. This document has been electronically signed by: Rusty Zavala MD on 12/24/2024 19:19:22
[2024-12-24 17:50] VITALS: BP 156/80; PULSE 85; RESP 18; TEMP 37; O2SAT 99; BMI 44.5
--- NOTE | 2024-12-24 17:57 | ED.GENADULT ---
HPI - General Adult General Chief complaint: Extremity Injury, Lower Stated complaint: rt leg foot swollen/blue? Time Seen by Provider: 12/24/24 20:24 Related Data Home Medications ?Medication ?Instructions ?Recorded ?Confirmed cetirizine 10 mg tablet mg PO 05/16/20 09/09/24 clonazepam 0.5 mg tablet 0.5 mg PO TID PRN 05/16/20 09/09/24 epinephrine 0.3 mg/0.3 mL IM 05/16/20 09/09/24 injection, auto-injector famotidine 10 mg tablet 10 mg PO BID 05/16/20 09/09/24 ferrous sulfate 325 mg (65 mg 325 mg PO DAILY 05/16/20 09/09/24 iron) tablet,delayed release fluoxetine 20 mg capsule mg PO 05/16/20 09/09/24 metoprolol succinate 25 mg 25 mg PO DAILY 05/16/20 09/09/24 tablet,extended release 24 hr omeprazole 20 mg capsule,delayed 20 mg PO DAILY 05/16/20 09/09/24 release zolpidem 10 mg tablet 10 mg PO BEDTIME PRN 05/16/20 09/09/24 aspirin 81 mg tablet,delayed 81 mg PO DAILY 12/10/21 09/09/24 release (Adult Low Dose Aspirin) ergocalciferol (vitamin D2) 1,250 1,250 mcg PO QWEEK 01/02/23 09/09/24 mcg (50,000 unit) capsule CPAP (CPAP Machine/Device) 12/22/23 09/09/24 glipizide 5 mg tablet 5 mg PO DAILY 12/22/23 09/09/24 atorvastatin 10 mg tablet 10 mg PO DAILY 03/27/24 09/09/24 metformin 500 mg tablet,extended 500 mg PO DAILY 03/27/24 09/09/24 release 24 hr nebulizers 03/27/24 09/09/24 fluticasone propionate 230 2 puff inhalation BID 05/20/24 09/09/24 mcg-salmeterol 21 mcg/actuation HFA inhaler (Advair HFA) meclizine 12.5 mg tablet 12.5 mg PO BID 07/09/24 09/09/24 Previous Rx's ?Medication ?Instructions ?Recorded benzonatate 200 mg capsule 200 mg PO BID PRN cough 30 days 01/20/22 #60 caps arm brace #2 ea 10/11/22 gabapentin 100 mg capsule 100 - 300 mg (1 - 3 x 100 mg) PO 10/11/22 BEDTIME 30 days #90 caps ipratropium 0.5 mg-albuterol 3 mg 3 ml inhalation BID 30 days #180 mL 03/20/23 (2.5 mg base)/3 mL nebulization soln azelastine 137 mcg (0.1 %) nasal 2 spray intranasal BID #30 mL 04/19/23 spray loratadine 10 mg tablet 10 mg PO DAILY PRN allergy 05/30/23 symptoms 30 days #30 tabs miconazole nitrate 2 % vaginal 1 appful vaginal BEDTIME 7 days 11/21/23 cream (Miconazole-7) #45 grams furosemide 20 mg tablet (Lasix) 20 mg PO DAILY 30 days #30 tabs 12/18/23 molnupiravir 200 mg capsule (EUA) 800 mg (4 x 200 mg) PO Q12H 5 days 01/09/24 #40 caps fluticasone furoate 200 1 inh inhalation DAILY 30 days #60 01/11/24 mcg-vilanterol 25 mcg/dose ea inhalation powder (Breo Ellipta) albuterol sulfate 90 mcg/actuation 2 inh inhalation Q6H PRN shortness 01/24/24 aerosol inhaler of breath or wheezing 30 days #18 grams magnesium oxide 400 mg (241.3 mg 400 mg PO DAILY 30 days #30 tabs 02/12/24 magnesium) tablet albuterol sulfate 2.5 mg/3 mL 2.5 mg (3 mL) inhalation Q6H PRN 03/27/24 (0.083 %) solution for nebulization shortness of breath or wheezing 30 days #180 mL fluticasone fur. 200 mcg-umeclid 1 inh inhalation DAILY 90 days #3 03/27/24 62.5 mcg-vilant 25 mcg ea inhalat.powder (Trelegy Ellipta) codeine 10 mg-guaifenesin 100 mg/5 10 ml PO Q6H PRN cough 10 days 05/22/24 mL oral liquid #300 mL budesonide 0.5 mg/2 mL suspension 0.5 mg (2 mL) inhalation BID 30 08/07/24 for nebulization days #120 mL estradiol 0.01% (0.1 mg/gram) See Rx Instructions vaginal 3XW 90 09/04/24 vaginal cream days #42.5 grams mirabegron 25 mg tablet,extended 25 mg PO DAILY 90 days #90 tabs 09/04/24 release 24 hr (Myrbetriq) solifenacin 5 mg tablet (Vesicare) 5 mg PO DAILY 30 days #30 tabs 09/04/24 amitriptyline 10 mg tablet 20 mg (2 x 10 mg) PO BEDTIME 30 09/09/24 days #60 tabs diclofenac potassium 50 mg tablet 50 mg PO BID PRN migraine headache 09/09/24 30 days #60 tabs galcanezumab-gnlm 120 mg/mL 120 mg subcut ONCE 30 days #1 mL 09/09/24 subcutaneous pen injector (Emgality Pen) sumatriptan succinate 100 mg tablet 50 - 100 mg (0.5 - 1 x 100 mg) PO 09/09/24 .COMPLEX PRN migraine headache 30 days #12 tabs montelukast 10 mg tablet 10 mg PO DAILY #30 tabs 11/04/24 melatonin 5 mg tablet 5 mg PO BEDTIME PRN sleep 30 days 12/10/24 #30 tabs roflumilast 500 mcg tablet 500 mcg PO DAILY 30 days #30 tabs 12/10/24 (Daliresp) Allergies Allergy/AdvReac Type Severity Reaction Status Date / Time Benadryl Allergy Severe palpitation Verified 12/24/24 17:51 s hydroxyzine [From VISTARIL] Allergy Severe PALPATATION Verified 12/24/24 17:51 oxycodone [From PERCOCET] Allergy Severe PALPIATIONS Verified 12/24/24 17:51 [facility] Past Medical History Medical History (Updated 12/24/24 @ 20:30 by Coleman De La Paz MD) Asthma-COPD overlap syndrome MANJULA (obstructive sleep apnea) Chronic urticaria Chronic restrictive lung disease COVID-19 Pre-op chest exam Sinusitis Dyspnea Chest pain Obesity Anemia Extremity edema Dyspnea Chronic rhinitis MANJULA on CPAP Asthma Surgical History History of bilateral tubal ligation History of dilatation and curettage delivery delivered Family History Family History Mother Asthma Hypertension Father FHx: lung cancer Social History Social History Alcohol intake: never Patient Tobacco Use Status: Former Tobacco user Tobacco use type: Cigarette Years Smoked: 12 years Advance Directives: No Advance Directives Information Provided: No Physical Exam ED Vital Signs: Vital Signs - 24 hr 12/24/24 17:50 Temperature 98.6 F Pulse Rate 85 Respiratory Rate 18 Blood Pressure 156/80 H Pulse Oximetry 99 Oxygen Delivery Method Room Air BMI result Body Mass Index 44.5 Course Course Course Narrative: RME: 54-year-old female history of varicose veins presents to ED for right posterior calf pain since this morning. Patient denies any trauma. Patient denies any bluish black discoloration, hotness, coldness or red streaks. Patient denies any recent travel recent surgery. Ultrasound ordered Medical Decision Making Medical Decision Making MDM Narrative: 54-year-old female with subjective mild foot/ankle swelling tender painful ambulation medial distal right foot. No erythema no skin breaks. DVT ultrasound negative X-ray of the foot without fracture small calcification medial aspect of the 1st MTP joint. 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 Podiatry follow up as needed. Surgical postop shoe for comfort Discharge Plan Discharge Clinical Impression: Extremity edema, Contusion of foot Patient Disposition: Home, Self-Care Instructions: Leg Edema (ED) Additional Instructions: We found you would have tenderness in your foot. X-ray Ultrasound has excluded a blood clot in the left foot. Call to establish and follow up with an orthopedic provider. Llame para establecer y hacer seguimiento con un proveedor de ortopedia. Prescriptions: No Action ipratropium-albuterol 0.5 mg-3 mg(2.5 mg base)/3 mL solution for nebulization 3 ml inhalation BID 30 Days Qty: 180 11RF azelastine 137 mcg (0.1 %) aerosol,spray 2 spray intranasal BID Qty: 30 4RF furosemide [Lasix] 20 mg tablet 20 mg PO DAILY 30 Days Qty: 30 0RF molnupiravir 200 mg capsule 800 mg PO Q12H 5 Days Qty: 40 0RF fluticasone furoate-vilanterol [Breo Ellipta] 200-25 mcg/dose blister with device 1 inh inhalation DAILY 30 Days Qty: 60 11RF albuterol sulfate 90 mcg/actuation HFA aerosol inhaler 2 inh inhalation Q6H PRN (Reason: shortness of breath or wheezing) 30 Days Qty: 18 12RF codeine-guaifenesin 10-100 mg/5 mL liquid 10 ml PO Q6H PRN (Reason: cough) 10 Days Qty: 300 0RF montelukast 10 mg tablet 10 mg PO DAILY Qty: 30 0RF epinephrine 0.3 mg/0.3 mL auto-injector IM cetirizine 10 mg tablet PO fluoxetine 20 mg capsule PO ferrous sulfate 325 mg (65 mg iron) tablet,delayed release (DR/EC) 325 mg PO DAILY metoprolol succinate 25 mg tablet extended release 24 hr 25 mg PO DAILY omeprazole 20 mg capsule,delayed release(DR/EC) 20 mg PO DAILY clonazepam 0.5 mg tablet 0.5 mg PO TID PRN famotidine 10 mg tablet 10 mg PO BID zolpidem 10 mg tablet 10 mg PO BEDTIME PRN benzonatate 200 mg capsule 200 mg PO BID PRN (Reason: cough) 30 Days Qty: 60 3RF aspirin [Adult Low Dose Aspirin] 81 mg tablet,delayed release (DR/EC) 81 mg PO DAILY gabapentin 100 mg capsule 100 - 300 mg PO BEDTIME 30 Days Qty: 90 3RF (DME) arm brace Misc See Rx Instructions .Route Qty: 2 0RF Rx Instructions: Bilateral carpal tunnel wrist splint ergocalciferol (vitamin D2) 1,250 mcg (50,000 unit) capsule 1,250 mcg PO QWEEK loratadine 10 mg tablet 10 mg PO DAILY PRN (Reason: allergy symptoms) 30 Days Qty: 30 3RF glipizide 5 mg tablet 5 mg PO DAILY (DME) CPAP Machine/Device Device See Rx Instructions .Route Rx Instructions: As directed miconazole nitrate [Miconazole-7] 2 % cream 1 appful vaginal BEDTIME 7 Days Qty: 45 2RF Rx Instructions: use prn for vaginal yeast infections/itching metformin 500 mg tablet extended release 24 hr 500 mg PO DAILY atorvastatin 10 mg tablet 10 mg PO DAILY (DME) nebulizers Misc See Rx Instructions .Route Rx Instructions: As directed albuterol sulfate 2.5 mg /3 mL (0.083 %) solution for nebulization 2.5 mg inhalation Q6H PRN (Reason: shortness of breath or wheezing) 30 Days Qty: 180 11RF Trelegy Ellipta 200-62.5-25 mcg blister with device 1 inh inhalation DAILY 90 Days Qty: 3 3RF Emgality Pen 120 mg/mL pen injector 120 mg subcut ONCE 30 Days Qty: 1 6RF sumatriptan succinate 100 mg tablet 50 - 100 mg PO .COMPLEX PRN (Reason: migraine headache) 30 Days Qty: 12 6RF Rx Instructions: 50 - 100 mg orally at onset of headache, may repeat in 2 hrs PRN; max 2 tabs per day or 4 tabs/week (may take with Tylenol or Diclofenac) diclofenac potassium 50 mg tablet 50 mg PO BID PRN (Reason: migraine headache) 30 Days Qty: 60 3RF amitriptyline 10 mg tablet 20 mg PO BEDTIME 30 Days Qty: 60 6RF fluticasone propion-salmeterol [Advair HFA] 230-21 mcg/actuation HFA aerosol inhaler 2 puff inhalation BID mirabegron [Myrbetriq] 25 mg tablet extended release 24 hr 25 mg PO DAILY 90 Days Qty: 90 3RF solifenacin [Vesicare] 5 mg tablet 5 mg PO DAILY 30 Days Qty: 30 3RF estradiol 0.01 % (0.1 mg/gram) cream See Rx Instructions vaginal 3XW 90 Days Qty: 42.5 3RF Rx Instructions: pea sized amount to urethra 3 times a week melatonin 5 mg tablet 5 mg PO BEDTIME PRN (Reason: sleep) 30 Days Qty: 30 6RF roflumilast [Daliresp] 500 mcg tablet 500 mcg PO DAILY 30 Days Qty: 30 11RF magnesium oxide 400 mg (241.3 mg magnesium) tablet 400 mg PO DAILY 30 Days Qty: 30 6RF meclizine 12.5 mg tablet 12.5 mg PO BID budesonide 0.5 mg/2 mL suspension for nebulization 0.5 mg inhalation BID 30 Days Qty: 120 4RF Ref[place]: [facility] [place] [facility] [Provider Group] - 1 week (Follow up for foot pain) Print Language: [place]
--- NOTE | 2024-12-24 20:24 | ED_ITS ---
HPI - Extremity Injury (Lower) General Chief Complaint: Extremity Injury, Lower Stated Complaint: rt leg foot swollen/blue? Time Seen by Provider: 12/24/24 20:24 History of Present Illness ED Provider: Coleman De La Paz MD HPI Narrative: 54-year-old female with atraumatic swelling to the right lower extremity Related Data Home Medications ?Medication ?Instructions ?Recorded ?Confirmed cetirizine 10 mg tablet mg PO 05/16/20 09/09/24 clonazepam 0.5 mg tablet 0.5 mg PO TID PRN 05/16/20 09/09/24 epinephrine 0.3 mg/0.3 mL IM 05/16/20 09/09/24 injection, auto-injector famotidine 10 mg tablet 10 mg PO BID 05/16/20 09/09/24 ferrous sulfate 325 mg (65 mg 325 mg PO DAILY 05/16/20 09/09/24 iron) tablet,delayed release fluoxetine 20 mg capsule mg PO 05/16/20 09/09/24 metoprolol succinate 25 mg 25 mg PO DAILY 05/16/20 09/09/24 tablet,extended release 24 hr omeprazole 20 mg capsule,delayed 20 mg PO DAILY 05/16/20 09/09/24 release zolpidem 10 mg tablet 10 mg PO BEDTIME PRN 05/16/20 09/09/24 aspirin 81 mg tablet,delayed 81 mg PO DAILY 12/10/21 09/09/24 release (Adult Low Dose Aspirin) ergocalciferol (vitamin D2) 1,250 1,250 mcg PO QWEEK 01/02/23 09/09/24 mcg (50,000 unit) capsule CPAP (CPAP Machine/Device) 12/22/23 09/09/24 glipizide 5 mg tablet 5 mg PO DAILY 12/22/23 09/09/24 atorvastatin 10 mg tablet 10 mg PO DAILY 03/27/24 09/09/24 metformin 500 mg tablet,extended 500 mg PO DAILY 03/27/24 09/09/24 release 24 hr nebulizers 03/27/24 09/09/24 fluticasone propionate 230 2 puff inhalation BID 05/20/24 09/09/24 mcg-salmeterol 21 mcg/actuation HFA inhaler (Advair HFA) meclizine 12.5 mg tablet 12.5 mg PO BID 07/09/24 09/09/24 Previous Rx's ?Medication ?Instructions ?Recorded benzonatate 200 mg capsule 200 mg PO BID PRN cough 30 days 01/20/22 #60 caps arm brace #2 ea 10/11/22 gabapentin 100 mg capsule 100 - 300 mg (1 - 3 x 100 mg) PO 10/11/22 BEDTIME 30 days #90 caps ipratropium 0.5 mg-albuterol 3 mg 3 ml inhalation BID 30 days #180 mL 03/20/23 (2.5 mg base)/3 mL nebulization soln azelastine 137 mcg (0.1 %) nasal 2 spray intranasal BID #30 mL 04/19/23 spray loratadine 10 mg tablet 10 mg PO DAILY PRN allergy 05/30/23 symptoms 30 days #30 tabs miconazole nitrate 2 % vaginal 1 appful vaginal BEDTIME 7 days 11/21/23 cream (Miconazole-7) #45 grams furosemide 20 mg tablet (Lasix) 20 mg PO DAILY 30 days #30 tabs 12/18/23 molnupiravir 200 mg capsule (EUA) 800 mg (4 x 200 mg) PO Q12H 5 days 01/09/24 #40 caps fluticasone furoate 200 1 inh inhalation DAILY 30 days #60 01/11/24 mcg-vilanterol 25 mcg/dose ea inhalation powder (Breo Ellipta) albuterol sulfate 90 mcg/actuation 2 inh inhalation Q6H PRN shortness 01/24/24 aerosol inhaler of breath or wheezing 30 days #18 grams magnesium oxide 400 mg (241.3 mg 400 mg PO DAILY 30 days #30 tabs 02/12/24 magnesium) tablet albuterol sulfate 2.5 mg/3 mL 2.5 mg (3 mL) inhalation Q6H PRN 03/27/24 (0.083 %) solution for nebulization shortness of breath or wheezing 30 days #180 mL fluticasone fur. 200 mcg-umeclid 1 inh inhalation DAILY 90 days #3 03/27/24 62.5 mcg-vilant 25 mcg ea inhalat.powder (Trelegy Ellipta) codeine 10 mg-guaifenesin 100 mg/5 10 ml PO Q6H PRN cough 10 days 05/22/24 mL oral liquid #300 mL budesonide 0.5 mg/2 mL suspension 0.5 mg (2 mL) inhalation BID 30 08/07/24 for nebulization days #120 mL estradiol 0.01% (0.1 mg/gram) See Rx Instructions vaginal 3XW 90 09/04/24 vaginal cream days #42.5 grams mirabegron 25 mg tablet,extended 25 mg PO DAILY 90 days #90 tabs 09/04/24 release 24 hr (Myrbetriq) solifenacin 5 mg tablet (Vesicare) 5 mg PO DAILY 30 days #30 tabs 09/04/24 amitriptyline 10 mg tablet 20 mg (2 x 10 mg) PO BEDTIME 30 09/09/24 days #60 tabs diclofenac potassium 50 mg tablet 50 mg PO BID PRN migraine headache 09/09/24 30 days #60 tabs galcanezumab-gnlm 120 mg/mL 120 mg subcut ONCE 30 days #1 mL 09/09/24 subcutaneous pen injector (Emgality Pen) sumatriptan succinate 100 mg tablet 50 - 100 mg (0.5 - 1 x 100 mg) PO 09/09/24 .COMPLEX PRN migraine headache 30 days #12 tabs montelukast 10 mg tablet 10 mg PO DAILY #30 tabs 11/04/24 melatonin 5 mg tablet 5 mg PO BEDTIME PRN sleep 30 days 12/10/24 #30 tabs roflumilast 500 mcg tablet 500 mcg PO DAILY 30 days #30 tabs 12/10/24 (Daliresp) Allergies Allergy/AdvReac Type Severity Reaction Status Date / Time Benadryl Allergy Severe palpitation Verified 12/24/24 17:51 s hydroxyzine [From VISTARIL] Allergy Severe PALPATATION Verified 12/24/24 17:51 oxycodone [From PERCOCET] Allergy Severe PALPIATIONS Verified 12/24/24 17:51 [facility] Past Medical History Medical History (Updated 12/25/24 @ 00:00 by Alicja Neely) Asthma-COPD overlap syndrome MANJULA (obstructive sleep apnea) Chronic urticaria Chronic restrictive lung disease COVID-19 Pre-op chest exam Sinusitis Dyspnea Chest pain Obesity Anemia Extremity edema Dyspnea Chronic rhinitis MANJULA on CPAP Asthma Surgical History History of bilateral tubal ligation History of dilatation and curettage delivery delivered Family History Family History Mother Asthma Hypertension Father FHx: lung cancer Social History Social History Alcohol intake: never Patient Tobacco Use Status: Former Tobacco user Tobacco use type: Cigarette Years Smoked: 12 years Advance Directives: No Advance Directives Information Provided: No Physical Exam Vital Signs: Vital Signs: Last Vital Signs Temp 97.5 F 12/24/24 21:21 Pulse 87 12/24/24 21:21 Resp 20 12/24/24 21:21 BP 127/82 12/24/24 21:21 Pulse Ox 100 12/24/24 21:21 O2 Del Method Room Air 12/24/24 21:21 BMI result Body Mass Index 44.5 Const: Other: EXAM: Gen: Alert, awake, well appearing, well hydrated. Head: Atraumatic Eyes: Anicteric, Normal conjunctiva. MSK: Vital signs: See flowsheet Medications Administered Discontinued Medications Generic Name Dose Route Start Last Admin Trade Name Freq PRN Reason Stop Dose Admin Ibuprofen 600 mg 12/24/24 20:27 12/24/24 20:59 Ibuprofen 600 Mg Tablet PO 12/24/24 20:28 600 mg ONCE ONE Administration Medical Decision Making Medical Decision Making MDM Narrative: 54-year-old female complaining of swelling and right leg. Doppler negative for DVT. X-ray with no obvious fracture though there is a calcified potentially fragment or calcific arthritis of the 1st MTP. Gout was considered, arthritis, DVT, occult fracture. Patient placed in the surgical postop boot. Orthopedic follow up as needed. Independent Interpretation I performed an independent interpretation of an: Plain X-Ray (No fracture or dislocation of the foot bones) Discharge Plan Discharge Clinical Impression: Extremity edema, Contusion of foot Patient Disposition: Home, Self-Care Instructions: Leg Edema (ED) Additional Instructions: We found you would have tenderness in your foot. X-ray Ultrasound has excluded a blood clot in the left foot. Call to establish and follow up with an orthopedic provider. Llame para establecer y hacer seguimiento con un proveedor de ortopedia. Prescriptions: No Action ipratropium-albuterol 0.5 mg-3 mg(2.5 mg base)/3 mL solution for nebulization 3 ml inhalation BID 30 Days Qty: 180 11RF azelastine 137 mcg (0.1 %) aerosol,spray 2 spray intranasal BID Qty: 30 4RF furosemide [Lasix] 20 mg tablet 20 mg PO DAILY 30 Days Qty: 30 0RF molnupiravir 200 mg capsule 800 mg PO Q12H 5 Days Qty: 40 0RF fluticasone furoate-vilanterol [Breo Ellipta] 200-25 mcg/dose blister with device 1 inh inhalation DAILY 30 Days Qty: 60 11RF albuterol sulfate 90 mcg/actuation HFA aerosol inhaler 2 inh inhalation Q6H PRN (Reason: shortness of breath or wheezing) 30 Days Qty: 18 12RF codeine-guaifenesin 10-100 mg/5 mL liquid 10 ml PO Q6H PRN (Reason: cough) 10 Days Qty: 300 0RF montelukast 10 mg tablet 10 mg PO DAILY Qty: 30 0RF epinephrine 0.3 mg/0.3 mL auto-injector IM cetirizine 10 mg tablet PO fluoxetine 20 mg capsule PO ferrous sulfate 325 mg (65 mg iron) tablet,delayed release (DR/EC) 325 mg PO DAILY metoprolol succinate 25 mg tablet extended release 24 hr 25 mg PO DAILY omeprazole 20 mg capsule,delayed release(DR/EC) 20 mg PO DAILY clonazepam 0.5 mg tablet 0.5 mg PO TID PRN famotidine 10 mg tablet 10 mg PO BID zolpidem 10 mg tablet 10 mg PO BEDTIME PRN benzonatate 200 mg capsule 200 mg PO BID PRN (Reason: cough) 30 Days Qty: 60 3RF aspirin [Adult Low Dose Aspirin] 81 mg tablet,delayed release (DR/EC) 81 mg PO DAILY gabapentin 100 mg capsule 100 - 300 mg PO BEDTIME 30 Days Qty: 90 3RF [facility] See Rx Instructions .Route Qty: 2 0RF Rx Instructions: Bilateral carpal tunnel wrist splint ergocalciferol (vitamin D2) 1,250 mcg (50,000 unit) capsule 1,250 mcg PO QWEEK loratadine 10 mg tablet 10 mg PO DAILY PRN (Reason: allergy symptoms) 30 Days Qty: 30 3RF glipizide 5 mg tablet 5 mg PO DAILY (DME) CPAP Machine/Device Device See Rx Instructions .Route Rx Instructions: As directed miconazole nitrate [Miconazole-7] 2 % cream 1 appful vaginal BEDTIME 7 Days Qty: 45 2RF Rx Instructions: use prn for vaginal yeast infections/itching metformin 500 mg tablet extended release 24 hr 500 mg PO DAILY atorvastatin 10 mg tablet 10 mg PO DAILY (DME) nebulizers Misc See Rx Instructions .Route Rx Instructions: As directed albuterol sulfate 2.5 mg /3 mL (0.083 %) solution for nebulization 2.5 mg inhalation Q6H PRN (Reason: shortness of breath or wheezing) 30 Days Qty: 180 11RF Trelegy Ellipta 200-62.5-25 mcg blister with device 1 inh inhalation DAILY 90 Days Qty: 3 3RF Emgality Pen 120 mg/mL pen injector 120 mg subcut ONCE 30 Days Qty: 1 6RF sumatriptan succinate 100 mg tablet 50 - 100 mg PO .COMPLEX PRN (Reason: migraine headache) 30 Days Qty: 12 6RF Rx Instructions: 50 - 100 mg orally at onset of headache, may repeat in 2 hrs PRN; max 2 tabs per day or 4 tabs/week (may take with Tylenol or Diclofenac) diclofenac potassium 50 mg tablet 50 mg PO BID PRN (Reason: migraine headache) 30 Days Qty: 60 3RF amitriptyline 10 mg tablet 20 mg PO BEDTIME 30 Days Qty: 60 6RF fluticasone propion-salmeterol [Advair HFA] 230-21 mcg/actuation HFA aerosol inhaler 2 puff inhalation BID mirabegron [Myrbetriq] 25 mg tablet extended release 24 hr 25 mg PO DAILY 90 Days Qty: 90 3RF solifenacin [Vesicare] 5 mg tablet 5 mg PO DAILY 30 Days Qty: 30 3RF estradiol 0.01 % (0.1 mg/gram) cream See Rx Instructions vaginal 3XW 90 Days Qty: 42.5 3RF Rx Instructions: pea sized amount to urethra 3 times a week melatonin 5 mg tablet 5 mg PO BEDTIME PRN (Reason: sleep) 30 Days Qty: 30 6RF roflumilast [Daliresp] 500 mcg tablet 500 mcg PO DAILY 30 Days Qty: 30 11RF magnesium oxide 400 mg (241.3 mg magnesium) tablet 400 mg PO DAILY 30 Days Qty: 30 6RF meclizine 12.5 mg tablet 12.5 mg PO BID budesonide 0.5 mg/2 mL suspension for nebulization 0.5 mg inhalation BID 30 Days Qty: 120 4RF Referrals: [facility] [place] [facility] [Provider Group] - 1 week (Follow up for foot pain) Interventions: ED Discharge Assessment Last Done: 12/24/24 21:21 Discharge Date/Time: 12/24/24 21:21 Print Language: Mongolian
--- OUTSIDE RECORDS SUMMARY | 2024-12-24 20:31 | XMS_ITS | Encounter Summary ---
Author Organization [employer] [facility] Address [address] [place] [address] Care Team Providers Care Needle Control Cheniller Name Role Phone Unavailable Primary Care Provider Unavailabl e Reason for Visit * Reason Onset Date Comments medical clearance 08/29/2023 Encounter Details Date Type Department Care Team (Late st Contact Info) Description 08/29/2023 Telephone [facility] [address] [place] [address] Clare Gold, DDS [address] [place] [address] medical clearance Social History Tobacco Use Types [...] sent to PCP. Neurology office fax is [phone] and Neurologist name is Rohini blanca. Can a new medical clearance be sent. The patient is complaining of pain and wants to be able to scheduled th extraction appt documented in this encounter Plan of Treatment Upcoming Encounters Date Type Department Care Team (Late st Contact Info) Description 01/29/2025 1:30 PM EDT Office Visit [facility] [address] [place] [address] Cody Hdz DDS [address] [place] [address] documented as of this encounter Visit Diagnoses Not on filedocumented in this encounter
--- OUTSIDE RECORDS SUMMARY | 2024-12-24 20:31 | XMS_ITS | Clinical Summary ---
Author Organization [employer] Address [address] [place] [address] Care Team Providers Care Translator Deaf Name Role Phone Unavailable Primary Care Provider [...] 3 Active ergocalciferol (Vitamin D-2) 1.25 MG (18830 UT) capsule take 1 capsule by oral [...] 04/23/2024 Fibromyalgia 04/23/2024 GERD (gastroesophageal reflux disease) Hypertension 04/23/2024 Migraine 04/23/2024 Severe obesity 04/23/2024 [...] Mass Index - - Plan of Treatment Upcoming Encounters Date Type Department Care Team (Late st Contact Info) Description 01/29/2025 1:30 PM EDT Office Visit [facility] [address] [place] [address] Cody Hdz DDS [address] [place] [address] Health Maintenance Due Date Last Done Comments [...] Vaccines (1 of 2) 2020 COVID-19 Vaccine ( - 2023-2 5 season) 2024 Influenza Vaccine [...] 05/26/2023 1:00 PM EDT Spinal stenosis of [id number] region Symptomatic periapical periodontitis from Last 3 Months or Most Recently Relevant to Health Maintenance Insurance [facility] STAND ADULT
[2024-12-24] MEDS: Ibuprofen 600 MG TABLET PO (20:59)
[2024-12-24 21:19] VITALS: BP 127/82; PULSE 87; RESP 20; TEMP 36.4; O2SAT 100
[2024-12-24 21:21] VITALS: BP 127/82; PULSE 87; RESP 20; TEMP 36.4; O2SAT 100
== END 2024-12-24 21:21 | disposition home or self-care (01) ==
PROVIDERS: Emergency Provider Emergency Medicine; PCP Internal Medicine
DX: R60.0 Localized edema (principal); S90.31XA Contusion of right foot, initial encounter; X58.XXXA Exposure to other specified factors, initial encounter; Y93.9 Activity, unspecified; Y92.9 Unspecified place or not applicable; Y99.9 Unspecified external cause status
CPT/HCPCS: 73630; 93971; 99284

== ENCOUNTER → 2024-12-24 17:55 | Outpatient (BNV) | payer OTHER, SELFPAY | PROVIDERS: PCP Internal Medicine; Visit Provider Radiology Vascular & Interventional Radiology | DX: M79.661 Pain in right lower leg (principal); M79.671 Pain in right foot | CPT/HCPCS: 73630; 93971 ==

== ENCOUNTER 2024-12-25 | Outpatient (REF) | payer OTHER, SELFPAY ==
--- NOTE | ~2024-12-25 | XR_ITS ---
EXAMINATION: XR CHEST CLINICAL INFORMATION: R07.1 - Chest pain on breathing COMPARISON: January 29, 2024. TECHNIQUE: 2 views of the chest were obtained. FINDINGS: No consolidation, pleural effusion or pneumothorax. Cardiomediastinal silhouette size is normal with a round apex. Multilevel thoracic and upper lumbar spondylosis. Degenerative changes in the shoulders. Metallic hardware no fully included in the cervical spine. Patient's large body habitus/obesity. XR/XR chest 2V IMPRESSION: No acute airspace disease. Probable hypertensive cardiomyopathy in the correct clinical settings. Multilevel spondylosis. Electronically signed by: Angel Barron MD 12/25/2024 12:44 PM EDT
--- NOTE | ~2024-12-25 | US_ITS ---
CLINICAL HISTORY: N20.0 - Calculus of kidney US renal Comparison: 03/31/2023 Findings: Right kidney 12.5 now next 11.5 cm length. No significant focal abnormality. Left kidney default value cm length. No significant focal abnormality. No bilateral hydronephrosis. Normal bilateral renal echogenicity. Impression: No significant abnormalities. This document has been electronically signed by: Sage Mosley MD on 12/25/2024 18:40:35
--- OUTSIDE RECORDS SUMMARY | 2025-02-17 13:02 | XMS_ITS | Clinical Summary ---
Author Organization [facility] Address [address] [place] [address] Phone Care Team Providers Care Marketing Underwriter Name Role Phone Pam Vera MD Primary Care Provider [phone] Allergies Active Allergy Reactions Criticality Noted Date Comments Acetaminophen 06/10/2019 Other reaction(s): Respiratory arrest Diphenhydramine 01/22/2015 Arrhytmia Hydroxyzine Palpitations 07/08/2020 Other reaction(s): palpatations Latex 01/06/2020 Rash with contact Other 01/22/2015 [...] 6 hours as needed for Pain. 06/20/20 23 Active budesonide (PULMICORT) 0.5 mg/2 mL nebulizer solution Take 2 mL by nebulization daily for 30 days. 03/01/20 19 Active cetirizine (ZyrTEC) 10 mg tablet TAKE 1 TABLET BY MOUTH 2 TIMES DAILY. 09/28/19 23 Active clonazePAM (KlonoPIN) 0.5 mg tablet Take 0.5 mg by mouth 2 times daily as needed. Active EPINEPHrine (EpiPen 2-Norman) 0.3 mg/0.3 mL injection INJECT 1 DEVICE DIRECTED NEEDED (ANAPHYLAXIS). USE DIRECTED 04/25/20 24 Active ferrous sulfate 325 mg (65 mg [...] meter kit Blood Glucose Monitoring Suppl (FreeStyle Dornsife Lite) w/Device Kit Route: 1 Each by [...] or chew. 21 capsule 01/08/20 25 Active polyethylene glycol (Golytely) 236-22.74-6.74 -5.86 gram solution Take 4L by mouth once for one dose. May substitue any PEG. Starting at 6PM the night before your procedure drink 1 8oz glasses at your own pace until you complete half of the gallon. Finish 2nd half of the gallon 5 hours before your procedure. 4000 mL 01/21/20 25 Active bisacodyL (DULCOLAX) 5 mg EC tablet Take 2 tablets by mouth right before beginning bowel prep. See instructions provided by the office 2 tablet 01/21/20 25 Active Active Problems Problem Noted Date Diagnosed Date Hyperlipidemia 05/17/2024 Type 2 diabetes mellitus ([facility] V24, [facility] V 28) 05/17/2024 Cervical cord compression wi th myelopathy ([facility] V24, [facility] V28) 11/30/2021 Overview (05/17/2024): Last Assessment & Plan: Ms. Saunders returns with a close friend who serves as refrigeration engineer and brought a list of questions that [...] Severe obesity (BMI 35.0-39. 9) with comorbidity ([facility] V24, [facility] V28) 01/13/2017 Obstructive sleep apnea syndrome 01/13/2017 Adnexal mass 10/07/2016 Fibromyalgia 10/07/2016 Vitamin D deficiency 04/21/2016 Arthritis of knee 04/18/2016 Allergic rhinitis 11/06/2015 Encounters Date Type Department Care Team Description 02/03/2025 Telephone Gastroenterology - [address] [phone] Jhon Gonzalez MD Special Procedure 01/31/2025 Telephone Gastroenterology [address] [phone] Clinton Newby DO SPECIAL PROCEDURE 01/23/2025 Telephone Internal Medicine [address] [address] Rusty Jacobs MA 01/20/2025 Telephone Internal Medicine [address] [address] Damaris Patel MA faxed order (L&C) 01/07/2025 2:45 PM EDT Office Visit Internal Medicine [address] [address] Pam Vera MD Upper respiratory tract infection, unspecified type (Primary Dx) 01/07/2025 Telephone Internal Medicine [address] [address] Pam Vera MD Fever 01/06/2025 Telephone Internal Medicine [address] [phone] Raza Conn MA Results 01/03/2025 10:30 AM EDT Office Visit Internal Medicine [address] [address] Pam Vera MD Right foot pain (Primary Dx); Type 2 diabetes mellitus without complication, without long-term current use of insulin ([facility] V24, [facility] V28); Bronchitis 01/01/2025 Telephone Internal Medicine - [address] [place] [address] Pam Vera MD from Last 3 Months [...] obesity with BMI of 4 5.0-49.9, adult ([facility] V24, [facility] V28) 01/13/2017 DX:Morbid obesity wit h BMI of 45.0-49.9, adult ([facility]) Adnexal mass 10/07/2016 DX:Adnexal mass Allergic rhinitis [...] 71 01/07/2025 2:29 PM EDT Temperature 36.2 C (97.1 F) 01/07/2025 2:29 PM EDT Respiratory Rate - - Oxygen Saturation 99% 01/07/2025 2:29 PM EDT Inhaled Oxygen Concentration - - Weight 103 kg (228 lb) 01/07/2025 2:29 PM EDT Height 152.4 cm (5') 06/12/2024 11:18 AM EDT Body Mass Index 44.53 06/12/2024 11:18 AM EDT Plan of Treatment Upcoming Encounters Date Type Department Care Team (Late st Contact Info) Description 03/31/2025 10:00 AM EDT Consult Orthopedic Surgery - [place] [address] [facility] [address] [place] [phone] Carlos Batista, DPM [address] [facility] [address] [place] [address] 04/17/2025 3:00 PM EDT Appointment [facility] Endoscopy [address] [place] [phone] Clinton Newby DO 175 [facility] [address] [place] [address] Health Maintenance Due Date Last Done Comments [...] respiratory tract infection, unspecified type POC RAPID [id number], MOLECULAR Routine 01/07/2025 2:43 PM EDT Upper respiratory tract infection, unspecified type COMPREHENSIVE METABOLIC PANEL Routine 01/03/2025 10:43 AM EDT Type 2 diabetes mellitus without complication, without long-term current use of insulin ([facility] V24, [facility] V28) Right foot pain URIC ACID Routine 01/03/2025 10:43 AM EDT Right foot pain HEMOGLOBIN A1C Routine 01/03/2025 10:43 AM EDT Type 2 diabetes mellitus without complication, without long-term current use of insulin ([facility] V24, [facility] V28) EXTERNAL XRAY REPORT 12/25/2024 EXTERNAL ULTRASOUND REPORT 12/24/2024 MICROALBUMIN CREATININE URINE RATIO Routine 09/26/2024 10:32 AM EST Type 2 diabetes mellitus without complication, without long-term current use of insulin ([facility] V24, [facility] V28) Low vitamin D level Mixed hyperlipidemia HM DEPRESSION SCREENING Routine 04/25/2024 LIPID PANEL Routine 12/20/2023 from Last 3 Months or Most Recently Relevant to Health Maintenance Results * POC Influenza A/B manually resulted (01/07/2025 2:46 PM EDT) Rapid Influenza A AGN POC Negative Negative Rapid Influenza B AGN POC Negative Negative Internal Control Pass Yes Yes Swab 01/07/2025 2:46 PM EDT Pam Vera MD POINT OF CARE TEST ENTER/EDIT ORDERABLES Final Result * Poc Rapid [id number], MOLECULAR (01/07/2025 2:43 PM EDT) [facility] COVID-19/SARS- COV-2 Rapid POC Negative Negative Internal Control Pass Yes Yes Swab Nasopharyngeal structure / Unknown 01/07/2025 2:43 PM EDT us Pam Vera MD POINT OF CARE TEST ENTER/EDIT ORDERABLES Final Result * Uric acid (01/03/2025 10:43 AM EDT) [facility] Uric Acid 3.9 3.1 - 7.8 mg/dL LAB CHEMISTRY METHOD 01/03/2025 3:08 PM EDT [facility] Blood Venous blood specimen / Unknown Venipuncture / Unknown 01/03/2025 10:43 AM EDT 01/03/2025 10:43 AM EDT Pam Vera MD LAB BLOOD ORDERABLES Final Res ult Performing Organization Address City/[facility]/ZIP Co de Phone Number [facility] [address] [place] [address], [place] [phone] * (ABNORMAL) Hemoglobin A1c (01/03/2025 10:43 AM EDT) [facility] Hemoglobin A1C 7.2(H) <6.5 % LAB CHEMISTRY METHOD 01/03/2025 4:31 PM EDT [facility] Mean Bld Glu Estim. 160 mg/dL LAB CHEMISTRY METHOD 01/03/2025 4:31 PM EDT [facility] Blood Venous blood specimen / Unknown Venipuncture / Unknown 01/03/2025 10:43 AM EDT 01/03/2025 10:43 AM EDT Pam Vera MD LAB BLOOD ORDERABLES Final Res ult Performing Organization Address City/[facility]/ZIP Co de Phone Number [facility] [address] [place] [address], [place] [phone] * (ABNORMAL) Comprehensive metabolic panel (01/03/2025 10:43 AM EDT) Sodium 138 133 - 145 mmol/L LAB CHEMISTRY METHOD 01/03/2025 3:08 PM [facility] Potassium 4.4 3.5 - 5.5 mmol/L LAB CHEMISTRY METHOD 01/03/2025 3:08 PM [facility] Chloride 103 96 - 110 mmol/L LAB CHEMISTRY METHOD 01/03/2025 3:08 PM [facility] CO2 28 21 - 32 mmol/L LAB CHEMISTRY METHOD 01/03/2025 3:08 PM [facility] Anion Gap 7 3 - 11 LAB CHEMISTRY METHOD 01/03/2025 3:08 PM [facility] Glucose 226(H) 70 - 100 mg/dL LAB CHEMISTRY METHOD 01/03/2025 3:08 PM [facility] BUN 15 5 - 25 mg/dL LAB CHEMISTRY METHOD 01/03/2025 3:08 PM [facility] Creatinine 0.60 0.50 - 1.10 mg/dL LAB CHEMISTRY METHOD 01/03/2025 3:08 PM [facility] eGFR 107 >=60 mL/min/1. 73m2 LAB CHEMISTRY METHOD 01/03/2025 3:08 PM [facility] Comment:Calculation based on the Chronic Kidney Disease Epidemiology Collaboration (CKD-EPI) equation refit without adjustment for race. BUN/Creatinine Ratio 25.0 LAB CHEMISTRY METHOD 01/03/2025 3:08 PM [facility] Calcium 9.1 8.5 - 10.5 mg/dL LAB CHEMISTRY METHOD 01/03/2025 3:08 PM [facility] AST (SGOT) 27 10 - 42 unit/L LAB CHEMISTRY METHOD 01/03/2025 3:08 PM [facility] ALT (SGPT) 48 10 - 60 unit/L LAB CHEMISTRY METHOD 01/03/2025 3:08 PM EDT [facility] Alkaline Phosphatase 85 42 - 121 unit/L LAB CHEMISTRY METHOD 01/03/2025 3:08 PM EDT [facility] Total Protein 7.7 6.0 - 8.0 g/dL LAB CHEMISTRY METHOD 01/03/2025 3:08 PM EDT [facility] Albumin 3.6 3.2 - 5.0 g/dL LAB CHEMISTRY METHOD 01/03/2025 3:08 PM EDT [facility] Total Bilirubin 0.4 0.0 - 1.4 mg/dL LAB CHEMISTRY METHOD 01/03/2025 3:08 PM EDT [facility] Blood Venous blood specimen / Unknown Venipuncture / Unknown 01/03/2025 10:43 AM EDT 01/03/2025 10:43 AM EDT us Pam Vera MD LAB BLOOD ORDERABLES Final Res ult [facility] [address] [place] [address], [place] [phone] * External Xray Report (12/25/2024) Anatomical Region Laterality Modality Radiographic Sharon ging us Provider [facility] XR PROCEDURES Final Result * External Ultrasound Report (12/24/2024) Anatomical Region Laterality Modality Ultrasound us Provider [facility] US PROCEDURES Final Result * Microalbumin creatinine urine ratio (09/26/2024 10:32 AM EST) Creatinine, Urine 103.0 mg/dL LAB CHEMISTRY METHOD 09/26/2024 2:31 PM EST [facility] Microalb, Ur 15.4 0.0 - 29.0 mg/L LAB CHEMISTRY METHOD 09/26/2024 2:31 PM EST [facility] Microalb/Creat Ratio 15 <30 mg/g creat LAB CHEMISTRY METHOD 09/26/2024 2:31 PM EST [facility] Urine Urine specimen obtained by clean catch procedure / Unknown Non-blood Collection / Unknown 09/26/2024 10:32 AM EST 09/26/2024 10:32 AM EST us Pam Vera MD LAB URINE ORDERABLES Final Res ult [facility] [address] [place] [address], * Depression Screening (04/25/2024) Depression Screening Abstracted [...] Most Recently Relevant to Health Maintenance Insurance [facility] [employer] Care Teams Marketing Underwriter Relationship Specialty Start Date End Date Pam Vera MD [address] [place] [phone] PCP - General Internal Medicine 11/20/17
--- OUTSIDE RECORDS SUMMARY | 2025-02-17 13:02 | XMS_ITS | Encounter Summary ---
Author Organization [employer] [facility] Address [address] [facility] [address] [place] [address] Care Team Providers Care Residential Program Worker Name Role Phone Unavailable Primary Care Provider Unavailabl e Reason for Visit * Reason Onset Date Comments medical clearance 08/29/2023 Encounter Details Date Type Department Care Team (Late st Contact Info) Description 08/29/2023 Telephone [facility] [address] [place] [address] Clare Gold, DDS [address] [place] [address] medical clearance Social History Tobacco Use Types [...] sent to PCP. Neurology office fax is [phone] and Neurologist name is Rohini blanca. Can a new medical clearance be sent. The patient is complaining of pain and wants to be able to scheduled th extraction appt documented in this encounter Plan of Treatment Upcoming Encounters Date Type Department Care Team (Late st Contact Info) Description 03/04/2025 9:30 AM EDT Office Visit [facility] [address] [place] [address] Cody Hdz DDS [address] [place] [address] documented as of this encounter Visit Diagnoses Not on filedocumented in this encounter
== END 2024-12-25 00:01 | disposition home or self-care (01) ==
LOC: HO.US
PROVIDERS: PCP Internal Medicine; Visit Provider Nurse Practitioner Family
DX: R07.1 Chest pain on breathing (principal); N20.0 Calculus of kidney; R35.0 Frequency of micturition; R39.15 Urgency of urination; R39.9 Unspecified symptoms and signs involving the genitourinary system
CPT/HCPCS: 71046; 76775

== ENCOUNTER → 2024-12-25 11:58 | Outpatient (BNV) | payer OTHER, SELFPAY | PROVIDERS: PCP Internal Medicine; Visit Provider Radiology Diagnostic Radiology | DX: N20.0 Calculus of kidney (principal); M47.814 Spondylosis without myelopathy or radiculopathy, thoracic region | CPT/HCPCS: 71046; 76775 ==

== ENCOUNTER 2025-01-15 11:24 | Outpatient (AMB) | payer OTHER, SELFPAY ==
--- NOTE | 2025-01-15 11:24 | MHC.OFFVIS ---
Intake Visit Reasons: 3m followup/renal US Intake Note: Patient is present via telehealth for a 3 month follow up/US Urology Medication: Myrbetriq, Estradiol, Vesicare Antibiotic Allergies: None Blood Thinners: Aspirin Maintenance Technician 3Rd Shift Required: Yes Maintenance Technician 3Rd Shift Language: Laboratory Associate Services: Maintenance Technician 3Rd Shift Present Maintenance Technician 3Rd Shift Name: [id number] Accompanied by: Self / Same As Patient Allergies Benadryl Allergy (Severe, Verified 01/15/25 11:25) palpitations hydroxyzine [From VISTARIL] Allergy (Severe, Verified 01/15/25 11:25) PALPATATION oxycodone [From PERCOCET] Allergy (Severe, Verified 01/15/25 11:25) PALPIATIONS HPI Comments Details: Rachell is a pleasant 54 year old [place] speaking patient of Dr. Vera. She has a past medical history of asthma, COPD, obesity, and obstructive sleep apnea on CPAP. She is being followed up on today via video telehealth for her mixed urinary incontinence. Of note, patient was seen approximately 3 months ago at which time she was started on low-dose VESIcare in addition to her Myrbetriq as she had continue to report irritative lower urinary tract symptoms. In discussion with the patient today she reports feeling this has been extremely helpful. She does report having an exacerbation of her asthma and has been having episodes of stress incontinence with coughing however feels this is much more manageable with Myrbetriq and VESIcare. She currently denies any bothersome urinary issues. Recent renal imaging results were reviewed with the patient today 01/12 bilateral kidneys with no calculi, lesions, and or hydronephrosis. She otherwise denies nocturia, hematuria, dysuria, changes to urinary stream, flank pain, fever, and or chills. We discussed potential causes of mixed urinary incontinence as well as further treatment options and risks and benefits of these treatment options however patient feels happy with her current voiding parameters on Myrbetriq and VESIcare as prescribed. She continues with compliance of Estrace cream as well. All questions were answered. She otherwise offers no other issues or concerns at this time. [facility] Medical History Asthma-COPD overlap syndrome MANJULA (obstructive sleep apnea) Chronic urticaria Chronic restrictive lung disease COVID-19 Pre-op chest exam Sinusitis Dyspnea Chest pain Obesity Anemia Extremity edema Dyspnea Chronic rhinitis MANJULA on CPAP Asthma Surgical History History of bilateral tubal ligation History of dilatation and curettage delivery delivered Family History Mother Asthma Hypertension Father FHx: lung cancer Social History Alcohol intake: never Patient Tobacco Use Status: Former Tobacco user Tobacco use type: Cigarette Years Smoked: 12 years Female Reproductive History Menstrual Age of Menarche: 13 Review of Systems Const Reports as per HPI Eyes Reports no additional complaints ENT Reports no additional complaints Card Reports no additional complaints Resp Reports as per HPI GI Reports no additional complaints Reports as per HPI Musc Reports no additional complaints Neuro Reports no additional complaints Psych Reports no additional complaints Endo Reports no additional complaints Pedro/Lymph Reports no additional complaints Aller/Immun Reports no additional complaints Physical Exam Const General: cooperative, healthy appearing, comfortable, no acute distress, well developed, alert and awake Orientation/consciousness: patient oriented x3 Resp Effort & Inspection: normal respiratory effort and able to speak in complete sentences Neuro General: patient oriented x3 Psych Appearance: grossly normal and well kempt Speech and movement: Clear speech present Affect: normal affect Attitude: cooperative Thought content: Normal thought content present Insight: Fair insight present (Psych) Judgement: Fair judgement present (Psych) Telehealth Telehealth Telehealth Platform: Telephone Location of provider rendering services: practice address Location of patient: address on file Patient Identification confirmed using: Name, : Yes Telehealth method: video Patient verbally consented to treatment: Yes Patient verbally consented to billing insurance company: Yes Patient informed of any privacy concerns related to visit: Yes Minutes spent on Phone/Video with Pt.: 15 Assessment & Plan Assessment & Plan (1) Nephrolithiasis: Code(s): N20.0 - Calculus of kidney Category: Medical (2) Urinary frequency: Code(s): R35.0 - Frequency of micturition Category: Medical (3) Urinary urgency: Code(s): R39.15 - Urgency of urination Category: Medical (4) Lower urinary tract symptoms: Code(s): R39.9 - Unspecified symptoms and signs involving the genitourinary system Category: Medical Plan Recent renal imaging results reviewed with the patient today; as noted above. She reports be happy with current voiding parameters on dual therapy with Myrbetriq and VESIcare; will continue refills provided Continue Estrace cream as discussed and prescribed. She currently denies any bothersome urinary issues. Will continue with surveillance monitoring. Follow-up in 6 months with [facility]; or sooner with any issues, concerns, and or questions. Medications: Changed From solifenacin (Vesicare) 5 mg PO DAILY 30 days 30 tabs 2RF To solifenacin (Vesicare) 5 mg PO DAILY 90 days 90 tabs 3RF Refilled estradiol 0.01%(0.1mg/gram) pea sized amount to urethra 3 times a week 90 days 42.5 grams 3RF Patient Instructions: The patient had an opportunity to ask questions regarding the treatment plan. All questions were answered. Physical exam, labs, and imaging were discussed and reviewed in detail. As well as risks, benefits, and discussion of treatment choices. No major barriers to understanding were identified. The patient expressed understanding and agreement with the above treatment plan. The patient was made aware they should contact our office by phone for worsening of their current condition, the appearance of new symptoms, or with any questions or concerns. Compliance is encouraged with any medications and follow up testing that is ordered. It is a privilege to be allowed the opportunity to participate in? your urological care.? Again, if you have any questions or concerns If you have any questions or concerns please do not hesitate to contact me. The office is [phone]. This note is constructed using voice recognition software. While every effort has been made to ensure accuracy fire and explosion investigator errors may have been included. Yours sincerely, QUENTIN Gomez Coding Level of Care Code Tele Est Pt Level 3 (52197) Diagnoses Nephrolithiasis N20.0 Urinary frequency R35.0 Urinary urgency R39.15 Lower urinary tract symptoms R39.9
--- OUTSIDE RECORDS SUMMARY | 2025-01-15 12:20 | XMS_ITS | Clinical Summary ---
Author Organization [facility] Address [address] [place] [address] Phone Care Team Providers Care Veteran Appeals Reviewer Name Role Phone Pam Vera MD Primary Care Provider Allergies Active Allergy Reactions Criticality Noted Date Comments Diphenhydramine 01/22/2015 Arrhytmia Latex 01/06/2020 Rash with contact Other 01/22/2015 Vistaril Arrhythmia Oxycodone 01/22/2015 Medications furosemide (LASIX) 20 mg tablet Take 20 mg by mouth daily. Active blood sugar diagnostic (FreeStyle Lite Strips) test strip USE DIRECTED TO TEST BLOOD SUGAR EVERY DAY 04/03/20 24 Active blood-glucose meter kit 10/07/19 22 Active incontinence pad, liner, disp pad 1 Each by Does not apply route every 4 hours. Dispense 4 packages 06/20/20 23 Active ONETOUCH ULTRASOFT LANCETS MISC 1 Stick by Does not apply route 2 times daily. 09/07/19 24 Active oxyBUTYnin XL (DITROPAN-XL) 15 mg 24 hr tablet 08/23/19 20 Active polyethylene glycol (GoLYTELY) 236-22.74-6.74 -5.86 gram solution Take 240 mL by mouth once for 1 dose. May substitue for any PEG. Follow instructions given by office. 03/12/20 24 Active medical supply, miscellaneous (TAMPONS VAGL) 1 Units by Does not apply route daily. 02/01/20 22 Active zolpidem (AMBIEN) 10 mg tablet Take 1 Tab by mouth at bedtime as needed. Active acetaminophen (TYLENOL) 500 mg tablet Take 1 Tablet by mouth every 6 hours as needed for Pain. 06/20/20 Active budesonide (PULMICORT) 0.5 mg/2 mL nebulizer solution Take 2 mL by nebulization daily for 30 days. 03/01/20 Active cetirizine (ZyrTEC) 10 mg tablet TAKE 1 TABLET BY MOUTH 2 TIMES DAILY. 09/28/19 Active clonazePAM (KlonoPIN) 0.5 mg tablet Take 0.5 mg by mouth 2 times daily as needed. Active EPINEPHrine (EpiPen 2-Norman) 0.3 mg/0.3 mL injection INJECT 1 DEVICE DIRECTED NEEDED (ANAPHYLAXIS). USE DIRECTED 04/25/20 Active ferrous sulfate 325 mg (65 mg iron) EC tablet TAKE 1 TABLET BY MOUTH DAILY. 03/19/20 24 Active fluticasone propionate (FLONASE) 50 mcg/actuation nasal spray 2 Sprays by Nasal route daily. 04/25/20 24 Active fluticasone propion-salmetero L (ADVAIR HFA) 230-21 mcg/actuation inhaler Rinse mouth with water after use to reduce aftertaste and incidence of candidiasis. Do not swallow. Route: Inhale 2 Puffs into the lungs 2 times daily for 360 days. - Inhalation 05/14/20 24 025 Active blood-glucose meter kit Blood Glucose Monitoring Suppl (FreeStyle [place] Lite) w/Device Kit Route: 1 Each by Does not apply route daily. - Does not apply 04/25/20 24 Active albuterol HFA (PROVENTIL HFA;VENTOLIN HFA) 108 (90 Base) MCG/ACT inhaler Route: Inhale 2 Puffs into the lungs every 4 hours as needed for Cough or Wheezing. - Inhalation 04/25/20 24 Active lancets (Pure Comfort Safety Lancets) 30 gauge misc Inject 1 Units under the skin 2 (two) times a day. 100 each 5 01/08/20 25 Active ergocalciferol (VITAMIN D-2) 1,250 mcg (50,000 unit) capsule Take 1 capsule (50,000 Units total) by mouth 1 (one) time per week. 12 capsule 1 01/08/20 25 Active glipiZIDE (GLUCOTROL) 5 mg tablet Take 1 tablet (5 mg total) by mouth 1 (one) time each day. 90 tablet 1 01/08/20 25 Active atorvastatin (LIPITOR) 10 mg tablet Take 1 tablet (10 mg total) by mouth 1 (one) time each day. 90 tablet 1 01/08/20 25 Active omeprazole (PriLOSEC) [address] capsule Take 1 capsule (20 mg total) by mouth 1 (one) time each day. Do not crush or chew. 90 capsule 1 01/08/20 25 Active FLUoxetine (PROzac) 20 mg capsule Take 1 capsule (20 mg total) by mouth 1 (one) time each day. 90 capsule 1 01/08/20 25 Active butalbital-acetam inophen-caffeine (FIORICET, ESGIC) 50-325-40 mg per tablet Take 1 tablet by mouth every 6 (six) hours if needed for migraine. 14 tablet 01/08/20 25 Active diclofenac (VOLTAREN) 75 mg EC tablet Take 1 tablet (75 mg total) by mouth 1 (one) time each day. Do not crush, chew, or split. 28 tablet 3 01/08/20 25 Active amoxicillin-clavu lanate (AUGMENTIN) 875-125 mg per tablet Take 1 tablet by mouth 2 (two) times a day. 14 tablet 01/08/20 25 Active metFORMIN XR (GLUCOPHAGE-XR) 500 mg 24 hr tablet Take 1 tablet (500 mg total) by mouth 2 (two) times a day. Do not crush, chew, or split. 180 tablet 1 01/08/20 25 Active benzonatate (TESSALON) 200 mg capsule Take 1 capsule (200 mg total) by mouth 3 (three) times a day if needed for cough. Do not crush or chew. 21 capsule 01/08/20 25 Active metFORMIN XR (GLUCOPHAGE-XR) 500 mg 24 hr tablet Take 1 Tablet by mouth daily (with breakfast). 05/14/20 24 025 Discontinu ed(Reorder ) amoxicillin-clavu lanate (AUGMENTIN) 875-125 mg per tablet Take 1 Tablet by mouth 2 times daily. 12/20/19 24 025 Discontinu ed(Reorder ) Pure Comfort Safety Lancets 30 gauge misc USE DIRECTED TO TEST EVERY DAY 100 each 1 06/25/20 24 025 Discontinu ed(Reorder ) ergocalciferol (VITAMIN D-2) 1,250 mcg (50,000 unit) capsule TAKE 1 CAPSULE BY MOUTH ONCE A WEEK. 4 capsule 06/25/20 24 Discontinu ed(Reorder ) glipiZIDE (GLUCOTROL) 5 mg tablet TAKE 1 TABLET BY MOUTH DAILY. 30 tablet 4 08/13/20 24 025 Discontinu ed(Reorder ) diclofenac (VOLTAREN) 75 mg EC tablet Take 1 tablet (75 mg total) by mouth 1 (one) time each day. Do not crush, chew, or split. 28 tablet 3 09/26/19 025 Discontinu ed(Reorder ) atorvastatin (LIPITOR) 10 mg tablet TAKE 1 TABLET BY MOUTH DAILY. 30 tablet 1 10/22/19 Discontinu ed(Reorder ) omeprazole (PriLOSEC) [address] capsule Take 1 capsule (20 mg total) by mouth 1 (one) time each day. Do not crush or chew. 30 capsule 11/14/19 025 Discontinu ed(Reorder ) FLUoxetine (PROzac) 20 mg capsule Take 1 capsule (20 mg total) by mouth 1 (one) time each day. 90 capsule 11/29/19 025 Discontinu ed(Reorder ) butalbital-acetam inophen-caffeine (FIORICET, ESGIC) 50-325-40 mg per tablet TAKE 1 TABLET BY MOUTH EVERY 6 HOURS NEEDED 14 tablet 12/10/19 025 Discontinu ed(Reorder ) diclofenac (VOLTAREN) 75 mg EC tablet Take 1 tablet (75 mg total) by mouth 1 (one) time each day. Do not crush, chew, or split. 28 tablet 3 01/04/20 025 Discontinu ed(Reorder ) amoxicillin-clavu lanate (AUGMENTIN) 875-125 mg per tablet Take 1 tablet by mouth 2 (two) times a day. 14 tablet 01/04/20 25 025 Discontinu ed(Reorder ) metFORMIN XR (GLUCOPHAGE-XR) 500 mg 24 hr tablet Take 1 tablet (500 mg total) by mouth 1 (one) time each day. Do not crush, chew, or split. 90 tablet 3 01/06/20 25 025 Discontinu ed(Reorder ) metFORMIN XR (GLUCOPHAGE-XR) 500 mg 24 hr tablet Take 1 tablet (500 mg total) by mouth 2 (two) times a day. Do not crush, chew, or split. 180 tablet 3 01/06/20 25 025 Discontinu ed(Reorder ) azithromycin (ZITHROMAX) 250 mg tablet Take 2 tablets (500 mg total) by mouth 1 (one) time each day for 1 day, THEN 1 tablet (250 mg total) 1 (one) time each day for 4 days. 6 each 01/08/20 25 025 Active Problems Problem Noted Date Diagnosed Date Hyperlipidemia 05/17/2024 Type 2 diabetes mellitus ([facility] V24, [facility] V 28) 05/17/2024 Cervical cord compression wi th myelopathy ([facility] V24, [facility] V28) 11/30/2021 Overview (05/17/2024): Last Assessment & Plan: Ms. Saunders returns with a close friend who serves as information technology director and brought a list of questions that [...] Severe obesity (BMI 35.0-39. 9) with comorbidity ([facility] V24, [facility] V28) 01/13/2017 Obstructive sleep apnea syndrome 01/13/2017 Adnexal mass 10/07/2016 Fibromyalgia 10/07/2016 Vitamin D deficiency 04/21/2016 Arthritis of knee 04/18/2016 Allergic rhinitis 11/06/2015 Encounters Date Type Department Care Team Description 01/07/2025 2:45 PM EDT Office Visit Internal Medicine [address] [phone] Pam Vera MD Upper respiratory tract infection, unspecified type (Primary Dx) 01/07/2025 Telephone Internal Medicine [address] [phone] Pam Vera MD Fever 01/06/2025 Telephone Internal Medicine [address] [phone] Raza Conn [place] Results 01/03/2025 10:30 AM EDT Office Visit Internal Medicine [address] [phone] Pam Vera MD Right foot pain (Primary Dx); Type 2 diabetes mellitus without complication, without long-term current use of insulin ([facility] V24, [facility] V28); Bronchitis 01/01/2025 Telephone Internal Medicine [address] [phone] Pam Vera MD from Last 3 Months Immunizations Name Administration [...] obesity with BMI of 4 5.0-49.9, adult (CMS/HCC V24, CMS/HCC V28) 01/13/2017 DX:Morbid obesity wit h BMI of 45.0-49.9, adult (HCC) Adnexal mass 10/07/2016 DX:Adnexal mass Allergic rhinitis [...] Date Smoking Tobacco: Former Smokeless Tobacco: Never Tobacco Cessation:Counseling Given: Not Answered Comments Unknown Sex and Gender Information Value Date Recorded Sex Assigned at Female 09/12/2024 10:43 AM EST Legal Sex Female 10:21 AM EST Gender Identity Female 09/12/2024 10:43 AM EST Sexual Orientation Straight 09/12/2024 10 :43 AM EST Obstetrics History Last Filed Vital Signs Vital Sign Reading Time Taken Comments Blood Pressure 112/78 01/07/2025 2:29 PM EDT Pulse 71 01/07/2025 2:29 PM EDT Temperature 36.2 ??C (97.1 ??F) 01/07/2025 2:29 PM ED T Respiratory Rate - - Oxygen Saturation 99% 01/07/2025 2:29 PM EDT Inhaled Oxygen Concentration - - Weight 103 kg (228 lb) 01/07/2025 2:29 PM EDT Height 152.4 cm (5') 06/12/2024 11:18 AM EDT Body Mass Index 44.53 06/12/2024 11:18 AM EDT Plan of Treatment Upcoming Encounters Date Type Department Care Team (Late st Contact Info) Description 01/24/2025 3:30 PM EDT Office Visit Internal Medicine - [place] 175 [facility] [address] [place] [phone] Pam Vera MD 175 [facility] [address] [place] [phone] 02/03/2025 1:00 PM EDT Appointment [facility] [address] [place] [phone] Clinton Newby DO 175 [facility] [address] [place] [address] Health Maintenance Due Date Last Done Comments [...] COVID-19 Vaccine ( season) 2024 Influenza Vaccine (Season Ended) 2025 07/07/2022, 07/01/2021 Depression Screening 04/25/2025 04/25/2024 Diabetes: Blood Sugar Control Test (HGBA1C) 07/06/2025 01/03/2025, 09/26/2024, 06/12/2024, Additional history exists Diabetes: Annual Urine Albumin-Creatinine Ratio (uACR) 09/26/2025 09/26/2024, 10/07/2021 Diabetes: Annual GFR (Glomerular Filtration Rate) 01/03/2026 01/03/2025, 09/26/2024, 06/12/2024, Additional history exists Hypertension/CHF/CAD Annual BMP Blood Test 01/03/2026 01/03/2025, 09/26/2024, 06/12/2024, Additional history exists Cholesterol Screening (Lipid Panel) [...] Procedure Name Priority Date/Time Associated Diagnosis Comments POC INFLUENZA A/B Routine 01/07/2025 2:4 6 PM EDT Upper respiratory tract infection, unspecified type POC RAPID [id number], MOLECULAR Routine 01/07/2025 2:43 PM EDT Upper respiratory tract infection, unspecified type COMPREHENSIVE METABOLIC PANEL Routine 01/03/2025 10:43 AM EDT Type 2 diabetes mellitus without complication, without long-term current use of insulin ([facility] V24, [facility] V28) Right foot pain URIC ACID Routine 01/03/2025 10:43 AM EDT Right foot pain HEMOGLOBIN A1C Routine 01/03/2025 10:43 AM EDT Type 2 diabetes mellitus without complication, without long-term current use of insulin ([facility] V24, [facility] V28) EXTERNAL XRAY REPORT 12/25/2024 EXTERNAL ULTRASOUND REPORT 12/24/2024 MICROALBUMIN CREATININE URINE RATIO Routine 09/26/2024 10:32 AM EST Type 2 diabetes mellitus without complication, without long-term current use of insulin ([facility] V24, [facility] V28) Low vitamin D level Mixed hyperlipidemia HM DEPRESSION SCREENING Routine 04/25/2024 LIPID PANEL Routine 12/20/2023 from Last 3 Months or Most Recently Relevant to Health Maintenance Results * POC Influenza A/B manually resulted (01/07/2025 2:46 PM EDT) Pathologist [facility] Rapid Influenza A AGN POC Negative Negative Rapid Influenza B AGN POC Negative Negative Internal Control Pass Yes Yes Swab 01/07/2025 2:46 PM EDT Pam Vera MD POINT OF CARE TEST ENTER/EDIT ORDERABLES Final Result * Poc Rapid [id number], MOLECULAR (01/07/2025 2:43 PM EDT) Pathologist [facility] COVID-19/SARS- COV-2 Rapid POC Negative Negative Internal Control Pass Yes Yes Swab Nasopharyngeal structure / Unknown 01/07/2025 2:43 PM EDT Pam Vera MD POINT OF CARE TEST ENTER/EDIT ORDERABLES Final Result * Uric acid (01/03/2025 10:43 AM EDT) Pathologist [facility] Uric Acid 3.9 3.1 - 7.8 mg/dL LAB CHEMISTRY METHOD 01/03/2025 3:08 PM EDT [facility] Blood Venous blood specimen / Unknown Venipuncture / Unknown 01/03/2025 10:43 AM EDT 01/03/2025 10:43 AM EDT Pam Vera MD LAB BLOOD ORDERABLES Final Res ult Performing Organization Address [facility]/ZIP Co de Phone Number [facility] [address] [place] [address], [place] [phone] * (ABNORMAL) Hemoglobin A1c (01/03/2025 10:43 AM EDT) [facility] Hemoglobin A1C 7.2(H) <6.5 % LAB CHEMISTRY METHOD 01/03/2025 4:31 PM EDT [facility] Mean Bld Glu Estim. 160 mg/dL LAB CHEMISTRY METHOD 01/03/2025 4:31 PM EDT [facility] Blood Venous blood specimen / Unknown Venipuncture / Unknown 01/03/2025 10:43 AM EDT 01/03/2025 10:43 AM EDT Pam Vera MD LAB BLOOD ORDERABLES Final Res ult [facility] [address] [place] [address], [place] [phone] * (ABNORMAL) Comprehensive metabolic panel (01/03/2025 10:43 AM EDT) Pathologist [facility] Sodium 138 133 - 145 mmol/L LAB CHEMISTRY METHOD 01/03/2025 3:08 PM [facility] Potassium 4.4 3.5 - 5.5 mmol/L LAB CHEMISTRY METHOD 01/03/2025 3:08 PM [facility] Chloride 103 96 - 110 mmol/L LAB CHEMISTRY METHOD 01/03/2025 3:08 PM [facility] CO2 28 21 - 32 mmol/L LAB CHEMISTRY METHOD 01/03/2025 3:08 PM [facility] Anion Gap 7 3 - 11 LAB CHEMISTRY METHOD 01/03/2025 3:08 PM [facility] Glucose 226(H) 70 - 100 mg/dL LAB CHEMISTRY METHOD 01/03/2025 3:08 PM [facility] BUN 15 5 - 25 mg/dL LAB CHEMISTRY METHOD 01/03/2025 3:08 PM [facility] Creatinine 0.60 0.50 - 1.10 mg/dL LAB CHEMISTRY METHOD 01/03/2025 3:08 PM [facility] eGFR 107 >=60 mL/min/1. 73m2 LAB CHEMISTRY METHOD 01/03/2025 3:08 PM [facility] Comment:Calculation based on the Chronic Kidney Disease Epidemiology Collaboration (CKD-EPI) equation refit without adjustment for race. BUN/Creatinine Ratio 25.0 LAB CHEMISTRY METHOD 01/03/2025 3:08 PM [facility] Calcium 9.1 8.5 - 10.5 mg/dL LAB CHEMISTRY METHOD 01/03/2025 3:08 PM [facility] AST (SGOT) 27 10 - 42 unit/L LAB CHEMISTRY METHOD 01/03/2025 3:08 PM [facility] ALT (SGPT) 48 10 - 60 unit/L LAB CHEMISTRY METHOD 01/03/2025 3:08 PM [facility] Alkaline Phosphatase 85 42 - 121 unit/L LAB CHEMISTRY METHOD 01/03/2025 3:08 PM EDT [facility] Total Protein 7.7 6.0 - 8.0 g/dL LAB CHEMISTRY METHOD 01/03/2025 3:08 PM EDT [facility] Albumin 3.6 3.2 - 5.0 g/dL LAB CHEMISTRY METHOD 01/03/2025 3:08 PM EDT [facility] Total Bilirubin 0.4 0.0 - 1.4 mg/dL LAB CHEMISTRY METHOD 01/03/2025 3:08 PM EDT [facility] Blood Venous blood specimen / Unknown Venipuncture / Unknown 01/03/2025 10:43 AM EDT 01/03/2025 10:43 AM EDT us Pam Vera MD LAB BLOOD ORDERABLES Final Res ult [facility] [address] [place] [address], [place] [phone] * External Xray Report (12/25/2024) Anatomical Region Laterality Modality Radiographic Sharon ging us Provider [facility] XR PROCEDURES Final Result * External Ultrasound Report (12/24/2024) Anatomical Region Laterality Modality Ultrasound us Provider [facility] US PROCEDURES Final Result * Microalbumin creatinine urine ratio (09/26/2024 10:32 AM EST) Creatinine, Urine 103.0 mg/dL LAB CHEMISTRY METHOD 09/26/2024 2:31 PM EST [facility] Microalb, Ur 15.4 0.0 - 29.0 mg/L LAB CHEMISTRY METHOD 09/26/2024 2:31 PM EST [facility] Microalb/Creat Ratio 15 <30 mg/g creat LAB CHEMISTRY METHOD 09/26/2024 2:31 PM EST [facility] Urine Urine specimen obtained by clean catch procedure / Unknown Non-blood Collection / Unknown 09/26/2024 10:32 AM EST 09/26/2024 10:32 AM EST Pam Vera MD LAB URINE ORDERABLES Final Res ult [facility] [address] [place] [address], * Depression Screening (04/25/2024) Depression Screening Abstracted [...] Most Recently Relevant to Health Maintenance Insurance [facility] [facility] Care Teams Veteran Appeals Reviewer Relationship Specialty Start Date End Date Pam Vera MD [address] [phone] PCP - General Internal Medicine 4/2/18
== END 2025-01-15 12:00 | disposition home or self-care (01) ==
LOC: HO.HUSH 11:24
PROVIDERS: PCP Internal Medicine; Visit Provider Nurse Practitioner Family
DX: N20.0 Calculus of kidney (principal); R35.0 Frequency of micturition; R39.15 Urgency of urination; R39.9 Unspecified symptoms and signs involving the genitourinary system
CPT/HCPCS: 99213

== ENCOUNTER → 2025-01-15 11:24 | Outpatient (BNVA) | payer OTHER, SELFPAY | PROVIDERS: PCP Internal Medicine; Visit Provider Nurse Practitioner Family ==

== ENCOUNTER 2025-06-03 09:00 | Outpatient (AMB) | payer OTHER, SELFPAY ==
[2025-06-03 09:05] VITALS: BP 130/86; PULSE 76; O2SAT 99; BMI 43.9
--- NOTE | 2025-06-03 09:05 | MHC.OFFVIS ---
Vital Signs 06/03/25 09:05 Height 5 ft 1 in Weight 232 lb 9.403 oz BMI 43.9 BP 130/86 Blood Pressure Location Rt brachial Position Sitting Pulse 76 Pulse Source Pulse Oximeter Pulse Oximetry (%) 99 Oxygen Delivery Method Room Air Intake Visit Reasons: COPD Accompanied by: Self / Same As Patient Allergies Benadryl Allergy (Severe, Verified 06/03/25 09:08) palpitations hydroxyzine (From VISTARIL) Allergy (Severe, Verified 06/03/25 09:08) PALPATATION oxycodone (From PERCOCET) Allergy (Severe, Verified 06/03/25 09:08) PALPIATIONS HPI Comments Details: The patient is a 55-year-old woman with a known history of asthma in addition to obstructive sleep apnea. Her CPAP therapy has been affecting beneficial. She does uses CPAP every night for more than 4 hours a night. She has been getting supplies regularly through her [employer], [employer]. In regards to her breathing she has but and on multiple respiratory medications. She does require her short-acting beta agonist but usually less than twice a week. She denies any imaging studies over respiratory studies recently. Otherwise the patient has been having increasing cough but feels is related to the allergies. She has been taking allergy medications including Zyrtec. She has never taken singular. 01/09/2023 the patient is here for pulmonary follow-up visit. The patient overall has been doing well she has been using CPAP every night the CPAP therapy continues to be affecting beneficial. She is using a fullface mask. She has use it for more than 4 hours a night. Will make sure she gets supplies readily available. Her breathing has been good. She continues on the Trelegy inhaler with good effect. Although she is having a lot of nasal congestion and postnasal drip and cough. [id number]-iz-[id number] severity. Will go ahead and optimize her allergy therapy and her sinus therapy to minimize symptoms. We also started about nasal rinsing. She will look into it. 08/25/2023 the patient is here for a pulmonary follow-up visit. She is struggling because she does not have her CPAP a pale above. Apparently she was in the airport in [place] and her CPAP was lost or stolen. She tried to reported to the [place] police Department but since it happened in the airport she could not get a police report. The patient has been struggling because she has been without her CPAP. She has significant daytime drowsiness. Her Courtland score significantly elevated at 12 over 24. She did very well on CPAP and she had good adherence. In the meantime I did call her [employer] company to see if she was due for replacement machine. In view of her significant symptoms will have her get a sleep study in case we need to restart the process to we diagnose or in order to get her a new machine. The patient is also complaining of tooth pain she is going to be seen the dentist in the couple weeks. And also the patient has been having worsening cough. Chest congestion. [id number] severity. She has been using her respiratory medications. 12/22/2023 the patient is here for a pulmonary follow-up visit doing well. She is still having daytime drowsiness. Her Courtland elevated Courtland score 12/24. She is scheduled to undergo a sleep study and then therefore after that get a CPAP.. In the meantime she is developing worsening respiratory symptoms. She has not been able to get her inhaler, Trelegy. I will be sent to the pharmacy. If she has any difficulty she will call the office so we can figure out what is going on. We may have to find an alternative if is not being covered. Otherwise patient is doing well. 03/27/2024 the patient is here for a pulmonary follow-up visit. The patient overall doing well. She has been responding well to the inhalers although she did better on Trelegy. I will resend pharmacy to see if we can get her on Trelegy at this time. She also responds well to the nebulized therapy make sure will send those to to the pharmacy. She continues to have some daytime drowsiness. Her Courtland score is elevated 10/24. She does have cardiovascular risk factors. She did undergo a home sleep study although was limited. It did not demonstrate significant sleep apnea. The patient has had a history sleep apnea she does have severe headaches and does have other concerning issues. Her neurologist believes that she does have sleep apnea. I will request an in-lab sleep study to make sure specially with her headaches and her aneurysmal disease. 05/20/2024 this is a telehealth visit for the patient. She is still having significant symptoms after having COVID. She had COVID back at the end of March and at that point Paxlovid was prescribed. After that she called then we center doxycycline and prednisone for postviral bacterial infection. Although she continued having difficulties with chest tightness shortness of breath and cough. She went to see her primary care and she was given additional prednisone. In addition to that she was having issues with the gingiva and she had a gingival infection or dental abscess requiring tooth extraction. However she has been too sick to get the extraction. She was given amoxicillin for a period of time as well. When she was in the amoxicillin her breathing did get better. Now she is off the amoxicillin she completed the prednisone feel like she is getting worse. She has a productive cough and shortness breath and chest tightness. She has been using her rescue medications Cipro times a day. Will go ahead and give her a cough suppressant in addition to that she can start another course of Augmentin and other course of prednisone. She is going to go home and check her oxygen levels. If her oxygen levels are below 89% the patient should go to the hospital for further care. 08/07/2024 the patient is here for a pulmonary follow-up visit. Overall she is doing fairly okay. She does complaint of daytime drowsiness. Courtland score is elevated 07/14. She is still waiting for her in-lab sleep study that she be scheduled in the coming weeks. After she gets the down she is to let me know so I can look at it and then we can start her on CPAP therapy if indicated. In the meantime the patient did complete a course of medications for an exacerbation recently. She is feeling a little better this time. She continues using inhalers with good effect. Although, the nebulized therapies more effective for her and therefore budesonide becomes very helpful medication for her. Will recent the budesonide to the pharmacy again to see if we can get it approved for her. 12/10/2024 the patient is here for pulmonary follow-up visit. The patient overall has been doing okay. She is very depressed she has gained weight. She has not been feeling well. She has significant myalgias. She attributes it to the fibromyalgia. She should be following up with Rheumatology because of in case she has any other rheumatological issues that should be dealt with. I will refer her to Rheumatology at this time. In the meantime she does have issues with her breathing with persistent dyspnea on exertion persistent cough consistent with chronic bronchitis. Will go ahead and prescribe her Daliresp for her chronic bronchitis and asthma COPD overlap syndrome. This should help minimize the need for prednisone as she has already gained significant amount of weight in the use of prednisone would potentially worsen that. She will continue with respiratory therapy otherwise. The patient is also describing some right-sided chest discomfort and shoulder discomfort. Will have her get an x-ray when able. 06/03/2025 the patient is here for pulmonary follow-up visit. Overall she is doing okay although she is noticing increasing lower extremity edema. She had been on Lasix before that she was taking it as needed but she ran out. She does maintain a low-sodium diet. She did have an x-ray back in December 2024 which I personally reviewed demonstrating increased cardiac size. Will go ahead and request an echo and give her additional Lasix. If her echo is abnormal she may need to see Cardiology. In the meantime she is complaining of other paresthesias in radicular pain. She had issues with cervical stenosis in the past. She is going to follow up with Neurology. She continues use her respiratory therapy. She also responds well to budesonide I will send to the pharmacy as well. I did send a prescription for Daliresp but she did not get at the pharmacy. Will we sent it again as the medication to decrease her need for steroids and decrease exacerbations. Will plan to follow-up in 3-4 months after her echo if any issues arise she can always call for an earlier assessment. [facility] Medical History (Updated 06/03/25 @ 09:22 by Jose F Mccallum MD) Lower extremity edema Asthma-COPD overlap syndrome MANJULA (obstructive sleep apnea) Chronic urticaria Chronic restrictive lung disease COVID-19 Pre-op chest exam Sinusitis Dyspnea Chest pain Obesity Anemia Extremity edema Dyspnea Chronic rhinitis MANJULA on CPAP Asthma Surgical History History of bilateral tubal ligation History of dilatation and curettage delivery delivered Family History Mother Asthma Hypertension Father FHx: lung cancer Social History Alcohol intake: never Patient Tobacco Use Status: Former Tobacco user Tobacco use type: Cigarette Years Smoked: 12 years Female Reproductive History Menstrual Age of Menarche: 13 Review of Systems Const Reports as per HPI and Reports weight gain Eyes Reports no additional complaints ENT Reports no additional complaints and Reports Normal hearing present Card Reports chest pain and Reports dyspnea on exertion Resp Reports as per HPI and Reports dyspnea on exertion GI Reports no additional complaints Reports as per HPI Musc Reports myalgias and Reports limited range of motion Neuro Reports no additional complaints and Reports Normal hearing present Psych Reports no additional complaints Endo Reports no additional complaints Pedro/Lymph Reports no additional complaints Aller/Immun Reports no additional complaints Physical Exam Vital Signs: Last Vital Signs Pulse 76 06/03/25 09:05 BP 130/86 06/03/25 09:05 Pulse Ox 99 06/03/25 09:05 Oxygen Delivery Method Room Air 06/03/25 09:05 BMI result Body Mass Index 43.9 Const General: comfortable Orientation/consciousness: patient oriented x3 HEENT Head: Yes normal to inspection Neck Neck: Yes normal visual inspection Carotids: no bruits Chest Chest palpation & inspection: normal inspection of the chest Resp Effort & Inspection: able to speak in complete sentences Auscultation: no crackles, no rales, no rhonchi, no wheezes and diminished lung sounds Cardio Rate: regular rate Rhythm: regular rhythm Heart sounds: S1 normal heart sound present and S2 normal heart sound present Bruits: no carotid bruits Peripheral pulses: Peripheral pulses 2+ throughout GI Inspection: Yes normal to inspection Skin General skin exam: no rashes or lesions noted Wounds: no wounds Hair: normal Neuro General: patient oriented x3 Cranial nerves: Yes Normal hearing present Cognition (Neuro): normal cognition Motor exam (neuro): 5/5 motor strength present throughout Extrem Other: venous exam: +1 edema with some mild spider telangiectasias General: No clubbing, No cyanosis and Yes edema Psych Appearance: grossly normal Mental Status: mental status grossly normal Speech and movement: Normal speech and movement present Assessment & Plan Assessment & Plan (1) Asthma: Code(s): J45.909 - Unspecified asthma, uncomplicated Category: Medical Qualifiers: Asthma complication type: with acute exacerbation Asthma persistence: persistent Asthma severity: moderate Qualified Code(s): J45.41 - Moderate persistent asthma with (acute) exacerbation (2) MANJULA (obstructive sleep apnea): Code(s): G47.33 - Obstructive sleep apnea (adult) (pediatric) Category: Medical (3) Dyspnea: Code(s): R06.00 - Dyspnea, unspecified Category: Medical Qualifiers: Dyspnea type: dyspnea on exertion Qualified Code(s): R06.09 - Other forms of dyspnea (4) Chronic restrictive lung disease: Code(s): J98.4 - Other disorders of lung Category: Medical (5) Extremity edema: Code(s): R60.0 - Localized edema Category: Medical (6) Chest pain: Code(s): R07.9 - Chest pain, unspecified Category: Medical Qualifiers: Chest pain type: chest pain on breathing Qualified Code(s): R07.1 - Chest pain on breathing (7) Fibromyalgia: Code(s): M79.7 - Fibromyalgia Category: Medical (8) Asthma-COPD overlap syndrome: Code(s): J44.89 - Other specified chronic obstructive pulmonary disease Category: Medical (9) Lower extremity edema: Code(s): R60.0 - Localized edema Category: Medical Plan Trelejordan Daliresalli restart Budesonide nebs ROSEMARY as needed continue astelin nasal spray Continue zyrtec continue monterlukast Low sodium diet Lasix as needed for edema Bloodwork in 2 weeks ECHO F/U 3-4 months Orders: Orders CA echo transthoracic complete Today I27.20 - Pulmonary hypertension, unspecified Complete Blood Count Auto Diff Today R60.0 - Localized edema Basic Metabolic Panel Today R60.0 - Localized edema Erythrocyte Sedimentation Rate Today R60.0 - Localized edema Medications: Changed From furosemide (Lasix) 20 mg PO DAILY 30 days 30 tabs 0RF To furosemide (Lasix) 20 mg PO DAILY PRN 30 tabs 0RF edema 30 days From budesonide 0.5 mg (2 mL) inhalation BID 30 days 120 mL 4RF J44.9 - Chronic obstructive pulmonary disease, unspecified To budesonide 0.5 mg (2 mL) inhalation DAILY 60 mL 11RF 30 days J44.9 - Chronic obstructive pulmonary disease, unspecified Refilled roflumilast (Daliresp) 500 mcg PO DAILY 30 tabs 11RF 30 days Coding Level of Care Code Est Pt Level 4 (19004) Complex EM visit Add On G2211 Diagnoses Moderate persistent asthma with acute exacerbation J45.41 Asthma complication type: with acute exacerbation Asthma persistence: persistent Asthma severity: moderate MANJULA (obstructive sleep apnea) G47.33 Dyspnea on exertion R06.09 Dyspnea type: dyspnea on exertion Chronic restrictive lung disease J98.4 Extremity edema R60.0 Chest pain on breathing R07.1 Chest pain type: chest pain on breathing Fibromyalgia M79.7 Asthma-COPD overlap syndrome J44.89 Lower extremity edema R60.0 Time Spent (min) 17
--- OUTSIDE RECORDS SUMMARY | 2025-06-03 09:37 | XMS_ITS | Encounter Summary ---
Author Organization [facility] Address [address] [place] [id number] Phone Care Team Providers Care Advertising Assistant Manager Name Role Phone Pam Vera MD Primary Care Provider [phone] Pam Vera MD Primary Care Provider [phone] Pam Vera MD Unavailable [phone] Encounter Details Date Type Department Care Team (Latest Contact Info) Description 12/19/2017 Transcribe Orders Ages [facility] [address] 3[address] Floor, [address] [place] [address] Mela Barrett PA [address] [place] [address] DYER (dyspnea on exertion) (Primary Dx) Social History Tobacco Use Types Packs/Day Years Used Date Smoking Tobacco: Never Assessed Comments Unknown Sex and Gender Information Value Date Recorded Sex Assigned at Not on file Legal Sex Female 9:35 PM EDT Gender Identity Not on file Sexual Orientation Not on file documented as of this encounter Plan of Treatment Not on file documented as of this encounter Visit Diagnoses Diagnosis DYER (dyspnea on exertion)- Primary Other dyspnea and respiratory abnormality documented in this encounter Care Teams Advertising Assistant Manager Relationship Specialty Start Date End Date Pam Vera MD [address] [place] [address] PCP - General 06/06/17 09/10/19 Pam Vera MD [address] [place] [address] PCP - General 09/11/19 Pam Vera MD [address] [place] [address] [address] [place] [phone] 09/11/19 documented as of this encounter Additional Source Comments The information contained in this document represents components of the legal health record. It is not the complete legal health record.[facility]
--- OUTSIDE RECORDS SUMMARY | 2025-06-03 09:37 | XMS_ITS | Encounter Summary ---
Author Organization [employer] Address [address] [place] [address] Care Team Providers Care Oil Well Drilling Manager Name Role Phone Unavailable Primary Care Provider Unavailabl e Reason for Visit * Reason Onset Date Comments medical clearance 08/29/2023 Encounter Details Date Type Department Care Team (Late st Contact Info) Description 08/29/2023 Telephone [facility] [address] [place], [place] [phone] Clare Gold DDS [address] [place], [place] [phone] medical clearance Social History Tobacco Use Types [...] sent to PCP. Neurology office fax is [phone] and Neurologist name is Rohini blanca. Can a new medical clearance be sent. The patient is complaining of pain and wants to be able to scheduled th extraction appt DR documented in this encounter Plan of Treatment Not on file documented as of this encounter Visit Diagnoses Not on filedocumented in this encounter
--- OUTSIDE RECORDS SUMMARY | 2025-06-03 09:37 | XMS_ITS | Clinical Summary ---
Author Organization [facility] Address [address] [place] [address] Care Team Providers Care Ladle Cleaner Name Role Phone Asuncion Roque SARBJIT Primary Care Provider [phone] Source Comments PLEASE NOTE, if this patient is a minor, it may be UNLAWFUL to discuss sensitive information that is contained in these records (such as FAMILY PLANNING, MENTAL HEALTH or SUBSTANCE ABUSE) with the minor patient's parent or other person without the patient's specific authorization.[facility] Allergies Active Allergy Reactions Criticality Noted Date Comments Diphenhydramine Hcl Medications ibuprofen (ADVIL,MOTRIN) 800 mg tabletIndication s:Tooth pain Take 1 Tab by mouth 3 (three) times daily as needed for pain 20 Tab 01/24/2019 Active budesonide (PULMICORT FLEXHALER) 180 mcg/actuation inhaler Inhale 2 Puffs into the lungs 2 (two) times daily 1 Each 5 09/06/2023 Active Active Problems Problem Noted Date Diagnosed Date Depression GERD Asthma Social History Tobacco Use Types Packs/Day Years Used Date Smoking Tobacco: Never Assessed Social Connections Answer Date Recorded Connectedness 0 05/06/2024 Financial Resource Strain Answer Date R ecorded Financial Resource Strain 0 2023 Stress Answer Date Recorded Stress 0 09/06/2023 Physical Activity Answer Date Recorded Physical Activity 0 09/06/2023 Food Insecurity Answer Date Recorded Food 0 05/16/2024 Transportation Needs Answer Date Record ed Transportation 0 09/06/2023 Housing Stability Answer Date Recorded Housing 0 09/06/2023 Safety and Environment Answer Date Jose rded Safety 0 09/06/2023 Utilities Answer Date Recorded Utilities 0 09/06/2023 Employment Answer Date Recorded Stress 0 05/06/2024 Comments Unknown Sex and Gender Information Value Date Recorded Sex Assigned at Not on file Legal Sex Female 6:09 AM PDT Gender Identity Not on file Sexual Orientation Not on file Plan of Treatment Upcoming Encounters Date Type Department Care Team (Late st Contact Info) Description 06/30/2025 11:00 AM EST Office Visit [facility] [address] [place] [phone] Jacquelin Peterson [address] [place] [address] Health Maintenance Due Date Last Done Comments Anxiety Screening 1970 Depression Monitoring 1970 Diabetes Screening 1970 HPV Screening 1970 Hepatitis C Screening 1970 Lipid Screening 1970 Pap + HPV 1970 Tobacco Screening 1970 HIV Screening 1985 Hypertension Screening (#1) 1988 Imm-DTaP/Tdap/Td (1 - Tdap) 1989 Imm-Hepatitis B (1 of 3 - 19+ 3-dose series) 9 Imm-Pneumococcal 50+ (1 of 2 - PCV) 1989 Cervical Cancer Screening 1991 Pap Smear 1991 Breast Cancer Screening (Mammogram) 2010 CT Colonography 2015 Colonoscopy 2015 Colorectal Cancer Screening 2015 FIT/gFOBT 2015 Fecal DNA 2015 Flexible Sigmoidoscopy 2015 Imm-Zoster, Recombinant (1 of 2) 2020 Alcohol and Drug Screen 08/21/2024 [id number] ( - season) 2025 Imm-Influenza (#1) 2025 Cervical Ablation/Cold-Knife Conization Discontinued Cervical Cryotherapy Discontinued Colposcopy Discontinued Endometrial Biopsy Discontinued Excision/Leep Discontinued HPV Genotyping Discontinued Vaginal Pap Discontinued Vulvoscopy Discontinued Insurance [facility] [place] [id number] Care Teams Ladle Cleaner Relationship Specialty Start Date End Date Asuncion Roque DMD [address] [place] [address] PCP - General 05/02/19
--- OUTSIDE RECORDS SUMMARY | 2025-06-03 09:37 | XMS_ITS | Clinical Summary ---
Author Organization [facility] Address [address] [place] [address] Phone Care Team Providers Care Profiling Machine Set Up Operator Tool Name Role Phone Pam Vera MD Primary [...] mouth 2 times daily as needed. Active ferrous sulfate 325 mg (65 mg [...] for 360 days. - Inhalation 05/14/20 24 Active blood-glucose meter kit Blood Glucose Monitoring Suppl (FreeStyle Wagener Lite) w/Device Kit Route: 1 Each by [...] day. 90 capsule 1 01/08/20 25 Active diclofenac (VOLTAREN) 75 mg [...] the office 2 tablet 01/21/20 25 Active EPINEPHrine (EPIPEN) 0.3 mg/0.3 mL injection INJECT 1 DEVICE DIRECTED NEEDED (ANAPHYLAXIS). USE DIRECTED 2 each 2 02/20/20 25 Active butalbital-acetam inophen-caffeine (FIORICET, ESGIC) 50-325-40 mg per tablet TAKE 1 TABLET BY MOUTH EVERY 6 (SIX) HOURS IF NEEDED FOR MIGRAINE. 14 tablet 02/20/20 25 Active polyethylene glycol (Golytely) 236-22.74-6.74 -5.86 gram solution Take 4L by mouth once for one dose. May substitue any PEG. Starting at 2PM the day before your procedure drink 1 8oz glasses at your own pace until you complete half of the gallon. Finish 2nd half of the gallon at 8PM. 4000 mL 04/03/20 25 Active bisacodyL (DULCOLAX) 5 mg EC tablet Take 2 tablets by mouth right before beginning bowel prep. See instructions provided by the office 2 tablet 04/03/20 25 Active Active Problems Problem Noted Date Diagnosed Date Hyperlipidemia 05/17/2024 Type 2 diabetes mellitus ([facility] V24, [facility] V 28) 05/17/2024 Cervical cord compression wi th myelopathy ([facility] V24, [facility] V28) 11/30/2021 Overview (05/17/2024): Last Assessment & Plan: Ms. Saunders returns with a close friend who serves as dynamics ax consultant and brought a list of questions that [...] Severe obesity (BMI 35.0-39. 9) with comorbidity ([facility] V24, [facility] V28) 01/13/2017 Obstructive sleep apnea syndrome 01/13/2017 Adnexal mass 10/07/2016 Fibromyalgia 10/07/2016 Vitamin D deficiency 04/21/2016 Arthritis of knee 04/18/2016 Allergic rhinitis 11/06/2015 Immunizations Immunization Administration Dates Next Due Hepatitis A Adult [...] obesity with BMI of 4 5.0-49.9, adult ([facility] V24, [facility] V28) 01/13/2017 DX:Morbid obesity wit h BMI of 45.0-49.9, adult ([facility]) Adnexal mass 10/07/2016 DX:Adnexal mass Allergic [...] Care Team (Late st Contact Info) Description 06/26/2025 10:30 AM EST Office Visit Internal Medicine - [place] [address] [facility] [address] [place] [address] Pam Vera MD [address] [facility] [address] [place] [address] Health Maintenance Due Date Last Done Comments Breast Cancer Screening 1970 Colorectal Cancer Screening: Colonoscopy 1970 Diabetes: Annual Foot Exam 1980 Diabetes: Annual Retina Eye Exam 1980 Hepatitis B Vaccines (1 of 3 - 19+ 3-dose series) 1989 Cervical Cancer Screening: Pap Smear 1991 Hepatitis A Vaccines (2 of 2 - Risk 2-dose series) 10/04/2019 04/03/2019 Pneumococcal Vaccine: 50+ Years (2 of 2 - PCV) 03/01/2020 03/01/2019 RSV Immunization Adult Patients (1 - Risk 50-74 years 1-dose series) 2020 Zoster Vaccines (1 of 2) 2020 HIV Screening 07/30/2022 Hepatitis C Screening 07/30/2022 Social Influencers of Health Screening 07/30/2022 Depression Screening 08/21/2024 04/25/2024 COVID-19 Vaccine ( season) 2025 Influenza Vaccine (#1) 2025 07/07/2022, 2020 Diabetes: Blood Sugar Control Test (HGBA1C) 07/06/2025 [...] Procedure Name Priority Date/Time Associated Diagnosis Comments COMPREHENSIVE METABOLIC PANEL Routine 01/03/2025 10:43 AM EDT Type 2 diabetes mellitus without complication, without long-term current use of insulin ([facility] V24, [facility] V28) Right foot pain HEMOGLOBIN A1C Routine 01/03/2025 10:43 AM EDT Type 2 diabetes mellitus without complication, without long-term current use of insulin ([facility] V24, [facility] V28) MICROALBUMIN CREATININE URINE RATIO Routine 09/26/2024 10:32 AM EST Type 2 diabetes mellitus without complication, without long-term current use of insulin ([facility] V24, [facility] V28) Low vitamin D level Mixed hyperlipidemia DEPRESSION SCREENING Routine 04/25/2024 LIPID PANEL Routine 12/20/2023 from Last 3 Months or Most Recently Relevant to Health Maintenance Results * (ABNORMAL) Hemoglobin A1c (01/03/2025 10:43 AM EDT) Hemoglobin A1C 7.2(H) <6.5 % LAB CHEMISTRY METHOD 01/03/2025 4:[address] [facility] Mean Bld Glu Estim. 160 mg/dL LAB CHEMISTRY METHOD 01/03/2025 4:[address] [facility] Blood Venous blood specimen / Unknown Venipuncture / Unknown 01/03/2025 10:43 AM EDT 01/03/2025 10:43 AM EDT us Pam Vera MD LAB BLOOD ORDERABLES Final Res ult [facility] [address] [place] [address], [place] [phone] * (ABNORMAL) Comprehensive metabolic panel (01/03/2025 10:43 AM EDT) Sodium 138 133 - 145 mmol/L LAB CHEMISTRY METHOD 01/03/2025 3:08 PM [facility] Potassium 4.4 3.5 - 5.5 mmol/L LAB CHEMISTRY METHOD 01/03/2025 3:08 PM [facility] Chloride 103 96 - 110 mmol/L LAB CHEMISTRY METHOD 01/03/2025 3:08 PM [facility] CO2 28 21 - 32 mmol/L LAB CHEMISTRY METHOD 01/03/2025 3:08 PM [facility] Anion Gap 7 3 - 11 LAB CHEMISTRY METHOD 01/03/2025 3:08 PM [facility] Glucose 226(H) 70 - 100 mg/dL LAB CHEMISTRY METHOD 01/03/2025 3:08 PM [facility] BUN 15 5 - 25 mg/dL LAB CHEMISTRY METHOD 01/03/2025 3:08 PM [facility] Creatinine 0.60 0.50 - 1.10 mg/dL LAB CHEMISTRY METHOD 01/03/2025 3:08 PM [facility] eGFR 107 >=60 mL/min/1. 73m2 LAB CHEMISTRY METHOD 01/03/2025 3:08 PM [facility] Comment:Calculation based on the Chronic Kidney Disease Epidemiology Collaboration (CKD-EPI) equation refit without adjustment for race. BUN/Creatinine Ratio 25.0 LAB CHEMISTRY METHOD 01/03/2025 3:08 PM [facility] Calcium 9.1 8.5 - 10.5 mg/dL LAB CHEMISTRY METHOD 01/03/2025 3:08 PM [facility] AST (SGOT) 27 10 - 42 unit/L LAB CHEMISTRY METHOD 01/03/2025 3:08 PM [facility] ALT (SGPT) 48 10 - 60 unit/L LAB CHEMISTRY METHOD 01/03/2025 3:[address] [facility] Alkaline Phosphatase 85 42 - 121 unit/L LAB CHEMISTRY METHOD 01/03/2025 3:[address] [facility] Total Protein 7.7 6.0 - 8.0 g/dL LAB CHEMISTRY METHOD 01/03/2025 3:[address] [facility] Albumin 3.6 3.2 - 5.0 g/dL LAB CHEMISTRY METHOD 01/03/2025 3:[address] [facility] Total Bilirubin 0.4 0.0 - 1.4 mg/dL LAB CHEMISTRY METHOD 01/03/2025 3:[address] [facility] Blood Venous blood specimen / Unknown Venipuncture / Unknown 01/03/2025 10:43 AM EDT 01/03/2025 10:43 AM EDT us Pam Vera MD LAB BLOOD ORDERABLES Final Res ult [facility] [address] [place] [address], * Microalbumin creatinine urine ratio (09/26/2024 10:32 AM EST) Creatinine, Urine 103.0 mg/dL LAB CHEMISTRY METHOD 09/26/2024 2:[address] [facility] Microalb, Ur 15.4 0.0 - 29.0 mg/L LAB CHEMISTRY METHOD 09/26/2024 2:[address] [facility] Microalb/Creat Ratio 15 <30 mg/g creat LAB CHEMISTRY METHOD 09/26/2024 2:[address] [facility] Urine Urine specimen obtained by clean catch procedure / Unknown Non-blood Collection / Unknown 09/26/2024 10:32 AM EST 09/26/2024 10:32 AM EST Pam Vera MD LAB URINE ORDERABLES Final Res ult [facility] [address] [place] [address], * Depression Screening (04/25/2024) Depression Screening Abstracted [...] Most Recently Relevant to Health Maintenance Insurance [facility] Care Teams Profiling Machine Set Up Operator Tool Relationship Specialty Start Date End Date Pam Vera MD [address] [phone] PCP - General Internal Medicine 11/20/17
--- OUTSIDE RECORDS SUMMARY | 2025-06-03 09:37 | XMS_ITS | Clinical Summary ---
Author Organization [employer] Address [address] [facility] [address] [place] [address] Care Team Providers Care Chief Diversity Officer Name Role Phone Unavailable Primary Care Provider [...] 3 Active ergocalciferol (Vitamin D-2) 1.25 MG (71320 UT) capsule take 1 capsule by oral [...] disease) Hypertension 04/23/2024 Migraine 04/23/2024 Severe obesity (CMS/HCC) 04/23/2024 Sleep apnea, obstructive 04/23/2024 Hepatitis C [...] Panel 1970 SDOH Screening 1970 Sigmoidoscopy 1970 Disability Screening 1970 Alcohol/Substance Use Screening 1982 Hepatitis B Vaccines (1 of 3 - 19+ 3-dose series) 1989 Pap Smear 1991 Cervical Cancer Screening 2000 HPV/Cotest 2000 Mammogram 2010 Hepatitis A Vaccines (2 of 2 - Risk 2-dose series) 10/04/2019 04/03/2019 Pneumococcal Vaccine: 50+ Years (2 of 2 - PCV) 03/01/2020 03/01/2019 Zoster Vaccines (1 of 2) 2020 Dental X-Ray: Bitewings 05/27/2024 05/26/20 23, 06/10/2019 COVID-19 Vaccine (1 - 2023-2 5 season) 2025 Influenza Vaccine (#1) 2025 2, 07/01/2021 Tobacco Screening 04/23/2025 04/23/2024 DTaP/Tdap/Td Vaccines (2 - T d or Tdap) 04/03/2029 04/03/2019 RSV Patients and Patients Aged 60 years [...] 05/26/2023 1:00 PM EDT Spinal stenosis of cajmadih-gxopqlm-dmyuc region Symptomatic periapical periodontitis from Last 3 Months or Most Recently Relevant to Health Maintenance Insurance [facility] MEDICAID STAND ADULT
--- OUTSIDE RECORDS SUMMARY | 2025-06-03 09:37 | XMS_ITS | Clinical Summary ---
Author Organization [facility] Address [address] [place], [place] [address] Phone Care Team Providers Care Pipeliner Name Role Phone Pam Vera MD Primary Care Provider [phone] Pam Vera MD Unavailable [phone] Social History Tobacco Use Types Packs/Day Years Used Date Smoking Tobacco: Never Assessed Education Answer Date Recorded Are you interested in more education? Not on angelina e 12/16/2022 Are you concerned about learning? Not on file 12/16/2022 No 12/16/2022 No 12/16/2022 Digital Access Answer Date Recorded No 01/16/2023 No 01/16/2023 No 01/16/2023 Reliable internet access at home? Not on file 01/16/2023 Device with a working camera? Not on file Comments Unknown Sex and Gender Information Value Date Recorded Sex Assigned at Not on file Legal Sex Female 9:35 PM EDT Gender Identity Not on file Sexual Orientation Not on file Plan of Treatment Health Maintenance Due Date Last Done Comments Adult Td,Tdap Booster 1970 LIPID PANEL 1970 DEPRESSION SCREENING 1982 SMOKING Hx and SMOKELESS TOB ACCO SCREENING 1983 HEPATITIS C SCREENING 1988 HIV ONE-TIME SCREENING (18-6 5 YEARS) 1988 PAP SMEAR 1991 MAMMOGRAM 2010 COLOGUARD 2015 COLONOSCOPY 2015 COLORECTAL CANCER SCREENING 2015 FIT TEST 2015 FOBT 2015 SIGMOIDOSCOPY 2015 VIRTUAL COLONOSCOPY 2015 PNEUMOCOCCAL VACCINES (50+ y ears) (1 of 1 - PCV) 2020 ZOSTER VACCINES (1 of 2) 2020 INFLUENZA VACCINE (#1) 2025 07/01/2021 COVID-19 VACCINE ( - 2024-2 6 season) 2025 RSV VACCINE (1 - 1-dose 75+ series) 2045 HEPATITIS A VACCINES Aged Out No long er eligible based on patient's age to complete this topic HIB VACCINES Aged Out No longer eligi ble based on patient's age to complete this topic MENINGOCOCCAL VACCINES (ACWY) Aged Out No longer eligible based on patient's age to complete this topic MENINGOCOCCAL VACCINES (B) Aged Out N o longer eligible based on patient's age to complete this topic Medical Devices Not on file Insurance [employer] [place] [address] [place] [address] ACO ACO [facility] [place] [address] [place] [address] [place] [address] [place] [address] [facility] [place] [address] [address] [place] [address] [facility] [employer] [facility] Care Teams Pipeliner Relationship Specialty Start Date End Date Pam Vera MD [address] [phone] PCP - General 09/11/19 Pam Vera MD [address] [phone] 09/11/19 Additional Source Comments The information contained in this document represents components of the legal health record. It is not the complete legal health record.[facility]
== END 2025-06-03 09:23 | disposition home or self-care (01) ==
LOC: HO.HPS 09:01
PROVIDERS: PCP Internal Medicine; Visit Provider Hospitalist
DX: J45.41 Moderate persistent asthma with (acute) exacerbation (principal); G47.33 Obstructive sleep apnea (adult) (pediatric); R06.09 Other forms of dyspnea; J98.4 Other disorders of lung; R60.0 Localized edema; R07.1 Chest pain on breathing; M79.7 Fibromyalgia; J44.89 Other specified chronic obstructive pulmonary disease
CPT/HCPCS: 99214

== ENCOUNTER → 2025-06-03 09:00 | Outpatient (BNVA) | payer OTHER, SELFPAY | PROVIDERS: PCP Internal Medicine; Visit Provider Hospitalist | DX: J45.41 Moderate persistent asthma with (acute) exacerbation (principal); R07.1 Chest pain on breathing; M79.7 Fibromyalgia; G47.33 Obstructive sleep apnea (adult) (pediatric); R06.09 Other forms of dyspnea; J98.4 Other disorders of lung; R60.0 Localized edema; J44.89 Other specified chronic obstructive pulmonary disease | CPT/HCPCS: 99212 ==

== ENCOUNTER 2025-07-15 | Outpatient (REF) | payer OTHER, SELFPAY ==
--- OUTSIDE RECORDS SUMMARY | 2025-09-11 10:35 | XMS_ITS | Encounter Summary ---
Author Organization [email or web address] Address [address] [facility] 7 [place] [address] Care Team Providers Care Multiple Resaw Operator Name Role Phone Unavailable Primary Care Provider Unavailabl e Reason for Visit * Reason Onset Date Comments rs exo appt 06/26/2025 Encounter Details Date Type Department Care Team (Late st Contact Info) Description 06/26/2025 Telephone [facility] ADULT DENTAL [address] [place] [address] Cody Hdz DDS [address] [place] [address] rs exo appt Social History Tobacco Use Types Packs/Day Years [...] * Telephone Encounter - Imelda Márquez - 06/26/2025 3:01 PM EST Patient is seeking to rescheduling extraction appointment with Olivia Ames documented in this encounter Plan of Treatment Not on file documented as of this encounter Visit Diagnoses Not on filedocumented in this encounter
--- OUTSIDE RECORDS SUMMARY | 2025-09-11 10:35 | XMS_ITS | Encounter Summary ---
Author Organization [employer] Address [address] [facility] 7 [place] [address] Care Team Providers Care Discovery Guide Name Role Phone Unavailable Primary Care Provider Unavailabl e Reason for Visit * Reason Onset Date Comments extrraction appt 08/26/2025 Encounter Details Date Type Department Care Team (Late st Contact Info) Description 08/26/2025 Telephone [facility] ADULT DENTAL [address] [place] [address] Cody Hdz DDS [address] [place], [place] [phone] extrraction appt Social History Tobacco Use Types Packs/Day [...] * Telephone Encounter - Imelda Márquez - 08/26/2025 12:59 PM EST Clemencia would like to reschedule extraction appointment with Dr. Hdz. Several cancellations. Please reach out to patient for scheduling DR documented in this encounter Plan of Treatment Not on file documented as of this encounter Visit Diagnoses Not on filedocumented in this encounter
--- OUTSIDE RECORDS SUMMARY | 2025-09-11 10:35 | XMS_ITS | Clinical Summary ---
Author Organization [facility] Address [address] [place], [place] [phone] Phone Care Team Providers Care Route Aide Name Role Phone Pam Vera MD Primary Care Provider [phone] Pam Vera MD Unavailable Social History Tobacco Use Types Packs/Day Years [...] topic Medical Devices Not on file Insurance [employer] [place] [address] [place] [address] ACO [employer] [facility] [place] [address] [place] [address] [place] [address] [place] [address] [employer] [facility]CO [facility] [address] [place] [address] [facility] [employer] [facility] Care Teams Route Aide Relationship Specialty Start Date End Date Pam Vera MD [address] [phone] PCP - General 09/11/19 Pam Vera MD [address] [phone] 09/11/19 Additional Source Comments The information contained in this document represents components of the legal health record. It is not the complete legal health record.[facility]
--- OUTSIDE RECORDS SUMMARY | 2025-09-11 10:36 | XMS_ITS | Clinical Summary ---
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 Saw Operator Name Role Phone Unavailable Primary Care [...] 3 Active ergocalciferol (Vitamin D-2) 1.25 MG (51526 UT) capsule take 1 capsule by oral [...] 04/23/2024 Hepatitis C 04/23/2024 Spinal stenosis 05/26/2023 Encounters Date Type Department Care Team Description 08/26/2025 Telephone [facility] ADULT DENTAL [address] [place] [address] Cody Hdz DDS 08/26/2025 Telephone [facility] ADULT DENTAL [address] [place] [address] Cody Hdz DDS extrraction appt 06/26/2025 Telephone [facility] ADULT DENTAL [address] [place] [address] Cody Hdz DDS 06/26/2025 Telephone [facility] ADULT DENTAL [address] [place] [address] Cody Hdz DDS rs exo appt from Last 3 Months Social History Tobacco Use Types Packs/Day Years [...] of 2 - PCV) 03/01/2020 03/01/2019 RSV Patients and Patients Aged 60 years or older (1 - Risk 50-74 years 1-dose series) 2020 Zoster Vaccines (1 of 2) 2020 Dental X-Ray: Bitewings 05/27/2024 05/26/20 23, 06/10/2019 COVID-19 Vaccine (1 - 2024-2 6 season) 2025 Influenza Vaccine (#1) 2025 2, 07/01/2021 Tobacco Screening 04/23/2025 04/23/2024 DTaP/Tdap/Td Vaccines (2 - T d or Tdap) 04/03/2029 04/03/2019 HIB Vaccines Aged [...] 05/26/2023 1:00 PM EDT Spinal stenosis of ytbbewhr-recazqp-ijvbw region Symptomatic periapical periodontitis from Last 3 Months or Most Recently Relevant to Health Maintenance Insurance [facility] MEDICAID STAND ADULT
--- OUTSIDE RECORDS SUMMARY | 2025-09-11 10:36 | XMS_ITS | Encounter Summary ---
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 Neurology office fax is [phone] and Neurologist name is Rohini blanca. Can a new medical clearance be sent. The patient is complaining of pain and wants to be able to scheduled th extraction appt DR documented in this encounter Plan of Treatment Not on file documented as of this encounter Visit Diagnoses Not on filedocumented in this encounter
--- OUTSIDE RECORDS SUMMARY | 2025-09-11 10:36 | XMS_ITS | Clinical Summary ---
Author Organization 175 [facility] Address [address] [place] [address] Phone Care Team Providers Care Transportation Economics Teacher Name Role Phone Pam Vera MD Primary Care Provider [phone] Allergies Active Allergy Reactions Criticality Noted Date Comments Acetaminophen 06/10/2019 Other reaction(s): Respiratory arrest Diphenhydramine 01/22/2015 Arrhytmia Hydroxyzine Palpitations 07/08/2020 Other reaction(s): palpatations Latex 01/06/2020 Rash with contact Other 01/22/2015 Vistaril Arrhythmia Oxycodone 01/22/2015 Medications furosemide (LASIX) 20 mg tablet Take 20 mg by mouth daily. Active blood-glucose meter kit 10/07/19 22 Active ONETOUCH ULTRASOFT LANCETS MISC 1 Stick [...] blood-glucose meter kit Blood Glucose Monitoring Suppl (Myrl Lite) w/Device Kit Route: 1 Each by [...] week. 12 capsule 1 01/08/20 25 Active atorvastatin (LIPITOR) 10 mg tablet Take 1 tablet (10 mg total) by mouth 1 (one) time each day. 90 tablet 1 01/08/20 25 Active omeprazole (PriLOSEC) [address] capsule Take 1 capsule (20 mg total) by mouth 1 (one) time each day. Do not crush or chew. 90 capsule 1 05/20/20 25 Active FLUoxetine (PROzac) 20 mg capsule [...] the office 2 tablet 04/03/20 25 Active blood sugar diagnostic (FreeStyle Lite Strips) test strip USE DIRECTED TO TEST BLOOD SUGAR EVERY DAY FOR 30 DAYS 100 each 4 06/11/20 25 Active ibuprofen (ADVIL,MOTRIN) 600 mg tablet Take 1 tablet (600 mg total) by mouth 3 (three) times a day if needed for mild pain (pain). 30 tablet 06/26/20 25 Active benzonatate (TESSALON) 200 mg capsule Take 1 capsule (200 mg total) by mouth 3 (three) times a day if needed for cough. Do not crush or chew. 21 capsule 06/26/20 25 Active incontinence pad, liner, disp padIndications:Ur inary incontinence, unspecified type 1 EA 3 (three) times a day. 120 each 11 06/26/20 25 Active glipiZIDE (GLUCOTROL) 5 mg tablet Take 1 tablet (5 mg total) by mouth 2 (two) times a day before meals. 60 tablet 5 06/26/20 25 Active DULoxetine (CYMBALTA) [address] capsule Take 1 capsule (30 mg total) by mouth 1 (one) time each day. 30 capsule 10 07/02/20 25 Active bisacodyL (DULCOLAX) 5 mg EC tablet Take 2 tablets by mouth right before beginning bowel prep. See instructions provided by the office 2 tablet 08/11/20 25 Active polyethylene glycol (Golytely) 236-22.74-6.74 -5.86 gram solution Take 4L by mouth once for one dose. May substitue any PEG. Starting at 2PM the day before your procedure drink 1 8oz glasses at your own pace until you complete half of the gallon. Finish 2nd half of the gallon at 8PM. 4000 mL 08/11/20 25 Active Active Problems Problem Noted Date Diagnosed Date Hyperlipidemia 05/17/2024 Type 2 diabetes mellitus 05/17/2024 Cerebral aneurysm without rupture 11/30/2021 Overview (05/17/2024): [...] Arthritis of knee 04/18/2016 Allergic rhinitis 11/06/2015 Resolved Problems Problem Noted Date Diagnosed Date Resolved Date Cervical cord compression with myelopathy 11/30/2021 06/26/2025 Overview (05/17/2024): Last Assessment & Plan: Ms. Saunders returns with a close friend who serves as terminal worker and brought a list of questions that [...] to consider proceeding with surgery quite soon. Encounters Date Type Department Care Team Description 06/26/2025 11:00 AM EST Lab Draw Station - [address] [facility] [address] [facility] [address] [place] [address] Type 2 diabetes mellitus without complication, without long-term current use of insulin ([facility] V24, [facility] V28) 06/26/2025 10:30 AM EST Office Visit Internal Medicine - [address] [place] [phone] Pam Vera MD Chronic right shoulder pain (Primary Dx); Severe obesity (BMI 35.0-39.9) with comorbidity ([facility] V24, [facility] V28); Type 2 diabetes mellitus without complication, without long-term current use of insulin [place] [place] [facility] V28) 06/26/2025 Results Follow-Up Internal Medicine - [address] [place] [phone] Pam Vera MD 06/26/2025 Telephone Internal Medicine - [address] [place] [phone] Pam Vera MD 06/18/2025 Telephone Gastroenterology - [address] [phone] Jhon Gonzalez MD from Last 3 Months Immunizations Immunization Administration Dates Next Due Hepatitis [...] obesity with BMI of 4 5.0-49.9, adult ([facility] V24, [facility] V28) 01/13/2017 DX:Morbid obesity wit h BMI of 45.0-49.9, adult ([facility]) Adnexal mass 10/07/2016 DX:Adnexal mass Allergic rhinitis [...] Never Tobacco Cessation:Counseling Given: Not Answered Comments No Sex and Gender Information Value Date Recorded Sex Assigned at Female 09/12/2024 10:43 AM EST Legal Sex Female 10:21 AM EST Gender Identity Female 09/12/2024 10:43 AM EST Sexual Orientation Straight 09/12/2024 10 :43 AM EST Last Filed Vital Signs Vital Sign Reading Time Taken Comments Blood Pressure 108/72 06/26/2025 10:08 AM EST Pulse 79 06/26/2025 10:08 AM EST Temperature 36.2 C (97.1 F) 06/26/2025 10:08 AM EST Respiratory Rate 18 06/26/2025 10:08 AM EST Oxygen Saturation 99% 06/26/2025 10:08 AM EST Inhaled Oxygen Concentration - - Weight 102 kg (225 lb) 06/26/2025 10:08 AM EST Height 152.4 cm (5') 06/26/2025 10:08 AM EST Body Mass Index 43.94 06/26/2025 10:08 AM EST Plan of Treatment Upcoming Encounters Date Type Department Care Team (Late st Contact Info) Description 10/24/2025 9:45 AM EST Office Visit Internal Medicine - [place] [address] [facility] [address] [place] [address] Pam Vera MD [address] [facility] [address] [place] [address] Health Maintenance Due Date Last Done Comments Breast Cancer Screening 1970 Colorectal Cancer Screening: Colonoscopy 1970 Drug Screen 1970 Non-Opioid Controlled Substance Agreement 1970 Diabetes: Annual Foot Exam 1980 Diabetes: [...] Health Screening 07/30/2022 COVID-19 Vaccine ( season) 2025 Influenza Vaccine (#1) 2025 07/07/2022, 2020 Depression Screening 08/21/2025 04/25/2024 Diabetes: Annual Urine Albumin-Creatinine Ratio (uACR) 09/26/2025 09/26/2024, 10/07/2021 Diabetes: Blood Sugar Control Test (HGBA1C) 12/24/2025 06/26/2025, 01/03/2025, 09/26/2024, Additional history exists Diabetes: Annual GFR (Glomerular Filtration Rate) 01/03/2026 [...] Procedure Name Priority Date/Time Associated Diagnosis Comments HEMOGLOBIN A1C Routine 06/26/2025 10:37 AM EST Type 2 diabetes mellitus without complication, without long-term current use of insulin ([facility] V24, [facility] V28) COMPREHENSIVE METABOLIC PANEL Routine 01/03/2025 10:43 AM EDT Type 2 diabetes mellitus without complication, without long-term current use of insulin ([facility] V24, [facility] V28) Right foot pain MICROALBUMIN CREATININE URINE RATIO Routine 09/26/2024 10:32 AM EST Type 2 diabetes mellitus without complication, without long-term current use of insulin ([facility] V24, [facility] V28) Low vitamin D level Mixed hyperlipidemia HM DEPRESSION SCREENING Routine 04/25/2024 LIPID PANEL Routine 12/20/2023 from Last 3 Months or Most Recently Relevant to Health Maintenance Results * (ABNORMAL) Hemoglobin A1c (06/26/2025 10:37 AM EST) Hemoglobin A1C 7.4(H) <6.5 % LAB CHEMISTRY METHOD 06/26/2025 6:33 PM EST [facility] Mean Bld Glu Estim. 166 mg/dL LAB CHEMISTRY METHOD 06/26/2025 6:33 PM EST [facility] Blood Venous blood specimen / Unknown Venipuncture / Unknown 06/26/2025 10:37 AM EST 06/26/2025 10:37 AM EST us Pam Vera MD LAB BLOOD ORDERABLES Final Res ult [facility] [address] [place] [address], [place] [phone] * (ABNORMAL) Comprehensive metabolic panel (01/03/2025 10:43 AM EDT) Sodium 138 133 - 145 mmol/L LAB CHEMISTRY METHOD 01/03/2025 3:08 PM [facility] Potassium 4.4 3.5 - 5.5 mmol/L LAB CHEMISTRY METHOD 01/03/2025 3:08 PM [facility] Chloride 103 96 - 110 mmol/L LAB CHEMISTRY METHOD 01/03/2025 3:08 PM [facility] CO2 28 21 - 32 mmol/L LAB CHEMISTRY METHOD 01/03/2025 3:08 PM [facility] Anion Gap 7 3 - 11 LAB CHEMISTRY METHOD 01/03/2025 3:08 PM [facility] Glucose 226(H) 70 - 100 mg/dL LAB CHEMISTRY METHOD 01/03/2025 3:08 PM [facility] BUN 15 5 - 25 mg/dL LAB CHEMISTRY METHOD 01/03/2025 3:08 PM [facility] Creatinine 0.60 0.50 - 1.10 mg/dL LAB CHEMISTRY METHOD 01/03/2025 3:08 PM [facility] eGFR 107 >=60 mL/min/1. 73m2 LAB CHEMISTRY METHOD 01/03/2025 3:08 PM [facility] Comment:Calculation based on the Chronic Kidney Disease Epidemiology Collaboration (CKD-EPI) equation refit without adjustment for race. BUN/Creatinine Ratio 25.0 LAB CHEMISTRY METHOD 01/03/2025 3:08 PM [facility] Calcium 9.1 8.5 - 10.5 mg/dL LAB CHEMISTRY METHOD 01/03/2025 3:08 PM EDT [facility] AST (SGOT) 27 10 - 42 unit/L LAB CHEMISTRY METHOD 01/03/2025 3:08 PM [facility] ALT (SGPT) 48 10 - 60 unit/L LAB CHEMISTRY METHOD 01/03/2025 3:08 PM EDT [facility] Alkaline Phosphatase 85 42 - 121 unit/L LAB CHEMISTRY METHOD 01/03/2025 3:08 PM EDT [facility] Total Protein 7.7 6.0 - 8.0 g/dL LAB CHEMISTRY METHOD 01/03/2025 3:08 PM T [facility] Albumin 3.6 3.2 - 5.0 g/dL LAB CHEMISTRY METHOD 01/03/2025 3:08 PM [facility] Total Bilirubin 0.4 0.0 - 1.4 mg/dL LAB CHEMISTRY METHOD 01/03/2025 3:08 PM T [facility] Blood Venous blood specimen / Unknown Venipuncture / Unknown 01/03/2025 10:43 AM EDT 01/03/2025 10:43 AM EDT us Pam Vera MD LAB BLOOD ORDERABLES Final Res ult [facility] [address] [place] [address], * Microalbumin creatinine urine ratio (09/26/2024 10:32 AM EST) Creatinine, Urine 103.0 mg/dL LAB CHEMISTRY METHOD 09/26/2024 2:31 PM EST [facility] Microalb, Ur 15.4 0.0 - 29.0 mg/L LAB CHEMISTRY METHOD 09/26/2024 2:31 PM EST [facility] Microalb/Creat Ratio 15 <30 mg/g creat LAB CHEMISTRY METHOD 09/26/2024 2:31 PM EST [facility] Urine Urine specimen obtained by clean catch procedure / Unknown Non-blood Collection / Unknown 09/26/2024 10:32 AM EST 09/26/2024 10:32 AM EST Pam Vera MD LAB URINE ORDERABLES Final Res ult [facility] [address] [place] [address], [place] [phone] * Depression Screening (04/25/2024) Pathologist [facility] Depression Screening Abstracted Historical Provider HEALTH MAINTENANCE [...] Most Recently Relevant to Health Maintenance Insurance [facility] [employer] Care Teams Transportation Economics Teacher Relationship Specialty Start Date End Date Pam Vera MD [address] [place] [phone] PCP - General Internal Medicine 11/20/17
--- OUTSIDE RECORDS SUMMARY | 2025-09-11 10:36 | XMS_ITS | Encounter Summary ---
Author Organization [facility] Address [address] [place] [phone] Phone Care Team Providers Care Global Program Director Name Role Phone Pam Vera MD Primary Care Provider [phone] Pam Vera MD Primary Care Provider [phone] Pam Vera MD Unavailable [phone] Encounter Details Date Type Department Care Team (Latest Contact Info) Description 12/19/2017 Transcribe Orders [facility] [address] [place] [address] [address], [address] [place] [address] Mela Barrett PA [address] [place] [address] DYER (dyspnea on exertion) (Primary Dx) Social [...] abnormality documented in this encounter Care Teams Global Program Director Relationship Specialty Start Date End Date Pam Vera MD [facility] [address] [place] [address] PCP - General 06/06/17 09/10/19 Pam Vera MD [address] [place] [phone] PCP - General 09/11/19 Pam Vera MD [address] [facility] [address] [place] [phone] 09/11/19 documented as of this encounter Additional Source Comments The information contained in this document represents components of the legal health record. It is not the complete legal health record.[facility]
== END 2025-07-15 00:01 ==
LOC: CF
PROVIDERS: PCP Internal Medicine; Visit Provider Nurse Practitioner Family
DX: N20.0 Calculus of kidney (principal); I27.20 Pulmonary hypertension, unspecified; R35.0 Frequency of micturition; R39.15 Urgency of urination; Z79.899 Other long term (current) drug therapy; Z99.89 Dependence on other enabling machines and devices
CPT/HCPCS: 51798; 81003; 99212

== ENCOUNTER 2025-07-15 10:34 | Outpatient (AMB) | payer OTHER, SELFPAY ==
--- NOTE | 2025-07-15 10:45 | MHC.OFFVIS ---
Intake Visit Reasons: 6m/ PVR Intake Note: Patient is present for 6M/PVR Urology Medication:SOLIFENACIN,MYRABEGRON,ESTRADIOL Antibiotic Allergy:NONE Blood Thinner:ASPIRIN Todays PVR:7ML'S Hydro Generation Supervisor Required: No Hydro Generation Supervisor Services: Hydro Generation Supervisor Present Hydro Generation Supervisor Name: Gracy [phone] Allergies Benadryl Allergy (Severe, Verified 07/15/25 11:00) palpitations hydroxyzine (From VISTARIL) Allergy (Severe, Verified 07/15/25 11:00) PALPATATION oxycodone (From PERCOCET) Allergy (Severe, Verified 07/15/25 11:00) PALPIATIONS Medication List - Last Reconciled 07/15/25 by BIBI Gomez-CARLOS albuterol sulfate 90 mcg/actuation 2 inhalations inhalation Q6H PRN 30 days albuterol sulfate 2.5 mg (3 mL) inhalation Q6H PRN 30 days amitriptyline 20 mg (2 x 10 mg) PO BEDTIME 30 days arm brace Bilateral carpal tunnel wrist splint aspirin (Adult Low Dose Aspirin) 81 mg PO DAILY atorvastatin 10 mg PO DAILY azelastine 2 sprays intranasal BID budesonide 0.5 mg (2 mL) inhalation DAILY 30 days cetirizine mg PO clonazepam 0.5 mg PO TID PRN codeine-guaifenesin 10-100 mg/5 mL 10 mL PO Q6H PRN 10 days CPAP (CPAP Machine/Device) As directed diclofenac potassium 50 mg PO BID PRN 30 days epinephrine IM ergocalciferol (vitamin D2) 1,250 mcg PO QWEEK estradiol 0.01%(0.1mg/gram) pea sized amount to urethra 3 times a week 90 days famotidine 10 mg PO BID ferrous sulfate 325 mg PO DAILY fluoxetine mg PO fluticasone furoate-vilanterol 200-25 mcg/dose (Breo Ellipta) 1 inh inhalation DAILY 30 days fluticasone propion-salmeterol 230-21 mcg/actuation (Advair HFA) 2 puffs inhalation BID suuikhdrakr-isotnplcu-vhnizcbp 200-62.5-25 mcg (Trelegy Ellipta) 1 inh inhalation DAILY 90 days furosemide (Lasix) 20 mg PO DAILY PRN 30 days gabapentin 100 - 300 mg (1 - 3 x 100 mg) PO BEDTIME 30 days galcanezumab-gnlm (Emgality Pen) 120 mg subcut ONCE 30 days glipizide 5 mg PO DAILY ipratropium-albuterol 0.5 mg-3 mg(2.5 mg base)/3 mL 3 mL inhalation BID 30 days loratadine 10 mg PO DAILY PRN 30 days magnesium oxide 400 mg PO DAILY 30 days meclizine 12.5 mg PO BID melatonin 5 mg PO BEDTIME PRN 30 days metformin ER 500 mg PO DAILY metoprolol succinate ER 25 mg PO DAILY mirabegron ER (Myrbetriq) 25 mg PO DAILY 90 days molnupiravir 800 mg (4 x 200 mg) PO Q12H 5 days montelukast 10 mg PO DAILY nebulizers As directed omeprazole 20 mg PO DAILY roflumilast (Daliresp) 500 mcg PO DAILY 30 days solifenacin (Vesicare) 5 mg PO DAILY 90 days sumatriptan succinate 50 - 100 mg orally at onset of headache, may repeat in 2 hrs PRN; max 2 tabs per day or 4 tabs/week (may take with Tylenol or Diclofenac) 30 days zolpidem 10 mg PO BEDTIME PRN HPI Comments Details: Rachell is a pleasant 55 year old Nepali speaking patient of Dr. Vera. She has a past medical history of asthma, COPD, obesity, and obstructive sleep apnea on CPAP. She presents to the office today for follow-up of her mixed urinary incontinence. In discussion with the patient today she reports to be doing and feeling well. She reports compliance with Myrbetriq, VESIcare, and Estrace cream as prescribed. She denies having had any bothersome urinary issues or concerns. In office urinalysis results reviewed with the patient today. PVR 7 mL. She discusses how helpful Myrbetriq and VESIcare have been. Previous workup has included a retroperitoneal ultrasound 01/12 noting bilateral kidneys with no calculi, lesions, and or hydronephrosis. She otherwise denies nocturia, hematuria, dysuria, changes to urinary stream, flank pain, fever, and or chills. We discussed potential causes of mixed urinary incontinence as well as further treatment options and risks and benefits of these treatment options however patient reports she is happy with her current voiding parameters on current regimen. All questions were answered. She otherwise offers no other issues or concerns at this time. [facility] Medical History Lower extremity edema Asthma-COPD overlap syndrome MANJULA (obstructive sleep apnea) Chronic urticaria Chronic restrictive lung disease COVID-19 Pre-op chest exam Sinusitis Dyspnea Chest pain Obesity Anemia Extremity edema Dyspnea Chronic rhinitis MANJULA on CPAP Asthma Surgical History History of bilateral tubal ligation History of dilatation and curettage delivery delivered Family History Mother Asthma Hypertension Father FHx: lung cancer Social History Alcohol intake: never Patient Tobacco Use Status: Former Tobacco user Tobacco use type: Cigarette Years Smoked: 12 years Female Reproductive History Menstrual Age of Menarche: 13 Review of Systems Const Reports as per HPI Eyes Reports no additional complaints ENT Reports no additional complaints Card Reports no additional complaints Resp Reports as per HPI GI Reports no additional complaints Reports as per HPI Musc Reports no additional complaints Neuro Reports no additional complaints Psych Reports no additional complaints Endo Reports no additional complaints Pedro/Lymph Reports no additional complaints Aller/Immun Reports no additional complaints Physical Exam Const General: cooperative, healthy appearing, comfortable, no acute distress, well developed, alert and awake Nutritional Appearance: obese Orientation/consciousness: patient oriented x3 Limitations: no limitations HEENT Head: Yes normal to inspection, Yes normocephalic and Yes atraumatic Ears: hearing grossly normal bilaterally Eyes General: appearance normal, both eyes and all related structures Neck Neck: Yes normal visual inspection and Yes trachea midline Chest Chest palpation & inspection: normal inspection of the chest Resp Effort & Inspection: normal respiratory effort and able to speak in complete sentences Cardio Rate: regular rate GI Inspection: Yes normal to inspection General: Yes no CVA tenderness Back/Spine/Pelvis Back: no CVA tenderness Skin General skin exam: no rashes or lesions noted Neuro General: patient oriented x3 Extrem General: Yes normal to inspection Psych Appearance: grossly normal and well kempt Mental Status: mental status grossly normal Speech and movement: Clear speech present Affect: normal affect Attitude: cooperative Thought process: Normal thought process present Thought content: Normal thought content present Insight: Fair insight present (Psych) Judgement: Fair judgement present (Psych) Office Procedures Post Void Residual Post Residual Void Post Void Residual (PVR): 7 [id number] Void Residual by ultrasound Results AMB Urinalysis, Automated UA Leukoctes 0 Ambar/uL Last Edit by JOSR Morgan on 07/15/25 11:00 UA Nitrite Negative Last Edit by JOSR Morgan on 07/15/25 11:00 UA Urobilinogen 0.2 mg/dL Last Edit by JOSR Morgan on 07/15/25 11:00 UA Protein 15 mg/dL Last Edit by JOSR Morgan on 07/15/25 11:00 UA pH 6.0 Last Edit by JOSR Morgan on 07/15/25 11:00 UA Blood 0 Lewis/uL Last Edit by JOSR Morgan on 07/15/25 11:00 UA Specific Herald 1.030 Last Edit by JOSR Morgan on 07/15/25 11:00 UA Ketone Negative Last Edit by JOSR Morgan on 07/15/25 11:00 UA Bilirubin 0 mg/dL Last Edit by Kelton Aggarwal CCM on 07/15/25 11:00 UA Glucose 0 mg/dL Last Edit by JOSR Morgan on 07/15/25 11:00 Results Reviewed Results Reviewed: Laboratory Last Values Urine pH (Auto) 6.0 07/15/25 10:59 Specific Herald (Auto) 1.030 07/15/25 10:59 Urine Protein (Auto) 15 mg/dL 07/15/25 10:59 Glucose (UA)(Auto) 0 mg/dL 07/15/25 10:59 Urine Ketones (Auto) Negative 07/15/25 10:59 Urine Blood (Auto) 0 Lewis/uL 07/15/25 10:59 Urine Nitrite (Auto) Negative 07/15/25 10:59 Urine Bilirubin (Auto) 0 mg/dL 07/15/25 10:59 Urine Urobilinogen (Auto) 0.2 mg/dL 07/15/25 10:59 Leukocyte Esterase (Auto) 0 Ambar/uL 07/15/25 10:59 Assessment & Plan Assessment & Plan (1) Nephrolithiasis: Code(s): N20.0 - Calculus of kidney Category: Medical (2) Urinary frequency: Code(s): R35.0 - Frequency of micturition Category: Medical (3) Urinary urgency: Code(s): R39.15 - Urgency of urination Category: Medical (4) Lower urinary tract symptoms: Code(s): R39.9 - Unspecified symptoms and signs involving the genitourinary system Category: Medical Plan In office urinalysis results with the patient today; as noted above PVR 7 mL She reports be happy with current voiding parameters on dual therapy with Myrbetriq and VESIcare; will continue refills provided Continue Estrace cream as discussed and prescribed. She currently denies any bothersome urinary issues. Will continue with surveillance monitoring. Follow-up in 6 months with PVR; or sooner with any issues, concerns, and or questions. Orders: Orders AMB Urinalysis Automated Today Z13.9 - Encounter for screening, unspecified Medications: Refilled mirabegron ER (Myrbetriq) 25 mg PO DAILY 90 tabs 4RF 90 days N30.10 - Interstitial cystitis (chronic) without hematuria, N32.81 - Overactive bladder, R35.1 - Nocturia, R39.15 - Urgency of urination solifenacin (Vesicare) 5 mg PO DAILY 90 tabs 3RF 90 days estradiol 0.01%(0.1mg/gram) pea sized amount to urethra 3 times a week 42.5 grams 3RF 90 days Patient Instructions: The patient had an opportunity to ask questions regarding the treatment plan. All questions were answered. Physical exam, labs, and imaging were discussed and reviewed in detail. As well as risks, benefits, and discussion of treatment choices. No major barriers to understanding were identified. The patient expressed understanding and agreement with the above treatment plan. The patient was made aware they should contact our office by phone for worsening of their current condition, the appearance of new symptoms, or with any questions or concerns. Compliance is encouraged with any medications and follow up testing that is ordered. It is a privilege to be allowed the opportunity to participate in? your urological care.? Again, if you have any questions or concerns If you have any questions or concerns please do not hesitate to contact me. The office is [phone]. This note is constructed using voice recognition software. While every effort has been made to ensure accuracy remotely piloted vehicle controller errors may have been included. Yours sincerely, BIBI Gomez-CARLOS Coding Level of Care Code Est Pt Level 3 (88908) Complex visit Add On G2211 Diagnoses Nephrolithiasis N20.0 Urinary frequency R35.0 Urinary urgency R39.15 Lower urinary tract symptoms R39.9 CPT Codes Post Residual Void - PVR CPT Code: 43577-Ffii Void Residual by ultrasound ([id number])
== END 2025-07-15 11:39 | disposition home or self-care (01) ==
LOC: HO.HUSH 10:35
PROVIDERS: PCP Internal Medicine; Visit Provider Nurse Practitioner Family
DX: N20.0 Calculus of kidney (principal); R35.0 Frequency of micturition; R39.15 Urgency of urination; R39.9 Unspecified symptoms and signs involving the genitourinary system; Z13.9 Encounter for screening, unspecified
CPT/HCPCS: 99213